=== PATIENT | male | born 1960 | race Caucasian/White ===

== ENCOUNTER 2018-01-08 09:55 | Emergency (ER) | payer BC, OTHER ==
[~2018-01-08] VITALS: Ht 177.8 cm; Wt 131.0 kg
[~2018-01-08 09:55] MED LIST: LEVO.025 PO; LISI-360 PO; LITH300 PO; QUET100 PO; lithium
[2018-01-08 09:59] VITALS: BP 195/100; PULSE 69; RESP 22; TEMP 98.1; O2SAT 98
[2018-01-08] MEDS ORDERED: LITH600C PO (10:07)
[2018-01-08] MEDS ORDERED: blood pressure P-ARTICULR (10:07)
[2018-01-08] MEDS ORDERED: QUET1TAB8 PO (10:07)
[2018-01-08] MEDS ORDERED: ARIP2 PO (10:07)
--- NOTE | 2018-01-08 10:30 | PD ---
HPI Chief Complaint: Depression Time Seen by Provider: 10:01 Travel History International Travel<30 days: No Contact w/Intl Traveler<30days: No Traveled to known affect area: No History of Present Illness HPI Is a 57-year-old man who presents to the emergency department referred by his primary physician for psychiatric evaluation for insomnia and not sleeping. States she has had some increasing depression and has not been able to sleep for the past 4 days or so. He has had similar problems in the past. He has a history of bipolar depression by his chart. He is on Klonopin Seroquel Abilify regularly. He was followed by Dr. Urbina with psychiatry, is now seen primarily at [facility]. States he last saw him a month or so ago. He endorses some increasing depression but denies any suicidality or homicidality. No recent illness or injury. No other complaints. He sees Dr. Cadet, his primary physician, referred him to the emergency department. History Past Medical History Medical History: Denies Significant Hx Influenza Vaccination: No Social History Alcohol Use: No Tobacco Use: No Allergies-Medications (Allergen,Severity, Reaction): Coded Allergies: No Known Allergies (Unverified Adverse Reaction, Unknown, 01/08/18) Reported Meds & Prescriptions Reported Meds & Active Scripts Active Reported Abilify (Aripiprazole) 2 Mg Tab Unknown Dose PO DAILY [place] Carbonate 600 Mg Cap 600 Mg PO TID Quetiapine (Quetiapine Fumarate) 100 Mg Tab 100 Mg PO HS [blood pressure] Unknown Dose P-ARTICULR DAILY Review of Systems Except as stated in HPI: all other systems reviewed are Neg Physical Exam Narrative GENERAL: Well-appearing 57-year-old man, very flat affect, little bit bizarre but pleasant. SKIN: Focused skin assessment warm/dry. HEAD: Atraumatic. Normocephalic. EYES: Pupils equal and round. No scleral icterus. No injection or drainage. ENT: No nasal bleeding or discharge. Mucous membranes pink and moist. NECK: Trachea midline. No JVD. CARDIOVASCULAR: Regular rate and rhythm. No murmur appreciated. RESPIRATORY: No accessory muscle use. Clear to auscultation. Breath sounds equal bilaterally. GASTROINTESTINAL: Abdomen soft, non-tender, nondistended. Hepatic and splenic margins not palpable. MUSCULOSKELETAL: No obvious deformities. No clubbing. No cyanosis. No edema. NEUROLOGICAL: Awake and alert. No obvious cranial nerve deficits. Motor grossly within normal limits. Normal speech. PSYCHIATRIC: Flat affect, poor eye contact, a little bit of a bizarre demeanor. Does not appear to be responding to internal stimuli. A little bit slow in most of his mannerisms. Denies SI or HI. Data Data Last Documented VS Vital Signs Date Time Temp Pulse Resp B/P (MAP) Pulse Ox O2 Delivery O2 Flow Rate FiO2 01/08/18 09:59 98.1 69 22 195/100 (131) 98 Orders Orders Complete Blood Count With Diff (01/08/18 10:19) Comprehensive Metabolic Panel (01/08/18 10:19) Thyroid Stimulating Hormone (01/08/18 10:19) Psych Screen (01/08/18 10:19) Drug Screen, Random Urine (01/08/18 10:19) Labs Laboratory Tests Test 01/08/18 10:25 White Blood Count 9.4 TH/MM3 Red Blood Count 4.96 MIL/MM3 Hemoglobin 15.3 GM/DL Hematocrit 44.3 % Mean Corpuscular Volume 89.3 FL Mean Corpuscular Hemoglobin 30.8 PG Mean Corpuscular Hemoglobin Concent 34.5 % Red Cell Distribution Width 14.1 % Platelet Count 407 TH/MM3 Mean Platelet Volume 7.8 FL Neutrophils (%) (Auto) 70.1 % Lymphocytes (%) (Auto) 17.6 % Monocytes (%) (Auto) 8.8 % Eosinophils (%) (Auto) 2.2 % Basophils (%) (Auto) 1.3 % Neutrophils # (Auto) 6.6 TH/MM3 Lymphocytes # (Auto) 1.7 TH/MM3 Monocytes # (Auto) 0.8 TH/MM3 Eosinophils # (Auto) 0.2 TH/MM3 Basophils # (Auto) 0.1 TH/MM3 CBC Comment DIFF FINAL Differential Comment Blood Urea Nitrogen 6 MG/DL Creatinine 1.11 MG/DL Random Glucose 127 MG/DL Total Protein 7.7 GM/DL Albumin 4.4 GM/DL Calcium Level 9.2 MG/DL Alkaline Phosphatase 61 U/L Aspartate Amino Transf (AST/SGOT) 22 U/L Alanine Aminotransferase (ALT/SGPT) 36 U/L Total Bilirubin 0.6 MG/DL Sodium Level 136 MEQ/L Potassium Level 3.9 MEQ/L Chloride Level 104 MEQ/L Carbon Dioxide Level 21.6 MEQ/L Anion Gap 10 MEQ/L Estimat Glomerular Filtration Rate 68 ML/MIN Thyroid Stimulating Hormone 3rd Gen 1.780 uIU/ML [facility] Medical Decision Making Medical Screen Exam Complete: Yes Emergency Medical Condition: Yes Interpretation(s) Labs: CBC is unremarkable. CMP is unremarkable. TSH normal. Differential Diagnosis Bipolar depression, insomnia, adverse medication effect, other Narrative Course Medical decision making 57-year-old man with increasing depression symptoms with insomnia. Very blunted restricted affect, denies SI or HI. Will plan psych screen, reassess. Diagnosis Primary Impression: Bipolar disorder Timo Nguyễn MD Jan 08, 2018 10:30
[2018-01-08 10:35] LABS: AUTOMATED NEUTROPHIL # 6.6 TH/MM3 (1.8-7.7); BASOPHIL # 0.1 TH/MM3 (0-0.2); BASOPHIL % 1.3 % (0.0-2.0); EOSINOPHIL # 0.2 TH/MM3 (0-0.4); EOSINOPHIL % 2.2 % (0.0-4.0); HEMATOCRIT 44.3 % (39.0-51.0); HEMOGLOBIN 15.3 GM/DL (13.0-17.0); LYMPH % 17.6 % (9.0-44.0); LYMPHOCYTE # 1.7 TH/MM3 (1.0-4.8); MEAN CELL VOLUME 89.3 FL (80.0-100.0); MEAN CORPUSCULAR HEMOGLOBIN 30.8 PG (27.0-34.0); MEAN CORPUSCULAR HGB CONC 34.5 % (32.0-36.0); MEAN PLATELET VOLUME 7.8 FL (7.0-11.0); MONO % 8.8 % (0.0-8.0); MONOCYTE # 0.8 TH/MM3 (0-0.9); NEUT % 70.1 % (16.0-70.0); PLATELET COUNT 407 TH/MM3 (150-450); RED BLOOD COUNT 4.96 MIL/MM3 (4.50-5.90); RED CELL DISTRIBUTION WIDTH 14.1 % (11.6-17.2); WHITE BLOOD COUNT 9.4 TH/MM3 (4.0-11.0)
[2018-01-08 10:55] LABS: ALBUMIN 4.4 GM/DL (3.4-5.0); ALT (GPT) 36 U/L (12-78); AST (GOT) 22 U/L (15-37); BICARBONATE 21.6 MEQ/L (21.0-32.0); BLOOD UREA NITROGEN 6 MG/DL (7-18); CALCIUM 9.2 MG/DL (8.5-10.1); CHLORIDE 104 MEQ/L (98-107); CREATININE 1.11 MG/DL (0.60-1.30); GLOMERULAR FILTRATION RATE 68 ML/MIN (>89); GLUCOSE,RANDOM 127 MG/DL (74-106); SODIUM (NA) 136 MEQ/L (136-145)
[2018-01-08 11:05] LABS: ALKALINE PHOSPHATASE 61 U/L (45-117); TOTAL BILIRUBIN ADULT 0.6 MG/DL (0.2-1.0); TOTAL PROTEIN 7.7 GM/DL (6.4-8.2)
== END 2018-01-08 13:36 | disposition home or self-care (01) ==
LOC: NEPD 09:55 → NEPJ 13:36
DX: F31.9 Bipolar disorder, unspecified (principal); G47.00 Insomnia, unspecified
CPT/HCPCS: 80053; 84443; 85025; 99283

== ENCOUNTER 2018-01-09 16:17 | Inpatient (IN) | payer SELFPAY ==
[~2018-01-09] VITALS: Ht 177.8 cm; Wt 114.0 kg
[~2018-01-09 16:17] MED LIST changes: +ARIP2 PO; -LEVO.025 PO; -LISI-360 PO; -LITH300 PO; +LITH600C PO; -QUET100 PO; +QUET1TAB8 PO; +blood pressure P-ARTICULR; -lithium
[2018-01-09 16:46] VITALS: BP 176/110; PULSE 97; RESP 18; TEMP 98.8; O2SAT 97
[2018-01-09] MEDS ORDERED: cloNIDine HCL 0.1 MG TAB PO ONE (17:00)
--- NOTE | 2018-01-09 17:03 | PD ---
HPI Chief Complaint: Psychiatric Symptoms Time Seen by Provider: 16:46 Travel History International Travel<30 days: No Contact w/Intl Traveler<30days: No Traveled to known affect area: No History of Present Illness HPI 57-year-old male that presents to the ED for evaluation of Charlie act. Patient was Guerra acted by police after apparently he told police that he was going to take his medications and overdose. He has a history of depression and insomnia. Patient was actually here yesterday for similar. Patient was released yesterday. Per patient his symptoms continue. He does take medications for his depression but he states that he does not take it because it causes some side effects. She follows with [facility]. The note from previous provider yesterday. He denies any other medical issues. He states that he has some difficulty ambulating which is chronic for him. He also has a history of hypertension has not taken his blood pressure medications today. Denies any chest pain or shortness of breath. No urinary bowel movement issues. No other medical issues at this time. Symptoms have not improved which is per prompted him calling the police to seek help. PFSH Past Medical History Autoimmune Disease: No Bipolar Disorder: Yes Anxiety: Yes Depression: Yes Diminished Hearing: No Endocrine: No Genitourinary: No Hypertension: Yes Immune Disorder: No Psychiatric: Yes Reproductive: No Respiratory: No Thyroid Disease: Yes Past Surgical History Tonsillectomy: Yes Social History Alcohol Use: No Tobacco Use: No Substance Use: No Allergies-Medications (Allergen,Severity, Reaction): Coded Allergies: No Known Allergies (Unverified Adverse Reaction, Unknown, 01/09/18) Reported Meds & Prescriptions Reported Meds & Active Scripts Active Reported Abilify (Aripiprazole) 2 Mg Tab Unknown Dose PO DAILY [place] Carbonate 600 Mg Cap 600 Mg PO TID Quetiapine (Quetiapine Fumarate) 100 Mg Tab 100 Mg PO HS [blood pressure] Unknown Dose P-ARTICULR DAILY Review of Systems Except as stated in HPI: all other systems reviewed are Neg Physical Exam Narrative GENERAL: SKIN: Warm and dry. HEAD: Atraumatic. Normocephalic. EYES: Pupils equal and round. No scleral icterus. No injection or drainage. ENT: No nasal bleeding or discharge. Mucous membranes pink and moist. Tongue is midline. No uvula deviation. NECK: Trachea midline. No JVD. CARDIOVASCULAR: Regular rate and rhythm. No murmurs, S3, S4. RESPIRATORY: No accessory muscle use. Clear to auscultation. Breath sounds equal bilaterally. GASTROINTESTINAL: Abdomen soft, non-tender, nondistended. Hepatic and splenic margins not palpable. MUSCULOSKELETAL: Extremities without clubbing, cyanosis, or edema. No obvious deformities. Full range of motion of the upper and lower extremities bilaterally. 2+ pulses bilaterally. NEUROLOGICAL: Awake and alert. No obvious cranial nerve deficits. Motor grossly within normal limits. Five out of 5 muscle strength in the arms and legs. Normal speech. PSYCHIATRIC: Appropriate mood and affect; insight and judgment normal. Data Data Last Documented VS Vital Signs Date Time Temp Pulse Resp B/P (MAP) Pulse Ox O2 Delivery O2 Flow Rate FiO2 01/09/18 16:46 98.8 97 18 176/110 (132) 97 Orders Orders Complete Blood Count With Diff (01/09/18 16:46) Comprehensive Metabolic Panel (01/09/18 16:46) Thyroid Stimulating Hormone (01/09/18 16:46) Psych Screen (01/09/18 16:46) Drug Screen, Random Urine (01/09/18 16:46) Alcohol (Ethanol) (01/09/18 16:46) Salicylates (Aspirin) (01/09/18 16:46) Tylenol (Acetaminophen) (01/09/18 16:46) Clonidine (Catapres) (01/09/18 17:00) Labs Laboratory Tests Test 01/09/18 16:35 White Blood Count 11.3 TH/MM3 Red Blood Count 5.29 MIL/MM3 Hemoglobin 16.1 GM/DL Hematocrit 47.9 % Mean Corpuscular Volume 90.6 FL Mean Corpuscular Hemoglobin 30.5 PG Mean Corpuscular Hemoglobin Concent 33.7 % Red Cell Distribution Width 14.5 % Platelet Count 438 TH/MM3 Mean Platelet Volume 8.5 FL Neutrophils (%) (Auto) 69.7 % Lymphocytes (%) (Auto) 17.1 % Monocytes (%) (Auto) 10.0 % Eosinophils (%) (Auto) 1.9 % Basophils (%) (Auto) 1.3 % Neutrophils # (Auto) 7.9 TH/MM3 Lymphocytes # (Auto) 1.9 TH/MM3 Monocytes # (Auto) 1.1 TH/MM3 Eosinophils # (Auto) 0.2 TH/MM3 Basophils # (Auto) 0.1 TH/MM3 CBC Comment DIFF FINAL Differential Comment Blood Urea Nitrogen 6 MG/DL Creatinine 1.24 MG/DL Random Glucose 118 MG/DL Albumin 4.8 GM/DL Calcium Level 9.3 MG/DL Aspartate Amino Transf (AST/SGOT) 23 U/L Alanine Aminotransferase (ALT/SGPT) 42 U/L Sodium Level 133 MEQ/L Potassium Level 3.6 MEQ/L Chloride Level 102 MEQ/L Carbon Dioxide Level 18.3 MEQ/L Anion Gap 13 MEQ/L Estimat Glomerular Filtration Rate 60 ML/MIN Salicylates Level 3.3 MG/DL Ethyl Alcohol Level LESS THAN 3 MG/DL MDM Medical Decision Making Medical Screen Exam Complete: Yes Emergency Medical Condition: Yes Medical Record Reviewed: Yes Differential Diagnosis Depression versus suicidal ideation versus anxiety versus adjustment disorder versus mood disorder versus bipolar disorder versus schizophrenia versus paranoid disorder versus psychosis versus substance abuse versus alcohol abuse versus alcohol induced psychosis versus homicidality addition versus cutting versus personality disorder Narrative Course 57-year-old male that presents to the ED for evaluation of psychiatric illness. Patient was properly examined and was found to have signs and symptoms consistent with appears to be psychiatric. No significant medical distress. Labs were drawn. Patient was medically clear. Okay to be seen by psych. patient given dose of clonidine for his BP. Mental health screening was discussed with the patient. Diagnosis Primary Impression: Bipolar disorder, most recent episode manic Sam Nina Jan 09, 2018 17:03
[2018-01-09 17:17] LABS: AUTOMATED NEUTROPHIL # 7.9 TH/MM3 (1.8-7.7); BASOPHIL # 0.1 TH/MM3 (0-0.2); BASOPHIL % 1.3 % (0.0-2.0); EOSINOPHIL # 0.2 TH/MM3 (0-0.4); EOSINOPHIL % 1.9 % (0.0-4.0); HEMATOCRIT 47.9 % (39.0-51.0); HEMOGLOBIN 16.1 GM/DL (13.0-17.0); LYMPH % 17.1 % (9.0-44.0); LYMPHOCYTE # 1.9 TH/MM3 (1.0-4.8); MEAN CELL VOLUME 90.6 FL (80.0-100.0); MEAN CORPUSCULAR HEMOGLOBIN 30.5 PG (27.0-34.0); MEAN CORPUSCULAR HGB CONC 33.7 % (32.0-36.0); MEAN PLATELET VOLUME 8.5 FL (7.0-11.0); MONOCYTE # 1.1 TH/MM3 (0-0.9); NEUT % 69.7 % (16.0-70.0); PLATELET COUNT 438 TH/MM3 (150-450); RED BLOOD COUNT 5.29 MIL/MM3 (4.50-5.90); RED CELL DISTRIBUTION WIDTH 14.5 % (11.6-17.2); WHITE BLOOD COUNT 11.3 TH/MM3 (4.0-11.0)
[2018-01-09 17:32] LABS: ALBUMIN 4.8 GM/DL (3.4-5.0); ALT (GPT) 42 U/L (12-78); AST (GOT) 23 U/L (15-37); BICARBONATE 18.3 MEQ/L (21.0-32.0); BLOOD UREA NITROGEN 6 MG/DL (7-18); CALCIUM 9.3 MG/DL (8.5-10.1); CHLORIDE 102 MEQ/L (98-107); CREATININE 1.24 MG/DL (0.60-1.30); GLOMERULAR FILTRATION RATE 60 ML/MIN (>89); GLUCOSE,RANDOM 118 MG/DL (74-106); SODIUM (NA) 133 MEQ/L (136-145)
[2018-01-09 17:42] LABS: ALKALINE PHOSPHATASE 68 U/L (45-117); TOTAL BILIRUBIN ADULT 0.7 MG/DL (0.2-1.0); TOTAL PROTEIN 8.5 GM/DL (6.4-8.2)
[2018-01-09 17:59] LABS: ACETAMINOPHEN LESS THAN 2.0 MCG/ML (10.0-30.0)
[2018-01-09 18:47] VITALS: BP 161/91; PULSE 68; RESP 18; TEMP 97.5; O2SAT 98
[2018-01-09 20:17] VITALS: BP 166/81; PULSE 77; RESP 18; TEMP 99.1; O2SAT 97
[2018-01-09 21:55] VITALS: BP 170/77; PULSE 65; RESP 18; TEMP 98.5; O2SAT 96
[2018-01-10 02:30] VITALS: BP 195/95; PULSE 64; RESP 18; TEMP 98.6; O2SAT 98
[2018-01-10] MEDS ORDERED: cloNIDine HCL 0.1 MG TAB PO ONE (02:45)
[2018-01-10 04:26] VITALS: BP 136/69; PULSE 55; RESP 18; TEMP 98.6; O2SAT 94
[2018-01-10 06:23] VITALS: BP 164/78; PULSE 55; RESP 18; TEMP 98.3; O2SAT 96
[2018-01-10 13:00] VITALS: BP 175/113; PULSE 73; RESP 18; TEMP 98.1
[2018-01-10] MEDS ORDERED: NICOTINE 21 MG/24 HR PATCH T-DERMAL SCH (14:00)
[2018-01-10] MEDS ORDERED: ACETAMINOPHEN 325 MG TAB PO PRN (14:00)
[2018-01-10] MEDS ORDERED: MAGNESIUM HYDROXIDE SUSP 30 ML CUP PO PRN (14:00)
[2018-01-10] MEDS ORDERED: LORazepam 1 MG TAB PO PRN (14:00)
[2018-01-10] MEDS ORDERED: ALUMINUM/MAGNESIUM/SIMETH 30 ML CUP PO PRN (14:00)
[2018-01-10] MEDS ORDERED: LORazepam 0.5 MG TAB PO PRN (14:00)
[2018-01-10] MEDS ORDERED: LORazepam 2 MG/ML VIAL IM PRN ×2 (14:00)
--- NOTE | 2018-01-10 14:16 | HHI.HP ---
Provisional Diagnosis Admission Date Mcintire I. Bipolar disorder type I, most current episode manic Mcintire II. Deferred Mcintire III. Hypertension Certification of Person's Competence To Provide Express and Informed Consent I have personally examined Joe Serna , a person being served at [facility] on, Jan 10, 2018 14:02. Express and informed consent means consent voluntarily given in writing, by a competent person, after sufficient explanation and disclosure of the subject matter involved to enable the person to make a knowing and willful decision without any element of force, fraud, deceit, duress, or other form of constraint or coercion. This person is 18 years of age or older, is not now known to be incompetent to consent to treatment with a guardian advocate, and does not have a health care surrogate or proxy currently making medical treatment decisions. I have found this person to be one of the following: [] Competent to provide express and informed consent, as defined above, for voluntary admission to this facility and is competent to provide express and informed consent for treatment. He/she has the consistent capacity to make well reasoned, willful, and knowing decisions concerning his or her medical or mental health treatment. The person fully and consistently understands the purpose of the admission for examination/placement and is fully capable of personally exercising all rights [place] Incompetent to provide express and informed consent to voluntary admission, and this is incompetent to provide express and informed consent to treatment. The person must be transferred to involuntary status and a petition for a guardian advocate filed with the Circuit Court. [x] Refusing to provide express and informed consent to voluntary admission but is competent to provide express and informed consent for treatment. The person must be discharged or transferred to involuntary status. Form shall be completed within 24 hours of a person's arrival at the receiving facility and filed in the clinical record of each person: 1. Admitted on a voluntary basis 2. Permitted to provide express and informed consent to his/her own treatment 3. Allowed to transfer from involuntary to voluntary status 4. Prior to permitting a person to consent to his or her own treatment after having been previously found incompetent to consent to treatment. History of Present Illness Capacity: Has Capacity HPI The patient is a 57-year-old man, domiciled in [facility], single, father of 3 kids, unemployed, with psychiatric history of bipolar disorder, 2 previous psychiatric hospitalizations, the last hospitalization was in 2016 here at [facility] under the care of Dr. Denton, documentation was reviewed , established outpatient care in [facility], he is on lithium 600 mg twice daily, Abilify 2 mg, Seroquel 100 mg at bedtime, nickel history hypertension, who presents to the ED for evaluation of Guerra act. Patient was Guerra acted by police after apparently he told police that he was going to take his medications and overdose. He has a history of depression and insomnia. Patient was actually here yesterday for similar, he was discharged. Per patient his symptoms continue. Documentation was reviewed. Case discussed with ER staff. On my psychiatric evaluation I find a patient that is internally preoccupied, he states that he has not slept 1 single minutes last night, he has not been sleeping lately. Patient reports that he has been feeling "wear, because I am not taking my medications". The patient has moments of complete disorganization and tangentiality, he is redirectable.. He is guarded, oddly related. He says that yesterday he was feeling like overdosing with all his medications. The patient is fully oriented 3, no attention deficit, no fluctuation of consciousness. He does not have a prominent pressure speech, but at times he does become tangential and disorganized, with rapid speech. He denies the use of drugs of and alcohol. Review of Systems Constitutional: DENIES: Diaphoretic episodes, Fatigue, Fever, Weight gain, Weight loss, Chills, Dizziness, Change in appetite, Night Sweats Endocrine: DENIES: Heat/cold intolerance, Polydipsia, Polyuria, Polyphagia Eyes: DENIES: Blurred vision, Diplopia, Eye inflammation, Eye pain, Vision loss , Photosensitivity, Double Vision Ears, nose, mouth, throat: DENIES: Tinnitus, Hearing loss, Vertigo, Nasal discharge, Oral lesions, Throat pain, Hoarseness, Ear Pain, Running Nose, Epistaxis, Sinus Pain, Toothache, Odynophagia Respiratory: DENIES: Apneas, Cough, Snoring, Wheezing, Hemoptysis, Sputum production, Shortness of breath Cardiovascular: DENIES: Chest pain, Palpitations, Syncope, Dyspnea on Exertion , PND, Lower Extremity Edema, Orthopnea, Claudication Gastrointestinal: DENIES: Abdominal pain, Black stools, Bloody stools, Constipation, Diarrhea, Nausea, Vomiting, Difficulty Swallowing, Anorexia Genitourinary: DENIES: Sexual dysfunction, Urinary frequency, Urinary incontinence, Urgency, Hematuria, Dysuria, Nocturia, Penile Discharge, Testicular Pain, Testicular Swelling Musculoskeletal: DENIES: Joint pain, Muscle aches, Stiffness, Joint Swelling, Back pain, Neck pain Hematologic/lymphatic: DENIES: Bruising, Lymphadenopathy Immunologic/allergic: DENIES: Eczema, Urticaria Neurologic: DENIES: Abnormal gait, Headache, Localized weakness, Paresthesias, Seizures, Speech Problems, Tremor, Poor Balance Psychiatric: COMPLAINS OF: Mood changes, Delusions Substance Abuse History Drugs/Alcohol past 12 months He denies the use of alcohol and illegal drug Past Family Social History Coded Allergies: No Known Allergies (Unverified Adverse Reaction, Unknown, 01/09/18) Reported Medications Aripiprazole (Abilify) 2 Mg Tab, PO DAILY, #30 TAB 0 Refills 01/08/18 [place] Carbonate ([place] Carbonate) 600 Mg Cap, 600 MG PO TID, CAP 0 Refills 01/08/18 Quetiapine (Quetiapine) 100 Mg Tab, 100 MG PO HS, #30 TAB 0 Refills 01/08/18 [blood pressure] No Conflict Check, P-ARTICULR DAILY 01/08/18 Current Medications Medications (Trade) Dose Ordered Sig/Ty Route Start Time Stop Time Status Last Admin ([place] Carbonate) 600 mg TID PO 01/10/18 18:00 UNV (SEROquel) 100 mg HS PO 01/10/18 21:00 UNV (Ativan) 1 mg Q6H PRN PO 01/10/18 14:00 UNV (Ativan Inj) 1 mg Q6H PRN IM 01/10/18 14:00 UNV (Ativan) 0.5 mg Q12H PRN PO 01/10/18 14:00 UNV (Ativan Inj) 0.5 mg Q12H PRN IM 01/10/18 14:00 UNV (Tylenol) 650 mg Q4H PRN PO 01/10/18 14:00 UNV (Milk Of Magnesia Liq) 30 ml DAILY PRN PO 01/10/18 14:00 UNV (Mag-Al Plus Susp Liq) 30 ml Q6H PRN PO 01/10/18 14:00 UNV (Habitrol 21 Mg Patch.24 Hr) 1 patch DAILY T-DERMAL 01/10/18 14:00 UNV Family Psych History No family psychiatric history Social History Patient was born and raised in [facility], he lives in [facility], single, father of 3 kids, unemployed, highest level of the patient is some college Patient's Strengths (min. 2) Outpatient psychiatric care in [facility] Physical Exam No tremors, no EPS, no restlessness, no psychomotor agitation or retardation. Vital Signs Vital Signs Date Time Temp Pulse Resp B/P (MAP) Pulse Ox O2 Delivery O2 Flow Rate FiO2 01/10/18 06:23 98.3 55 18 164/78 (106) 96 Room Air Lab Results Test 01/09/18 16:35 01/09/18 19:22 01/10/18 02:35 White Blood Count 11.3 TH/MM3 Red Blood Count 5.29 MIL/MM3 Hemoglobin 16.1 GM/DL Hematocrit 47.9 % Mean Corpuscular Volume 90.6 FL Mean Corpuscular Hemoglobin 30.5 PG Mean Corpuscular Hemoglobin Concent 33.7 % Red Cell Distribution Width 14.5 % Platelet Count 438 TH/MM3 Mean Platelet Volume 8.5 FL Neutrophils (%) (Auto) 69.7 % Lymphocytes (%) (Auto) 17.1 % Monocytes (%) (Auto) 10.0 % Eosinophils (%) (Auto) 1.9 % Basophils (%) (Auto) 1.3 % Neutrophils # (Auto) 7.9 TH/MM3 Lymphocytes # (Auto) 1.9 TH/MM3 Monocytes # (Auto) 1.1 TH/MM3 Eosinophils # (Auto) 0.2 TH/MM3 Basophils # (Auto) 0.1 TH/MM3 CBC Comment DIFF FINAL Differential Comment Blood Urea Nitrogen 6 MG/DL Creatinine 1.24 MG/DL Random Glucose 118 MG/DL Total Protein 8.5 GM/DL Albumin 4.8 GM/DL Calcium Level 9.3 MG/DL Alkaline Phosphatase 68 U/L Aspartate Amino Transf (AST/SGOT) 23 U/L Alanine Aminotransferase (ALT/SGPT) 42 U/L Total Bilirubin 0.7 MG/DL Sodium Level 133 MEQ/L Potassium Level 3.6 MEQ/L Chloride Level 102 MEQ/L Carbon Dioxide Level 18.3 MEQ/L Anion Gap 13 MEQ/L Estimat Glomerular Filtration Rate 60 ML/MIN Thyroid Stimulating Hormone 3rd Gen 2.440 uIU/ML Salicylates Level 3.3 MG/DL Acetaminophen Level LESS THAN 2.0 MCG/ML Ethyl Alcohol Level LESS THAN 3 MG/DL Urine Opiates Screen NEG Urine Barbiturates Screen NEG Urine Amphetamines Screen NEG Urine Benzodiazepines Screen NEG Urine Cocaine Screen NEG Urine Cannabinoids Screen NEG [place] Level 0.3 MEQ/L Mental Status Examination Appearance: Appropriate Consciousness: Alert Orientation: x4 Motor Activity: Normal gait Speech: Rapid Language: Adequate Fund of Knowledge: Adequate Attention and Concentration: Adequate Memory: Unremarkable Mood: Appropriate Affect: Appropriate Thought Process & Associations: Disorganized Thought Content: Racing thoughts Hallucination Type: None Delusion Type: Paranoid Suicidal Ideation: Yes Suicidal Plan: No Suicidal Intention: No Homicidal Ideation: No Homicidal Plan: No Homicidal Intention: No Insight: Poor Judgment: Poor Assessment & Plan Problem List: (1) Bipolar disorder, most recent episode manic ICD Codes: F31.10 - Bipolar disorder, current episode manic without psychotic features, unspecified Status: Acute Assessment & Plan: On psychiatric evaluation today the patient exhibits symptoms of hanane and also suicidal ideation with a plan of overdosing. The patient reports that he has not been sleeping for the last 3 days, at the same time he has rapidly and disorganized speech, tangential thinking, bizarre behavior. There is a patient with bipolar disorder, 2 prepsychotic hospitalizations, he reports partial compliance of medications. His lithium level was 0.3. He needs psychiatric admission for stabilization and safety. I will restart lithium 600 mg twice daily, Seroquel 100 mg at bedtime. Transferred to 2600 unit will consult psychiatry for second opinion. Assessment & Plan Estimated LOS: Moris Graves MD Jan 10, 2018 14:16
[2018-01-10] MEDS: LITHIUM CARBONATE 300 MG CAP PO SCH (18:12)
[2018-01-10] MEDS ORDERED: QUEtiapine FUMARATE 100 MG TAB PO SCH (21:00)
[2018-01-11 06:05] VITALS: BP 180/92; PULSE 72; RESP 16; TEMP 98.2; O2SAT 95
[2018-01-11 07:25] VITALS: BP 172/110; PULSE 82
[2018-01-11] MEDS ORDERED: cloNIDine HCL 0.1 MG TAB PO ONE (08:00)
[2018-01-11] MEDS: LITHIUM CARBONATE 300 MG CAP PO SCH ×3 (08:12→17:57)
[2018-01-11 09:36] VITALS: BP 135/93; PULSE 86
[2018-01-11 11:18] LABS: BICARBONATE 22.8 MEQ/L (21.0-32.0); BLOOD UREA NITROGEN 10 MG/DL (7-18); CALCIUM 9.8 MG/DL (8.5-10.1); CHLORIDE 104 MEQ/L (98-107); GLOMERULAR FILTRATION RATE 62 ML/MIN (>89); GLUCOSE,RANDOM 94 MG/DL (74-106); SODIUM (NA) 136 MEQ/L (136-145)
[2018-01-11 11:20] LABS: CHOLESTEROL 137 MG/DL (120-200); CHOLESTEROL/ HDL RATIO 2.12 RATIO; HDL CHOLESTEROL 64.4 MG/DL (40.0-60.0); LDL CHOLESTEROL 55 MG/DL (0-99); TRIGLYCERIDES 89 MG/DL (42-150)
[2018-01-11] MEDS ORDERED: cloNIDine HCL 0.1 MG TAB PO PRN (12:00)
--- NOTE | 2018-01-11 13:32 | PD.CONS ---
[facility] Service [facility] Requested By Reason for Consult BP management Primary Care Physician No Primary Care Physician Diagnoses: History of Present Illness 57-year-old male with PMH of HTN, bipolar disorder, and alcohol abuse who presents to the ER 01/09 after being Guerra acted by PD after making statements of wanting to kill himself by taking medications. [facility] has been consulted to assist with management of patients HTN. Nurse reports that patient received clonidine with some improvement on BP. Nurse has also notice patient to be anxious and internally preoccupied. Patient is seen and examined in his room resting in bed in no acute distress. He repots that he was on clonidine for his BP which his psychiatrist prescribed. He also reports that he was seen at [place] about 6 months ago for problems with his liver. He denies any know history of hepatitis and tells me that in the end nothing was found. He does report to being a heavy alcohol drinker, is unable to tell me specifics but reports a bottle. He states that his las alcohol drink was about one month ago. He denies any fevers, chills, N/V/D, headache, SOB, cough, chest pain, abdominal pain, or constipation. He reports that at home he was getting worried because he was noticing that he was talking to himself in second person. He voices no other acute concerns at this time. Review of Systems Except as stated in HPI: all other systems reviewed are Neg Past Family Social History Allergies: Coded Allergies: No Known Allergies (Unverified Adverse Reaction, Unknown, 01/09/18) Past Medical History Hypertension Bipolar disorder Anxiety Depression Past Surgical History Tonsillectomy Reported Medications Reported Meds & Active Scripts Active Reported Abilify (Aripiprazole) 2 Mg Tab Unknown Dose PO DAILY [place] Carbonate 600 Mg Cap 600 Mg PO TID Quetiapine (Quetiapine Fumarate) 100 Mg Tab 100 Mg PO HS [blood pressure] Unknown Dose P-ARTICULR DAILY Active Ordered Medications Current Medications Medications (Trade) Dose Ordered Sig/Ty Route Start Time Stop Time Status Last Admin ([place] Carbonate) 600 mg TID PO 01/10/18 18:00 01/11/18 08:12 (SEROquel) 100 mg HS PO 01/10/18 21:00 01/10/18 20:55 (Ativan) 1 mg Q6H PRN PO 01/10/18 14:00 01/11/18 07:28 (Ativan Inj) 1 mg Q6H PRN IM 01/10/18 14:00 (Tylenol) 650 mg Q4H PRN PO 01/10/18 14:00 (Milk Of Magnesia Liq) 30 ml DAILY PRN PO 01/10/18 14:00 (Mag-Al Plus Susp Liq) 30 ml Q6H PRN PO 01/10/18 14:00 (Norvasc) 5 mg DAILY PO 01/12/18 09:00 (Catapres) 0.1 mg Q6H PRN PO 01/11/18 12:00 (Corticaine 0.5% Cream) 1 applic Q12HR TOPICAL 01/11/18 21:00 (Romazicon Inj) 0.2 mg Q1M PRN IV PUSH 01/11/18 14:30 (Ativan) 1 mg Q4H PRN PO 01/11/18 14:30 (Ativan Inj) 1 mg Q4H PRN IV PUSH 01/11/18 14:30 (Ativan) 2 mg Q2H PRN PO 01/11/18 14:30 (Ativan Inj) 2 mg Q2H PRN IV PUSH 01/11/18 14:30 (Ativan Inj) 2 mg Q1H PRN IV PUSH 01/11/18 14:30 (Ativan Inj) 2 mg Q15M PRN IV PUSH 01/11/18 14:30 Family History Denies any past family history Social History Tobacco: Denies Alcohol: Reports he was a heavy drinker before, states last alcohol drink was one month ago. Illicit drug use: denies Physical Exam Vital Signs Vital Signs Date Time Temp Pulse Resp B/P (MAP) Pulse Ox O2 Delivery O2 Flow Rate FiO2 01/11/18 09:36 86 135/93 (107) 01/11/18 07:25 82 172/110 (130) 01/11/18 06:05 98.2 72 16 180/92 (121) 95 01/10/18 14:59 Physical Exam GENERAL: This is a well-nourished, well-developed patient, in no apparent distress. SKIN: No rashes or lesions. Cool and dry. Frontal erythema noted with skin flaking. HEAD: Atraumatic. Normocephalic. EYES: Pupils equal round and reactive. Extraocular motions intact. No scleral icterus. No injection or drainage. ENT: Nose without bleeding, purulent drainage. Throat without erythema. Uvula midline. Airway patent. NECK: Trachea midline. No JVD. Supple. CARDIOVASCULAR: Regular rate and rhythm without murmurs, gallops, or rubs. RESPIRATORY: Clear to auscultation. Breath sounds equal bilaterally. No wheezes , rales, or rhonchi. GASTROINTESTINAL: Abdomen soft, non-tender, nondistended. No palpable masses. No guarding. + bowel sounds in all quadrants. MUSCULOSKELETAL: Extremities without clubbing, cyanosis, or edema. No joint tenderness, effusion, or edema noted. No calf tenderness. NEUROLOGICAL: Awake and alert oriented x3. Cranial nerves II through XII intact. Motor and sensory grossly within normal limits. Five out of 5 muscle strength in all muscle groups. Normal speech. Mild fine hand tremors noted. Laboratory Laboratory Tests Test 01/11/18 10:12 Blood Urea Nitrogen 10 Creatinine 1.20 Random Glucose 94 Calcium Level 9.8 Sodium Level 136 Potassium Level 4.0 Chloride Level 104 Carbon Dioxide Level 22.8 Anion Gap 9 Estimat Glomerular Filtration Rate 62 Triglycerides Level 89 Cholesterol Level 137 LDL Cholesterol 55 HDL Cholesterol 64.4 Cholesterol/HDL Ratio 2.12 Result Diagram: 01/09/18 1635 01/11/18 1012 Assessment and Plan Assessment and Plan 57-year-old male with PMH of HTN, bipolar disorder, and alcohol abuse who presents to the ER 01/09 after being Guerra acted by PD after making statements of wanting to kill himself by taking medications. [facility] has been consulted to assist with management of patients HTN. Bipolar depression - Management per psych. on [place] Carbonate, Seroquel and PRN Ativan for anxiety - CBC with very mildly elevated WBC possibly stress related, BMP stable, TSH WNL Hypertension, chronic 176/110 on admission - Continue PRN clonidine -Start Amlodipine 5mg daily - Continue monitoring BP and adjusting medications as needed Hx ETOH abuse - Mild hand tremors noted, ? anxiety vs EtOH withdraw. Reports his last drink was one month ago - Seizure precautions, CIWA, thiamine, MVT, & folic acid Face erythema - topical hydrocortisone DVT prophylaxis-ambulation Thank you for this consultation, will continue to follow along. Discussed Condition With Patient and nurse. Murray Chapman Jan 11, 2018 13:32
[2018-01-11] MEDS ORDERED: FLUMAZENIL 0.5 MG/5 ML VIAL IV PUSH PRN (14:30)
[2018-01-11] MEDS ORDERED: LORazepam 2 MG TAB PO PRN (14:30)
[2018-01-11] MEDS ORDERED: LORazepam 2 MG/ML VIAL IV PUSH PRN ×4 (14:30)
--- NOTE | 2018-01-11 15:06 | HHI.PYPN ---
Subjective Remarks Patient initially seen by Dr. Syed's H&P reviewed and agreed with. I have reviewed the initial psychiatric template orders and finish them. Dr. Syed is done first opinion petition supporting Guerra act I agree. Patient meets criteria for involuntary psychiatric hospitalization of the Guerra act thus I will cosign second opinion petition supporting Guerra act patient seen and jarrett with nurse Ana, chart reviewed, patient complaint medications. Patient acknowledges continuing auditory hallucinations was somewhat intrusive manner was marked thought blocking noted. He also complains of minimal sleep over the past "16" days. He acknowledges being bipolar and noncompliant medications. Though he denies suicidality. [place] level drawn yesterday morning came back at 0.3 600 mg 3 times daily but only 3 doses have been given. We will recheck lithium blood level on 621. Will increase at bedtime Seroquel 200 mg. We will add Seroquel 50 mg at 9 AM and 4 PM Review of Systems Except as stated in HPI: all other systems reviewed are Neg Mental Status Examination Appearance: Appropriate Consciousness: Alert Orientation: x4 Motor Activity: Normal gait Speech: Rapid Language: Adequate Fund of Knowledge: Adequate Attention and Concentration: Adequate Memory: Unremarkable Mood: Appropriate Affect: Appropriate Thought Process & Associations: Disorganized Thought Content: Racing thoughts Hallucination Type: None Delusion Type: Paranoid Suicidal Ideation: Yes Suicidal Plan: No Suicidal Intention: No Homicidal Ideation: No Homicidal Plan: No Homicidal Intention: No Insight: Poor Judgment: Poor Results Labs Test 01/11/18 10:12 Blood Urea Nitrogen 10 MG/DL Creatinine 1.20 MG/DL Random Glucose 94 MG/DL Calcium Level 9.8 MG/DL Sodium Level 136 MEQ/L Potassium Level 4.0 MEQ/L Chloride Level 104 MEQ/L Carbon Dioxide Level 22.8 MEQ/L Anion Gap 9 MEQ/L Estimat Glomerular Filtration Rate 62 ML/MIN Triglycerides Level 89 MG/DL Cholesterol Level 137 MG/DL LDL Cholesterol 55 MG/DL HDL Cholesterol 64.4 MG/DL Cholesterol/HDL Ratio 2.12 RATIO Vitals/IOs Vital Signs Date Time Temp Pulse Resp B/P (MAP) Pulse Ox O2 Delivery O2 Flow Rate FiO2 01/11/18 09:36 86 135/93 (107) 01/11/18 06:05 98.2 16 95 01/10/18 06:23 Room Air Assessment & Plan Problem List: (1) Bipolar disorder, most recent episode manic ICD Codes: F31.10 - Bipolar disorder, current episode manic without psychotic features, unspecified Status: Acute Assessment & Plan Estimated LOS: days patient continues psychotic with racing thoughts and marked auditory hallucinations please see medication adjustment above Justification for Cont. Inpt. At this point patient would decompensate a place to the lower level of care Discharge Planning Probable return to his own apartment Kiko Ley MD Jan 11, 2018 15:06
[2018-01-11 16:22] LABS: HEMOGLOBIN A1C 4.9 % (4.3-6.0)
[2018-01-11] MEDS: QUEtiapine FUMARATE 25 MG TAB PO SCH (16:54)
[2018-01-11 18:25] VITALS: BP 145/89; PULSE 74; RESP 18; TEMP 98.3; O2SAT 97
[2018-01-11] MEDS: HYDROCORTISONE 0.5% CREAM 30 GM TOPICAL SCH (20:42)
[2018-01-11] MEDS ORDERED: QUEtiapine FUMARATE 100 MG TAB PO SCH (21:00)
[2018-01-12 05:55] VITALS: BP 176/105; PULSE 66; RESP 18; TEMP 98; O2SAT 97
[2018-01-12 08:21] VITALS: BP 154/94; PULSE 76
[2018-01-12] MEDS: MULTIVITAMINS/MINERALS THERAPEUTIC TAB PO SCH (08:51)
[2018-01-12] MEDS: LITHIUM CARBONATE 300 MG CAP PO SCH ×3 (08:51→17:13)
[2018-01-12] MEDS: FOLIC ACID 1 MG TAB PO SCH (08:51)
[2018-01-12] MEDS: THIAMINE HCL 100 MG TAB PO SCH (08:51)
[2018-01-12] MEDS: QUEtiapine FUMARATE 25 MG TAB PO SCH ×2 (08:51→17:13)
[2018-01-12] MEDS: LORazepam 1 MG TAB PO PRN ×2 (08:51→14:48)
[2018-01-12] MEDS: HYDROCORTISONE 0.5% CREAM 30 GM TOPICAL SCH ×2 (08:55→20:27)
[2018-01-12] MEDS ORDERED: amLODIPine BESYLATE 5 MG TAB PO SCH (09:00)
[2018-01-12 14:45] VITALS: BP 143/90; PULSE 68; RESP 16; TEMP 98.5; O2SAT 97
--- NOTE | 2018-01-12 15:32 | HHI.PYPN ---
Subjective Remarks Patient seen in his room with nurse Ana, chart reviewed, patient compliant medications. Patient complained of continued insomnia is a slept much in 12 days. Patient is a heavyset man with a fairly large abdomen I question if there may be some sleep apnea involved with this man. He does acknowledge that he snores. He denies ever having any type of the sleep study. For now though will increase his H his Seroquel to 400 mg since this will help with sleep encourage him to a sleep with the head of his bed elevated more than it is now Review of Systems Except as stated in HPI: all other systems reviewed are Neg Mental Status Examination Appearance: Appropriate Consciousness: Alert Orientation: x4 Motor Activity: Normal gait Speech: Rapid Language: Adequate Fund of Knowledge: Adequate Attention and Concentration: Adequate Memory: Unremarkable Mood: Appropriate Affect: Appropriate Thought Process & Associations: Disorganized Thought Content: Racing thoughts Hallucination Type: None Delusion Type: Paranoid Suicidal Ideation: Yes Suicidal Plan: No Suicidal Intention: No Homicidal Ideation: No Homicidal Plan: No Homicidal Intention: No Insight: Poor Judgment: Poor Results Vitals/IOs Vital Signs Date Time Temp Pulse Resp B/P (MAP) Pulse Ox O2 Delivery O2 Flow Rate FiO2 01/12/18 14:45 98.5 68 16 143/90 (107) 97 01/10/18 06:23 Room Air Intake and Output 01/12/18 01/12/18 01/13/18 08:00 16:00 00:00 Intake Total 120 ml Balance 120 ml Assessment & Plan Problem List: (1) Bipolar disorder, most recent episode manic ICD Codes: F31.10 - Bipolar disorder, current episode manic without psychotic features, unspecified Status: Acute Assessment & Plan Estimated LOS: days patient continues to complain of insomnia will adjust medications as mentioned above. There also may be a component of sleep apnea involved with his insomnia Justification for Cont. Inpt. This time patient would decompensate a place to a lower level of care Discharge Planning Return home Kiko Ley MD Jan 12, 2018 15:32
[2018-01-12 18:24] VITALS: BP 142/88; PULSE 77; RESP 17; TEMP 97.3; O2SAT 96
[2018-01-12] MEDS: QUEtiapine FUMARATE 200 MG TAB PO SCH (20:26)
[2018-01-13 05:51] VITALS: BP 155/91; PULSE 68; RESP 18; TEMP 98; O2SAT 94
[2018-01-13] MEDS: THIAMINE HCL 100 MG TAB PO SCH (08:17)
[2018-01-13] MEDS: HYDROCORTISONE 0.5% CREAM 30 GM TOPICAL SCH ×2 (08:18→21:00)
[2018-01-13] MEDS: LITHIUM CARBONATE 300 MG CAP PO SCH ×3 (08:18→17:41)
[2018-01-13] MEDS: MULTIVITAMINS/MINERALS THERAPEUTIC TAB PO SCH (08:18)
[2018-01-13] MEDS: QUEtiapine FUMARATE 25 MG TAB PO SCH ×2 (08:18→15:30)
[2018-01-13] MEDS: FOLIC ACID 1 MG TAB PO SCH (08:18)
--- NOTE | 2018-01-13 12:44 | HHI.PYPN ---
Subjective Remarks Patient seen in his room with floor staff, chart reviewed, patient compliant medication. Patient discussed with nurse. Patient laying in his bed with his head elevated somewhat. He states he slept well last night he thought was interrupted once or twice he did return to sleep without difficulty. He denies voices or visions denies suicidality. Patient scheduled for [place] [address] tomorrow at this time I feel patient does have capacity I will lift Guerar act allow him to sign voluntary Review of Systems Except as stated in HPI: all other systems reviewed are Neg Mental Status Examination Appearance: Appropriate Consciousness: Alert Orientation: x4 Motor Activity: Normal gait Speech: Rapid Language: Adequate Fund of Knowledge: Adequate Attention and Concentration: Adequate Memory: Unremarkable Mood: Appropriate Affect: Appropriate Thought Process & Associations: Disorganized Thought Content: Racing thoughts Hallucination Type: None Delusion Type: Paranoid Suicidal Ideation: Yes Suicidal Plan: No Suicidal Intention: No Homicidal Ideation: No Homicidal Plan: No Homicidal Intention: No Insight: Poor Judgment: Poor Results Vitals/IOs Vital Signs Date Time Temp Pulse Resp B/P (MAP) Pulse Ox O2 Delivery O2 Flow Rate FiO2 01/13/18 05:51 98.0 68 18 155/91 (112) 94 01/10/18 06:23 Room Air Assessment & Plan Problem List: (1) Bipolar disorder, most recent episode manic ICD Codes: F31.10 - Bipolar disorder, current episode manic without psychotic features, unspecified Status: Acute Assessment & Plan Estimated LOS: days patient, more appropriate says he slept well last night. He is compliant medications. At this time will lift Guerra act allow patient to sign voluntary Justification for Cont. Inpt. At this time patient would decompensate a place to the lower level of care Discharge Planning To be determined Kiko Ley MD Jan 13, 2018 12:44
--- NOTE | 2018-01-13 15:10 | HHI.PR ---
Subjective Remarks Follow-up visit for hypertension. Nursing staff reports no acute concerns today , patient reports sensation as if he is "walking on hard rocks". Patient is seen and examined in his room, ambulating in the jarrett without assistive devices. He denies any fevers, chills, nausea, vomiting, diarrhea, headaches, dizziness, lightheadedness, shortness of breath or chest pain. He reports scrubbing his forehead to remove dry skin. He denies any itching, or irritation. He denies any leg swelling or ankle swelling. Objective Vitals Vital Signs Date Time Temp Pulse Resp B/P (MAP) Pulse Ox O2 Delivery O2 Flow Rate FiO2 01/13/18 05:51 98.0 68 18 155/91 (112) 94 01/12/18 18:24 97.3 77 17 142/88 (106) 96 I/O 01/12/18 01/12/18 01/12/18 01/13/18 01/13/18 01/13/18 07:00 15:00 23:00 07:00 15:00 23:00 Intake Total 120 ml 360 ml Balance 120 ml 360 ml Intake Oral 120 ml 360 ml Result Diagram: 01/09/18 1635 01/11/18 1012 Objective Remarks GENERAL: This is a well-nourished, well-developed patient, in no apparent distress. SKIN: Cool and dry. Frontal erythema noted with skin flaking, unchanged. HEAD: Atraumatic. Normocephalic. EYES: Pupils equal round. No scleral icterus. No injection or drainage. ENT: Nose without bleeding, purulent drainage. Throat without erythema. Uvula midline. Airway patent. NECK: Trachea midline. No JVD. Supple. CARDIOVASCULAR: Regular rate and rhythm without murmurs, gallops, or rubs. RESPIRATORY: Clear to auscultation. Breath sounds equal bilaterally. No wheezes , rales, or rhonchi. GASTROINTESTINAL: Abdomen soft, non-tender, nondistended. + bowel sounds in all quadrants. MUSCULOSKELETAL: Extremities without clubbing, cyanosis, or edema. No joint tenderness, effusion, or edema noted. No calf tenderness. NEUROLOGICAL: Awake and alert oriented x3. Cranial nerves grossly intact. Motor and sensory grossly within normal limits. Five out of 5 muscle strength in all muscle groups. Normal speech. A/P Assessment and Plan 57-year-old male with PMH of HTN, bipolar disorder, and alcohol abuse who presents to the ER 01/09 after being Guerra acted by PD after making statements of wanting to kill himself by taking medications. [facility] has been consulted to assist with management of patients HTN. Bipolar depression - Management per psych. on [place] Carbonate, Seroquel and PRN Ativan for anxiety - CBC with very mildly elevated WBC possibly stress related, BMP stable, TSH WNL -Reports sensation of "walking on rocks", could possibly be related to addition of Seroquel Hypertension, chronic 176/110 on admission - Continue PRN clonidine -Start Amlodipine 5mg daily, BP continues to be mildly elevated, amlodipine increased to 10 mg daily - Continue monitoring BP and adjusting medications as needed Hx ETOH abuse - Mild hand tremors appear resolved, ? anxiety related - Seizure precautions, CIWA, thiamine, MVT, & folic acid Face erythema -Continue topical hydrocortisone DVT prophylaxis-ambulation Discussed with patient and nurse. Murray Chapman Jan 13, 2018 15:10
[2018-01-13 15:31] VITALS: BP 164/93; PULSE 78; RESP 18; TEMP 98; O2SAT 96
[2018-01-13] MEDS: QUEtiapine FUMARATE 200 MG TAB PO SCH (21:07)
[2018-01-14 05:55] VITALS: BP 124/55; PULSE 70; RESP 16; TEMP 97.6; O2SAT 94
[2018-01-14] MEDS: FOLIC ACID 1 MG TAB PO SCH (09:00)
[2018-01-14] MEDS: LITHIUM CARBONATE 300 MG CAP PO SCH ×3 (09:00→17:27)
[2018-01-14] MEDS: THIAMINE HCL 100 MG TAB PO SCH (09:00)
[2018-01-14] MEDS: QUEtiapine FUMARATE 25 MG TAB PO SCH ×2 (09:00→15:46)
[2018-01-14] MEDS: MULTIVITAMINS/MINERALS THERAPEUTIC TAB PO SCH (09:00)
[2018-01-14] MEDS: HYDROCORTISONE 0.5% CREAM 30 GM TOPICAL SCH ×2 (09:01→21:08)
--- NOTE | 2018-01-14 15:09 | HHI.PR ---
Subjective Remarks Follow-up visit hypertension. Patient seen and examined today. Reports he is doing okay. States that he is bored. He has nothing to do all day. Denies pain and discomfort. Denies SOB/ dyspnea. Denies chest pain, palpitations, headaches, dizziness. Denies fevers, chills, n/v/d. Denies dysuria. Objective Vitals Vital Signs Date Time Temp Pulse Resp B/P (MAP) Pulse Ox O2 Delivery O2 Flow Rate FiO2 01/14/18 05:55 97.6 70 16 124/55 (78) 94 01/13/18 15:31 98.0 78 18 164/93 (116) 96 Result Diagram: 01/11/18 1012 Objective Remarks GENERAL: This is a well-nourished, well-developed patient, in no apparent distress. SKIN: Warm and dry. Facial erythema, peeling off appears to be eczematous HEENT: Normocephalic. Pupils equal round and reactive. Nose without bleeding. Airway patent. NECK: Trachea midline. No JVD. Supple. CARDIOVASCULAR: Regular rate and rhythm without murmurs, gallops, or rubs. RESPIRATORY: Clear to auscultation. Breath sounds equal bilaterally. No wheezes , rales, or rhonchi. GASTROINTESTINAL: Abdomen soft, non-tender, protuberant. Bowel Sounds normoactive x4. MUSCULOSKELETAL: Extremities without clubbing, cyanosis, or edema. NEUROLOGICAL: Awake and alert. Oriented to time, place, person. No focal neuro deficit. Moves all extremities. Normal speech. A/P Assessment and Plan 57-year-old male with PMH of HTN, bipolar disorder, and alcohol abuse who presents to the ER 01/09 after being Guerra acted by PD after making statements of wanting to kill himself by taking medications. [facility] has been consulted to assist with management of patients HTN. Bipolar depression - Management per psych. on [place] Carbonate, Seroquel and PRN Ativan for anxiety - CBC with very mildly elevated WBC possibly stress related, BMP stable, TSH WNL -Reports sensation of "walking on rocks", could possibly be related to addition of Seroquel Hypertension, chronic 176/110 on admission -Continue PRN clonidine -Amlodipine 10 mg daily -BP improved Hx ETOH abuse - Mild hand tremors appear resolved, anxiety related - Seizure precautions, CIWA, thiamine, MV, & folic acid Face erythema, eczema? -Continue topical hydrocortisone DVT prophylaxis-ambulation Stable from Hospitalist standpoint. We will sign off. Reconsult as needed. Leo Mesa Jan 14, 2018 15:09
--- NOTE | 2018-01-14 16:20 | HHI.PYPN ---
Subjective Remarks Patient seen in his room with nurse Thompson, chart reviewed, patient compliant medication. Patient continues to isolate spending much time in bed. However patient is alert oriented calm cooperative with me that he is sleeping well now he denies any voices or visions. He does have a trailer to go home to. This time I feel is reached maximum benefit of this hospitalization though he feels he could use some more days to get a little better. However we will anticipate discharge tomorrow with follow-up through [facility] Review of Systems Except as stated in HPI: all other systems reviewed are Neg Mental Status Examination Appearance: Appropriate Consciousness: Alert Orientation: x4 Motor Activity: Normal gait Speech: Rapid Language: Adequate Fund of Knowledge: Adequate Attention and Concentration: Adequate Memory: Unremarkable Mood: Appropriate Affect: Appropriate Thought Process & Associations: Disorganized Thought Content: Racing thoughts Hallucination Type: None Delusion Type: Paranoid Suicidal Ideation: Yes Suicidal Plan: No Suicidal Intention: No Homicidal Ideation: No Homicidal Plan: No Homicidal Intention: No Insight: Poor Judgment: Poor Results Labs Test 01/14/18 06:44 [place] Level 1.3 MEQ/L Vitals/IOs Vital Signs Date Time Temp Pulse Resp B/P (MAP) Pulse Ox O2 Delivery O2 Flow Rate FiO2 01/14/18 05:55 97.6 70 16 124/55 (78 94 Assessment & Plan Problem List: (1) Bipolar disorder, most recent episode manic ICD Codes: F31.10 - Bipolar disorder, current episode manic without psychotic features, unspecified Status: Acute Assessment & Plan Estimated LOS: days patient continues to improve though the patient is some manipulation on his part to extend his stay. We will consider discharge tomorrow we will discontinue the ciwa protocol at this time Justification for Cont. Inpt. At this time patient would decompensate if not placed in an appropriate level of care Discharge Planning To be determined Kiko Ley MD Jan 14, 2018 16:19
[2018-01-14] MEDS: QUEtiapine FUMARATE 200 MG TAB PO SCH (21:08)
[2018-01-15 06:08] VITALS: BP 156/80; PULSE 66; RESP 16; TEMP 98.5; O2SAT 92
[2018-01-15] MEDS: THIAMINE HCL 100 MG TAB PO SCH (08:34)
[2018-01-15] MEDS: MULTIVITAMINS/MINERALS THERAPEUTIC TAB PO SCH (08:35)
[2018-01-15] MEDS: FOLIC ACID 1 MG TAB PO SCH (08:35)
[2018-01-15] MEDS: LITHIUM CARBONATE 300 MG CAP PO SCH ×2 (08:35→12:34)
[2018-01-15] MEDS: HYDROCORTISONE 0.5% CREAM 30 GM TOPICAL SCH (09:00)
[2018-01-15] MEDS: QUEtiapine FUMARATE 25 MG TAB PO SCH (09:00)
--- NOTE | 2018-01-15 14:03 | HHI.DS ---
Psychiatry Discharge Summary Inpatient Psychiatric care?: Yes Advance Directive: No Reason Not Provided: Does not have one Mental Health AdvanceDirective: No Health Care Proxy: No Admission Admission Date Jan 10, 2018 at 14:00 Admission Diagnosis: (1) Bipolar disorder, most recent episode manic ICD Code: F31.10 - Bipolar disorder, current episode manic without psychotic features, unspecified Brief History The patient is a 57-year-old man, domiciled in [facility], single, father of 3 kids, unemployed, with psychiatric history of bipolar disorder, 2 previous psychiatric hospitalizations, the last hospitalization was in 2015 here at [facility] under the care of Dr. Denton, documentation was reviewed , established outpatient care in [facility], he is on lithium 600 mg twice daily, Abilify 2 mg, Seroquel 100 mg at bedtime, nickel history hypertension, who presents to the ED for evaluation of Guerra act. Patient was Guerra acted by police after apparently he told police that he was going to take his medications and overdose. He has a history of depression and insomnia. Patient was actually here yesterday for similar, he was discharged. Per patient his symptoms continue. Documentation was reviewed. Case discussed with ER staff. On my psychiatric evaluation I find a patient that is internally preoccupied, he states that he has not slept 1 single minutes last night, he has not been sleeping lately. Patient reports that he has been feeling "wear, because I am not taking my medications". The patient has moments of complete disorganization and tangentiality, he is redirectable.. He is guarded, oddly related. He says that yesterday he was feeling like overdosing with all his medications. The patient is fully oriented 3, no attention deficit, no fluctuation of consciousness. He does not have a prominent pressure speech, but at times he does become tangential and disorganized, with rapid speech. He denies the use of drugs of and alcohol. Tobacco Use In Past 30 Days: No Tobacco Past 30 Days Alcohol Use: Never Hospital Course Patient's hospital course was uneventful, patient had very little participation of the milieu. He came out to eat with his toileting then went back to bed. His somatic complaints about sleep issues did resolve with the medication adjustments with him sleeping in his bed elevated. He denies suicidality homicidality voice or visions. I feel there has been some manipulation of this hospitalization. Soon in attempt to extend his stay somewhat. However I feel at this time patient reached his maximum benefit of this hospitalization will be discharged today with Rx 1 [facility] Results Blood Pressure 156 / 80 Vital Signs Date Time Temp Pulse Resp B/P (MAP) Pulse Ox O2 Delivery O2 Flow Rate FiO2 01/15/18 06:08 98.5 66 16 156/80 (105) 92 Laboratory Tests Test 01/14/18 06:44 Laboratory Results Test 01/11/18 10:12 01/14/18 06:44 Cholesterol Level 137 MG/DL (120-200) HDL Cholesterol 64.4 MG/DL (40.0-60.0) Hemoglobin A1c 4.9 % (4.3-6.0) LDL Cholesterol 55 MG/DL (0-99) Triglycerides Level 89 MG/DL (42-150) [place] Level 1.3 MEQ/L (0.5-1.5) Summary of Procedures None done Pending results at discharge: No Medications # of Antipsychotic meds at D/C: 1 Approp Antipsych med options 1 - Minimum of three failed multiple trials of monotherapy. 2 - Documented plan to taper to monotherapy due to previous use of multiple meds OR cross-taper in progress at D/C. 3 - Documentation of augmentation of Clozapine. 4 - Justification other than those listed in allowable values 1-3, document here : Discharge Discharge Date: Jan 15, 2018 Discharge Diagnosis: (1) Bipolar disorder, most recent episode manic Diagnosis: Principal ICD Code: F31.10 - Bipolar disorder, current episode manic without psychotic features, unspecified Status: Acute Pt Condition on Discharge: Stable Discharge Disposition: Discharge Home Discharge Instructions Diet Instructions: As Tolerated, No Restrictions Activities you can perform: Regular-No Restrictions Scheduled Appointment: Bryan [facility] Act Discharge Time > 30 minutes Mental Status Examination Appearance: Appropriate Consciousness: Alert Orientation: x4 Motor Activity: Normal gait Speech: Rapid Language: Adequate Fund of Knowledge: Adequate Attention and Concentration: Adequate Memory: Unremarkable Mood: Appropriate Affect: Appropriate Thought Process & Associations: Disorganized Thought Content: Racing thoughts Hallucination Type: None Delusion Type: Paranoid Suicidal Ideation: Yes Suicidal Plan: No Suicidal Intention: No Homicidal Ideation: No Homicidal Plan: No Homicidal Intention: No Insight: Poor Judgment: Poor Discharge/Advance Care Plan Health Problems: (1) Bipolar disorder, most recent episode manic Goals to promote your health * To prevent worsening of your condition and complications * To maintain your health at the optimal level Directions to meet your goals Take your medications as prescribed Follow your dietary instruction Follow activity as directed Keep your appointments as scheduled Take your immunizations and boosters as scheduled If your symptoms worsen call your PCP, if no PCP go to Urgent Care Center or Emergency Room For 16/02 questions related to your inpatient stay or results of tests pending at discharge, please contact Dr. Kiko Ley at Smoking is Dangerous to Your Health. Avoid second hand smoking Kiko Ley MD Jan 15, 2018 14:03
[2018-01-15] MEDS ORDERED: SERO25TA PO (14:07)
[2018-01-15] MEDS ORDERED: SERO400T PO (14:07)
[2018-01-15] MEDS ORDERED: LITH600C PO (14:07)
[2018-01-15] MEDS ORDERED: THIA100 PO (14:07)
== END 2018-01-15 16:35 | disposition home or self-care (01) | DRG 885 ==
LOC: NEPJ 16:17 → NEDA 01-10 14:00 → H260 01-10 15:05
PROVIDERS: ADMIT Psychiatry & Neurology Psychiatry; ATTEND Psychiatry & Neurology Psychiatry
DX: F31.10 Bipolar disorder, current episode manic without psychotic features, unspecified (principal); I10 Essential (primary) hypertension; F41.9 Anxiety disorder, unspecified; G47.00 Insomnia, unspecified
CPT/HCPCS: 80048; 80053; 80061; 80178; 80307; 83036; 84443; 85025

== ENCOUNTER 2018-02-13 12:50 | Inpatient (IN) ==
[2018-02-13] MEDS ORDERED: Sod Chloride 0.9% Inj 1,000 ML IV.SIG ONE ×2 (13:28→19:24)
--- NOTE | 2018-02-13 13:40 | ED ---
HPI General Chief complaint: Psychiatric Symptoms Stated complaint: Psych/POPD Time Seen by Provider: 02/14/18 10:40 Source: patient Mode of arrival: ambulatory Limitations: no limitations History of Present Illness HPI narrative: 57-year-old male with a history of bipolar disorder and hypertension presents emergency department as a Guerra act by [place] [employer]. According to the Guerra act, patient has been refusing his medications and has not been eating or drinking for the last month in an attempt to harm himself. Patient says that he was taking his medication which include lithium and Seroquel up until a month ago. Says that he does not know why he stopped taking his medication but believes that his bipolar disorder has worsened. He says that he has been afraid to leave his house and therefore has not been able to get any food outside his home. He says that he is also been unable to pay his rent because of this fear of stepping outside of his home. At this time, patient does not believe he wants to hurt himself and does not want to hurt anybody else. He denies illicit drug use. Denies alcohol use. Denies tobacco use. Denies fever, chills, chest pain, shortness of breath, abdominal pain, leg pain. He says he lives at home alone. He does have family in the area and says he is family has visited him previously. Related Data Home Medications Medication Instructions Recorded Confirmed Seroquel 100 BID 02/14/18 clonidine HCl QAM 02/14/18 lithium citrate 200 TID 02/14/18 Allergies Allergy/AdvReac Type Severity Reaction Status Date / Time No Known Allergies AdvReac Unknown Uncoded 01/09/18 16:45 Pediatric Review of Systems All systems: reviewed and negative except as stated PMF Medical History Medical History Bipolar disorder (Acute) Hypertension (Acute) Surgical History Surgical History Hx of tonsillectomy (Acute) Social History Social History Substance History: No History of Abuse Second Hand Smoke Exposure: No Smoking Status: Never smoker Tobacco Type: Cigarettes How Often Do You Have a Drink Containing Alcohol: Never Recent Travel in [facility] within the Last 8 Weeks: No Recent Out of Country Travel within the Last 8 Weeks: No Immunization History Tetanus Immunization: >5 Years Hx Influenza Vaccine This Season: No Pediatric Exam GENERAL: WD, WN in NAD SKIN: Focused skin assessment warm/dry. areas of scaling on face with underlying erythema, c/w seborrheic dermatitis HEAD: Atraumatic. Normocephalic. EYES: Pupils equal and round. No scleral icterus. No injection or drainage. EOMI ENT: No nasal bleeding or discharge. Mucous membranes pink and moist. NECK: Trachea midline. No JVD. CARDIOVASCULAR: Regular rate and rhythm. No murmur appreciated. RESPIRATORY: No accessory muscle use. Clear to auscultation. Breath sounds equal bilaterally. GASTROINTESTINAL: Abdomen soft, non-tender, nondistended. Hepatic and splenic margins not palpable. MUSCULOSKELETAL: No obvious deformities. No clubbing. No cyanosis. No edema. NEUROLOGICAL: Awake and alert. No obvious cranial nerve deficits. Motor grossly within normal limits. Normal speech. PSYCHIATRIC: somewhat depressed, concerned mood and affect; insight and judgment normal. Course Initial Documented Vital Signs Temperature 98.3 F 02/13/18 13:19 Pulse Rate 93 H 02/13/18 13:19 Respiratory Rate 18 02/13/18 13:19 Blood Pressure 130/96 H 02/13/18 13:19 Pulse Oximetry 96 02/13/18 13:19 Last Documented Vital Signs Temperature 98.5 F 02/13/18 13:29 Pulse Rate 93 H 02/13/18 13:29 Respiratory Rate 18 02/13/18 13:29 Blood Pressure 130/96 H 02/13/18 13:29 Pulse Oximetry 96 02/13/18 13:29 Medical Decision Making MDM Narrative Medical decision making narrative: 57y male presents emergency department evaluation as a Guerra act. He currently denies any suicidal homicidal ideations. Labs ordered and appear to be stable. Emma level is low, consistent with patient's history of not taking this medication. Physical exam findings demonstrate dry mucous membranes. 1 L normal saline administered. Vital signs are stable. Patient is medically cleared to see psych. Differential Diagnosis Differential Diagnosis: Bipolar disorder, delirium, intoxication, adjustment disorder Lab Data Result diagrams: 02/13/18 13:30 02/15/18 07:30 Discharge Plan Discharge Disposition Patient Disposition: 30 Still Patient Discharge Condition Condition: Stable Discharge Details Diagnosis: Acute anxiety Physicians Team ED Provider: Lis Mejia ED Midlevel Provider: Analy Ibarra Primary Care Provider: UNKNOWN, Attending Provider: Will Holbrook Other Providers: Utilizer, High Service Status ED Status: Left Department Discharge Information Discharge Date/Time: 02/14/18 13:03
[2018-02-13 14:25] LABS: Baso % (Auto) 0.6 % (0.0-2.0); Eos # (Auto) 0.1 th/mm3 (0.0-0.4); Eos % (Auto) 1.5 % (0.0-4.0); Hematocrit 50.4 % (39.0-51.0); Hemoglobin 17.4 gm/dL (13.0-17.0); Lymph # (Auto) 1.2 th/mm3 (1.0-4.8); Lymph % (Auto) 20.4 % (9.0-44.0); Mean Corpuscular HGB Conc 34.5 % (32.0-36.0); Mean Corpuscular Hemoglobin 29.4 pg (27.0-34.0); Mean Corpuscular Volume 85.3 fL (80.0-100.0); Mean Platelet Volume 9.4 fL (7.0-11.0); Mono # (Auto) 0.7 th/mm3 (0.0-0.9); Mono % (Auto) 11.4 % (0.0-8.0); Neut % (Auto) 66.1 % (16.0-70.0); Platelet Count 330 th/mm3 (150-450); Red Blood Count 5.91 mil/mm3 (4.50-5.90); Red Cell Distribution Width 14.5 % (11.6-17.2); White Blood Count 6.1 th/mm3 (4.0-11.0)
[2018-02-13 14:56] LABS: Alanine Aminotransferase 50 U/L (12-78); Albumin 3.9 g/dL (3.4-5.0); Anion Gap 11 meq/L (5-15); Aspartate Aminotransferase 24 U/L (15-37); Blood Urea Nitrogen 5 mg/dL (7-18); Calcium 9.6 mg/dL (8.5-10.1); Carbon Dioxide 23.1 meq/L (21.0-32.0); Chloride 103 meq/L (98-107); Glomerular Filtration Rate 61 mL/min (>89); Glucose,Random 146 mg/dL (74-106); Potassium 3.5 meq/L (3.5-5.1); Sodium 137 meq/L (136-145)
[2018-02-13 15:06] LABS: Alkaline Phosphatase 79 U/L (45-117); Total Protein 7.2 g/dL (6.4-8.2)
[2018-02-13 23:30] LABS: Amphetamine Screen,Urine Neg (Neg); Barbiturate Screen,Urine Neg (Neg); Bilirubin,Urine Negative (Negative); Cannabinoid Screen,Urine Neg (Neg); Clarity,Urine Clear (Clear); Cocaine Screen,Urine Neg (Neg); Color,Urine Yellow (Yellw/Straw); Glucose,Urine (UA) 50 mg/dL (Negative); Leukocyte Esterase,Urine Negative (Negative); Mucus,Urine Few /lpf (Occasional); Nitrite,Urine Negative (Negative); Specific Gravity,Urine 1.006 (1.002-1.035); Urobilinogen,Urine 4 or Greater mg/dL (Less than 2)
[2018-02-13 23:40] LABS: Opiate Screen,Urine Neg (Neg)
--- NOTE | 2018-02-14 10:58 | ED ---
HPI - Psych - General Source: patient Mode of arrival: ambulatory Limitations: no limitations - History of Present Illness MD complaint: other (Passive suicidal ideation. Not eaten or had water in 14 days.) Onset (ago): day(s) Duration: constant History of same: No Relieving factors: none Exacerbating factors: other (Medication noncompliance) Context: not taking psychiatric medications Associated psychiatric symptoms: depression Associated symptoms: denies other symptoms Treatments prior to arrival: none If self harm: other - General Chief Complaint: Psychiatric Symptoms Stated Complaint: Psych/POPD Time Seen by Provider: 02/14/18 10:40 - History of Present Illness HPI Narrative: History of Present Illness HPI narrative: 57-year-old, , male, lives by himself, unemployed with a history of bipolar disorder, most recent psychiatric hospitalization in December 2017 here at [facility] presents emergency department as a Guerra act by [place] [employer]. According to the Guerra act, patient has been refusing his medications and has not been eating or drinking for the last month in an attempt to harm himself. He also reports that he has been afraid to leave his house and therefore has not been able to get any food outside his home, has not been sleeping, has not been showering or taking care of himself. He says that he is also been unable to pay his rent because of this fear of stepping outside of his home. Describes his mood as depressed. Denies any hallucinatory process. He denies illicit drug use. Denies alcohol use. EMR reviewed. Labs reviewed. [place] level 0.1 indicating noncompliance of medication. Patient is seen in Main ED. He is dressed in hospital gown. Unshaven, disheveled appearance. Blunted affect. Appears withdrawn. Mood described as depressed. Patient states he does not know why he stopped taking his medication after his discharge from the hospital and why he stopped eating or drinking. He tells me that he did not drink water for 14 days which may not be accurate considering his laboratory findings. He denies any hallucinatory process. Patient contracts for safety here while in the hospital. (Michelle Robledo) - Related Data Home Medications Medication Instructions Recorded Confirmed Unable to Obtain Home Meds 02/13/18 02/13/18 Allergies Allergy/AdvReac Type Severity Reaction Status Date / Time No Known Allergies AdvReac Unknown Uncoded 01/09/18 16:45 PMFSH - History History Provided By: Patient, Law Enforcement - Medical History Medical History: Medical History (Last Updated 02/13/18 @ 13:26 by Shivani Garces) Bipolar disorder Hypertension - Surgical History Surgical History: Surgical History (Last Updated 02/13/18 @ 13:29 by Shivani Garces) Hx of tonsillectomy - Tobacco History Second Hand Smoke Exposure: No Tobacco Use In Past 30 Days: No Smoking Status: Former smoker Tobacco Type: Cigarettes - Alcohol History How Often Do You Have a Drink Containing Alcohol: Never - Substance Use History Substance History: No History of Abuse - Travel History Recent Travel in the [place] Within the Last 8 Weeks: No Recent Travel Out of the Country Within the Last 8 Weeks: No - Immunization History Tetanus Immunization: >5 Years Hx Influenza Vaccine This Season: No Psychiatric History - Psychiatric History Psychiatric Treatment History: History of Psychiatric Treatment (3 previous psychiatric admissions. Last admission in December 2017.), History of Community Mental Health Treatment (Has outpatient care at [facility]) History of Inpatient Treatment: Yes Firearms in Home: No Physical Exam - General Limitations: no limitations Mental Status Examination Appearance: Disheveled Consciousness: Alert Orientation: x4 Motor Activity: Normal gait Speech: Unremarkable Language: Adequate Fund of Knowledge: Adequate Attention and Concentration: Adequate Memory: Unremarkable Mood: Sad, Other (Hopeless, depressed) Affect: Blunt Thought Process & Associations: Intact, Logical Thought Content: Appropriate Hallucination Type: None Delusion Type: None Suicidal Ideation: Yes Suicidal Plan: Yes (Starve himself) Suicidal Intention: No Homicidal Ideation: No Homicidal Plan: No Homicidal Intention: No Insight: Poor Judgment: Impulsive Initial Documented Vital Signs Temperature 98.3 F 02/13/18 13:19 Pulse Rate 93 H 02/13/18 13:19 Respiratory Rate 18 02/13/18 13:19 Blood Pressure 130/96 H 02/13/18 13:19 Pulse Oximetry 96 02/13/18 13:19 Last Documented Vital Signs Temperature 98.5 F 02/13/18 13:29 Pulse Rate 67 02/14/18 05:56 Respiratory Rate 16 02/14/18 05:56 Blood Pressure 139/90 02/14/18 05:56 Pulse Oximetry 97 02/14/18 05:56 MDM - Psych - Diagnosis (1) Bipolar disorder Status: Acute - Lab Data Result diagrams: 02/13/18 13:30 02/13/18 13:30 - MDM Narrative Medical decision making narrative: HPI narrative: 57-year-old, , male, lives by himself, unemployed with a history of bipolar disorder, most recent psychiatric hospitalization in December 2017 here at [facility], presents emergency department as a Guerra act by [place] [employer]. According to the Guerra act, the patient has not been eating or drinking for the last month in an attempt to harm himself, has stopped taking his medication, has been afraid to leave his house and unable to get any food outside his home, has not been sleeping, not showering or taking care of his self, unable to pay his rent because of his fears stepping outside of his home. At this time the patient meets criteria for inpatient psychiatric hospitalization for safety, stabilization, and medication. (Michelle Robledo) - Lab Data Lab Results 02/13/18 02/13/18 02/13/18 Range/Units 13:30 13:30 13:30 WBC 6.1 (4.0-11.0) th/mm3 RBC 5.91 H (4.50-5.90) mil/mm3 Hgb 17.4 H (13.0-17.0) gm/dL Hct 50.4 (39.0-51.0) % MCV 85.3 (80.0-100.0) fL MCH 29.4 (27.0-34.0) pg MCHC 34.5 (32.0-36.0) % RDW 14.5 (11.6-17.2) % Plt Count 330 (150-450) th/mm3 MPV 9.4 (7.0-11.0) fL Neut % (Auto) 66.1 (16.0-70.0) % Lymph % (Auto) 20.4 (9.0-44.0) % Bowman % (Auto) 11.4 H (0.0-8.0) % Eos % (Auto) 1.5 (0.0-4.0) % Baso % (Auto) 0.6 (0.0-2.0) % Neut # (Auto) 4.0 (1.8-7.7) th/mm3 Lymph # (Auto) 1.2 (1.0-4.8) th/mm3 Bowman # (Auto) 0.7 (0.0-0.9) th/mm3 Eos # (Auto) 0.1 (0.0-0.4) th/mm3 Baso # (Auto) 0.0 (0.0-0.2) th/mm3 WBC Differential . Differential Comment Auto diff final Sodium 137 (136-145) meq/L Potassium 3.5 (3.5-5.1) meq/L Chloride 103 (98-107) meq/L Carbon Dioxide 23.1 (21.0-32.0) meq/L Anion Gap 11 (5-15) meq/L BUN 5 L (7-18) mg/dL Creatinine 1.22 (0.60-1.30) mg/dL Estimated GFR 61 L (>89) mL/min Random Glucose 146 H (74-106) mg/dL Calcium 9.6 (8.5-10.1) mg/dL Total Bilirubin 0.7 (0.2-1.0) mg/dL AST 24 (15-37) U/L ALT 50 (12-78) U/L Alkaline Phosphatase 79 (45-117) U/L Total Protein 7.2 (6.4-8.2) g/dL Albumin 3.9 (3.4-5.0) g/dL TSH 2.640 (0.358-3.740) uIU/mL Urine Color (Yellw/Straw) Urine Clarity (Clear) Urine pH (5.0-8.5) Ur Specific [place] (1.002-1.035) Urine Protein (Neg-Trace) mg/dL Urine Glucose (UA) (Negative) mg/dL Urine Ketones (Negative) mg/dL Urine Occult Blood (Negative) Urine Nitrate (Negative) Urine Bilirubin (Negative) Urine Urobilinogen (Less than 2) mg/dL Ur Leukocyte Esterase (Negative) Urine RBC (0-3) /hpf Urine WBC (0-5) /hpf Urine Mucus (Occasional) /lpf Micro UA Comment Urine Culture Comments Urine Opiates Screen (Neg) Ur Barbiturates Screen (Neg) Ur Amphetamines Screen (Neg) U Benzodiazepines Scrn (Neg) [place] Less than 0.1 L (0.5-1.5) meq/L Urine Cocaine Screen (Neg) U Cannabinoids Screen (Neg) Serum Alcohol Less than 3 (0-5) mg/dL 02/13/18 02/13/18 Range/Units 22:52 22:52 WBC (4.0-11.0) th/mm3 RBC (4.50-5.90) mil/mm3 Hgb (13.0-17.0) gm/dL Hct (39.0-51.0) % MCV (80.0-100.0) fL MCH (27.0-34.0) pg MCHC (32.0-36.0) % RDW (11.6-17.2) % Plt Count (150-450) th/mm3 MPV (7.0-11.0) fL Neut % (Auto) (16.0-70.0) % Lymph % (Auto) (9.0-44.0) % Bowman % (Auto) (0.0-8.0) % Eos % (Auto) (0.0-4.0) % Baso % (Auto) (0.0-2.0) % Neut # (Auto) (1.8-7.7) th/mm3 Lymph # (Auto) (1.0-4.8) th/mm3 Bowman # (Auto) (0.0-0.9) th/mm3 Eos # (Auto) (0.0-0.4) th/mm3 Baso # (Auto) (0.0-0.2) th/mm3 WBC Differential Differential Comment Sodium (136-145) meq/L Potassium (3.5-5.1) meq/L Chloride (98-107) meq/L Carbon Dioxide (21.0-32.0) meq/L Anion Gap (5-15) meq/L BUN (7-18) mg/dL Creatinine (0.60-1.30) mg/dL Estimated GFR (>89) mL/min Random Glucose (74-106) mg/dL Calcium (8.5-10.1) mg/dL Total Bilirubin (0.2-1.0) mg/dL AST (15-37) U/L ALT (12-78) U/L Alkaline Phosphatase (45-117) U/L Total Protein (6.4-8.2) g/dL Albumin (3.4-5.0) g/dL TSH (0.358-3.740) uIU/mL Urine Color Yellow (Yellw/Straw) Urine Clarity Clear (Clear) Urine pH 6.0 (5.0-8.5) Ur Specific [place] 1.006 (1.002-1.035) Urine Protein Negative (Neg-Trace) mg/dL Urine Glucose (UA) 50 (Negative) mg/dL Urine Ketones Trace (Negative) mg/dL Urine Occult Blood Negative (Negative) Urine Nitrate Negative (Negative) Urine Bilirubin Negative (Negative) Urine Urobilinogen 4 or greater (Less than 2) mg/dL Ur Leukocyte Esterase Negative (Negative) Urine RBC Less than 1 (0-3) /hpf Urine WBC 5 (0-5) /hpf Urine Mucus Few H (Occasional) /lpf Micro UA Comment Culture not ind Urine Culture Comments Culture not ind Urine Opiates Screen Neg (Neg) Ur Barbiturates Screen Neg (Neg) Ur Amphetamines Screen Neg (Neg) U Benzodiazepines Scrn Neg (Neg) [place] (0.5-1.5) meq/L Urine Cocaine Screen Neg (Neg) U Cannabinoids Screen Neg (Neg) Serum Alcohol (0-5) mg/dL
[2018-02-14] MEDS ORDERED: Aluminum/Magnesium/Simethacone Susp 30 ML UDC PO PRN (11:23)
[2018-02-14] MEDS ORDERED: traZODone 50 MG Tablet PO PRN (11:23)
[2018-02-14] MEDS ORDERED: Bisacodyl 10 MG Supp RECTAL PRN (11:23)
[2018-02-15] MEDS: Senna/Docusate Sodium 8.6/50 MG Tablet PO SCH ×2 (00:26→14:34)
[2018-02-15 08:41] LABS: Anion Gap 7 meq/L (5-15); Blood Urea Nitrogen 5 mg/dL (7-18); Calcium 9.6 mg/dL (8.5-10.1); Carbon Dioxide 27.4 meq/L (21.0-32.0); Chloride 107 meq/L (98-107); Cholesterol 112 mg/dL (120-200); Glomerular Filtration Rate Greater Than 89 mL/min (>89); Glucose,Random 92 mg/dL (74-106); Potassium 3.5 meq/L (3.5-5.1); Sodium 141 meq/L (136-145); Triglycerides 78 mg/dL (42-150)
[2018-02-15 08:44] LABS: Chol/HDL Ratio 2.13 Ratio; HDL Cholesterol 52.4 mg/dL (40.0-60.0); LDL Cholesterol,Calculated 44 mg/dL (0-99)
--- NOTE | 2018-02-15 13:15 | P.HPPSY ---
Provisional Diagnosis Admission Date: February 14, 2018 11:22 [place] I.: 1. Bipolar disorder, presently depressed, moderate Rule out factitious disorder Rule out malingering Rule out personality disorder [place] II.: Deferred Competence Certification of Person's Competence To Provide Express and Informed Consent I have personally examined Joe Serna, a person being served at [facility] on, February 15, 2018 1314. Express and informed consent means consent voluntarily given in writing, by a competent person, after sufficient explanation and disclosure of the subject matter involved to enable the person to make a knowing and willful decision without any element of force, fraud, deceit, duress, or other form of constraint or coercion. This person is 18 years of age or older, is not now known to be incompetent to consent to treatment with a guardian advocate, and does not have a health care surrogate or proxy currently making medical treatment decisions. I have found this person to be one of the following: [X] Competent to provide express and informed consent, as defined above, for voluntary admission to this facility and is competent to provide express and informed consent for treatment. He/she has the consistent capacity to make well reasoned, willful, and knowing decisions concerning his or her medical or mental health treatment. The person fully and consistently understands the purpose of the admission for examination/placement and is fully capable of personally exercising all rights assured under [place] [] Incompetent to provide express and informed consent to voluntary admission, and this is incompetent to provide express and informed consent to treatment. The person must be transferred to involuntary status and a petition for a guardian advocate filed with the Circuit Court. [] Refusing to provide express and informed consent to voluntary admission but is competent to provide express and informed consent for treatment. The person must be discharged or transferred to involuntary status. Form shall be completed within 24 hours of a person's arrival at the receiving facility and filed in the clinical record of each person: 1. Admitted on a voluntary basis 2. Permitted to provide express and informed consent to his/her own treatment 3. Allowed to transfer from involuntary to voluntary status 4. Prior to permitting a person to consent to his or her own treatment after having been previously found incompetent to consent to treatment. History of Present Illness Capacity: Has capacity Chief Complaint: Depression History of Present Illness: Mr. Serna is a 57-year-old male with a reported history of bipolar disorder who presented to the ED under a Guerra Act by NGUYEN alleging self-care deficit. Patient was evaluated by the psychiatric nurse practitioner in the ED who admitted the patient to the inpatient psychiatric unit. Reviewing the electronic medical record, I note that the patient was hospitalized in December under the care of Dr. Ley. In Dr. Ley's discharge summary I note that he wrote the following: "I feel there has been some manipulation of this hospitalization. Soon in attempt to extend his stay somewhat. However I feel at this time patient reached his maximum benefit of this hospitalization will be discharged today with Rx 1 month to follow-up [facility] act" Patient seen and examined with nurse. Chart reviewed. Case discussed with nursing staff. On my examination today, patient tells me that he was "upset that they kicked me out" of the hospital during his last psychiatric admission. In a fit of pique he stopped taking his psychotropic medications, even though he agrees that they were helping him. He has therefore been off of psychotropics for about a month. Mood is depressed. He complains of low energy. He reports that he was experiencing SI at home "I wanted to in that trailer," but he denies any suicidal or homicidal ideation at this time. He reports hearing voices screaming and hearing car doors opening and closing, but I can elicit no other hallucinatory material. No command auditory hallucinations to hurt self/others. No delusional material. Sleep is reportedly poor. Remainder of the psychiatric ROS is negative. No acute physical complaints. Past psychiatric history: Patient reports a history of bipolar disorder diagnosed 8 years ago. He gets outpatient psychiatric care at [facility] but says that he neglected to follow up after leaving the hospital last time. Most recent psychiatric admission was here at [place]. He denies any history of suicide attempts. Family history: The patient reports that his daughter has bipolar disorder and has attempted suicide twice. No other family psychiatric history reported. Chemical dependency history: The patient reports a history of alcohol abuse. He denies any substance use presently. Social history: The patient is from [place]. He lived in [place] for 20 years. He lives alone. He is . He has a daughter and 2 sons. He has a bachelor's degree. 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 He denies any history. Denies any legal history. Denies any access to guns or firearms. He is a Gnosticist. He denies any history of abuse or mistreatment. - Inpatient Certification I certify that the inpatient services were ordered in accordance with Medicare regulations governing the order. This includes certification that hospital inpatient services are reasonable and necessary and in the case of services not specified as inpatient-only under 42 CFR 419.22(n), that they are appropriately provided as inpatient services in accordance to with the 2-midnight benchmark under 43 CFR 412.3(e) I certify that inpatient psychiatric hospital services are medically necessary. Evaluation and treatment and/or diagnostic testing are expected to improve the patient's condition. The patient needs on a daily basis, active treatment furnished directly by or requiring the supervision of inpatient psychiatric facility personnel. Estimated Total Length of Stay (Days): 7 (5-7) Plans for Post Hospital Care: Home Review of Systems All other systems reviewed negative except as stated in HPI [facility] - History History Provided By: Patient - Medical History Medical History: Medical History (Last Updated 02/13/18 @ 13:26 by Shivani Garces) Bipolar disorder Hypertension - Surgical History Surgical History: Surgical History (Last Updated 02/13/18 @ 13:29 by Shivani Garces) Hx of tonsillectomy - Tobacco History Second Hand Smoke Exposure: No Tobacco Use In Past 30 Days: No Smoking Status: Never smoker Tobacco Type: Cigarettes - Alcohol History How Often Do You Have a Drink Containing Alcohol: Never - Substance Use History Substance History: No History of Abuse - Travel History Recent Travel in the [place] Within the Last 8 Weeks: No Recent Travel Out of the Country Within the Last 8 Weeks: No - Immunization History Tetanus Immunization: >5 Years Hx Influenza Vaccine This Season: No Quality Measures - Patient Strengths Patient's strengths (minimum of 2): In a monitored setting. Verbally fluent. Medications and Allergies Active Medications: Active Medications Al Hydrox/Mg Hydrox/Simethicone (Mag-Al Plus Susp Liq) 30 ml PO Q6H PRN PRN Reason: DYSPEPSIA Al Hydroxide/Mg Hydroxide (Milk Of Magnesia Liq) 30 ml PO Q12H PRN PRN Reason: Mild Constipation Bisacodyl (Dulcolax Supp) 10 mg RECTAL DAILY PRN PRN Reason: SEVERE CONSITIPATION Clonidine HCl (Catapres) 0.1 mg PO Q8HR PRN PRN Reason: SBP>180 or DBP>100 Last Admin: 02/15/18 05:00 Dose: 0.1 mg Lactulose (Lactulose Liq) 30 ml PO DAILY PRN PRN Reason: SEVERE CONSITIPATION Senna/Docusate Sodium (Joanne-Colace) 1 tab PO BID ALEJA Last Admin: 02/15/18 00:26 Dose: Not Given Sennosides (Senokot) 17.2 mg PO Q12H PRN PRN Reason: Moderate Constipation Trazodone HCl (Desyrel) 50 mg PO HS PRN PRN Reason: INSOMNIA Allergies Allergy/AdvReac Type Severity Reaction Status Date / Time No Known Allergies AdvReac Unknown Uncoded 01/09/18 16:45 Home Medications Medication Instructions Recorded Confirmed Type Seroquel 100 BID 02/14/18 History clonidine HCl QAM 02/14/18 History lithium citrate 200 TID 02/14/18 History Results - Labs CBC & Chem 7: 02/13/18 13:30 02/15/18 07:30 Labs: Laboratory Results - last 24 hr 02/15/18 07:30 Sodium 141 Potassium 3.5 Chloride 107 Carbon Dioxide 27.4 Anion Gap 7 BUN 5 L Creatinine 0.87 Estimated GFR Greater than 89 Random Glucose 92 Calcium 9.6 Triglycerides 78 Cholesterol 112 L LDL Cholesterol, Calc 44 HDL Cholesterol 52.4 Cholesterol/HDL Ratio 2.13 Labs reviewed. TSH within normal limits. Renal function normal. Exam Vital signs: Vital Signs 02/14/18 18:28 02/15/18 05:58 02/15/18 08:22 Temperature 98.7 F 98.1 F Pulse Rate 80 60 56 L Respiratory Rate 16 18 Blood Pressure 112/84 183/106 H 141/93 H Pulse Oximetry 96 98 Intake & Output 02/14/18 02/15/18 02/15/18 18:59 06:59 18:59 Weight 103.7 kg Other: Weight On Admission 103.7 kg Narrative: Physical examination completed by ED provider. On my examination today, the patient appears to be in no acute physical distress. No motor abnormalities noted. Labs and vital signs reviewed: Mental Status Examination Appearance: Disheveled Consciousness: Alert Orientation: x4 Motor Activity: Other (No motor abnormalities noted) Speech: Unremarkable Language: Adequate Fund of Knowledge: Adequate Attention and Concentration: Adequate Memory: Unremarkable Mood: Other (Dysphoric) Affect: Other (Restricted) Thought Process & Associations: Intact, Logical, Goal directed, Linear Thought Content: Appropriate Hallucination Type: Auditory (As noted above. No CAH.) Delusion Type: None Suicidal Ideation: No Suicidal Plan: No Suicidal Intention: No Homicidal Ideation: No Homicidal Plan: No Homicidal Intention: No Insight: Fair Judgment: Impulsive Assessment and Plan - Assessment (1) Bipolar disorder Code(s): F31.9 - Bipolar disorder, unspecified Status: Acute - Plan Plan: 57-year-old male with psychiatric history as detailed above who presents under a Guerra act. On my examination today, the patient reports low mood in the setting of a history of bipolar disorder. The patient reports that he has been nonadherent with his psychotropic medications and has not followed up with outpatient psychiatric provider. Differential diagnosis is as above. Extensive discussion with patient regarding psychopharmacologic options, and we also discussed ECT for management of bipolar depression. Patient wishes to resume previous psychotropic regimen, and this is what we will do. I will plan to admit the patient to the inpatient psychiatric unit for safety, observation and stabilization. Admit inpatient. Voluntary status. Patient was previously taking lithium 600mg TID and Seroquel 50/50/400mg. In light of medication non-adherence and out of concern for side effects from resuming full dose all at once, I will halve doses of these medications with plans to titrate back to previous doses later in the week. Plan for lithium level after appropriate interval. Check EKG for QTc. Atarax as needed for anxiety. Benadryl as needed for sleep. Resume amlodipine. R/B/A for medications discussed with patient. OT consult. Dietitian to see pt to monitor PO intake. Vitals every shift. Counselor to see. Disposition planning. Estimated length of stay: 5-7 days. Justification for Continued Inpatient Stay: as above Discharge Planning: Pending stabilization Request Healthcare Surrogate/Guardian Advocate?: No (1) Bipolar disorder Qualifiers: Active/Remission status: currently active Current bipolar episode type: depressed Current episode severity: moderate Qualified Code(s): F31.32 - Bipolar disorder, current episode depressed, moderate
[2018-02-15 16:31] LABS: Hemoglobin A1c 5.3 % (4.3-6.0)
[2018-02-15] MEDS: QUEtiapine 25 MG Tablet PO SCH (16:41)
[2018-02-15] MEDS: amLODIPine 5 MG Tablet PO SCH (16:42)
[2018-02-16] MEDS: amLODIPine 5 MG Tablet PO SCH (09:20)
[2018-02-16] MEDS: QUEtiapine 25 MG Tablet PO SCH ×2 (09:20→14:38)
--- NOTE | 2018-02-16 10:55 | ECG ---
Date Performed: 02/15/2018 Time Performed: 18:15:05 PTAGE: 57 years EKG: Sinus rhythm NORMAL ECG PREVIOUS TRACING : 01/06/2016 15.52 DOCTOR: Timo Gallardo Interpretating Date/Time 02/16/2018 10:52:47
--- NOTE | 2018-02-16 13:00 | P.PNPSY ---
Subjective Chief Complaint: Depression Remarks: Patient seen and examined. Chart reviewed. Patient ate 100% of lunch today. Case discussed with nursing staff. No behavioral issues noted overnight. Case discussed in treatment team. Counselor notes that the patient has been evicted from his trailer, and secondary gain for skilled nursing is strongly suspected. On my examination today, the patient tells me that he is "totally depressed, down in the dumps. I think I am going to ." He denies any active SI or HI however. Complains of poor sleep. Denies AVH. Denies side effects from medications. No physical complaints. Vital Signs Temp Pulse Resp BP Pulse Ox 02/16/18 05:48 97.9 F 72 17 144/90 H 97 02/15/18 18:16 98.4 F 66 18 149/68 H 97 Laboratory Results - last 24 hr 02/15/18 07:30 Hemoglobin A1c 5.3 Labs reviewed. No new labs. EKG normal sinus rhythm with QTC of 397 ms. Review of Systems All other systems reviewed negative except as stated in HPI Mental Status Examination Appearance: Disheveled Consciousness: Alert Orientation: x4 Motor Activity: Other (No abnormal motor movements noted) Speech: Unremarkable Language: Adequate Fund of Knowledge: Adequate Attention and Concentration: Adequate Memory: Unremarkable Mood: Other (Remains dysphoric) Affect: Other (Restricted) Thought Process & Associations: Intact, Logical, Goal directed, Linear Thought Content: Appropriate Hallucination Type: None Delusion Type: None Suicidal Ideation: No Suicidal Plan: No Suicidal Intention: No Homicidal Ideation: No Homicidal Plan: No Homicidal Intention: No Insight: Fair Judgment: Impulsive Assessment and Plan - Assessment (1) Bipolar disorder Code(s): F31.9 - Bipolar disorder, unspecified Status: Acute - Plan Plan: Titrate Seroquel to previous dosing for mood stabilization and sleep. Continue lithium as ordered. Continue to monitor on the inpatient unit. Continue other medications and care as ordered. Justification for Continued Inpatient Stay: Medication changes. Monitoring for impairment in safety. Discharge Planning: Possibly to sober living. Case discussed with counselor. Request Healthcare Surrogate/Guardian Advocate?: No (1) Bipolar disorder Qualifiers: Active/Remission status: currently active Current bipolar episode type: depressed Current episode severity: moderate Qualified Code(s): F31.32 - Bipolar disorder, current episode depressed, moderate
--- NOTE | 2018-02-16 18:33 | P.DIET ---
Nutritional Evaluation Type of nutrition evaluation: initial Nutrition consult regarding: Diet Evaluation Nutrition screening: [facility] Screening comments: 02/15/18 [facility] Poor PO Intake Subjective Barriers to Nutrition: Refuses to eat at times Subjective Comments: Pt visited after dinner melissa, "I ate today". Pt provided a few food preferences during this visit. Encouraged pt to make menu selections daily. Pt declines an oral nutritional supplement. Objective - Diagnosis Bipolar - Objective [place] body weight: 78.2 kg % IBW: 133 Body Weight Used for Calculations: IBW Energy Needs - Lower Range (kCal/kg): 25 Energy Needs - Upper Range (kCal/kg): 30 Lower Limit kCal/kg (kCals): 1,955 Upper Limit kCal/kg (kCals): 2,346 Lower Limit Protein Factor (Grams per Kg): 1.1 Upper Limit Protein Factor (Grams per Kg): 1.4 Lower Protein Needs (Protein): 86 Upper Protein Needs (Protein): 110 Fluid Factor (ml/kg): 30 Estimated Fluid Needs (ml): 2,346 Dietitian Reviewed in Medical Record: Current diet, Curent medications, Intake & Output, Labs, Medical history Diet Order: Regular Objective Comments: PMH Includes: Bipolar, HTN A1C 5.3 Assessment Assessment: Pt is at nutritional risk r/t poor po intake 50% or less for meals, except for lunch today w/100% po. [place] pt's food preferences to assist w/increased po intake. Encouraged pt to make his own menu selections daily. Pt is cleared for write-ins on his menus-options provided. Pt declines an oral nutritional supplement at this time. Labs reviewed. Dietitian will follow. Recommendations: 1. [place] pt's food preferences to assist w/increased po intake 2. Encouraged pt to make his own menu selections daily 3. Pt is cleared to have write-ins on his menus 4. Pt declines an oral nutritional supplement at this time 5. Dietitian will follow Dietitian to Monitor: Lab values, Intake & Output, Weight change, PO Intake
--- NOTE | 2018-02-17 09:21 | P.PNPSY ---
Subjective Remarks: Patient seen and examined. Chart reviewed. Case discussed with nursing staff. On my examination today, the patient presents as fretful and dysphoric. He complains of ongoing poor sleep, and we discussed titrating nighttime dose of Seroquel to manage this issue. He is charted as having slept 7 hours. Appetite is improved, and the patient ate between 25 and 100% of meals yesterday. He complains of poor concentration. Denies AVH. Denies SI or HI. Denies side effects from medications. No acute physical complaints. Vital Signs Temp Pulse Resp BP Pulse Ox 02/17/18 06:06 98.3 F 75 18 140/70 96 02/16/18 18:15 97.2 F L 82 18 126/74 98 Intake and Output 02/16/18 02/17/18 02/17/18 22:59 06:59 14:59 Intake Total 360 / 360 Balance 360 / 360 Intake: Oral 360 / 360 Labs reviewed. No new labs. Review of Systems All other systems reviewed negative except as stated in HPI Mental Status Examination Appearance: Disheveled Consciousness: Alert Orientation: x4 Motor Activity: Other (No motor abnormalities noted) Speech: Unremarkable Language: Adequate Fund of Knowledge: Adequate Attention and Concentration: Adequate Memory: Unremarkable Mood: Anxious, Other (Dysphoric) Affect: Anxious, Other (Restricted) Thought Process & Associations: Intact, Logical, Goal directed, Linear Thought Content: Appropriate Hallucination Type: None Delusion Type: None Suicidal Ideation: No Suicidal Plan: No Suicidal Intention: No Homicidal Ideation: No Homicidal Plan: No Homicidal Intention: No Insight: Fair Judgment: Impulsive Assessment and Plan - Assessment (1) Bipolar disorder Code(s): F31.9 - Bipolar disorder, unspecified Status: Acute - Plan Plan: Titrate nighttime dose of Seroquel to 500 mg for mood stabilization and sleep. Continue other psychotropics as ordered. Plan to check a lithium level Thursday morning. Dietitian input noted and appreciated. Continue to monitor on the inpatient unit. Continue other medications and care as ordered. Justification for Continued Inpatient Stay: Medication changes. High risk for decompensation in less restrictive environment. Discharge Planning: Pending psychiatric stabilization Request Healthcare Surrogate/Guardian Advocate?: No (1) Bipolar disorder Qualifiers: Active/Remission status: currently active Current bipolar episode type: depressed Current episode severity: moderate Qualified Code(s): F31.32 - Bipolar disorder, current episode depressed, moderate
[2018-02-17] MEDS: amLODIPine 5 MG Tablet PO SCH (09:46)
[2018-02-17] MEDS: QUEtiapine 25 MG Tablet PO SCH ×2 (09:47→15:43)
[2018-02-18] MEDS: QUEtiapine 25 MG Tablet PO SCH ×2 (08:53→15:18)
[2018-02-18] MEDS: amLODIPine 5 MG Tablet PO SCH (08:55)
--- NOTE | 2018-02-18 11:32 | P.PNPSY ---
Subjective Chief Complaint: Depression Remarks: Patient seen and examined with counselor. Chart reviewed. Case discussed with staff. On my examination today, patient's affect seems brighter. He seems less distressed. No SI or HI voiced. He describes some hypnagogic tactile hallucinations, for example feeling like he had a pitcher of milk in his hand. No AVH. When I ask him what he thought brought on these AVH, he tells me that he was worried that he was going to be "put out on the streets." There is a distinctly manipulative quality to patient's presentation today. When asked if he has called any of the resources provided by the counselor for possible housing, he says that he only called one place because he heard it was "the best." I have encouraged him to explore all available options. Patient does not seem to be making much of an effort to help himself. No medication side effects. No physical complaints. Vital Signs Temp Pulse Resp BP Pulse Ox 02/18/18 05:30 97.9 F 94 H 19 154/77 H 98 02/17/18 18:00 97.5 F L 84 18 144/86 H 95 Intake and Output 02/17/18 02/18/18 02/18/18 22:59 06:59 14:59 Intake Total 240 / 240 600 / 600 Balance 240 / 240 600 / 600 Intake: Oral 240 / 240 600 / 600 Labs reviewed. No new labs. Review of Systems All other systems reviewed negative except as stated in HPI Mental Status Examination Appearance: Appropriate (Fair) Consciousness: Alert Orientation: Person, Place (At least) Motor Activity: Other (No abnormal motor movements noted) Speech: Unremarkable Language: Adequate Fund of Knowledge: Adequate Attention and Concentration: Adequate Memory: Unremarkable Mood: Anxious Affect: Appropriate (Brighter, more full and reactive) Thought Process & Associations: Intact, Logical, Goal directed, Linear Thought Content: Appropriate Hallucination Type: Other (None presently but see above) Delusion Type: None Suicidal Ideation: No Suicidal Plan: No Suicidal Intention: No Homicidal Ideation: No Homicidal Plan: No Homicidal Intention: No Insight: Adequate Judgment: Adequate Assessment and Plan - Assessment (1) Bipolar disorder Code(s): F31.9 - Bipolar disorder, unspecified Status: Acute - Plan Plan: Continue current psychotropics as ordered. Check a lithium level in the morning. I believe we are approaching maximal benefit from this hospital stay. Continue to monitor on the inpatient unit. Continue other medications and care as ordered. Justification for Continued Inpatient Stay: Discharge planning Discharge Planning: Anticipate discharge tomorrow Request Healthcare Surrogate/Guardian Advocate?: No (1) Bipolar disorder Qualifiers: Active/Remission status: currently active Current bipolar episode type: depressed Current episode severity: moderate Qualified Code(s): F31.32 - Bipolar disorder, current episode depressed, moderate
[2018-02-19 06:08] VITALS: BP 158/92; PULSE 78; RESP 16; TEMP 97.7; O2SAT 96
[2018-02-19] MEDS: amLODIPine 5 MG Tablet PO SCH (10:28)
[2018-02-19] MEDS: QUEtiapine 25 MG Tablet PO SCH ×2 (10:28→15:40)
--- NOTE | 2018-02-19 12:53 | P.DSPSY ---
Psychiatry Discharge Summary Inpatient Psychiatric care?: Yes Advance Directives: No Mental Health Advance Directive: No Health Care Proxy: No - Admission Admission Date: February 14, 2018 11:22 - Admission Diagnosis (1) Bipolar disorder Code(s): F31.9 - Bipolar disorder, unspecified Brief History: Mr. Serna is a 57-year-old male with a reported history of bipolar disorder who presented to the ED under a Guerra Act by NGUYEN alleging self-care deficit. Patient was evaluated by the psychiatric nurse practitioner in the ED who admitted the patient to the inpatient psychiatric unit. Reviewing the electronic medical record, I note that the patient was hospitalized in December under the care of Dr. Ley. In Dr. Ley's discharge summary I note that he wrote the following: "I feel there has been some manipulation of this hospitalization. Soon in attempt to extend his stay somewhat. However I feel at this time patient reached his maximum benefit of this hospitalization will be discharged today with Rx 1 month to follow-up [facility]" Patient seen and examined with nurse. Chart reviewed. Case discussed with nursing staff. On my examination today, patient tells me that he was "upset that they kicked me out" of the hospital during his last psychiatric admission. In a fit of pique he stopped taking his psychotropic medications, even though he agrees that they were helping him. He has therefore been off of psychotropics for about a month. Mood is depressed. He complains of low energy. He reports that he was experiencing SI at home "I wanted to in that trailer," but he denies any suicidal or homicidal ideation at this time. He reports hearing voices screaming and hearing car doors opening and closing, but I can elicit no other hallucinatory material. No command auditory hallucinations to hurt self/others. No delusional material. Sleep is reportedly poor. Remainder of the psychiatric ROS is negative. No acute physical complaints. Past psychiatric history: Patient reports a history of bipolar disorder diagnosed 8 years ago. He gets outpatient psychiatric care at [facility] but says that he neglected to follow up after leaving the hospital last time. Most recent psychiatric admission was here at [facility]. He denies any history of suicide attempts. Family history: The patient reports that his daughter has bipolar disorder and has attempted suicide twice. No other family psychiatric history reported. Chemical dependency history: The patient reports a history of alcohol abuse. He denies any substance use presently. Social history: The patient is from [place]. He lived in [place] for 20 years. He lives alone. He is . He has a daughter and 2 sons. He has a bachelor's degree. He previously ran a bar. He denies any history. Denies any legal history. Denies any access to guns or firearms. He is a [employer]. He denies any history of abuse or mistreatment. Tobacco Use In Past 30 Days: No How Often Do You Have a Drink Containing Alcohol: Never Hospital Course: Patient was admitted to a locked, inpatient psychiatric unit. Appropriate precautions were in place throughout patient's hospital stay. Patient was seen and examined on the unit by psychiatry and also visited by counselor. Psychotropic medications were adjusted. Patient tolerated medications well without side effects. Patient had improvement in presenting psychiatric symptomatology, although he did at times over-report psychiatric symptoms, and this is perceived to represent an effort to extend his inpatient stay. There was no evidence of any suicidality or homicidality on the unit. There was no evidence of significant self-care deficit, and in particular the patient has been eating well in the several days prior to discharge. Counselor has provided patient with resources for possible housing after discharge, but the patient has made no more than a token effort to obtain jail. On the day of discharge: Patient seen and examined. Chart reviewed. Case discussed with nursing staff. No behavioral issues noted overnight. Case discussed in treatment team. It is the unanimous opinion of the treatment team that the patient is malingering at this point for jail. On my examination today, patient denies any suicidal or homicidal ideation, intent or plan. He does contract for safety and indeed says he plans on going immediately back to the ED since he has nowhere to go. He still has not made any effort to call any of the numbers for jail. I can elicit no severe depressive or hypomanic/manic symptoms. He does not report any AVH presently but again complains of some hypnagogic hallucinations overnight as he did yesterday. We discuss adjusting his Seroquel dosing to try manage this issue, although I do have suspicion that the patient is reporting these symptoms in an attempt to extend his stay. No command auditory hallucinations to hurt self/others. No delusional material. No medication side effects. [place] level 0.7. No physical complaints. Suicide and violence risk assessment on day of discharge both suggest lower imminent risk from mental illness, and the patient's level of function is adequate for outpatient care. Patient has maximized benefit from this inpatient psychiatric hospital stay and will be discharged today with psychiatric follow-up as arranged by counselor. Patient is also to follow up with primary care. I have counseled the patient to return to the psychiatric emergency room for any concerning symptoms as part of a general safety plan. A component of malingering for jail is suspected in the present case. Efforts have been made to assist the patient with placement outside of the hospital setting, but the patient has not made a meaningful effort to obtain placement and seems to be delaying in an effort to extend his inpatient psychiatric hospital stay. Patient tells me that he will go directly to the ED on discharge from the inpatient unit today as he has nowhere to stay. I suspect that the patient will continue to malinger psychiatric symptoms for jail. He may even make some sort of gesture to facilitate admission to the inpatient psychiatric unit. It would be counter-therapeutic to the patient's overall case to give in to these manipulations. - Discharge Discharge Date: 02/19/18 - Discharge Diagnosis (1) Bipolar disorder in remission Diagnosis: Principal Code(s): F31.70 - Bipolar disorder, currently in remission, most recent episode unspecified Status: Acute (2) Malingering Diagnosis: Secondary Code(s): Z76.5 - Malingerer [conscious simulation] Status: Suspected Discharge Disposition: Self - Discharge Instructions Discharge Diet: Regular Diet Activities You Can Perform: Weight Bearing As Tolerat - Discharge Time > 30 minutes Mental Status Examination Appearance: Appropriate Consciousness: Alert Orientation: x4 Motor Activity: Normal gait, Other (No motor abnormalities noted) Speech: Unremarkable Language: Adequate Fund of Knowledge: Adequate Attention and Concentration: Adequate Memory: Unremarkable Mood: Appropriate Affect: Appropriate Thought Process & Associations: Intact, Logical, Goal directed, Linear Thought Content: Appropriate Hallucination Type: None (None presently but see above) Delusion Type: None Suicidal Ideation: No Suicidal Plan: No Suicidal Intention: No Homicidal Ideation: No Homicidal Plan: No Homicidal Intention: No Insight: Adequate Judgment: Adequate Discharge/Advance Care Plan - Results Vital Signs: Last Vital Signs Temp 97.7 F 02/19/18 06:05 Pulse 78 02/19/18 06:05 Resp 16 02/19/18 06:05 BP 158/92 H 02/19/18 06:05 Pulse Ox 96 02/19/18 06:05 Lab Results: Abnormal Lab Results 02/19/18 07:52 [place] 0.7 Laboratory Results Hemoglobin A1c 5.3 % (4.3-6.0) 02/15/18 07:30 Triglycerides 78 mg/dL (42-150) 02/15/18 07:30 Cholesterol 112 mg/dL (120-200) L 02/15/18 07:30 LDL Cholesterol, Calc 44 mg/dL (0-99) 02/15/18 07:30 HDL Cholesterol 52.4 mg/dL (40.0-60.0) 02/15/18 07:30 TSH 2.640 uIU/mL (0.358-3.740) 02/13/18 13:30 Urine Culture Comments Culture not ind 02/13/18 22:52 [place] 0.7 meq/L (0.5-1.5) 02/19/18 07:52 Summary of Procedures: None done Pending Results: None - Medications Number of antipsychotic medications at discharge: 1 - Discharge Care Plan Goals to Promote Your Health: * To prevent worsening of your condition and complications * To maintain your health at the optimal level Directions to Meet Your Goals: Take your medications as prescribed Follow your dietary instruction Follow activity as directed Keep your appointments as scheduled Take your immunizations and boosters as scheduled If your symptoms worsen call your PCP, if no PCP go to Urgent Care Center or Emergency Room For 16/02 questions related to your inpatient stay or results of tests pending at discharge, please contact Dr. Will Holbrook MD at Smoking is Dangerous to Your Health. Avoid second hand smoking (1) Bipolar disorder Qualifiers: Active/Remission status: currently active Current bipolar episode type: depressed Current episode severity: moderate Qualified Code(s): F31.32 - Bipolar disorder, current episode depressed, moderate
== END 2018-02-19 17:05 | disposition home or self-care (01) ==
LOC: NEPC 12:50 → NEDA 02-14 11:22 → H260 02-14 12:12
PROVIDERS: ADMIT Psychiatry & Neurology Psychiatry; ATTEND Psychiatry & Neurology Psychiatry

== ENCOUNTER 2018-03-08 15:00 | Inpatient (IN) ==
[2018-03-08] MEDS ORDERED: Aspirin 325 MG Tablet PO ONE (15:24)
[2018-03-08] MEDS ORDERED: Sod Chloride 0.9% Inj 1,000 ML IV.SIG ONE (15:24)
--- NOTE | 2018-03-08 15:39 | ED ---
HPI General Chief complaint: Medical Clearance Stated complaint: Poss Sepsis Time Seen by Provider: 03/08/18 15:06 History of Present Illness HPI narrative: Patient presents to the emergency department complaining of dehydration and confusion. He reports fever at 101.1, dehydration, chills, but denies nausea vomiting, lower extremity edema, recent travel, diarrhea, cough, abdominal pain. Patient had shortness of breath yesterday which he says is resolved. He is also reporting decreased p.o. intake. Also reports left-sided chest pain that began 1 hour ago, intermittent, nonradiating, worse when he takes a deep breath, resolved when he "calms down." He reports noncompliance with his psych meds for months. Related Data Home Medications Medication Instructions Recorded Confirmed Seroquel 100 mg PO BID 02/14/18 03/06/18 clonidine HCl 0.1 mg PO QAM 02/14/18 03/06/18 lithium citrate 200 mg PO TID 02/14/18 03/06/18 amlodipine [Norvasc] 5 mg PO DAILY 03/06/18 03/06/18 Previous Rx's Medication Instructions Recorded lithium carbonate 300 mg PO DAILY@09,15,21 7 Days 02/19/18 tab quetiapine 100 mg PO BID@09,15 7 Days tab 02/19/18 quetiapine 400 mg PO HS 7 Days #14 tab 02/19/18 Allergies Allergy/AdvReac Type Severity Reaction Status Date / Time No Known Allergies AdvReac Unknown Abdominal Uncoded 03/06/18 10:49 Pain Review of Systems ROS: all other systems reviewed are negative [facility] Medical History Medical History Depression (Acute) Liver cirrhosis (Acute) Bipolar disorder (Acute) Hypertension (Acute) Surgical History Surgical History Hx of tonsillectomy (Acute) Family History Family History Father Dementia Mother Multiple sclerosis Social History Social History Substance History: Active Abuse (Quit 2008) Second Hand Smoke Exposure: No Smoking Status: Never smoker Tobacco Type: Cigarettes How Often Do You Have a Drink Containing Alcohol: Never Recent Travel in [facility] within the Last 8 Weeks: No Recent Out of Country Travel within the Last 8 Weeks: No Immunization History Tetanus Immunization: >5 Years Hx Influenza Vaccine This Season: No Exam Const General: no acute distress Orientation: oriented to person, oriented to place and oriented to time HENMT Head: normal to inspection Eyes EOM: EOM intact bilaterally Neck Neck: supple Resp Auscultation: clear to auscultation bilaterally Cardio Rate: tachycardic Heart Sounds: S1 normal and S2 normal GI Inspection: normal to inspection Palpation: soft and tender Auscultation: normal bowel sounds Skin Rashes: rashes noted (chest 2/2 scratching per patient ) Neuro General: alert, awake and oriented x3 Speech: speech normal Motor: no movement abnormalities noted Extrem General: full ROM Psych Appearance: disheveled Speech and Movement: speech clear Course Initial Documented Vital Signs Temperature 99.3 F 03/08/18 15:21 Pulse Rate 110 H 03/08/18 15:21 Respiratory Rate 22 03/08/18 15:21 Blood Pressure 136/90 03/08/18 15:21 Pulse Oximetry 93 L 03/08/18 15:21 Last Documented Vital Signs Temperature 99.3 F 03/08/18 15:21 Pulse Rate 81 03/08/18 17:56 Respiratory Rate 16 03/08/18 17:56 Blood Pressure 138/77 03/08/18 17:56 Pulse Oximetry 93 L 03/08/18 15:21 Critical Care Time Critical Care Time: Yes Total Critical Care Time: 30 Attestation: Aggregate critical care time was 35 minutes. Time to perform other separately billable procedures was not included in the critical care time. My time did not include minutes spent treating any other patients simultaneously or on activities that did not directly contribute to the patient's treatment. The services I provided to this patient were to treat and/or prevent clinically significant deterioration that could result in: , cardiac arrest, increased morbidity, worsening infection. I provided critical care services requiring my management, as noted below: Chart data review, documentation time, medication orders and management, vital sign assessments/reviewing monitor data, ordering and reviewing lab tests, ordering and interpreting/reviewing x-rays and diagnostic studies, care of the patient and discussion of the patient with the admitting physicians. Medical Decision Making MDM Narrative Medical decision making narrative: Patient presents to the emergency department reporting fever and acute onset of left-sided chest pain. Patient placed on laboratory monitor, continuous pulse ox, not BX is obtained. X-ray, EKG, head CT, and labs ordered. Patient given 325 mg p.o. aspirin and will need IV normal saline ordered. Head CT: CONCLUSION:1. Small retention cysts in the right maxillary antra.2. Otherwise negative. Labs: Leukocytosis, elevated lactic acid, PT, PTT, anion gap, calcium, Creatinine, CK, MB, CXR: FINDINGS: Lungs are under aerated with minimal bibasilar parenchymal changes evident. There is no pneumothorax, pleural effusion or congestive failure. The portion of the bony skeleton visualized is unremarkable. CONCLUSION : Under aerated otherwise negative. Lab Data Result diagrams: 03/08/18 15:45 03/08/18 15:45 Lab Results 03/08/18 03/08/18 03/08/18 Range/Units 15:45 15:45 15:45 WBC 12.6 H (4.0-11.0) th/mm3 RBC 5.16 (4.50-5.90) mil/mm3 Hgb 15.5 (13.0-17.0) gm/dL Hct 43.6 (39.0-51.0) % MCV 84.4 (80.0-100.0) fL MCH 30.0 (27.0-34.0) pg MCHC 35.5 (32.0-36.0) % RDW 14.9 (11.6-17.2) % Plt Count 362 (150-450) th/mm3 MPV 8.7 (7.0-11.0) fL Neut % (Auto) 81.2 H (16.0-70.0) % Lymph % (Auto) 7.2 L (9.0-44.0) % [place] % (Auto) 11.2 H (0.0-8.0) % Eos % (Auto) 0.1 (0.0-4.0) % Baso % (Auto) 0.3 (0.0-2.0) % Neut # (Auto) 10.2 H (1.8-7.7) th/mm3 Lymph # (Auto) 0.9 L (1.0-4.8) th/mm3 [place] # (Auto) 1.4 H (0.0-0.9) th/mm3 Eos # (Auto) 0.0 (0.0-0.4) th/mm3 Baso # (Auto) 0.0 (0.0-0.2) th/mm3 WBC Differential . Differential Comment Auto diff final PT 18.2 H (9.8-11.6) sec INR 1.8 Ratio APTT 33.6 H (24.3-30.1) sec D-Dimer Quant (PE/DVT) 0.45 (0.00-0.50) mg/L FEU Sodium 141 (136-145) meq/L Potassium 3.5 (3.5-5.1) meq/L Chloride 107 (98-107) meq/L Carbon Dioxide 16.1 L (21.0-32.0) meq/L Anion Gap 18 H (5-15) meq/L BUN 18 (7-18) mg/dL Creatinine 1.73 H (0.60-1.30) mg/dL Estimated GFR 41 L (>89) mL/min Random Glucose 137 H (74-106) mg/dL Lactic Acid (0.4-2.0) mmol/L Calcium 10.5 H (8.5-10.1) mg/dL Total Bilirubin 0.9 (0.2-1.0) mg/dL AST 22 (15-37) U/L ALT 31 (12-78) U/L Alkaline Phosphatase 86 (45-117) U/L Total Creatine Kinase 572 H (39-308) U/L CK-MB (CK-2) 9.5 H (0.5-3.6) ng/mL CK-MB (CK-2) % 1.7 (0.0-4.0) % Troponin I 0.02 (0.02-0.05) ng/mL Total Protein 7.6 (6.4-8.2) g/dL Albumin 4.3 (3.4-5.0) g/dL Urine Color (Yellw/Straw) Urine Clarity (Clear) Urine pH (5.0-8.5) Ur Specific [place] (1.002-1.035) Urine Protein (Neg-Trace) mg/dL Urine Glucose (UA) (Negative) mg/dL Urine Ketones (Negative) mg/dL Urine Occult Blood (Negative) Urine Nitrate (Negative) Urine Bilirubin (Negative) Urine Urobilinogen (Less than 2) mg/dL Ur Leukocyte Esterase (Negative) Urine RBC (0-3) /hpf Urine WBC (0-5) /hpf Urine Mucus (Occasional) /lpf Micro UA Comment Urine Culture Comments [place] (0.5-1.5) meq/L 03/08/18 03/08/18 03/08/18 Range/Units 15:45 15:45 18:15 WBC (4.0-11.0) th/mm3 RBC (4.50-5.90) mil/mm3 Hgb (13.0-17.0) gm/dL Hct (39.0-51.0) % MCV (80.0-100.0) fL MCH (27.0-34.0) pg MCHC (32.0-36.0) % RDW (11.6-17.2) % Plt Count (150-450) th/mm3 MPV (7.0-11.0) fL Neut % (Auto) (16.0-70.0) % Lymph % (Auto) (9.0-44.0) % [place] % (Auto) (0.0-8.0) % Eos % (Auto) (0.0-4.0) % Baso % (Auto) (0.0-2.0) % Neut # (Auto) (1.8-7.7) th/mm3 Lymph # (Auto) (1.0-4.8) th/mm3 [place] # (Auto) (0.0-0.9) th/mm3 Eos # (Auto) (0.0-0.4) th/mm3 Baso # (Auto) (0.0-0.2) th/mm3 WBC Differential Differential Comment PT (9.8-11.6) sec INR Ratio APTT (24.3-30.1) sec D-Dimer Quant (PE/DVT) (0.00-0.50) mg/L FEU Sodium (136-145) meq/L Potassium (3.5-5.1) meq/L Chloride (98-107) meq/L Carbon Dioxide (21.0-32.0) meq/L Anion Gap (5-15) meq/L BUN (7-18) mg/dL Creatinine (0.60-1.30) mg/dL Estimated GFR (>89) mL/min Random Glucose (74-106) mg/dL Lactic Acid 2.7 H (0.4-2.0) mmol/L Calcium (8.5-10.1) mg/dL Total Bilirubin (0.2-1.0) mg/dL AST (15-37) U/L ALT (12-78) U/L Alkaline Phosphatase (45-117) U/L Total Creatine Kinase (39-308) U/L CK-MB (CK-2) (0.5-3.6) ng/mL CK-MB (CK-2) % (0.0-4.0) % Troponin I (0.02-0.05) ng/mL Total Protein (6.4-8.2) g/dL Albumin (3.4-5.0) g/dL Urine Color [place] (Yellw/Straw) Urine Clarity Hazy H (Clear) Urine pH 5.0 (5.0-8.5) Ur Specific [place] 1.027 (1.002-1.035) Urine Protein 100 H (Neg-Trace) mg/dL Urine Glucose (UA) 50 (Negative) mg/dL Urine Ketones 20 (Negative) mg/dL Urine Occult Blood Small H (Negative) Urine Nitrate Negative (Negative) Urine Bilirubin Negative (Negative) Urine Urobilinogen 4 or greater (Less than 2) mg/dL Ur Leukocyte Esterase Negative (Negative) Urine RBC 2 (0-3) /hpf Urine WBC 3 (0-5) /hpf Urine Mucus Few H (Occasional) /lpf Micro UA Comment Cath-culture not ind Urine Culture Comments Cath-cult not ind [place] Less than 0.1 L (0.5-1.5) meq/L Imaging Data Radiologist's impression: Chest X-Ray 03/08/18 15:22 CONCLUSION: Under aerated otherwise negative Head CT 03/08/18 15:39 CONCLUSION: 1. Small retention cysts in the right maxillary antra. 2. Otherwise negative. . ECG Data Attestation: I personally reviewed and interpreted this ECG as follows: (SR, rate 85, L axis deviation,normal intervals, QTc 394, no DEE) Discharge Plan Discharge Disposition Patient Disposition: 30 Still Patient Discharge Condition Condition: Stable Discharge Details Diagnosis: Sepsis, Chest pain Physicians Team ED Provider: Lis Mejia Primary Care Provider: Yvon Garcia Attending Provider: Gena Carbone Status ED Status: Admitted Patient
--- NOTE | 2018-03-08 15:48 | XR ---
EXAM DATE: 03/08/2018 3:45 PM EDT AGE/SEX: 57 years / Male INDICATIONS: Chest pain and shortness of breath. Patient states he's dehydrated. CLINICAL DATA: This is the patient's initial encounter. Patient reports that signs and symptoms have been present for 1 day and indicates a pain score of 3/10. MEDICAL/SURGICAL HISTORY: Hypertension. None. COMPARISON: No prior exams available for comparison. FINDINGS: Lungs are under aerated with minimal bibasilar parenchymal changes evident. There is no pneumothorax, pleural effusion or congestive failure. The portion of the bony skeleton visualized is unremarkable. CONCLUSION: Under aerated otherwise negative Electronically signed by: Sean Dubon MD 03/08/2018 3:47 PM EDT
[2018-03-08 16:26] LABS: Baso % (Auto) 0.3 % (0.0-2.0); Eos % (Auto) 0.1 % (0.0-4.0); Hematocrit 43.6 % (39.0-51.0); Hemoglobin 15.5 gm/dL (13.0-17.0); Lymph # (Auto) 0.9 th/mm3 (1.0-4.8); Lymph % (Auto) 7.2 % (9.0-44.0); Mean Corpuscular HGB Conc 35.5 % (32.0-36.0); Mean Corpuscular Volume 84.4 fL (80.0-100.0); Mean Platelet Volume 8.7 fL (7.0-11.0); Mono # (Auto) 1.4 th/mm3 (0.0-0.9); Mono % (Auto) 11.2 % (0.0-8.0); Neut # (Auto) 10.2 th/mm3 (1.8-7.7); Neut % (Auto) 81.2 % (16.0-70.0); Platelet Count 362 th/mm3 (150-450); Red Blood Count 5.16 mil/mm3 (4.50-5.90); Red Cell Distribution Width 14.9 % (11.6-17.2); White Blood Count 12.6 th/mm3 (4.0-11.0)
[2018-03-08 16:33] LABS: Activated Partial Thrombo Time 33.6 sec (24.3-30.1); INR 1.8 Ratio; Prothrombin Time 18.2 sec (9.8-11.6)
--- NOTE | 2018-03-08 16:33 | CT ---
EXAM DATE: 03/08/2018 4:21 PM EDT AGE/SEX: 57 years / Male INDICATIONS: Altered mental status, confusion. CLINICAL DATA: This is the patient's initial encounter. Patient reports that signs and symptoms have been present for 1 day and indicates a pain score of 0/10. MEDICAL/SURGICAL HISTORY: Hypertension. Tonsillectomy. RADIATION DOSE: 38.00 CTDI (mGy) COMPARISON: No prior exams available for comparison. TECHNIQUE: CT of the head without contrast. Using automated exposure control and adjustment of the mA and/or kV according to patient size, radiation dose was kept as low as reasonably achievable to ob tain optimal diagnostic quality images. DICOM format image data is available electronically for revi ew and comparison. FINDINGS: Cerebrum: The ventricles are normal for age. No evidence of midline shift, mass lesion, hemorrhage or acute infarction. No extraaxial fluid collections are seen. Posterior Fossa: The cerebellum and brainstem are intact. The 4th ventricle is midline. The cerebe llopontine angle is unremarkable. Extracranial: The visualized portion of the orbits is intact. Small retention cyst in the right maxi llary antra. Skull: The calvaria is intact. No evidence of skull fracture. CONCLUSION: 1. Small retention cysts in the right maxillary antra. 2. Otherwise negative. . Electronically signed by: Mandeep Castillo MD 03/08/2018 4:32 PM EDT
[2018-03-08 16:35] LABS: D-Dimer 0.45 mg/L FEU (0.00-0.50)
[2018-03-08] MEDS ORDERED: Piperacil/Tazo 3.375 GM Premix 50 ML IV.SIG ONE (16:37)
[2018-03-08] MEDS ORDERED: Vancomycin Inj 1,000 MG in Sodium Chlor 0.9% Inj 250 ML IV.SIG ONE (16:37)
[2018-03-08 16:48] LABS: Alanine Aminotransferase 31 U/L (12-78); Albumin 4.3 g/dL (3.4-5.0); Alkaline Phosphatase 86 U/L (45-117); Anion Gap 18 meq/L (5-15); Aspartate Aminotransferase 22 U/L (15-37); Blood Urea Nitrogen 18 mg/dL (7-18); Calcium 10.5 mg/dL (8.5-10.1); Carbon Dioxide 16.1 meq/L (21.0-32.0); Chloride 107 meq/L (98-107); Creatine Kinase 572 U/L (39-308); Glomerular Filtration Rate 41 mL/min (>89); Glucose,Random 137 mg/dL (74-106); Potassium 3.5 meq/L (3.5-5.1); Sodium 141 meq/L (136-145); Total Protein 7.6 g/dL (6.4-8.2); Troponin I 0.02 ng/mL (0.02-0.05)
[2018-03-08 17:02] LABS: CKMB Percent 1.7 % (0.0-4.0); Creatine Kinase MB 9.5 ng/mL (0.5-3.6)
--- NOTE | 2018-03-08 17:56 | P.HP ---
History of Present Illness Service: [facility] Primary Care Physician: Yvon Garcia Chief Complaint: "Pressure in my chest" History of Present Illness: 57-year-old male with a past medical history significant for hypertension, bipolar disorder, depression, and liver cirrhosis who presents to the emergency department with complaints of chest pressure and left arm numbness as well as fever and dehydration. Patient reports that he was seen and evaluated in the emergency department several days ago and was supposed to be provided with a taxicab back to his hotel however never made it there. He reports that he was walking aimlessly in front of the hospital and was caught in the rain yesterday. He reports that earlier today it was very hot and he felt as if he was dehydrated. He reports that he had left-sided chest pain which he describes as "stabbing and heavy" he also reports left hand numbness along with dizziness during this episode. He reports that episode resolved on its own after several seconds states that it was "like a burst". He states that by the time [facility] arrived his chest pain and left arm numbness had resolved. He endorses fevers earlier today, no chills, dizziness and lightheadedness along with chest pain and left arm numbness. He denies any cough, shortness of breath, nausea, vomiting, diarrhea, constipation, abdominal pain or discomfort. Patient does endorse dysuria, denies hematuria. - Diagnosis (1) CAP (community acquired pneumonia) (2) Sepsis due to pneumonia (3) HTN (hypertension) (4) Bipolar disorder PMFSH - History History Provided By: Patient, Construction Engineering Manager / EMT - Medical History Medical History: Medical History (Last Updated 03/08/18 @ 17:54 by Murray Chapman) Depression Liver cirrhosis Bipolar disorder Hypertension - Surgical History Surgical History: Surgical History (Last Reviewed 03/08/18 @ 15:23 by Ketty Tinsley RN) Hx of tonsillectomy - Family History Family History: Family History (Last Updated 03/08/18 @ 17:55 by Murray Chapman) Father Dementia Mother Multiple sclerosis - Tobacco History Second Hand Smoke Exposure: No Smoking Status: Never smoker Tobacco Type: Cigarettes - Alcohol History How Often Do You Have a Drink Containing Alcohol: Never - Substance Use History Substance History: Active Abuse (Quit 2008) - Travel History Recent Travel in the [facility] Within the Last 8 Weeks: No Recent Travel Out of the Country Within the Last 8 Weeks: No - Immunization History Tetanus Immunization: >5 Years Hx Influenza Vaccine This Season: No Medications and Allergies Allergies Allergy/AdvReac Type Severity Reaction Status Date / Time No Known Allergies AdvReac Unknown Abdominal Uncoded 03/06/18 10:49 Pain Home Medications Medication Instructions Recorded Confirmed Type Seroquel 100 mg PO BID 02/14/18 03/06/18 History clonidine HCl 0.1 mg PO QAM 02/14/18 03/06/18 History lithium citrate 200 mg PO TID 02/14/18 03/06/18 History amlodipine [Norvasc] 5 mg PO DAILY 03/06/18 03/06/18 History Exam Vital signs: Vital Signs 03/08/18 15:21 03/08/18 15:24 Temperature 99.3 F Pulse Rate 110 H Respiratory Rate 22 22 Blood Pressure 136/90 Pulse Oximetry 93 L Intake & Output 03/07/18 03/08/18 03/08/18 18:59 06:59 18:59 Weight 275 kg Narrative: GENERAL: Well-developed, disheveled, obese male resting in stretcher, appears to be in no acute distress. SKIN: Warm and dry. HEAD: Atraumatic. Normocephalic. EYES: Pupils equal and round. No scleral icterus drainage. ENT: No nasal bleeding or discharge. Mucous membranes pink and moist. NECK: Trachea midline. No JVD. CARDIOVASCULAR: Regular rate and rhythm. RESPIRATORY: No accessory muscle use. Clear to auscultation. Breath sounds equal bilaterally. GASTROINTESTINAL: Abdomen soft, non-tender, nondistended. + Bowel sounds. MUSCULOSKELETAL: Extremities without clubbing, cyanosis, or edema. No obvious deformities. NEUROLOGICAL: Awake and alert, oriented x3. No obvious cranial nerve deficits. Motor grossly within normal limits. Five out of 5 muscle strength in the arms and legs. Normal speech. PSYCHIATRIC: Appropriate mood and affect; insight and judgment normal. Results - Labs CBC & Chem 7: 03/08/18 15:45 03/08/18 15:45 Labs: Laboratory Results - last 24 hr 03/08/18 03/08/18 03/08/18 15:45 15:45 15:45 WBC 12.6 H RBC 5.16 Hgb 15.5 Hct 43.6 MCV 84.4 MCH 30.0 MCHC 35.5 RDW 14.9 Plt Count 362 MPV 8.7 Neut % (Auto) 81.2 H Lymph % (Auto) 7.2 L [place] % (Auto) 11.2 H Eos % (Auto) 0.1 Baso % (Auto) 0.3 Neut # (Auto) 10.2 H Lymph # (Auto) 0.9 L [place] # (Auto) 1.4 H Eos # (Auto) 0.0 Baso # (Auto) 0.0 WBC Differential . Differential Comment Auto diff final PT 18.2 H INR 1.8 APTT 33.6 H D-Dimer Quant (PE/DVT) 0.45 Sodium 141 Potassium 3.5 Chloride 107 Carbon Dioxide 16.1 L Anion Gap 18 H BUN 18 Creatinine 1.73 H Estimated GFR 41 L Random Glucose 137 H Lactic Acid Calcium 10.5 H Total Bilirubin 0.9 AST 22 ALT 31 Alkaline Phosphatase 86 Total Creatine Kinase 572 H CK-MB (CK-2) 9.5 H CK-MB (CK-2) % 1.7 Troponin I 0.02 Total Protein 7.6 Albumin 4.3 [place] 03/08/18 03/08/18 15:45 15:45 WBC RBC Hgb Hct MCV MCH MCHC RDW Plt Count MPV Neut % (Auto) Lymph % (Auto) [place] % (Auto) Eos % (Auto) Baso % (Auto) Neut # (Auto) Lymph # (Auto) [place] # (Auto) Eos # (Auto) Baso # (Auto) WBC Differential Differential Comment PT INR APTT D-Dimer Quant (PE/DVT) Sodium Potassium Chloride Carbon Dioxide Anion Gap BUN Creatinine Estimated GFR Random Glucose Lactic Acid 2.7 H Calcium Total Bilirubin AST ALT Alkaline Phosphatase Total Creatine Kinase CK-MB (CK-2) CK-MB (CK-2) % Troponin I Total Protein Albumin [place] Less than 0.1 L - Imaging Impressions Chest X-Ray 03/08/18 15:22 CONCLUSION: Under aerated otherwise negative Head CT 03/08/18 15:39 CONCLUSION: 1. Small retention cysts in the right maxillary antra. 2. Otherwise negative. . Caprini VTE Risk Assessment Caprini VTE Risk Assessment: No/Low Risk (score <= 1) Caprini Risk Assessment Model: Point Value = 1 Point Value = 2 Point Value = 3 Point Value = 5 Age 41-60 Minor surgery BMI > 25 kg/m2 Swollen legs Varicose veins or History of unexplained or recurrent spontaneous Oral contraceptives or hormone replacement Sepsis (< 1 month) Serious lung disease, including pneumonia (< 1 month) Abnormal pulmonary function Acute myocardial infarction Congestive heart failure (< 1 month) History of inflammatory bowel disease Medical patient at bed rest Age 61-74 Arthroscopic surgery Major open surgery (> 45 min) Laparoscopic surgery (> 45 min) Malignancy Confined to bed (> 72 hours) Immobilizing plaster cast Central venous access Age >= 75 History of VTE Family history of VTE Factor V Leiden Prothrombin [id number] Lupus anticoagulant Anticardiolipin antibodies Elevated serum homocysteine Heparin-induced thrombocytopenia Other congenital or acquired thrombophilia Stroke (< 1 month) Elective arthroplasty Hip, pelvis, or leg fracture Acute spinal cord injury (< 1 month) Prophylaxis Regimen: Total Risk Factor Score Risk Level Prophylaxis Regimen 0-1 Low Early ambulation 2 Moderate Order ONE of the following: *Sequential Compression Device (SCD) *Heparin 5000 units SQ BID 3-4 Higher Order ONE of the following medications: *Heparin 5000 units SQ TID *Enoxaparin/Lovenox 40 mg SQ daily (WT < 150 kg, CrCl > 30 mL/min) *Enoxaparin/Lovenox 30 mg SQ daily (WT < 150 kg, CrCl > 10-29 mL/min) *Enoxaparin/Lovenox 30 mg SQ BID (WT < 150 kg, CrCl > 30 mL/min) AND/OR *Sequential Compression Device (SCD) 5 or more Highest Order ONE of the following medications: *Heparin 5000 units SQ TID (Preferred with Epidurals) *Enoxaparin/Lovenox 40 mg SQ daily (WT < 150 kg, CrCl > 30 mL/min) *Enoxaparin/Lovenox 30 mg SQ daily (WT < 150 kg, CrCl > 10-29 mL/min) *Enoxaparin/Lovenox 30 mg SQ BID (WT < 150 kg, CrCl > 30 mL/min) AND *Sequential Compression Device (SCD) Assessment and Plan - Assessment (1) CAP (community acquired pneumonia) Code(s): J18.9 - Pneumonia, unspecified organism Status: Acute (2) Sepsis due to pneumonia Code(s): J18.9 - Pneumonia, unspecified organism; A41.9 - Sepsis, unspecified organism Status: Acute (3) HTN (hypertension) Code(s): I10 - Essential (primary) hypertension Status: Acute (4) Bipolar disorder Code(s): F31.9 - Bipolar disorder, unspecified Status: Acute - Plan 57-year-old male with a past medical history significant for hypertension, bipolar disorder, depression, and liver cirrhosis who presents to the emergency department with complaints of chest pressure and left arm numbness as well as fever and dehydration. Sepsis Suspected community-acquired pneumonia (HR 110, T-mas 99.3, lactic acid 2.7) -Chest x-ray reviewed, under aerated lungs otherwise negative -Head CT with small retention cyst in the right maxillary antra, otherwise negative -CBC with mild leukocytosis, elevated neutrophil count -Patient provided with fluids in the ER, continue NS at 100 and hour -Patient received IV Zosyn and vancomycin, continue for the moment -Blood cultures x2 obtained in ER, follow final results, check calcitonin level -Obtain UA secondary to dysuria -Supplemental oxygen, incentive spirometer, scheduled duo nebs while awake and as needed Chest pain Left arm numbness -Suspect secondary to above -Initial troponin negative, EKG sinus rhythm with nonspecific T wave abnormality , no visible ST elevation -Received 325 of aspirin in ER, continue to trend troponin/CK levels and EKGs Acute kidney injury Rhabdomyolysis, mild Hypercalcemia -Total CK 572, continue IV hydration -Avoid nephrotoxins, continue following renal function Bipolar disorder -Patient to complete medication reconciliation to restart medications -[place] level less than 0.1 Hypertension, chronic, stable -Blood pressure stable for the moment, as needed clonidine if needed. Low vitamin D - lab work completed on 03/06 with vitamin D level of 11.0 -Replace with 1000IU daily DVT prophylaxis-subcu heparin Discussed Condition With: Discussed with patient and Dr. Carbone (4) Bipolar disorder Qualifiers: Active/Remission status: currently active Current bipolar episode type: depressed Current episode severity: moderate Qualified Code(s): F31.32 - Bipolar disorder, current episode depressed, moderate
[2018-03-08] MEDS ORDERED: Bisacodyl 10 MG Supp RECTAL PRN (18:06)
[2018-03-08] MEDS ORDERED: Acetaminophen 325 MG Tablet PO PRN (18:06)
[2018-03-08 18:30] LABS: Clarity,Urine Hazy (Clear); Color,Urine Amber (Yellw/Straw); Glucose,Urine (UA) 50 mg/dL (Negative); Leukocyte Esterase,Urine Negative (Negative); Mucus,Urine Few /lpf (Occasional); Nitrite,Urine Negative (Negative); Specific Gravity,Urine 1.027 (1.002-1.035); Urobilinogen,Urine 4 or Greater mg/dL (Less than 2)
[2018-03-08] MEDS: Sod Chloride 0.9% Inj 1,000 ML IV.CONT SCH (18:30)
[2018-03-08 18:37] LABS: Bilirubin,Urine Negative (Negative)
--- NOTE | 2018-03-08 18:49 | ECG ---
Date Performed: 03/08/2018 Time Performed: 16:50:12 PTAGE: 57 years EKG: Sinus rhythm MARKED LEFT AXIS DEVIATION PATTERN CONSISTENT WITH PULMONARY DISEASE NONSPECIFIC ST & T-WAVE ABNORMA LITY ABNORMAL ECG Compared to prior electrocardiogram, Nonspecific T-wave changes are slightly less p rominent. PREVIOUS TRACING : 02/15/2018 18.15 DOCTOR: Benjy Maravilla Interpretating Date/Time 03/08/2018 18:48:03
[2018-03-08] MEDS ORDERED: Vancomycin Consult Pharmacy 1 EACH OTHER SCH (19:00)
[2018-03-08] MEDS: Heparin - SQ 10,000 UNITS/ML Vial SQ SCH (19:30)
[2018-03-08] MEDS: Senna/Docusate Sodium 8.6/50 MG Tablet PO SCH (20:38)
[2018-03-08 22:40] LABS: Troponin I 0.04 ng/mL (0.02-0.05)
[2018-03-08 22:55] LABS: CKMB Percent 2.4 % (0.0-4.0); Creatine Kinase MB 24.3 ng/mL (0.5-3.6)
[2018-03-09 05:08] LABS: Baso # (Auto) 0.1 th/mm3 (0.0-0.2); Baso % (Auto) 0.8 % (0.0-2.0); Eos # (Auto) 0.2 th/mm3 (0.0-0.4); Eos % (Auto) 1.9 % (0.0-4.0); Hematocrit 38.3 % (39.0-51.0); Hemoglobin 13.9 gm/dL (13.0-17.0); Lymph # (Auto) 1.9 th/mm3 (1.0-4.8); Lymph % (Auto) 20.2 % (9.0-44.0); Mean Corpuscular Hemoglobin 31.2 pg (27.0-34.0); Mean Corpuscular Volume 85.8 fL (80.0-100.0); Mean Platelet Volume 8.7 fL (7.0-11.0); Mono # (Auto) 1.1 th/mm3 (0.0-0.9); Mono % (Auto) 11.2 % (0.0-8.0); Neut # (Auto) 6.3 th/mm3 (1.8-7.7); Neut % (Auto) 65.9 % (16.0-70.0); Platelet Count 267 th/mm3 (150-450); Red Blood Count 4.47 mil/mm3 (4.50-5.90); Red Cell Distribution Width 15.3 % (11.6-17.2); White Blood Count 9.5 th/mm3 (4.0-11.0)
[2018-03-09 05:15] LABS: Mean Corpuscular HGB Conc 36.4 % (32.0-36.0)
[2018-03-09 05:42] LABS: Anion Gap 9 meq/L (5-15); Blood Urea Nitrogen 13 mg/dL (7-18); Carbon Dioxide 22.7 meq/L (21.0-32.0); Chloride 109 meq/L (98-107); Creatine Kinase 1060 U/L (39-308); Glomerular Filtration Rate Greater Than 89 mL/min (>89); Glucose,Random 108 mg/dL (74-106); Potassium 3.6 meq/L (3.5-5.1); Sodium 141 meq/L (136-145); Troponin I 0.03 ng/mL (0.02-0.05)
[2018-03-09] MEDS: Piperacil/Tazo 3.375 GM Premix 50 ML IV.SIG SCH ×3 (05:43→16:39)
[2018-03-09] MEDS: Sod Chloride 0.9% Inj 1,000 ML IV.CONT SCH ×2 (05:48→18:55)
[2018-03-09 05:58] LABS: CKMB Percent 1.6 % (0.0-4.0); Creatine Kinase MB 16.9 ng/mL (0.5-3.6)
[2018-03-09] MEDS ORDERED: Vancomycin Inj 1,400 MG in Sodium Chlor 0.9% Inj 500 ML IV.SIG SCH (06:00)
[2018-03-09] MEDS: Senna/Docusate Sodium 8.6/50 MG Tablet PO SCH ×2 (09:26→21:56)
[2018-03-09] MEDS: Heparin - SQ 10,000 UNITS/ML Vial SQ SCH ×2 (09:26→21:57)
--- NOTE | 2018-03-09 16:53 | P.PN ---
Subjective Interval history: Patient is seen lying comfortably in bed. He is very anxious about where he will go after his hospital stay. Denies any chest pain or shortness of breath. Reports continued weakness and says he could only "shuffle around" with PT. denies any nausea vomiting or diarrhea. No fevers and chills. Physical Exam Vital signs: Vital Signs 03/08/18 17:56 03/08/18 19:20 03/08/18 19:28 Temperature 98.2 F Pulse Rate 81 72 71 Respiratory Rate 16 18 20 Blood Pressure 138/77 141/83 H Pulse Oximetry 94 L 96 03/08/18 20:00 03/08/18 22:37 03/09/18 04:00 Temperature 98.6 F 97.9 F Pulse Rate 55 L 64 62 Respiratory Rate 18 18 Blood Pressure 123/84 138/80 Pulse Oximetry 96 98 03/09/18 07:12 03/09/18 08:00 03/09/18 10:00 Temperature 98.0 F Pulse Rate 84 59 L 55 L Respiratory Rate 17 16 Blood Pressure 137/93 H Pulse Oximetry 97 95 97 03/09/18 12:00 03/09/18 12:53 03/09/18 16:00 Temperature 98.1 F 98.0 F Pulse Rate 56 L 54 L 61 Respiratory Rate 18 14 16 Blood Pressure 144/87 H 149/72 H Pulse Oximetry 97 97 Intake & Output 03/08/18 03/09/18 03/09/18 18:59 06:59 18:59 Intake Total 1000 / 1000 1300 / 1300 Balance 1000 / 1000 1300 / 1300 Weight 106.594 kg Intake: IV 1000 / 1000 1300 / 1300 NS Inj 1,000 ML @ 100 mls/hr IV 1000 / 1000 750 / 750 .CONT .Q10H ALEJA Rx#:[id number] Zosyn 3.375 GM Premix 50 ML @ 50 / 50 100 mls/hr IV.SIG Q8H ALEJA Rx#: [id number] Vancomycin Inj 1,400 MG In NS 500 / 500 Inj 500 ML @ 250 mls/hr IV.SIG Q18H ALEJA Rx#:[id number] Other: # Voids 1 Narrative: GENERAL: Well-developed, disheveled, obese male in no acute distress. SKIN: Warm and dry. HEAD: Atraumatic. Normocephalic. EYES: Pupils equal and round. No scleral icterus drainage. CARDIOVASCULAR: Regular rate and rhythm. RESPIRATORY: No accessory muscle use. Clear to auscultation. Breath sounds equal bilaterally. GASTROINTESTINAL: Abdomen soft, non-tender, nondistended. + Bowel sounds. MUSCULOSKELETAL: Extremities without clubbing, cyanosis, or edema. No obvious deformities. NEUROLOGICAL: Awake and alert, oriented x3. No obvious cranial nerve deficits. Motor grossly within normal limits. Five out of 5 muscle strength in the arms and legs. Normal speech. PSYCHIATRIC: Anxious - Urinary Catheter Management Straight Cath placed during this visit: yes Reason for continuing: Not indwelling catheter Insertion date: 03/08/18 Insertion time: 18:19 Results - Labs CBC & Chem 7: 03/09/18 04:45 03/09/18 04:45 Laboratory Results - last 24 hr 03/08/18 03/08/18 03/08/18 15:45 18:15 21:30 WBC RBC Hgb Hct MCV MCH MCHC RDW Plt Count MPV Prelim Diff (Auto) Neut % (Auto) Lymph % (Auto) [place] % (Auto) Eos % (Auto) Baso % (Auto) Neut # (Auto) Lymph # (Auto) [place] # (Auto) Eos # (Auto) Baso # (Auto) WBC Differential Diff Scan Differential Comment Sodium 141 Potassium 3.5 Chloride 107 Carbon Dioxide 16.1 L Anion Gap 18 H BUN 18 Creatinine 1.73 H Estimated GFR 41 L Random Glucose 137 H Lactic Acid 1.4 Calcium 10.5 H Total Bilirubin 0.9 AST 22 ALT 31 Alkaline Phosphatase 86 Total Creatine Kinase 572 H CK-MB (CK-2) 9.5 H CK-MB (CK-2) % 1.7 Troponin I 0.02 Total Protein 7.6 Albumin 4.3 Procalcitonin Urine Color [place] Urine Clarity Hazy H Urine pH 5.0 Ur Specific [place] 1.027 Urine Protein 100 H Urine Glucose (UA) 50 Urine Ketones 20 Urine Occult Blood Small H Urine Nitrate Negative Urine Bilirubin Negative Urine Urobilinogen 4 or greater Ur Leukocyte Esterase Negative Urine RBC 2 Urine WBC 3 Urine Mucus Few H Micro UA Comment Cath-culture not ind Urine Culture Comments Cath-cult not ind 03/08/18 03/08/18 03/09/18 21:38 21:38 04:45 WBC 9.5 RBC 4.47 L Hgb 13.9 Hct 38.3 L MCV 85.8 MCH 31.2 MCHC 36.4 H RDW 15.3 Plt Count 267 MPV 8.7 Prelim Diff (Auto) Slide review pending Neut % (Auto) 65.9 Lymph % (Auto) 20.2 [place] % (Auto) 11.2 H Eos % (Auto) 1.9 Baso % (Auto) 0.8 Neut # (Auto) 6.3 Lymph # (Auto) 1.9 [place] # (Auto) 1.1 H Eos # (Auto) 0.2 Baso # (Auto) 0.1 WBC Differential . Diff Scan Auto diff confirmed Differential Comment . Sodium Potassium Chloride Carbon Dioxide Anion Gap BUN Creatinine Estimated GFR Random Glucose Lactic Acid Calcium Total Bilirubin AST ALT Alkaline Phosphatase Total Creatine Kinase 1018 H CK-MB (CK-2) 24.3 H CK-MB (CK-2) % 2.4 Troponin I 0.04 Total Protein Albumin Procalcitonin 0.04 Urine Color Urine Clarity Urine pH Ur Specific [place] Urine Protein Urine Glucose (UA) Urine Ketones Urine Occult Blood Urine Nitrate Urine Bilirubin Urine Urobilinogen Ur Leukocyte Esterase Urine RBC Urine WBC Urine Mucus Micro UA Comment Urine Culture Comments 03/09/18 04:45 WBC RBC Hgb Hct MCV MCH MCHC RDW Plt Count MPV Prelim Diff (Auto) Neut % (Auto) Lymph % (Auto) [place] % (Auto) Eos % (Auto) Baso % (Auto) Neut # (Auto) Lymph # (Auto) [place] # (Auto) Eos # (Auto) Baso # (Auto) WBC Differential Diff Scan Differential Comment Sodium 141 Potassium 3.6 Chloride 109 H Carbon Dioxide 22.7 Anion Gap 9 BUN 13 Creatinine 0.85 Estimated GFR Greater than 89 Random Glucose 108 H Lactic Acid Calcium 9.0 D Total Bilirubin AST ALT Alkaline Phosphatase Total Creatine Kinase 1060 H CK-MB (CK-2) 16.9 H CK-MB (CK-2) % 1.6 Troponin I 0.03 Total Protein Albumin Procalcitonin Urine Color Urine Clarity Urine pH Ur Specific [place] Urine Protein Urine Glucose (UA) Urine Ketones Urine Occult Blood Urine Nitrate Urine Bilirubin Urine Urobilinogen Ur Leukocyte Esterase Urine RBC Urine WBC Urine Mucus Micro UA Comment Urine Culture Comments Microbiology 03/08/18 15:45 Blood - Peripheral Aerobic Blood Culture - Preliminary No growth in 1 day 03/08/18 15:45 Blood - Peripheral Anaerobic Blood Culture - Preliminary No growth in 1 day 03/08/18 15:35 Blood - Peripheral Aerobic Blood Culture - Preliminary No growth in 1 day 03/08/18 15:35 Blood - Peripheral Anaerobic Blood Culture - Preliminary No growth in 1 day Assessment and Plan - Assessment (1) CAP (community acquired pneumonia) Code(s): J18.9 - Pneumonia, unspecified organism Status: Acute (2) Sepsis due to pneumonia Code(s): J18.9 - Pneumonia, unspecified organism; A41.9 - Sepsis, unspecified organism Status: Acute (3) HTN (hypertension) Code(s): I10 - Essential (primary) hypertension Status: Acute (4) Bipolar disorder Code(s): F31.9 - Bipolar disorder, unspecified Status: Acute - Plan 57-year-old male with a past medical history significant for hypertension, bipolar disorder, depression, and liver cirrhosis who presents to the emergency department with complaints of chest pressure and left arm numbness as well as fever and dehydration. Sepsis Suspected community-acquired pneumonia (HR 110, T-mas 99.3, lactic acid 2.7) -Chest x-ray reviewed, under aerated lungs otherwise negative -Head CT with small retention cyst in the right maxillary antra, otherwise negative -CBC with mild leukocytosis, elevated neutrophil count -Patient provided with fluids in the ER, continue NS at 100 and hour -Patient received IV Zosyn and vancomycin, continue for the moment -Blood cultures x2 obtained in ER, follow final results, check calcitonin level -Obtain UA secondary to dysuria -Supplemental oxygen, incentive spirometer, scheduled duo nebs while awake and as needed Chest pain Left arm numbness -Suspect secondary to above -Initial troponin negative, EKG sinus rhythm with nonspecific T wave abnormality , no visible ST elevation -Received 325 of aspirin in ER, continue to trend troponin/CK levels and EKGs Acute kidney injury Rhabdomyolysis, mild Hypercalcemia -CK elevated, continue IV hydration -Avoid nephrotoxins, continue following renal function Bipolar disorder -Patient to complete medication reconciliation to restart medications -[place] level less than 0.1 Hypertension, chronic, stable -Blood pressure stable for the moment, as needed clonidine if needed. Low vitamin D - lab work completed on 03/06 with vitamin D level of 11.0 -Replace with 1000IU daily DVT prophylaxis-subcu heparin (4) Bipolar disorder Qualifiers: Active/Remission status: currently active Current bipolar episode type: depressed Current episode severity: moderate Qualified Code(s): F31.32 - Bipolar disorder, current episode depressed, moderate
[2018-03-09] MEDS: Vancomycin Inj 1,500 MG in Sodium Chlor 0.9% Inj 500 ML IV.SIG SCH (18:59)
[2018-03-10] MEDS: Piperacil/Tazo 3.375 GM Premix 50 ML IV.SIG SCH ×3 (00:36→16:38)
[2018-03-10] MEDS: Sod Chloride 0.9% Inj 1,000 ML IV.CONT SCH ×3 (06:20→20:24)
[2018-03-10 07:36] LABS: Baso # (Auto) 0.1 th/mm3 (0.0-0.2); Baso % (Auto) 0.9 % (0.0-2.0); Eos # (Auto) 0.1 th/mm3 (0.0-0.4); Eos % (Auto) 1.7 % (0.0-4.0); Hematocrit 39.4 % (39.0-51.0); Hemoglobin 13.5 gm/dL (13.0-17.0); Lymph # (Auto) 0.8 th/mm3 (1.0-4.8); Mean Corpuscular HGB Conc 34.4 % (32.0-36.0); Mean Corpuscular Hemoglobin 29.5 pg (27.0-34.0); Mean Corpuscular Volume 85.7 fL (80.0-100.0); Mean Platelet Volume 8.8 fL (7.0-11.0); Mono # (Auto) 0.8 th/mm3 (0.0-0.9); Mono % (Auto) 11.3 % (0.0-8.0); Neut # (Auto) 5.4 th/mm3 (1.8-7.7); Neut % (Auto) 75.1 % (16.0-70.0); Platelet Count 241 th/mm3 (150-450); Red Blood Count 4.59 mil/mm3 (4.50-5.90); Red Cell Distribution Width 15.2 % (11.6-17.2); White Blood Count 7.2 th/mm3 (4.0-11.0)
[2018-03-10] MEDS: Vancomycin Inj 1,500 MG in Sodium Chlor 0.9% Inj 500 ML IV.SIG SCH ×2 (08:51→19:01)
[2018-03-10] MEDS: Heparin - SQ 10,000 UNITS/ML Vial SQ SCH ×2 (11:07→22:00)
[2018-03-10] MEDS: Senna/Docusate Sodium 8.6/50 MG Tablet PO SCH ×2 (11:08→22:00)
--- NOTE | 2018-03-10 14:56 | P.PN ---
Subjective Interval history: Patient is seen lying in bed. He tells me that he did sleep well last night. No chest pain or shortness of breath. No nausea vomiting or diarrhea. He is tolerating his meals well. Good urine production. He continues to be very anxious about where he will go once he is discharged. He is complaining of paralysis in his left foot however he is able to move it. Physical Exam Vital signs: Vital Signs 03/09/18 16:00 03/09/18 19:15 03/09/18 20:00 Temperature 98.0 F 98 F Pulse Rate 61 55 L 55 L Respiratory Rate 16 18 18 Blood Pressure 149/72 H 155/83 H Pulse Oximetry 97 98 96 03/10/18 00:22 03/10/18 03:54 03/10/18 07:36 Temperature 98.4 F 98.7 F Pulse Rate 59 L 61 58 L Respiratory Rate 18 16 Blood Pressure 151/94 H 168/90 H Pulse Oximetry 98 96 03/10/18 08:00 03/10/18 11:09 03/10/18 12:00 Temperature 98.1 F 97.8 F Pulse Rate 62 62 57 L Respiratory Rate 16 16 Blood Pressure 165/96 H 210/102 H Pulse Oximetry 95 96 03/10/18 12:42 Temperature Pulse Rate Respiratory Rate Blood Pressure 172/112 H Pulse Oximetry Intake & Output 03/09/18 03/10/18 03/10/18 18:59 06:59 18:59 Intake Total 1790 / 1790 1565 / 1565 1500 / 1500 Output Total 300 / 300 Balance 1790 / 1790 1265 / 1265 1500 / 1500 Intake: IV 1550 / 1550 1565 / 1565 1500 / 1500 NS Inj 1,000 ML @ 100 mls/hr IV 1000 / 1000 1000 / 1000 900 / 900 .CONT .Q10H [facility] Rx#:[id number] Zosyn 3.375 GM Premix 50 ML @ 50 / 50 50 / 50 100 / 100 100 mls/hr IV.SIG Q8H [facility] Rx#: [id number] Vancomycin Inj 1,500 MG In NS 500 / 500 515 / 515 500 / 500 Inj 500 ML @ 250 mls/hr IV.SIG Q12H A[facility] Rx#:[id number] Oral 240 / 240 Output: Urine 300 / 300 Narrative: GENERAL: Well-developed, obese male in no acute distress. SKIN: Warm and dry. HEAD: Atraumatic. Normocephalic. EYES: Pupils equal and round. No scleral icterus drainage. CARDIOVASCULAR: Regular rate and rhythm. RESPIRATORY: No accessory muscle use. Clear to auscultation. Breath sounds equal bilaterally. GASTROINTESTINAL: Abdomen soft, non-tender, nondistended. + Bowel sounds. MUSCULOSKELETAL: Extremities without clubbing, cyanosis, or edema. No obvious deformities. NEUROLOGICAL: Awake and alert, oriented x3. No obvious cranial nerve deficits. Motor grossly within normal limits. Five out of 5 muscle strength in the arms and legs. No obvious abnormality of left foot. PSYCHIATRIC: Anxious - Urinary Catheter Management Straight Cath placed during this visit: yes Reason for continuing: Not indwelling catheter Insertion date: 03/08/18 Insertion time: 18:19 Results - Labs CBC & Chem 7: 03/10/18 06:39 03/09/18 04:45 Laboratory Results - last 24 hr 03/10/18 06:39 WBC 7.2 RBC 4.59 Hgb 13.5 Hct 39.4 MCV 85.7 MCH 29.5 MCHC 34.4 RDW 15.2 Plt Count 241 MPV 8.8 Neut % (Auto) 75.1 H Lymph % (Auto) 11.0 [place] % (Auto) 11.3 H Eos % (Auto) 1.7 Baso % (Auto) 0.9 Neut # (Auto) 5.4 Lymph # (Auto) 0.8 L [place] # (Auto) 0.8 Eos # (Auto) 0.1 Baso # (Auto) 0.1 WBC Differential . Differential Comment Auto diff final Microbiology 03/08/18 15:35 Blood - Peripheral Aerobic Blood Culture - Preliminary No growth in 2 days 03/08/18 15:35 Blood - Peripheral Anaerobic Blood Culture - Preliminary gram negative rods 03/08/18 15:45 Blood - Peripheral Aerobic Blood Culture - Preliminary Staphylococcus coag negative 03/08/18 15:45 Blood - Peripheral Anaerobic Blood Culture - Preliminary No growth in 2 days Assessment and Plan - Assessment (1) CAP (community acquired pneumonia) Code(s): J18.9 - Pneumonia, unspecified organism Status: Acute (2) Sepsis due to pneumonia Code(s): J18.9 - Pneumonia, unspecified organism; A41.9 - Sepsis, unspecified organism Status: Acute (3) HTN (hypertension) Code(s): I10 - Essential (primary) hypertension Status: Acute (4) Bipolar disorder Code(s): F31.9 - Bipolar disorder, unspecified Status: Acute - Plan 57-year-old male with a past medical history significant for hypertension, bipolar disorder, depression, and liver cirrhosis who presents to the emergency department with complaints of chest pressure and left arm numbness as well as fever and dehydration. Sepsis Suspected community-acquired pneumonia (HR 110, T-mas 99.3, lactic acid 2.7) -Chest x-ray reviewed, under aerated lungs otherwise negative -Head CT with small retention cyst in the right maxillary antra, otherwise negative -CBC with mild leukocytosis, elevated neutrophil count -Patient received IV Zosyn and vancomycin, continue for the moment -Blood cultures x2 obtained in ER, follow final results - suspect possible skin contaminant; staph coag negative -Obtain UA secondary to dysuria; negative -Supplemental oxygen, incentive spirometer, scheduled duo nebs while awake and as needed Chest pain; resolved Left arm numbness -Suspect secondary to above -Initial troponin negative, EKG sinus rhythm with nonspecific T wave abnormality , no visible ST elevation -Received 325 of aspirin in ER, continue to trend troponin/CK levels and EKGs Acute kidney injury Rhabdomyolysis, mild Hypercalcemia -CK elevated, continue IV hydration -Avoid nephrotoxins, continue following renal function Bipolar disorder -restart home medications -[place] level less than 0.1; monitor Hypertension, chronic, stable -Blood pressure stable for the moment, as needed clonidine if needed. -Restart home Norvasc Low vitamin D - lab work completed on 03/06 with vitamin D level of 11.0 -Replace with 1000IU daily DVT prophylaxis-subcu heparin (4) Bipolar disorder Qualifiers: Active/Remission status: currently active Current bipolar episode type: depressed Current episode severity: moderate Qualified Code(s): F31.32 - Bipolar disorder, current episode depressed, moderate
[2018-03-10] MEDS: QUEtiapine 25 MG Tablet PO SCH (16:38)
[2018-03-10] MEDS: amLODIPine 5 MG Tablet PO SCH (16:38)
[2018-03-10] MEDS ORDERED: Pharmacy Ordered Lab Info OTHER ONE (17:45)
[2018-03-10 20:01] LABS: Alanine Aminotransferase 26 U/L (12-78); Albumin 3.1 g/dL (3.4-5.0); Alkaline Phosphatase 69 U/L (45-117); Anion Gap 9 meq/L (5-15); Aspartate Aminotransferase 33 U/L (15-37); Blood Urea Nitrogen 7 mg/dL (7-18); Calcium 8.6 mg/dL (8.5-10.1); Chloride 114 meq/L (98-107); Creatine Kinase 401 U/L (39-308); Glomerular Filtration Rate 64 mL/min (>89); Glucose,Random 86 mg/dL (74-106); Potassium 3.4 meq/L (3.5-5.1); Sodium 144 meq/L (136-145); Total Protein 6.1 g/dL (6.4-8.2); Vancomycin,Trough 24.2 mcg/mL (5.0-10.0)
[2018-03-10 20:21] LABS: CKMB Percent 0.9 % (0.0-4.0); Creatine Kinase MB 3.8 ng/mL (0.5-3.6)
[2018-03-11] MEDS: Piperacil/Tazo 3.375 GM Premix 50 ML IV.SIG SCH ×3 (01:18→18:31)
[2018-03-11] MEDS: Sod Chloride 0.9% Inj 1,000 ML IV.CONT SCH ×2 (04:38→13:45)
[2018-03-11] MEDS ORDERED: Pharmacy Ordered Lab Info OTHER ONE (05:45)
[2018-03-11] MEDS: Heparin - SQ 10,000 UNITS/ML Vial SQ SCH ×2 (08:39→20:36)
[2018-03-11] MEDS: amLODIPine 5 MG Tablet PO SCH (08:40)
[2018-03-11] MEDS: QUEtiapine 25 MG Tablet PO SCH ×2 (08:40→14:38)
[2018-03-11] MEDS: Senna/Docusate Sodium 8.6/50 MG Tablet PO SCH ×2 (08:40→20:36)
[2018-03-11 08:42] LABS: Vancomycin,Trough 30.3 mcg/mL (5.0-10.0)
--- NOTE | 2018-03-11 14:46 | P.PN ---
Subjective Interval history: Patient is seen sitting up in bed eating breakfast. He continues to complain about weakness. He is also expressing that he has been suffering from worsening depression and that he has been struggling with medication adherence. Denies suicidal ideation or having a suicide but he does say that he feels like "it just is not worth it anymore". Continues to endorse weakness/ paralysis in his left leg however he is also noted to move this leg. Denies chest pain or shortness of breath. Denies nausea vomiting or diarrhea. Has had normal urination. Is somewhat constipated; has been refusing stool softener. Physical Exam Vital signs: Vital Signs 03/10/18 16:00 03/10/18 18:28 03/10/18 21:07 Temperature 98.1 F 98.1 F Pulse Rate 54 L 62 62 Respiratory Rate 16 16 16 Blood Pressure 190/105 H 166/93 H Pulse Oximetry 96 95 03/11/18 00:14 03/11/18 04:08 03/11/18 08:00 Temperature 97.9 F 98.4 F 98.3 F Pulse Rate 68 70 64 Respiratory Rate 18 20 16 Blood Pressure 145/99 H 170/104 H 160/103 H Pulse Oximetry 96 96 97 03/11/18 12:00 Temperature 98.1 F Pulse Rate 63 Respiratory Rate 12 Blood Pressure 153/114 H Pulse Oximetry 97 Intake & Output 03/10/18 03/11/18 03/11/18 18:59 06:59 18:59 Intake Total 1550 / 1550 1240 / 1240 50 / 50 Output Total 750 / 750 750 / 750 Balance 800 / 800 490 / 490 50 / 50 Intake: IV 1550 / 1550 1000 / 1000 50 / 50 NS Inj 1,000 ML @ 100 mls/hr IV 900 / 900 1000 / 1000 .CONT .Q10H [facility] Rx#:[id number] Zosyn 3.375 GM Premix 50 ML @ 150 / 150 50 / 50 100 mls/hr IV.SIG Q8H [facility] Rx#: [id number] Vancomycin Inj 1,500 MG In NS 500 / 500 Inj 500 ML @ 250 mls/hr IV.SIG Q12H [facility] Rx#:[id number] Oral 240 / 240 Output: Urine 750 / 750 750 / 750 Other: # Voids 3 Narrative: GENERAL: Well-developed, obese male in no acute distress. SKIN: Warm and dry. HEAD: Atraumatic. Normocephalic. EYES: Pupils equal and round. No scleral icterus drainage. CARDIOVASCULAR: Regular rate and rhythm. RESPIRATORY: No accessory muscle use. Clear to auscultation. Breath sounds equal bilaterally. GASTROINTESTINAL: Abdomen soft, non-tender, nondistended. + Bowel sounds. MUSCULOSKELETAL: Extremities without clubbing, cyanosis, or edema. No obvious deformities. NEUROLOGICAL: Awake and alert, oriented x3. No obvious cranial nerve deficits. Motor grossly within normal limits. Five out of 5 muscle strength in the arms and legs. No obvious abnormality of left foot. PSYCHIATRIC: Anxious - Urinary Catheter Management Straight Cath placed during this visit: yes Reason for continuing: Not indwelling catheter Insertion date: 03/08/18 Insertion time: 18:19 Results - Labs CBC & Chem 7: 03/10/18 06:39 03/11/18 07:58 Laboratory Results - last 24 hr 03/10/18 03/11/18 18:51 07:58 Sodium 144 Potassium 3.4 L Chloride 114 H Carbon Dioxide 21.0 Anion Gap 9 BUN 7 Creatinine 1.18 1.39 H Estimated GFR 64 L 53 L Random Glucose 86 Calcium 8.6 Total Bilirubin 1.1 H AST 33 ALT 26 Alkaline Phosphatase 69 Total Creatine Kinase 401 H CK-MB (CK-2) 3.8 H CK-MB (CK-2) % 0.9 Total Protein 6.1 L D Albumin 3.1 L Vancomycin Trough 24.2 H 30.3 H Microbiology 03/08/18 15:45 Blood - Peripheral Aerobic Blood Culture - Preliminary Staphylococcus coag negative 03/08/18 15:45 Blood - Peripheral Anaerobic Blood Culture - Preliminary No growth in 3 days 03/08/18 15:35 Blood - Peripheral Aerobic Blood Culture - Preliminary No growth in 3 days 03/08/18 15:35 Blood - Peripheral Anaerobic Blood Culture - Preliminary [place] [employer] Assessment and Plan - Assessment (1) CAP (community acquired pneumonia) Code(s): J18.9 - Pneumonia, unspecified organism Status: Acute (2) Sepsis due to pneumonia Code(s): J18.9 - Pneumonia, unspecified organism; A41.9 - Sepsis, unspecified organism Status: Acute (3) HTN (hypertension) Code(s): I10 - Essential (primary) hypertension Status: Acute (4) Bipolar disorder Code(s): F31.9 - Bipolar disorder, unspecified Status: Acute - Plan 57-year-old male with a past medical history significant for hypertension, bipolar disorder, depression, and liver cirrhosis who presents to the emergency department with complaints of chest pressure and left arm numbness as well as fever and dehydration. Sepsis Suspected community-acquired pneumonia (HR 110, T-mas 99.3, lactic acid 2.7) -Chest x-ray reviewed, under aerated lungs otherwise negative -Head CT with small retention cyst in the right maxillary antra, otherwise negative -CBC with mild leukocytosis, elevated neutrophil count; resolved -Patient received IV Zosyn and vancomycin, continue -Blood cultures x2 obtained in ER, follow final results - suspect possible skin contaminant; staph coag negative -Obtain UA secondary to dysuria; negative -Supplemental oxygen, incentive spirometer, scheduled duo nebs while awake and as needed Chest pain; resolved Left arm numbness; resolved -Suspect secondary to above -Initial troponin negative, EKG sinus rhythm with nonspecific T wave abnormality , no visible ST elevation -Received 325 of aspirin in ER, continue to trend troponin/CK levels and EKGs Acute kidney injury Rhabdomyolysis, mild Hypercalcemia -CK elevated, continue IV hydration -Avoid nephrotoxins, continue following renal function Bipolar disorder//depression -Psychiatry consult placed; appreciate assistance -[place] level less than 0.1; monitor if restarted Hypertension, chronic, stable -Blood pressure stable for the moment, as needed clonidine if needed. -Restart home Norvasc Low vitamin D - lab work completed on 03/06 with vitamin D level of 11.0 -Replace with 1000IU daily DVT prophylaxis-subcu heparin Discussed with: Patient and nurse (4) Bipolar disorder Qualifiers: Active/Remission status: currently active Current bipolar episode type: depressed Current episode severity: moderate Qualified Code(s): F31.32 - Bipolar disorder, current episode depressed, moderate
[2018-03-11] MEDS: Vancomycin Inj 1,500 MG in Sodium Chlor 0.9% Inj 500 ML IV.SIG SCH (20:35)
[2018-03-12] MEDS: Piperacil/Tazo 3.375 GM Premix 50 ML IV.SIG SCH ×3 (00:24→17:37)
[2018-03-12] MEDS: Heparin - SQ 10,000 UNITS/ML Vial SQ SCH ×2 (08:37→20:50)
[2018-03-12] MEDS: amLODIPine 5 MG Tablet PO SCH (08:37)
[2018-03-12] MEDS: Senna/Docusate Sodium 8.6/50 MG Tablet PO SCH ×2 (08:38→20:50)
--- NOTE | 2018-03-12 10:01 | P.PNIM ---
Subjective Interval history: in no acute distress. denies pain. but has mild sob. no fever. Physical Exam Vital signs: Vital Signs 03/11/18 12:00 03/11/18 14:47 03/11/18 16:01 Temperature 98.1 F 98.0 F Pulse Rate 63 52 L 56 L Respiratory Rate 12 20 Blood Pressure 153/114 H 158/98 H Pulse Oximetry 97 94 L 03/11/18 20:00 03/12/18 00:00 03/12/18 04:00 Temperature 97.9 F 98 F Pulse Rate 50 L 54 L 54 L Respiratory Rate 18 18 Blood Pressure 164/100 H 179/105 H Pulse Oximetry 96 97 Intake & Output 03/11/18 03/12/18 03/12/18 18:59 06:59 18:59 Intake Total 150 / 150 565 / 565 Balance 150 / 150 565 / 565 Weight 100.6 kg 101 kg Intake: IV 150 / 150 565 / 565 Zosyn 3.375 GM Premix 50 ML @ 150 / 150 50 / 50 100 mls/hr IV.SIG Q8H [facility] Rx#: [id number] Vancomycin Inj 1,500 MG In NS 515 / 515 Inj 500 ML @ 250 mls/hr IV.SIG Q18H [facility] Rx#:[id number] Other: Date of Last Bowel Movement 03/11/18 Weight On Admission 100.6 kg - Constitutional no acute distress - Routine Respiratory Exam Present: CTA bilaterally - Routine Cardiovascular Exam Present: RRR - Routine Abdominal Exam Present: soft - Routine Extremities Exam Comments: no pedal edema. - Routine Neurological Exam Present: alert, oriented X3 - Urinary Catheter Management Straight Cath placed during this visit: yes Reason for continuing: Not indwelling catheter Insertion date: 03/08/18 Insertion time: 18:19 Results - Labs CBC & Chem 7: 03/10/18 06:39 03/12/18 07:54 Laboratory Results - last 24 hr 03/12/18 03/12/18 07:54 07:54 Creatinine 1.55 H Estimated GFR 46 L [place] 0.2 L Microbiology 03/08/18 15:45 Blood - Peripheral Aerobic Blood Culture - Final Staph. capitis-ureolyticus 03/08/18 15:45 Blood - Peripheral Anaerobic Blood Culture - Preliminary No growth in 3 days 03/08/18 15:35 Blood - Peripheral Aerobic Blood Culture - Preliminary No growth in 3 days 03/08/18 15:35 Blood - Peripheral Anaerobic Blood Culture - Preliminary [place] [employer] Assessment and Plan - Assessment (1) CAP (community acquired pneumonia) Code(s): J18.9 - Pneumonia, unspecified organism Status: Acute (2) Sepsis due to pneumonia Code(s): J18.9 - Pneumonia, unspecified organism; A41.9 - Sepsis, unspecified organism Status: Acute (3) HTN (hypertension) Code(s): I10 - Essential (primary) hypertension Status: Acute (4) Bipolar disorder Code(s): F31.9 - Bipolar disorder, unspecified Status: Acute - Plan Sepsis Suspected community-acquired pneumonia (HR 110, T-mas 99.3, lactic acid 2.7) -Chest x-ray reviewed, under aerated lungs otherwise negative -Head CT with small retention cyst in the right maxillary antra, otherwise negative -Patient received IV Zosyn and vancomycin, continue ; will deescalate the antibiotic regimen within the next 24 hrs. -Blood cultures suspect possible skin contaminant. -Obtain UA secondary to dysuria; negative -Supplemental oxygen, incentive spirometer, scheduled duo nebs while awake and as needed Chest pain; resolved Left arm numbness; resolved -Suspect secondary to above -serial troponin negative. Acute kidney injury Rhabdomyolysis, mild Hypercalcemia -CK elevated, continue IV hydration -Avoid nephrotoxins, continue following renal function Bipolar disorder//depression -Psychiatry consult placed; appreciate assistance -[place] level less than 0.1; monitor if restarted Hypertension, chronic, stable -Blood pressure stable for the moment, as needed clonidine if needed. -Restarted home Norvasc Low vitamin D - lab work completed on 03/06 with vitamin D level of 11.0 -Replace with 1000IU daily DVT prophylaxis-subcu heparin Discharge Planning: home within the next 24-48 hrs if clinically stable. (4) Bipolar disorder Qualifiers: Active/Remission status: currently active Current bipolar episode type: depressed Current episode severity: moderate Qualified Code(s): F31.32 - Bipolar disorder, current episode depressed, moderate
[2018-03-12] MEDS: Sod Chloride 0.9% Inj 1,000 ML IV.SIG SCH (11:50)
--- NOTE | 2018-03-12 14:26 | P.CONPSY ---
Provisional Diagnosis Admission Date: March 08, 2018 17:48 [place] I.: Bipolar disorder, R/O malingering History of Present Illness Service: [facility] Primary Care Provider: Yvon Garcia Family Provider: Ignacio Delgado MD Chief Complaint: "Pressure in my chest" History of Present Illness: The patient 57-year-old man, homeless, single, unemployed, with psychiatric history of bipolar disorder, multiple psychiatric hospitalizations, he was recently discharged about 2 weeks ago for psychiatry, he was under the care of Dr. Holbrook, documentation was reviewed, he was discharged in Seroquel 100 mg twice daily, lithium 200 mg twice daily, with suspected malingering with secondary gain of use in the hospital as a skilled nursing, he reports no compliant with medications since he left the hospital, with a past medical history significant for hypertension, liver cirrhosis who presents to the emergency department with complaints of chest pressure and left arm numbness as well as fever and dehydration. Patient reports that he was seen and evaluated in the emergency department several days ago and was supposed to be provided with a taxicab back to his hotel however never made it there. He reports that he was walking aimlessly in front of the hospital and was caught in the rain yesterday. He reports that earlier today it was very hot and he felt as if he was dehydrated. He reports that he had left-sided chest pain which he describes as "stabbing and heavy" he also reports left hand numbness along with dizziness during this episode. He reports that episode resolved on its own after several seconds states that it was "like a burst". He states that by the time [facility] arrived his chest pain and left arm numbness had resolved. He endorses fevers earlier today, no chills, dizziness and lightheadedness along with chest pain and left arm numbness. admitted with Sepsis, Suspected community-acquired pneumonia. Chest x-ray reviewed, under aerated lungs otherwise negative. Head CT with small retention cyst in the right maxillary antra, otherwise negative. Consulted to psychiatry to address depression. Chart reviewed. Psychiatric evaluation the patient is calm, cooperative, he reports depression, hopelessness, helplessness, he says that he feels overwhelmed given his multiple medical problems and the fact that he is homeless. He says that he was recently evicted from his trailer. He reports that since he was discharged from psychiatry he was unable to fill his prescription due to lack of resources, so days later after discharge he was back in depression. The patient denies suicidal and homicidal ideation, he denies visual and auditory hallucinations. He is goal oriented, future oriented , oriented 3. Review of Systems Constitutional: Denies anorexia, Denies body ache(s), Denies chills, Denies daytime sleepiness, Denies excessive sweating, Denies fatigue, Denies fever(s), Denies headache(s), Denies increased appetite, Denies lack of energy, Denies malaise, Denies night sweats, Denies weakness, Denies weight gain, Denies weight loss, Denies other Eyes: Denies blind spots, Denies blurry vision, Denies bulging eyes, Denies change in vision, Denies double vision, Denies discharge, Denies dry eyes, Denies floaters, Denies irritation, Denies itchy eyes, Denies loss of vision, Denies pain, Denies requires corrective lenses, Denies sensitivity to light, Denies other Ears, Nose, Mouth, and Throat: Denies abnormal hearing, Denies bleeding gums, Denies bad breath, Denies change in voice, Denies dental pain, Denies difficulty swallowing, Denies dizziness, Denies dry mouth, Denies ear discharge , Denies ear pain, Denies facial pain, Denies headache(s), Denies hearing loss, Denies hoarseness, Denies lip swelling, Denies nosebleed, Denies mouth lesions, Denies mouth pain, Denies nasal congestion, Denies nasal discharge, Denies nasal obstruction, Denies nasal trauma, Denies neck lump, Denies neck pain, Denies nose pain, Denies pain with swallowing, Denies poor balance, Denies post nasal drip, Denies ringing in the ears, Denies sinus pain, Denies sinus pressure , Denies sore throat, Denies throat swelling, Denies tongue swelling, Denies other Cardiovascular: Denies chest pain, Denies chest pain at rest, Denies chest pain with activity, Denies excessive sweating, Denies fainting, Denies fast heart rate, Denies foot swelling, Denies generalized swelling, Denies irregular heart rhythm, Denies leg pain with activity, Denies leg sores, Denies leg swelling, Denies lightheadedness, Denies radiating jaw, neck or arm pain, Denies rapid, pounding, or irregular heartbeat, Denies shortness of breath, Denies shortness of breath with activity, Denies shortness of breath when lying down, Denies shortness of breath causing sudden awakening, Denies slow heart rate, Denies other Respiratory: Denies change in phlegm color, Denies chest congestion, Denies cough, Denies coughing up blood, Denies excessive phlegm production, Denies pain on inspiration, Denies pain with cough, Denies shortness of breath, Denies shortness of breath with activity, Denies snoring, Denies stridor, Denies wheezing, Denies other Gastrointestinal: Denies abdominal pain, Denies belching, Denies black, tarry stools, Denies bloating, Denies bright, red blood in stools, Denies change in bowel habits, Denies constant urge to pass stool, Denies change in stools, Denies coffee ground vomit, Denies constipation, Denies cramping, Denies difficulty swallowing, Denies excessive passing of gas, Denies feeling full early, Denies heartburn, Denies incontinent of stools, Denies loose stools, Denies nausea, Denies pain with swallowing, Denies vomiting, Denies vomiting blood, Denies other Genitourinary: Denies blood in semen, Denies blood in urine, Denies decreased urination, Denies difficulty urinating, Denies difficulty with ejaculations, Denies erectile dysfunction, Denies genital lesions, Denies genital pain, Denies painful urination, Denies side pain, Denies frequent nighttime urination , Denies painful ejaculations, Denies penile discharge, Denies scrotal swelling , Denies testicle lump, Denies testicle pain, Denies urinary frequency, Denies urinary hesitancy, Denies urinary incontinence, Denies urinary urgency, Denies other Skin/Breast: Denies acne, Denies bleeding lesions, Denies boil, Denies breast swelling, Denies breast skin changes, Denies breast pain, Denies breast lump, Denies change in breast shape, Denies change in hair, Denies change in skin color, Denies changing lesions, Denies dry skin, Denies excessive hair growth, Denies hair loss, Denies itching, Denies lesions, Denies nail changes, Denies new lesions, Denies nipple discharge, Denies non-healing lesions, Denies redness , Denies sensitivity to light, Denies rash, Denies skin pain, Denies skin ulcer , Denies sores, Denies stretch harris, Denies unusual bruising, Denies wounds, Denies yellowing of the skin, Denies other Neurologic: Reports localized weakness, Reports sensory deficit, Reports tingling, Reports unsteadiness Psychiatric: Reports depression, Denies abnormal sleep pattern, Denies anxiety, Denies behavioral changes, Denies change in appetite, Denies change in sex drive , Denies confusion, Denies difficulty concentrating, Denies hearing things others do not hear, Denies hopelessness, Denies irritability, Denies lack of enjoyment, Denies memory loss, Denies mood swings, Denies panic attacks, Denies paranoia, Denies seeing things others do not see, Denies sensing things others do not sense, Denies tactile hallucinations, Denies thoughts of hurting/killing others, Denies thoughts of hurting/killing yourself, Denies other PMFSH - History History Provided By: Patient - Medical History Medical History: Medical History (Last Reviewed 03/11/18 @ 09:07 by Chago Poon) Depression Liver cirrhosis Bipolar disorder Hypertension - Surgical History Surgical History: Surgical History (Last Reviewed 03/11/18 @ 09:07 by Chago Poon) Hx of tonsillectomy - Family History Family History: Family History (Last Updated 03/08/18 @ 17:55 by Murray Chapman) Father Dementia Mother Multiple sclerosis - Tobacco History Second Hand Smoke Exposure: No Smoking Status: Never smoker Tobacco Type: Cigarettes - Alcohol History How Often Do You Have a Drink Containing Alcohol: Never - Substance Use History Substance History: No History of Abuse - Travel History Recent Travel in the [place] Within the Last 8 Weeks: No Recent Travel Out of the Country Within the Last 8 Weeks: No - Immunization History Tetanus Immunization: >5 Years Hx Influenza Vaccine This Season: No Medications and Allergies Active Medications: Active Medications Acetaminophen (Tylenol) 650 mg PO Q4H PRN PRN Reason: Temp > 100.4 Al Hydroxide/Mg Hydroxide (Milk Of Magnesia Liq) 30 ml PO Q12H PRN PRN Reason: Mild Constipation Albuterol (Duoneb Neb (Prn)) 1 ampul NEB Q2HR NEB PRN PRN Reason: SHORTNESS OF BREATH/WHEEZING Albuterol (Duoneb Neb ([facility])) 1 ampul NEB Q6HR WHILE AWAKE NEB [facility] Last Admin: 03/12/18 14:00 Dose: Not Given Amlodipine Besylate (Norvasc) 5 mg PO DAILY [facility] Last Admin: 03/12/18 08:37 Dose: 5 mg Bisacodyl (Dulcolax Supp) 10 mg RECTAL DAILY PRN PRN Reason: SEVERE CONSITIPATION Clonidine HCl (Catapres) 0.1 mg PO Q6H PRN PRN Reason: SBP>160, DBP>90 Last Admin: 03/11/18 20:44 Dose: 0.1 mg Heparin Sodium (Porcine) (Heparin Inj) 5,000 units SQ Q12H [facility] Last Admin: 03/12/18 08:37 Dose: 5,000 units Piperacillin/Tazobactam/Dextrose (Zosyn 3.375 Gm Premix) 50 mls @ 100 mls/hr IV.SIG Q8H [facility] Last Admin: 03/12/18 08:38 Dose: 100 mls/hr Pharmacy Profile Note (Vancomycin Consult Pharmacy) 0 mls @ 0 mls/hr OTHER UNSCH [facility] Vancomycin HCl 1,500 mg/ (Sodium Chloride) 515 mls @ 250 mls/hr IV.SIG Q18H [facility] Last Infusion: 03/12/18 01:39 Dose: Infused Sodium Chloride (Ns Inj) 1,000 mls @ 75 mls/hr IV.SIG .[id number] [facility] Last Admin: 03/12/18 11:50 Dose: 75 mls/hr Lactulose (Lactulose Liq) 30 ml PO DAILY PRN PRN Reason: SEVERE CONSITIPATION [place] Carbonate ([place] Carbonate) 300 mg PO DAILY@,, [facility] Last Admin: 03/11/18 14:37 Dose: Not Given Miscellaneous Information ([facility] Ordered Lab Info) 0 each OTHER ONCE ONE Stop: 03/14/18 01:46 Quetiapine Fumarate (Seroquel) 100 mg PO BID@,15 [facility] Last Admin: 03/11/18 14:38 Dose: Not Given Senna/Docusate Sodium (Joanne-Colace) 1 tab PO BID [facility] Last Admin: 03/12/18 08:38 Dose: Not Given Sennosides (Senokot) 17.2 mg PO Q12H PRN PRN Reason: Moderate Constipation Allergies Allergy/AdvReac Type Severity Reaction Status Date / Time No Known Allergies AdvReac Unknown Abdominal Uncoded 03/06/18 10:49 Pain Home Medications Medication Instructions Recorded Confirmed Type clonidine HCl 0.1 mg PO QAM 02/14/18 03/08/18 History amlodipine [Norvasc] 5 mg PO DAILY 03/06/18 03/08/18 History Exam Vital signs: Vital Signs 03/11/18 14:47 03/11/18 16:01 03/11/18 20:00 Temperature 98.0 F 97.9 F Pulse Rate 52 L 56 L 50 L Respiratory Rate 20 18 Blood Pressure 158/98 H 164/100 H Pulse Oximetry 94 L 96 03/12/18 00:00 03/12/18 04:00 03/12/18 08:00 Temperature 98 F 97.8 F Pulse Rate 54 L 54 L 64 Respiratory Rate 18 20 Blood Pressure 179/105 H 179/123 H Pulse Oximetry 97 94 L Intake & Output 03/11/18 03/12/18 03/12/18 18:59 06:59 18:59 Intake Total 150 / 150 565 / 565 Balance 150 / 150 565 / 565 Weight 100.6 kg 101 kg Intake: IV 150 / 150 565 / 565 Zosyn 3.375 GM Premix 50 ML @ 150 / 150 50 / 50 100 mls/hr IV.SIG Q8H [facility] Rx#: [id number] Vancomycin Inj 1,500 MG In NS 515 / 515 Inj 500 ML @ 250 mls/hr IV.SIG Q18H [facility] Rx#:[id number] Other: Date of Last Bowel Movement 03/11/18 Weight On Admission 100.6 kg - Constitutional no acute distress - Routine HEENT Exam Head: Present: normocephalic ENT: Present: mucous membranes moist - Routine Skin Exam Present: intact - Routine Neurological Exam Present: alert, oriented X3, CN II-XII intact, sensory deficit Mental Status Examination Appearance: Appropriate Consciousness: Alert Orientation: x4 Motor Activity: Normal gait Speech: Unremarkable Language: Adequate Fund of Knowledge: Adequate Attention and Concentration: Adequate Memory: Unremarkable Mood: Sad Affect: Sad Thought Process & Associations: Intact Thought Content: Appropriate Hallucination Type: None Delusion Type: None Suicidal Ideation: No Suicidal Plan: No Suicidal Intention: No Homicidal Ideation: No Homicidal Plan: No Homicidal Intention: No Insight: Fair Judgment: Impulsive Assessment and Plan - Assessment (1) Bipolar disorder in remission Code(s): F31.70 - Bipolar disorder, currently in remission, most recent episode unspecified Status: Acute - Plan Plan: Estimated LOS: [] days On psychiatric evaluation today the patient reports depression in the context of acute medical problems and homelessness. The patient was recently discharged from psychiatry about 2 weeks ago on medication that he has not taken. He was discharged from psychiatry in lithium 200 mg twice daily, Seroquel 100 mg twice daily that I will restart at this moment. On his discharge summary it was high suspicion of malingering with secondary gain of use in the hospital as a skilled nursing. At this moment he denies suicidal and homicidal ideation, he denies visual and auditory hallucinations. He does not meet criteria for involuntary psychiatric admission at this moment. I will restart above-mentioned medications. I will follow-up. Justification for Continued Inpatient Stay: no admission
[2018-03-12] MEDS: Vancomycin Inj 1,500 MG in Sodium Chlor 0.9% Inj 500 ML IV.SIG SCH (14:48)
[2018-03-13] MEDS: Sod Chloride 0.9% Inj 1,000 ML IV.SIG SCH ×2 (00:26→12:50)
[2018-03-13] MEDS: Piperacil/Tazo 3.375 GM Premix 50 ML IV.SIG SCH ×2 (00:26→08:25)
[2018-03-13] MEDS: amLODIPine 5 MG Tablet PO SCH (08:24)
[2018-03-13] MEDS: Senna/Docusate Sodium 8.6/50 MG Tablet PO SCH ×2 (08:24→20:36)
[2018-03-13] MEDS: Heparin - SQ 10,000 UNITS/ML Vial SQ SCH ×2 (08:24→20:37)
[2018-03-13 09:51] LABS: Calcium 8.5 mg/dL (8.5-10.1); Carbon Dioxide 24.6 meq/L (21.0-32.0)
[2018-03-13 09:53] LABS: Vancomycin,Random 17.1 Comment
--- NOTE | 2018-03-13 09:54 | P.PNIM ---
Subjective Interval history: f/u; pneumonia/hypertension in no acute distress. looks comfortable. denies pain or sob. no fever. BP trend noted. Physical Exam Vital signs: Vital Signs 03/12/18 12:00 03/12/18 14:36 03/12/18 16:00 Temperature 98.5 F 97.8 F Pulse Rate 69 68 65 Respiratory Rate 20 20 Blood Pressure 154/105 H 179/110 H Pulse Oximetry 94 L 94 L 03/12/18 20:00 03/13/18 00:00 03/13/18 04:00 Temperature 97.9 F 97.9 F 98 F Pulse Rate 73 41 L 53 L Respiratory Rate 18 18 18 Blood Pressure 187/108 H 156/92 H 182/102 H Pulse Oximetry 94 L 96 95 03/13/18 05:59 03/13/18 08:00 Temperature 97.8 F Pulse Rate 43 L Respiratory Rate 18 Blood Pressure 162/81 H 196/100 H Pulse Oximetry 96 Intake & Output 03/12/18 03/13/18 03/13/18 18:59 06:59 18:59 Intake Total 650 / 650 1460 / 1460 50 / 50 Output Total 550 / 550 Balance 650 / 650 910 / 910 50 / 50 Weight 102.4 kg Intake: IV 50 / 50 1100 / 1100 50 / 50 Zosyn 3.375 GM Premix 50 ML @ 50 / 50 100 / 100 50 / 50 100 mls/hr IV.SIG Q8H [facility] Rx#: [id number] NS Inj 1,000 ML @ 75 mls/hr IV. 1000 / 1000 SIG .[id number] [facility] Rx#:[id number] Oral 600 / 600 360 / 360 Output: Urine 550 / 550 Other: # Voids 0 3 Date of Last Bowel Movement 03/11/18 # Bowel Movements 0 0 - Constitutional no acute distress - Routine Respiratory Exam Present: CTA bilaterally - Routine Cardiovascular Exam Present: RRR - Routine Abdominal Exam Present: soft - Routine Extremities Exam Comments: no pedal edema. - Routine Neurological Exam Present: alert, oriented X3 - Urinary Catheter Management Straight Cath placed during this visit: yes Reason for continuing: Not indwelling catheter Insertion date: 03/08/18 Insertion time: 18:19 Results - Labs CBC & Chem 7: 03/10/18 06:39 03/12/18 07:54 Microbiology 03/08/18 15:45 Blood - Peripheral Aerobic Blood Culture - Final Staph. capitis-ureolyticus 03/08/18 15:45 Blood - Peripheral Anaerobic Blood Culture - Preliminary No growth in 4 days 03/08/18 15:35 Blood - Peripheral Aerobic Blood Culture - Preliminary No growth in 4 days 03/08/18 15:35 Blood - Peripheral Anaerobic Blood Culture - Preliminary Pantoea agglomerans group Assessment and Plan - Assessment (1) CAP (community acquired pneumonia) Code(s): J18.9 - Pneumonia, unspecified organism Status: Acute (2) Sepsis due to pneumonia Code(s): J18.9 - Pneumonia, unspecified organism; A41.9 - Sepsis, unspecified organism Status: Acute (3) HTN (hypertension) Code(s): I10 - Essential (primary) hypertension Status: Acute (4) Bipolar disorder Code(s): F31.9 - Bipolar disorder, unspecified Status: Acute - Plan Sepsis Suspected community-acquired pneumonia (HR 110, T-mas 99.3, lactic acid 2.7) -Chest x-ray reviewed, under aerated lungs otherwise negative -Head CT with small retention cyst in the right maxillary antra, otherwise negative -Patient received IV Zosyn and vancomycin, continue ; will stop the IV antibiotics and start on oral abx. -Blood cultures suspect possible skin contaminant. -Obtain UA secondary to dysuria; negative -Supplemental oxygen, incentive spirometer, scheduled duo nebs while awake and as needed Chest pain; resolved Left arm numbness; resolved -Suspect secondary to above -serial troponin negative. Acute kidney injury Rhabdomyolysis, mild Hypercalcemia -CK elevated, continue IV hydration -Avoid nephrotoxins, continue following renal function Bipolar disorder//depression -Psychiatry consult placed; appreciate assistance. -Gananda level less than 0.1- started back on Gananda and Seroquel. Hypertension, chronic but not well controlled. -stop Norvasc and start on Procardia -continue to monitor and adjust the regimen as needed. Low vitamin D - lab work completed on 03/06 with vitamin D level of 11.0 -Replace with 1000IU daily DVT prophylaxis-subcu heparin Discharge Planning: home tomorrow if BP is better. (4) Bipolar disorder Qualifiers: Active/Remission status: currently active Current bipolar episode type: depressed Current episode severity: moderate Qualified Code(s): F31.32 - Bipolar disorder, current episode depressed, moderate
[2018-03-13] MEDS: Azithromycin 250 MG Tablet PO SCH (10:27)
--- NOTE | 2018-03-13 11:46 | P.DS ---
Date of admission: 03/08/18 17:48 Primary care physician: Yovn Garcia Brief History from admission: 57-year-old male with a past medical history significant for hypertension, bipolar disorder, depression, and liver cirrhosis who presents to the emergency department with complaints of chest pressure and left arm numbness as well as fever and dehydration. Patient reports that he was seen and evaluated in the emergency department several days ago and was supposed to be provided with a taxicab back to his hotel however never made it there. He reports that he was walking aimlessly in front of the hospital and was caught in the rain yesterday. He reports that earlier today it was very hot and he felt as if he was dehydrated. He reports that he had left-sided chest pain which he describes as "stabbing and heavy" he also reports left hand numbness along with dizziness during this episode. He reports that episode resolved on its own after several seconds states that it was "like a burst". He states that by the time [facility] arrived his chest pain and left arm numbness had resolved. He endorses fevers earlier today, no chills, dizziness and lightheadedness along with chest pain and left arm numbness. He denies any cough, shortness of breath, nausea, vomiting, diarrhea, constipation, abdominal pain or discomfort. Patient does endorse dysuria, denies hematuria. DS: Diagnosis - Discharge Diagnosis (1) CAP (community acquired pneumonia) Status: Acute (2) Sepsis due to pneumonia Status: Acute (3) HTN (hypertension) Status: Acute (4) Bipolar disorder Status: Acute DS: Summary Hospital Course: patient was admitted with suspected pneumonia. he was initially started on IV antibiotics which were later switched to po antibiotics. his blood pressure was not optimally controlled.his clonidine and amlodipine were switched to procardia. he was seen by psychiatrist during this hospitalization.he will be discharged home with f/u by his pcp and psychiatrist. - Time Spent with Patient Total time spent providing and/or coordinating discharge services: Less than 30 minutes - Quality: VTE Deep Vein Thrombosis/Pulmonary Embolism Present on Admission: No Exam Vital signs: Vital Signs 03/12/18 12:00 03/12/18 14:36 03/12/18 16:00 Temperature 98.5 F 97.8 F Pulse Rate 69 68 65 Respiratory Rate 20 20 Blood Pressure 154/105 H 179/110 H Pulse Oximetry 94 L 94 L 03/12/18 20:00 03/13/18 00:00 03/13/18 04:00 Temperature 97.9 F 97.9 F 98 F Pulse Rate 73 41 L 53 L Respiratory Rate 18 18 18 Blood Pressure 187/108 H 156/92 H 182/102 H Pulse Oximetry 94 L 96 95 03/13/18 05:59 03/13/18 08:00 Temperature 97.8 F Pulse Rate 43 L Respiratory Rate 18 Blood Pressure 162/81 H 196/100 H Pulse Oximetry 96 Intake & Output 03/12/18 03/13/18 03/13/18 18:59 06:59 18:59 Intake Total 650 / 650 1460 / 1460 50 / 50 Output Total 550 / 550 Balance 650 / 650 910 / 910 50 / 50 Weight 102.4 kg Intake: IV 50 / 50 1100 / 1100 50 / 50 Zosyn 3.375 GM Premix 50 ML @ 50 / 50 100 / 100 50 / 50 100 mls/hr IV.SIG Q8H [facility] Rx#: [id number] NS Inj 1,000 ML @ 75 mls/hr IV. 1000 / 1000 SIG .[id number] [facility] Rx#:[id number] Oral 600 / 600 360 / 360 Output: Urine 550 / 550 Other: # Voids 0 3 Date of Last Bowel Movement 03/11/18 # Bowel Movements 0 0 - Constitutional no acute distress - Routine Neck Exam Present: supple - Routine Respiratory Exam Present: CTA bilaterally - Routine Cardiovascular Exam Present: RRR - Routine Abdominal Exam Present: soft - Routine Extremities Exam Comments: no pedal edema. - Routine Neurological Exam Present: alert, oriented X3 Results Procedures completed during hospitalization: none. Labs on day of discharge: Labs from last 24 hours 03/13/18 08:16 Sodium 144 Potassium 3.0 L Chloride 109 H Carbon Dioxide 24.6 Anion Gap 10 BUN 8 Creatinine 1.57 H Estimated GFR 46 L Random Glucose 95 Calcium 8.5 Random Vancomycin 17.1 - Impressions ITS Impressions Chest X-Ray 03/08/18 15:22 CONCLUSION: Under aerated otherwise negative Head CT 03/08/18 15:39 CONCLUSION: 1. Small retention cysts in the right maxillary antra. 2. Otherwise negative. . Discharge Plan - Discharge Disposition Patient Disposition: 01 Discharge Home - Discharge Condition Condition: Stable - Physicians Team Primary Care Provider: Yvon Garcia Attending Provider: Donna Baumann Other Providers: Moris Foreman MD
[2018-03-14] MEDS ORDERED: Pharmacy Ordered Lab Info OTHER ONE (01:45)
[2018-03-14] MEDS: Sod Chloride 0.9% Inj 1,000 ML IV.SIG SCH ×2 (06:14→17:46)
--- NOTE | 2018-03-14 09:18 | P.PNIM ---
Subjective Interval history: f/u; pneumonia/ hypertension in no acute distress. has occasional cough. no fever. BP trend noted. d/w the RN. Physical Exam Vital signs: Vital Signs 03/13/18 12:00 03/13/18 16:00 03/13/18 20:00 Temperature 98.2 F 97.9 F 97.7 F Pulse Rate 42 L 46 L 55 L Respiratory Rate 18 18 18 Blood Pressure 166/91 H 158/77 H 156/93 H Pulse Oximetry 96 94 L 94 L 03/14/18 00:00 03/14/18 04:00 Temperature 98.1 F 97.9 F Pulse Rate 61 62 Respiratory Rate 20 20 Blood Pressure 142/80 H 172/101 H Pulse Oximetry 94 L 93 L Intake & Output 03/13/18 03/14/18 03/14/18 18:59 06:59 18:59 Intake Total 2530 / 2530 840 / 840 Output Total 500 / 500 1000 / 1000 Balance 2029 -160 / -160 Intake: IV 2049 Zosyn 3.375 GM Premix 50 ML @ 50 / 50 100 mls/hr IV.SIG Q8H [facility] Rx#: [id number] NS Inj 1,000 ML @ 75 mls/hr IV. 1999 / 1999 SIG .[id number] ALEJA Rx#:[id number] Oral 480 / 480 840 / 840 Output: Urine 500 / 500 1000 / 1000 Other: # Voids 4 # Incontinent Voids 0 - Constitutional no acute distress - Routine Respiratory Exam Present: CTA bilaterally - Routine Cardiovascular Exam Present: RRR - Routine Abdominal Exam Present: soft - Routine Extremities Exam Comments: no pedal edema. - Routine Neurological Exam Present: alert, oriented X3 - Urinary Catheter Management Straight Cath placed during this visit: yes Reason for continuing: Not indwelling catheter Insertion date: 03/08/18 Insertion time: 18:19 Results - Labs CBC & Chem 7: 03/10/18 06:39 03/13/18 08:16 Laboratory Results - last 24 hr 03/13/18 08:16 Sodium 144 Potassium 3.0 L Chloride 109 H Carbon Dioxide 24.6 Anion Gap 10 BUN 8 Creatinine 1.57 H Estimated GFR 46 L Random Glucose 95 Calcium 8.5 Random Vancomycin 17.1 Microbiology 03/08/18 15:45 Blood - Peripheral Aerobic Blood Culture - Final Staph. capitis-ureolyticus 03/08/18 15:45 Blood - Peripheral Anaerobic Blood Culture - Final No growth in 5 days 03/08/18 15:35 Blood - Peripheral Aerobic Blood Culture - Final No growth in 5 days 03/08/18 15:35 Blood - Peripheral Anaerobic Blood Culture - Final [place] agglomerans group - Procedures none. Assessment and Plan - Assessment (1) CAP (community acquired pneumonia) Code(s): J18.9 - Pneumonia, unspecified organism Status: Acute (2) Sepsis due to pneumonia Code(s): J18.9 - Pneumonia, unspecified organism; A41.9 - Sepsis, unspecified organism Status: Acute (3) HTN (hypertension) Code(s): I10 - Essential (primary) hypertension Status: Acute (4) Bipolar disorder Code(s): F31.9 - Bipolar disorder, unspecified Status: Acute - Plan Sepsis Suspected community-acquired pneumonia -Chest x-ray reviewed, under aerated lungs otherwise negative -Head CT with small retention cyst in the right maxillary antra, otherwise negative -switched to oral antibiotics. -Blood cultures suspect possible skin contaminant. -UA ; negative Chest pain; resolved Left arm numbness; resolved -Suspect secondary to above -serial troponin negative. Acute kidney injury Rhabdomyolysis, mild Hypercalcemia -all improved. -Avoid nephrotoxins. Bipolar disorder//depression -Psychiatry consult placed; appreciate assistance. -[place] level less than 0.1- started back on [place] and Seroquel. Hypertension, chronic but not well controlled. -increase Procardia -continue to monitor and adjust the regimen as needed. Low vitamin D - lab work completed on 03/06 with vitamin D level of 11.0 -Replace with 1000IU daily DVT prophylaxis-subcu heparin Discharge Planning: discharge within the next 24 hrs when BP is better controlled with stable renal function/electrolytes. (4) Bipolar disorder Qualifiers: Active/Remission status: currently active Current bipolar episode type: depressed Current episode severity: moderate Qualified Code(s): F31.32 - Bipolar disorder, current episode depressed, moderate
[2018-03-14] MEDS: Senna/Docusate Sodium 8.6/50 MG Tablet PO SCH ×2 (10:10→21:35)
[2018-03-14] MEDS: Azithromycin 250 MG Tablet PO SCH (10:10)
[2018-03-14] MEDS: Heparin - SQ 10,000 UNITS/ML Vial SQ SCH ×2 (10:10→21:35)
[2018-03-14 11:03] LABS: Calcium 8.2 mg/dL (8.5-10.1); Carbon Dioxide 23.9 meq/L (21.0-32.0)
[2018-03-14] MEDS ORDERED: Potassium Chloride 20 MEQ Pwd Pkt PO ONE (16:11)
[2018-03-14] MEDS ORDERED: Potassium Chloride 25 MEQ Effervescent Tablet PO ONE (17:00)
[2018-03-14] MEDS ORDERED: Acetaminophen 325 MG Tablet PO PRN (17:29)
[2018-03-15] MEDS: Sod Chloride 0.9% Inj 1,000 ML IV.SIG SCH ×3 (06:21→19:28)
--- NOTE | 2018-03-15 08:32 | P.PNIM ---
Subjective Interval history: f/u; hypertension in no acute distress. BP trend noted. no fever. no new complaints. Physical Exam Vital signs: Vital Signs 03/14/18 12:25 03/14/18 12:35 03/14/18 12:41 Temperature Pulse Rate 57 L 59 L Respiratory Rate Blood Pressure 170/90 H 180/101 H Pulse Oximetry 03/14/18 12:52 03/14/18 15:30 03/14/18 16:00 Temperature 98.1 F Pulse Rate 66 Respiratory Rate 20 Blood Pressure 175/88 H 164/84 H 164/84 H Pulse Oximetry 94 L 03/14/18 16:10 03/14/18 18:00 03/14/18 20:00 Temperature 98 F Pulse Rate 68 71 Respiratory Rate 18 Blood Pressure 160/80 H 162/94 H Pulse Oximetry 94 L 03/14/18 20:20 03/15/18 00:00 03/15/18 04:00 Temperature 98.7 F 98 F Pulse Rate 71 61 Respiratory Rate 18 18 Blood Pressure 140/88 154/90 H 154/90 H Pulse Oximetry 94 L 94 L Intake & Output 03/14/18 03/15/18 03/15/18 18:59 06:59 18:59 Intake Total 1410 / 1410 1000 / 1000 Output Total 800 / 800 Balance 610 / 610 1000 / 1000 Intake: IV 850 / 850 1000 / 1000 NS Inj 1,000 ML @ 75 mls/hr IV. 850 / 850 1000 / 1000 SIG .[id number] ALEJA Rx#:[id number] Oral 560 / 560 Output: Urine 800 / 800 Other: Date of Last Bowel Movement 03/13/18 # Bowel Movements 1 - Constitutional no acute distress - Routine Respiratory Exam Present: CTA bilaterally - Routine Cardiovascular Exam Present: RRR - Routine Abdominal Exam Present: soft - Routine Extremities Exam Comments: no pedal edema. - Routine Neurological Exam Present: alert, oriented X3 - Urinary Catheter Management Straight Cath placed during this visit: yes Reason for continuing: Not indwelling catheter Insertion date: 03/08/18 Insertion time: 18:19 Results - Labs CBC & Chem 7: 03/10/18 06:39 03/14/18 09:49 Laboratory Results - last 24 hr 03/14/18 09:49 Sodium 144 Potassium 3.0 L Chloride 112 H Carbon Dioxide 23.9 Anion Gap 8 BUN 7 Creatinine 1.64 H Estimated GFR 44 L Random Glucose 122 H Calcium 8.2 L - Procedures none. Assessment and Plan - Assessment (1) CAP (community acquired pneumonia) Code(s): J18.9 - Pneumonia, unspecified organism Status: Acute (2) Sepsis due to pneumonia Code(s): J18.9 - Pneumonia, unspecified organism; A41.9 - Sepsis, unspecified organism Status: Acute (3) HTN (hypertension) Code(s): I10 - Essential (primary) hypertension Status: Acute (4) Bipolar disorder Code(s): F31.9 - Bipolar disorder, unspecified Status: Acute - Plan Sepsis Suspected community-acquired pneumonia -Chest x-ray reviewed, under aerated lungs otherwise negative -Head CT with small retention cyst in the right maxillary antra, otherwise negative -switched to oral antibiotics. -Blood cultures suspect possible skin contaminant. -UA ; negative Chest pain; resolved Left arm numbness; resolved -Suspect secondary to above -serial troponin negative. Acute kidney injury Rhabdomyolysis, mild Hypercalcemia -all improved. -Avoid nephrotoxins. Bipolar disorder//depression -Psychiatry consult placed; appreciate assistance. -[place] level less than 0.1- started back on [place] and Seroquel. Hypertension, chronic - and now is better controlled. -continue Procardia -continue to monitor and adjust the regimen as needed. Low vitamin D - lab work completed on 03/06 with vitamin D level of 11.0 -Replace with 1000IU daily upon discharge. DVT prophylaxis-subcu heparin Discharge Planning: discharge later today if renal function/ electrolytes stable. (4) Bipolar disorder Qualifiers: Active/Remission status: currently active Current bipolar episode type: depressed Current episode severity: moderate Qualified Code(s): F31.32 - Bipolar disorder, current episode depressed, moderate
[2018-03-15] MEDS: Senna/Docusate Sodium 8.6/50 MG Tablet PO SCH ×2 (09:26→21:22)
[2018-03-15] MEDS: Azithromycin 250 MG Tablet PO SCH (09:27)
[2018-03-15] MEDS: Heparin - SQ 10,000 UNITS/ML Vial SQ SCH ×2 (09:27→21:21)
[2018-03-15 10:07] LABS: Calcium 8.6 mg/dL (8.5-10.1); Carbon Dioxide 21.7 meq/L (21.0-32.0)
[2018-03-15 10:18] LABS: Potassium 2.8 meq/L (3.5-5.1)
[2018-03-15] MEDS: Potassium Chloride 25 MEQ Effervescent Tablet PO SCH ×4 (11:35→21:22)
[2018-03-15 15:24] LABS: Prothrombin Time 20.2 sec (9.8-11.6)
[2018-03-15 15:27] LABS: Calcium 8.5 mg/dL (8.5-10.1); Carbon Dioxide 23.4 meq/L (21.0-32.0); Potassium 3.1 meq/L (3.5-5.1)
[2018-03-16] MEDS: Sod Chloride 0.9% Inj 1,000 ML IV.SIG SCH ×3 (02:35→22:06)
[2018-03-16] MEDS: Heparin - SQ 10,000 UNITS/ML Vial SQ SCH ×2 (09:16→22:04)
[2018-03-16] MEDS: Azithromycin 250 MG Tablet PO SCH (09:16)
[2018-03-16] MEDS: Potassium Chloride 25 MEQ Effervescent Tablet PO SCH ×4 (09:16→22:06)
--- NOTE | 2018-03-16 09:28 | P.PNIM ---
Subjective Interval history: in no acute distress. resting comfortably with no new complaints. d/w the RN and no acute issues over night. Physical Exam Vital signs: Vital Signs 03/15/18 12:00 03/15/18 16:00 03/15/18 20:00 Temperature 98.9 F 98.0 F 98.2 F Pulse Rate 76 78 83 Respiratory Rate 20 20 18 Blood Pressure 179/110 H 176/119 H 150/90 H Pulse Oximetry 95 95 95 03/16/18 00:00 03/16/18 04:00 Temperature 97.8 F 98.0 F Pulse Rate 79 76 Respiratory Rate 18 18 Blood Pressure 156/82 H 160/86 H Pulse Oximetry 96 95 Intake & Output 03/15/18 03/16/18 03/16/18 18:59 06:59 18:59 Intake Total 2120 / 2120 980 / 980 Output Total 1025 / 1025 1400 / 1400 Balance 1095 / 1095 -420 / -420 Weight 102.4 kg Intake: IV 500 / 500 500 / 500 NS Inj 1,000 ML @ 75 mls/hr IV. 500 / 500 500 / 500 SIG .[id number] ALEJA Rx#:[id number] Oral 720 / 720 480 / 480 Other 900 / 900 Output: Urine 1025 / 1025 1400 / 1400 Other: Other Intake Source Saline Solution Date of Last Bowel Movement 03/13/18 03/13/18 # Bowel Movements 1 1 - Constitutional no acute distress - Routine Respiratory Exam Present: CTA bilaterally - Routine Cardiovascular Exam Present: RRR - Routine Abdominal Exam Present: soft - Routine Extremities Exam Comments: no pedal edema. - Routine Neurological Exam Present: alert, oriented X3 - Urinary Catheter Management Straight Cath placed during this visit: yes Reason for continuing: Not indwelling catheter Insertion date: 03/08/18 Insertion time: 18:19 Results - Labs CBC & Chem 7: 03/10/18 06:39 03/16/18 13:26 Laboratory Results - last 24 hr 03/15/18 03/15/18 03/15/18 08:22 14:08 14:08 PT 20.2 H INR 2.0 Sodium 144 144 Potassium 2.8 L* 3.1 L Chloride 111 H 113 H Carbon Dioxide 21.7 23.4 Anion Gap 11 8 BUN 7 6 L Creatinine 1.44 H 1.59 H Estimated GFR 51 L 45 L Random Glucose 88 115 H Calcium 8.6 8.5 03/16/18 05:31 PT INR Sodium Potassium Chloride Carbon Dioxide Anion Gap BUN Creatinine 1.43 H Estimated GFR 51 L Random Glucose Calcium - Procedures none. Assessment and Plan - Assessment (1) CAP (community acquired pneumonia) Code(s): J18.9 - Pneumonia, unspecified organism Status: Acute (2) Sepsis due to pneumonia Code(s): J18.9 - Pneumonia, unspecified organism; A41.9 - Sepsis, unspecified organism Status: Acute (3) HTN (hypertension) Code(s): I10 - Essential (primary) hypertension Status: Acute (4) Bipolar disorder Code(s): F31.9 - Bipolar disorder, unspecified Status: Acute - Plan Sepsis Suspected community-acquired pneumonia -Chest x-ray reviewed, under aerated lungs otherwise negative -Head CT with small retention cyst in the right maxillary antra, otherwise negative -switched to oral antibiotics. -Blood cultures suspect possible skin contaminant. -UA ; negative Chest pain; resolved Left arm numbness; resolved -Suspect secondary to above -serial troponin negative. Acute kidney injury Rhabdomyolysis, mild Hypercalcemia -all improved. -Avoid nephrotoxins. Bipolar disorder//depression -Psychiatry consult placed; appreciate assistance. -[place] level less than 0.1- started back on [place] and Seroquel. -the dose of lithium was increased to 600 mg bid- per my d/w . Hypertension, chronic - and now is better controlled. -continue Procardia -continue to monitor and adjust the regimen as needed. Low vitamin D - lab work completed on 03/06 with vitamin D level of 11.0 -Replace with 1000IU daily upon discharge. Coagulopathy- due to Cirrhosis-with no active bleeding. Hypokalemia; better- continue with replacement. DVT prophylaxis-subcu heparin Discharge Planning: discharge later today if renal function/ electrolytes stable. (4) Bipolar disorder Qualifiers: Active/Remission status: currently active Current bipolar episode type: depressed Current episode severity: moderate Qualified Code(s): F31.32 - Bipolar disorder, current episode depressed, moderate
[2018-03-16] MEDS ORDERED: Potassium Chloride 25 MEQ Effervescent Tablet PO ONE (10:00)
[2018-03-16] MEDS: Senna/Docusate Sodium 8.6/50 MG Tablet PO SCH ×2 (11:34→22:06)
[2018-03-17] MEDS: Senna/Docusate Sodium 8.6/50 MG Tablet PO SCH (10:28)
[2018-03-17] MEDS: Heparin - SQ 10,000 UNITS/ML Vial SQ SCH (10:28)
[2018-03-17] MEDS: Potassium Chloride 25 MEQ Effervescent Tablet PO SCH ×2 (10:28→14:58)
[2018-03-17] MEDS: Azithromycin 250 MG Tablet PO SCH (10:29)
[2018-03-17] MEDS: Sod Chloride 0.9% Inj 1,000 ML IV.SIG SCH (10:29)
--- NOTE | 2018-03-17 11:07 | P.PNIM ---
Subjective Interval history: dc planning was held yesterday since he was feeling weak. in no acute distress today. worked with PT earlier today. reportedly refused some of his meds today. d/w the RN and PT. Physical Exam Vital signs: Vital Signs 03/16/18 12:00 03/16/18 20:00 03/17/18 00:00 Temperature 98.0 F 98.4 F 98.3 F Pulse Rate 65 67 69 Respiratory Rate 20 18 18 Blood Pressure 170/116 H 170/98 H 160/86 H Pulse Oximetry 94 L 96 96 03/17/18 04:00 03/17/18 08:00 Temperature 98.2 F 97.9 F Pulse Rate 77 73 Respiratory Rate 18 18 Blood Pressure 150/90 H 177/105 H Pulse Oximetry 95 95 Intake & Output 03/16/18 03/17/18 03/17/18 18:59 06:59 18:59 Intake Total 3228 / 3228 240 / 240 Output Total 325 / 325 1400 / 1400 Balance 2903 / 2903 -1160 / -1160 Weight 101.2 kg Intake: IV 1000 / 1000 NS Inj 1,000 ML @ 75 mls/hr IV. 1000 / 1000 SIG .[id number] ALEJA Rx#:[id number] Oral 1560 / 1560 240 / 240 Other 668 / 668 Output: Urine 325 / 325 1400 / 1400 Other: Other Intake Source Saline Solution # Voids 1 Date of Last Bowel Movement 03/13/18 03/16/18 # Bowel Movements 1 0 - Constitutional no acute distress - Routine Respiratory Exam Present: CTA bilaterally - Routine Cardiovascular Exam Present: RRR - Routine Abdominal Exam Present: soft - Routine Extremities Exam Comments: no pedal edema. - Routine Neurological Exam Present: alert, oriented X3 - Urinary Catheter Management Straight Cath placed during this visit: yes Reason for continuing: Not indwelling catheter Insertion date: 03/08/18 Insertion time: 18:19 Results - Labs CBC & Chem 7: 03/10/18 06:39 03/16/18 13:26 Laboratory Results - last 24 hr 03/16/18 13:26 Potassium 3.2 L - Procedures none. Assessment and Plan - Assessment (1) CAP (community acquired pneumonia) Code(s): J18.9 - Pneumonia, unspecified organism Status: Acute (2) Sepsis due to pneumonia Code(s): J18.9 - Pneumonia, unspecified organism; A41.9 - Sepsis, unspecified organism Status: Acute (3) HTN (hypertension) Code(s): I10 - Essential (primary) hypertension Status: Acute (4) Bipolar disorder Code(s): F31.9 - Bipolar disorder, unspecified Status: Acute - Plan Sepsis Suspected community-acquired pneumonia -Chest x-ray reviewed, under aerated lungs otherwise negative -Head CT with small retention cyst in the right maxillary antra, otherwise negative -switched to oral antibiotics. -Blood cultures suspect possible skin contaminant. -UA ; negative Chest pain; resolved Left arm numbness; resolved -Suspect secondary to above -serial troponin negative. Acute kidney injury Rhabdomyolysis, mild Hypercalcemia -all improved. -Avoid nephrotoxins. Bipolar disorder//depression -Psychiatry consult placed; appreciate assistance. -[place] level less than 0.1- started back on [place] and Seroquel. -the dose of lithium was increased to 600 mg bid upon discharge- per my d/w . Hypertension, chronic - -continue Procardia -continue to monitor and adjust the regimen as needed. Low vitamin D - lab work completed on 03/06 with vitamin D level of 11.0 -Replace with 1000IU daily upon discharge. Coagulopathy- due to Cirrhosis-with no active bleeding. Hypokalemia; better- continue with replacement. DVT prophylaxis-subcu heparin Discharge Planning: d/w today who will see the patient later as follow-up. dc planning; later today after psych re-evaluation. d/w the patient, RN , PT and case management. (4) Bipolar disorder Qualifiers: Active/Remission status: currently active Current bipolar episode type: depressed Current episode severity: moderate Qualified Code(s): F31.32 - Bipolar disorder, current episode depressed, moderate
--- NOTE | 2018-03-17 15:19 | P.PNPSY ---
Subjective Remarks: The patient was seen today for psychiatric reevaluation. The case was widely discussed with primary medical team. Chart was reviewed. On psychiatric evaluation the patient is calm, cooperative, endorsed sadness in the context that he is going to be discharged today and he does have a place to go. Patient reports that he has been taking his medications, no significant side effects reported. He denies anhedonia, he denies hopelessness, he denies helplessness, he denies worthlessness, he denies suicidal and homicidal ideation at the moment. She is asking if there is a way that he can be helped with placement. He is oriented 3. Mental Status Examination Appearance: Appropriate Consciousness: Alert Orientation: x4 Motor Activity: Normal gait Speech: Unremarkable Language: Adequate Fund of Knowledge: Adequate Attention and Concentration: Adequate Memory: Unremarkable Mood: Sad Affect: Sad Thought Process & Associations: Intact Thought Content: Appropriate Hallucination Type: None Delusion Type: None Suicidal Ideation: No Suicidal Plan: No Suicidal Intention: No Homicidal Ideation: No Homicidal Plan: No Homicidal Intention: No Insight: Fair Judgment: Impulsive Assessment and Plan - Assessment (1) Bipolar disorder in remission Code(s): F31.70 - Bipolar disorder, currently in remission, most recent episode unspecified Status: Acute - Plan Plan: Patient does not meet criteria for involuntary psychiatric admission. He can continue his psychiatric care as an outpatient. Since lithium level is 0.2, I will increase lithium to 600 mg twice daily. Support, motivational psych education provided Justification for Continued Inpatient Stay: No admission is indicated at the moment.
== END 2018-03-17 15:39 | disposition home or self-care (01) ==
LOC: NEPE 15:00 → NEDA 17:48 → NEPGCP 20:46 → N04 03-11 15:13
PROVIDERS: ADMIT Internal Medicine; ATTEND Internal Medicine

== ENCOUNTER 2018-03-27 13:54 | Inpatient (IN) ==
--- NOTE | 2018-03-27 14:32 | XR ---
EXAM DATE: 03/27/2018 2:24 PM EDT AGE/SEX: 57 years / Male INDICATIONS: Shortness of breath. CLINICAL DATA: This is the patient's initial encounter. Patient reports that signs and symptoms have been present for 1 day and indicates a pain score of 0/10. MEDICAL/SURGICAL HISTORY: Hypertension. None. COMPARISON: [facility] – [place], CHEST 1V SINGLE AP, 03/08/2018. . FINDINGS: A single AP view of the chest demonstrates the lungs to be symmetrically aerated without evidence of mass, infiltrate or effusion. The cardiomediastinal contours are unremarkable. Osseous structures a re intact. CONCLUSION: Negative examination. Electronically signed by: Nain Gonzalez MD 03/27/2018 2:31 PM EDT
[2018-03-27 14:41] LABS: Baso # (Auto) 0.2 th/mm3 (0.0-0.2); Baso % (Auto) 1.4 % (0.0-2.0); Eos # (Auto) 0.3 th/mm3 (0.0-0.4); Hematocrit 53.9 % (39.0-51.0); Hemoglobin 17.8 gm/dL (13.0-17.0); Lymph # (Auto) 2.9 th/mm3 (1.0-4.8); Lymph % (Auto) 16.6 % (9.0-44.0); Mean Corpuscular Hemoglobin 29.3 pg (27.0-34.0); Mean Corpuscular Volume 88.7 fL (80.0-100.0); Mean Platelet Volume 8.5 fL (7.0-11.0); Mono # (Auto) 1.4 th/mm3 (0.0-0.9); Mono % (Auto) 8.2 % (0.0-8.0); Neut # (Auto) 12.5 th/mm3 (1.8-7.7); Neut % (Auto) 71.8 % (16.0-70.0); Platelet Count 491 th/mm3 (150-450); Red Blood Count 6.08 mil/mm3 (4.50-5.90); Red Cell Distribution Width 15.9 % (11.6-17.2); White Blood Count 17.4 th/mm3 (4.0-11.0)
[2018-03-27] MEDS ORDERED: Sod Chloride 0.9% Inj 1,000 ML IV.SIG SCH (15:00)
[2018-03-27 15:02] LABS: Troponin I 0.11 ng/mL (0.02-0.05)
[2018-03-27 16:19] LABS: Anion Gap 20 meq/L (5-15)
[2018-03-27 16:21] LABS: Alanine Aminotransferase 102 U/L (12-78); Albumin 3.4 g/dL (3.4-5.0); Alkaline Phosphatase 121 U/L (45-117); Aspartate Aminotransferase 45 U/L (15-37); Blood Urea Nitrogen 42 mg/dL (7-18); Calcium 9.6 mg/dL (8.5-10.1); Chloride 128 meq/L (98-107); Glomerular Filtration Rate 32 mL/min (>89); Glucose,Random 119 mg/dL (74-106); Potassium 3.4 meq/L (3.5-5.1); Total Protein 7.7 g/dL (6.4-8.2)
[2018-03-27 16:29] LABS: Sodium 169 meq/L (136-145)
--- NOTE | 2018-03-27 17:58 | ED ---
HPI General Chief complaint: Weakness Stated complaint: Medical Time Seen by Provider: 03/27/18 14:06 History of Present Illness HPI narrative: Patient is a 57-year-old male presents emergency department for evaluation of generalized weakness. Patient appears very dehydrated on arrival , recent admission for pneumonia. Chest x-ray was negative at that time, was discharged on antibiotics after a few days of IV antibiotics. Has a history of bipolar disorder. Medics reported the patient would like he had been on the floor for several days. On arrival the patient just states he feels very weak all over, denies any specific pain. Denies any abdominal pain chest pain headache or extremity pain. He states that he has had some mild nausea without vomiting. No diarrhea no constipation or blood in the stool. Related Data Home Medications Medication Instructions Recorded Confirmed quetiapine [Seroquel] 500 mg PO DAILY 03/27/18 03/27/18 Previous Rx's Medication Instructions Recorded cholecalciferol (vitamin D3) 1,000 unit PO DAILY 30 Days #30 cap 03/14/18 [Vitamin D3] nifedipine 60 mg PO DAILY 30 Days #60 tab 03/14/18 lithium carbonate 600 mg PO BID 30 Days #60 cap 03/16/18 Allergies Allergy/AdvReac Type Severity Reaction Status Date / Time No Known Allergies Allergy Unverified 03/27/18 14:30 Review of Systems ROS: all other systems reviewed are negative PMFSH Family History Family History Father Dementia Mother Multiple sclerosis Social History Social History Substance History: No History of Abuse and Active Abuse Second Hand Smoke Exposure: No Smoking Status: Former smoker Tobacco Type: Cigarettes How Often Do You Have a Drink Containing Alcohol: Never Recent Travel in [place] within the Last 8 Weeks: No Recent Out of Country Travel within the Last 8 Weeks: No Immunization History Tetanus Immunization: Unsure Hx Influenza Vaccine This Season: No Exam Narrative Exam Narrative: GENERAL: Well-developed well-nourished, unkempt, appears dehydrated. SKIN: Focused skin assessment warm/dry. Decreased skin tenting. HEAD: Atraumatic. Normocephalic. EYES: Pupils equal and round. No scleral icterus. No injection or drainage. ENT: No nasal bleeding or discharge. Mucous membranes pink and parched extremely dry and cracking. NECK: Trachea midline. No JVD. CARDIOVASCULAR: Tachycardic with regular rhythm. 2+ [place] pulses in all 4 extremities peer no murmur appreciated. RESPIRATORY: No accessory muscle use. Clear to auscultation. Breath sounds equal bilaterally. GASTROINTESTINAL: Abdomen soft, non-tender, nondistended. Hepatic and splenic margins not palpable. MUSCULOSKELETAL: No obvious deformities. No clubbing. No cyanosis. No edema. NEUROLOGICAL: Awake and alert. No obvious cranial nerve deficits. Motor grossly within normal limits. Normal speech. PSYCHIATRIC: Appropriate mood and affect; insight and judgment normal. Course Initial Documented Vital Signs Temperature 98.3 F 03/27/18 14:06 Pulse Rate 137 H 03/27/18 14:06 Respiratory Rate 24 03/27/18 14:06 Blood Pressure 176/105 H 03/27/18 14:06 Pulse Oximetry 97 03/27/18 14:06 Last Documented Vital Signs Temperature 98.0 F 03/31/18 20:00 Pulse Rate 108 H 03/31/18 20:00 Respiratory Rate 17 03/31/18 20:00 Blood Pressure 141/91 H 03/31/18 20:00 Pulse Oximetry 94 L 03/31/18 20:00 Medical Decision Making [facility] Narrative Medical decision making narrative: Patient room to the emergency department, appears extremely dehydrated, was given 2 L normal saline by bolus, heart rate is normalized, his skin color is returning to normal. Labs are significant for a sodium of 169, no seizure activities been seen in the emergency department. Unknown what medications he takes is slightly altered and unkempt. I have added a lithium level on. CXR negative here. Will defer antibiotics to inpatient doctors. Discussed the patient with Dr. Fisher for admission to Dr. Good in the critical care team peer Medical Screen Exam Complete: Yes Emergency Medical Condition: Yes Differential Diagnosis Differential Diagnosis: dehydration, electrolyte abnormality, acute kidney injury Lab Data Result diagrams: 03/31/18 03:50 03/31/18 03:50 Lab Results 03/27/18 03/27/18 03/27/18 Range/Units 14:10 14:10 14:10 WBC 17.4 H (4.0-11.0) th/mm3 RBC 6.08 H (4.50-5.90) mil/mm3 Hgb 17.8 H (13.0-17.0) gm/dL Hct 53.9 H (39.0-51.0) % MCV 88.7 (80.0-100.0) fL MCH 29.3 (27.0-34.0) pg MCHC 33.0 (32.0-36.0) % RDW 15.9 (11.6-17.2) % Plt Count 491 H D (150-450) th/mm3 MPV 8.5 (7.0-11.0) fL Neut % (Auto) 71.8 H (16.0-70.0) % Lymph % (Auto) 16.6 (9.0-44.0) % Harmon % (Auto) 8.2 H (0.0-8.0) % Eos % (Auto) 2.0 (0.0-4.0) % Baso % (Auto) 1.4 (0.0-2.0) % Neut # (Auto) 12.5 H (1.8-7.7) th/mm3 Lymph # (Auto) 2.9 (1.0-4.8) th/mm3 Harmon # (Auto) 1.4 H (0.0-0.9) th/mm3 Eos # (Auto) 0.3 (0.0-0.4) th/mm3 Baso # (Auto) 0.2 (0.0-0.2) th/mm3 WBC Differential . Differential Comment Auto diff final PT (9.8-11.6) sec INR Ratio APTT (24.3-30.1) sec Puncture Site Patient Temperature O2 Saturation (90-100) % ABG pH (7.380-7.420) ABG pCO2 (38-42) mmHg ABG pO2 (61-120) mmHg ABG HCO3 (22-26) mmol/L ABG O2 Content (12.0-20.0) Vol % ABG Base Excess (-2-2) mmol/L ABG Methemoglobin (0-2) % Jose J Test Hemoglobin (12.0-16.0) G/DL Carboxyhemoglobin (0-4) % Inspired O2 % Critical Value Sodium (136-145) meq/L Potassium (3.5-5.1) meq/L Chloride (98-107) meq/L Carbon Dioxide (21.0-32.0) meq/L Anion Gap (5-15) meq/L BUN (7-18) mg/dL Creatinine (0.60-1.30) mg/dL Estimated GFR (>89) mL/min Random Glucose (74-106) mg/dL Hemoglobin A1c (4.3-6.0) % Calcium (8.5-10.1) mg/dL Phosphorus (2.5-4.9) mg/dL Magnesium (1.5-2.5) mg/dL Total Bilirubin (0.2-1.0) mg/dL AST (15-37) U/L ALT (12-78) U/L Alkaline Phosphatase (45-117) U/L Ammonia (11-32) mcmol/L Total Creatine Kinase 54 55 (39-308) U/L Troponin I 0.11 H (0.02-0.05) ng/mL Total Protein (6.4-8.2) g/dL Albumin (3.4-5.0) g/dL Triglycerides (42-150) mg/dL Cholesterol (120-200) mg/dL LDL Cholesterol, Calc (0-99) mg/dL HDL Cholesterol (40.0-60.0) mg/dL Cholesterol/HDL Ratio Ratio TSH (0.358-3.740) uIU/mL Free T4 (0.76-1.46) ng/dL Nasal Screen MRSA (PCR) (Negative) [place] (0.5-1.5) meq/L Hepatitis A IgM Ab (Nonreactive) Hep Bs Antigen (Nonreactive) Hep B Core IgM Ab (Nonreactive) Hep C IgG Ab (Nonreactive) 03/27/18 03/27/18 03/27/18 Range/Units 14:10 17:58 22:24 WBC (4.0-11.0) th/mm3 RBC (4.50-5.90) mil/mm3 Hgb (13.0-17.0) gm/dL Hct (39.0-51.0) % MCV (80.0-100.0) fL MCH (27.0-34.0) pg MCHC (32.0-36.0) % RDW (11.6-17.2) % Plt Count (150-450) th/mm3 MPV (7.0-11.0) fL Neut % (Auto) (16.0-70.0) % Lymph % (Auto) (9.0-44.0) % Harmon % (Auto) (0.0-8.0) % Eos % (Auto) (0.0-4.0) % Baso % (Auto) (0.0-2.0) % Neut # (Auto) (1.8-7.7) th/mm3 Lymph # (Auto) (1.0-4.8) th/mm3 Harmon # (Auto) (0.0-0.9) th/mm3 Eos # (Auto) (0.0-0.4) th/mm3 Baso # (Auto) (0.0-0.2) th/mm3 WBC Differential Differential Comment PT (9.8-11.6) sec INR Ratio APTT (24.3-30.1) sec Puncture Site Patient Temperature O2 Saturation (90-100) % ABG pH (7.380-7.420) ABG pCO2 (38-42) mmHg ABG pO2 (61-120) mmHg ABG HCO3 (22-26) mmol/L ABG O2 Content (12.0-20.0) Vol % ABG Base Excess (-2-2) mmol/L ABG Methemoglobin (0-2) % Jose J Test Hemoglobin (12.0-16.0) G/DL Carboxyhemoglobin (0-4) % Inspired O2 % Critical Value Sodium 169 H* 165 H* (136-145) meq/L Potassium 3.4 L 3.3 L (3.5-5.1) meq/L Chloride 128 H 131 H (98-107) meq/L Carbon Dioxide 21.0 24.0 (21.0-32.0) meq/L Anion Gap 20 H 10 (5-15) meq/L BUN 42 H 41 H (7-18) mg/dL Creatinine 2.12 H 1.98 H (0.60-1.30) mg/dL Estimated GFR 32 L 35 L (>89) mL/min Random Glucose 119 H 155 H (74-106) mg/dL Hemoglobin A1c (4.3-6.0) % Calcium 9.6 9.0 (8.5-10.1) mg/dL Phosphorus (2.5-4.9) mg/dL Magnesium (1.5-2.5) mg/dL Total Bilirubin 1.5 H (0.2-1.0) mg/dL AST 45 H (15-37) U/L ALT 102 H (12-78) U/L Alkaline Phosphatase 121 H (45-117) U/L Ammonia (11-32) mcmol/L Total Creatine Kinase (39-308) U/L Troponin I (0.02-0.05) ng/mL Total Protein 7.7 (6.4-8.2) g/dL Albumin 3.4 (3.4-5.0) g/dL Triglycerides (42-150) mg/dL Cholesterol (120-200) mg/dL LDL Cholesterol, Calc (0-99) mg/dL HDL Cholesterol (40.0-60.0) mg/dL Cholesterol/HDL Ratio Ratio TSH (0.358-3.740) uIU/mL Free T4 (0.76-1.46) ng/dL Nasal Screen MRSA (PCR) (Negative) [place] Less than 0.1 L (0.5-1.5) meq/L Hepatitis A IgM Ab (Nonreactive) Hep Bs Antigen (Nonreactive) Hep B Core IgM Ab (Nonreactive) Hep C IgG Ab (Nonreactive) 03/27/18 03/28/18 03/28/18 Range/Units 22:49 01:30 03:17 WBC 13.2 H (4.0-11.0) th/mm3 RBC 5.23 (4.50-5.90) mil/mm3 Hgb 15.3 D (13.0-17.0) gm/dL Hct 46.4 (39.0-51.0) % MCV 88.8 (80.0-100.0) fL MCH 29.3 (27.0-34.0) pg MCHC 33.0 (32.0-36.0) % RDW 15.4 (11.6-17.2) % Plt Count 329 D (150-450) th/mm3 MPV 8.4 (7.0-11.0) fL Neut % (Auto) 74.5 H (16.0-70.0) % Lymph % (Auto) 13.1 (9.0-44.0) % Harmon % (Auto) 8.7 H (0.0-8.0) % Eos % (Auto) 2.4 (0.0-4.0) % Baso % (Auto) 1.3 (0.0-2.0) % Neut # (Auto) 9.8 H (1.8-7.7) th/mm3 Lymph # (Auto) 1.7 (1.0-4.8) th/mm3 [place] # (Auto) 1.2 H (0.0-0.9) th/mm3 Eos # (Auto) 0.3 (0.0-0.4) th/mm3 Baso # (Auto) 0.2 (0.0-0.2) th/mm3 WBC Differential . Differential Comment Auto diff final PT (9.8-11.6) sec INR Ratio APTT (24.3-30.1) sec Puncture Site Left radial Patient Temperature 98.6 O2 Saturation 94 (90-100) % ABG pH 7.45 H (7.380-7.420) ABG pCO2 31 L (38-42) mmHg ABG pO2 76 (61-120) mmHg ABG HCO3 21 L (22-26) mmol/L ABG O2 Content 20.9 H (12.0-20.0) Vol % ABG Base Excess -2.0 (-2-2) mmol/L ABG Methemoglobin 0.6 (0-2) % Jose J Test Present Hemoglobin 15.8 (12.0-16.0) G/DL Carboxyhemoglobin 0.9 (0-4) % Inspired O2 21 % Critical Value No Sodium (136-145) meq/L Potassium (3.5-5.1) meq/L Chloride (98-107) meq/L Carbon Dioxide (21.0-32.0) meq/L Anion Gap (5-15) meq/L BUN (7-18) mg/dL Creatinine (0.60-1.30) mg/dL Estimated GFR (>89) mL/min Random Glucose (74-106) mg/dL Hemoglobin A1c (4.3-6.0) % Calcium (8.5-10.1) mg/dL Phosphorus (2.5-4.9) mg/dL Magnesium (1.5-2.5) mg/dL Total Bilirubin (0.2-1.0) mg/dL AST (15-37) U/L ALT (12-78) U/L Alkaline Phosphatase (45-117) U/L Ammonia (11-32) mcmol/L Total Creatine Kinase (39-308) U/L Troponin I (0.02-0.05) ng/mL Total Protein (6.4-8.2) g/dL Albumin (3.4-5.0) g/dL Triglycerides (42-150) mg/dL Cholesterol (120-200) mg/dL LDL Cholesterol, Calc (0-99) mg/dL HDL Cholesterol (40.0-60.0) mg/dL Cholesterol/HDL Ratio Ratio TSH (0.358-3.740) uIU/mL Free T4 (0.76-1.46) ng/dL Nasal Screen MRSA (PCR) Not detected (Negative) [place] (0.5-1.5) meq/L Hepatitis A IgM Ab (Nonreactive) Hep Bs Antigen (Nonreactive) Hep B Core IgM Ab (Nonreactive) Hep C IgG Ab (Nonreactive) 03/28/18 03/28/18 03/28/18 Range/Units 03:17 03:17 10:00 WBC (4.0-11.0) th/mm3 RBC (4.50-5.90) mil/mm3 Hgb (13.0-17.0) gm/dL Hct (39.0-51.0) % MCV (80.0-100.0) fL MCH (27.0-34.0) pg MCHC (32.0-36.0) % RDW (11.6-17.2) % Plt Count (150-450) th/mm3 MPV (7.0-11.0) fL Neut % (Auto) (16.0-70.0) % Lymph % (Auto) (9.0-44.0) % Harmon % (Auto) (0.0-8.0) % Eos % (Auto) (0.0-4.0) % Baso % (Auto) (0.0-2.0) % Neut # (Auto) (1.8-7.7) th/mm3 Lymph # (Auto) (1.0-4.8) th/mm3 [place] # (Auto) (0.0-0.9) th/mm3 Eos # (Auto) (0.0-0.4) th/mm3 Baso # (Auto) (0.0-0.2) th/mm3 WBC Differential Differential Comment PT 59.6 H D 54.6 H (9.8-11.6) sec INR 6.0 H* 5.4 Ratio APTT 59.2 H (24.3-30.1) sec Puncture Site Patient Temperature O2 Saturation (90-100) % ABG pH (7.380-7.420) ABG pCO2 (38-42) mmHg ABG pO2 (61-120) mmHg ABG HCO3 (22-26) mmol/L ABG O2 Content (12.0-20.0) Vol % ABG Base Excess (-2-2) mmol/L ABG Methemoglobin (0-2) % Jose J Test Hemoglobin (12.0-16.0) G/DL Carboxyhemoglobin (0-4) % Inspired O2 % Critical Value Sodium 167 H* (136-145) meq/L Potassium 3.5 (3.5-5.1) meq/L Chloride 129 H (98-107) meq/L Carbon Dioxide 26.8 (21.0-32.0) meq/L Anion Gap 11 (5-15) meq/L BUN 39 H (7-18) mg/dL Creatinine 2.04 H (0.60-1.30) mg/dL Estimated GFR 34 L (>89) mL/min Random Glucose 112 H (74-106) mg/dL Hemoglobin A1c (4.3-6.0) % Calcium 9.0 (8.5-10.1) mg/dL Phosphorus 2.8 (2.5-4.9) mg/dL Magnesium 2.5 (1.5-2.5) mg/dL Total Bilirubin 1.3 H (0.2-1.0) mg/dL AST 38 H (15-37) U/L ALT 79 H (12-78) U/L Alkaline Phosphatase 108 (45-117) U/L Ammonia (11-32) mcmol/L Total Creatine Kinase (39-308) U/L Troponin I (0.02-0.05) ng/mL Total Protein 6.9 D (6.4-8.2) g/dL Albumin 3.1 L (3.4-5.0) g/dL Triglycerides (42-150) mg/dL Cholesterol (120-200) mg/dL LDL Cholesterol, Calc (0-99) mg/dL HDL Cholesterol (40.0-60.0) mg/dL Cholesterol/HDL Ratio Ratio TSH (0.358-3.740) uIU/mL Free T4 (0.76-1.46) ng/dL Nasal Screen MRSA (PCR) (Negative) [place] (0.5-1.5) meq/L Hepatitis A IgM Ab (Nonreactive) Hep Bs Antigen (Nonreactive) Hep B Core IgM Ab (Nonreactive) Hep C IgG Ab (Nonreactive) 03/28/18 03/28/18 03/28/18 Range/Units 10:00 10:48 10:48 WBC 11.3 H (4.0-11.0) th/mm3 RBC 4.69 (4.50-5.90) mil/mm3 Hgb 13.7 (13.0-17.0) gm/dL Hct 41.9 (39.0-51.0) % MCV 89.3 (80.0-100.0) fL MCH 29.1 (27.0-34.0) pg MCHC 32.7 (32.0-36.0) % RDW 15.7 (11.6-17.2) % Plt Count 258 (150-450) th/mm3 MPV 8.6 (7.0-11.0) fL Neut % (Auto) 75.4 H (16.0-70.0) % Lymph % (Auto) 13.6 (9.0-44.0) % [place]on % (Auto) 7.7 (0.0-8.0) % Eos % (Auto) 2.3 (0.0-4.0) % Baso % (Auto) 1.0 (0.0-2.0) % Neut # (Auto) 8.5 H (1.8-7.7) th/mm3 Lymph # (Auto) 1.5 (1.0-4.8) th/mm3 [place] # (Auto) 0.9 (0.0-0.9) th/mm3 Eos # (Auto) 0.3 (0.0-0.4) th/mm3 Baso # (Auto) 0.1 (0.0-0.2) th/mm3 WBC Differential . Differential Comment Auto diff final PT (9.8-11.6) sec INR Ratio APTT 61.3 H (24.3-30.1) sec Puncture Site Patient Temperature O2 Saturation (90-100) % ABG pH (7.380-7.420) ABG pCO2 (38-42) mmHg ABG pO2 (61-120) mmHg ABG HCO3 (22-26) mmol/L ABG O2 Content (12.0-20.0) Vol % ABG Base Excess (-2-2) mmol/L ABG Methemoglobin (0-2) % Jose J Test Hemoglobin (12.0-16.0) G/DL Carboxyhemoglobin (0-4) % Inspired O2 % Critical Value Sodium (136-145) meq/L Potassium (3.5-5.1) meq/L Chloride (98-107) meq/L Carbon Dioxide (21.0-32.0) meq/L Anion Gap (5-15) meq/L BUN (7-18) mg/dL Creatinine (0.60-1.30) mg/dL Estimated GFR (>89) mL/min Random Glucose (74-106) mg/dL Hemoglobin A1c (4.3-6.0) % Calcium (8.5-10.1) mg/dL Phosphorus (2.5-4.9) mg/dL Magnesium (1.5-2.5) mg/dL Total Bilirubin (0.2-1.0) mg/dL AST (15-37) U/L ALT (12-78) U/L Alkaline Phosphatase (45-117) U/L Ammonia (11-32) mcmol/L Total Creatine Kinase (39-308) U/L Troponin I (0.02-0.05) ng/mL Total Protein (6.4-8.2) g/dL Albumin (3.4-5.0) g/dL Triglycerides (42-150) mg/dL Cholesterol (120-200) mg/dL LDL Cholesterol, Calc (0-99) mg/dL HDL Cholesterol (40.0-60.0) mg/dL Cholesterol/HDL Ratio Ratio TSH (0.358-3.740) uIU/mL Free T4 (0.76-1.46) ng/dL Nasal Screen MRSA (PCR) (Negative) [place] (0.5-1.5) meq/L Hepatitis A IgM Ab Nonreactive (Nonreactive) Hep Bs Antigen Nonreactive (Nonreactive) Hep B Core IgM Ab Nonreactive (Nonreactive) Hep C IgG Ab Nonreactive (Nonreactive) 03/28/18 03/28/18 03/28/18 Range/Units 10:48 10:48 17:46 WBC (4.0-11.0) th/mm3 RBC (4.50-5.90) mil/mm3 Hgb (13.0-17.0) gm/dL Hct (39.0-51.0) % MCV (80.0-100.0) fL MCH (27.0-34.0) pg MCHC (32.0-36.0) % RDW (11.6-17.2) % Plt Count (150-450) th/mm3 MPV (7.0-11.0) fL Neut % (Auto) (16.0-70.0) % Lymph % (Auto) (9.0-44.0) % [place] % (Auto) (0.0-8.0) % Eos % (Auto) (0.0-4.0) % Baso % (Auto) (0.0-2.0) % Neut # (Auto) (1.8-7.7) th/mm3 Lymph # (Auto) (1.0-4.8) th/mm3 [place] # (Auto) (0.0-0.9) th/mm3 Eos # (Auto) (0.0-0.4) th/mm3 Baso # (Auto) (0.0-0.2) th/mm3 WBC Differential Differential Comment PT (9.8-11.6) sec INR Ratio APTT (24.3-30.1) sec Puncture Site Patient Temperature O2 Saturation (90-100) % ABG pH (7.380-7.420) ABG pCO2 (38-42) mmHg ABG pO2 (61-120) mmHg ABG HCO3 (22-26) mmol/L ABG O2 Content (12.0-20.0) Vol % ABG Base Excess (-2-2) mmol/L ABG Methemoglobin (0-2) % Jose J Test Hemoglobin (12.0-16.0) G/DL Carboxyhemoglobin (0-4) % Inspired O2 % Critical Value Sodium 161 H* 156 H* (136-145) meq/L Potassium 2.9 L* 3.6 (3.5-5.1) meq/L Chloride 124 H 122 H (98-107) meq/L Carbon Dioxide 24.5 24.7 (21.0-32.0) meq/L Anion Gap 13 9 (5-15) meq/L BUN 34 H 31 H (7-18) mg/dL Creatinine 1.98 H 1.68 H (0.60-1.30) mg/dL Estimated GFR 35 L 42 L (>89) mL/min Random Glucose 201 H 119 H (74-106) mg/dL Hemoglobin A1c (4.3-6.0) % Calcium 8.8 8.6 (8.5-10.1) mg/dL Phosphorus (2.5-4.9) mg/dL Magnesium (1.5-2.5) mg/dL Total Bilirubin 1.0 (0.2-1.0) mg/dL AST 43 H (15-37) U/L ALT 76 (12-78) U/L Alkaline Phosphatase 100 (45-117) U/L Ammonia (11-32) mcmol/L Total Creatine Kinase (39-308) U/L Troponin I 0.20 H (0.02-0.05) ng/mL Total Protein 6.1 L D (6.4-8.2) g/dL Albumin 2.8 L (3.4-5.0) g/dL Triglycerides (42-150) mg/dL Cholesterol (120-200) mg/dL LDL Cholesterol, Calc (0-99) mg/dL HDL Cholesterol (40.0-60.0) mg/dL Cholesterol/HDL Ratio Ratio TSH (0.358-3.740) uIU/mL Free T4 (0.76-1.46) ng/dL Nasal Screen MRSA (PCR) (Negative) [place] (0.5-1.5) meq/L Hepatitis A IgM Ab (Nonreactive) Hep Bs Antigen (Nonreactive) Hep B Core IgM Ab (Nonreactive) Hep C IgG Ab (Nonreactive) 03/29/18 03/29/18 03/29/18 Range/Units 03:47 03:47 03:47 WBC 11.9 H (4.0-11.0) th/mm3 RBC 4.61 (4.50-5.90) mil/mm3 Hgb 13.4 (13.0-17.0) gm/dL Hct 40.5 (39.0-51.0) % MCV 87.8 (80.0-100.0) fL MCH 29.2 (27.0-34.0) pg MCHC 33.2 (32.0-36.0) % RDW 15.2 (11.6-17.2) % Plt Count 245 (150-450) th/mm3 MPV 8.8 (7.0-11.0) fL Neut % (Auto) 78.2 H (16.0-70.0) % Lymph % (Auto) 11.4 (9.0-44.0) % [place] % (Auto) 6.4 (0.0-8.0) % Eos % (Auto) 3.0 (0.0-4.0) % Baso % (Auto) 1.0 (0.0-2.0) % Neut # (Auto) 9.3 H (1.8-7.7) th/mm3 Lymph # (Auto) 1.4 (1.0-4.8) th/mm3 [place] # (Auto) 0.8 (0.0-0.9) th/mm3 Eos # (Auto) 0.4 (0.0-0.4) th/mm3 Baso # (Auto) 0.1 (0.0-0.2) th/mm3 WBC Differential . Differential Comment Auto diff final PT 14.6 H D (9.8-11.6) sec INR 1.4 Ratio APTT 31.3 H D (24.3-30.1) sec Puncture Site Patient Temperature O2 Saturation (90-100) % ABG pH (7.380-7.420) ABG pCO2 (38-42) mmHg ABG pO2 (61-120) mmHg ABG HCO3 (22-26) mmol/L ABG O2 Content (12.0-20.0) Vol % ABG Base Excess (-2-2) mmol/L ABG Methemoglobin (0-2) % Jose J Test Hemoglobin (12.0-16.0) G/DL Carboxyhemoglobin (0-4) % Inspired O2 % Critical Value Sodium 155 H (136-145) meq/L Potassium 3.3 L (3.5-5.1) meq/L Chloride 120 H (98-107) meq/L Carbon Dioxide 24.0 (21.0-32.0) meq/L Anion Gap 11 (5-15) meq/L BUN 23 H (7-18) mg/dL Creatinine 1.58 H (0.60-1.30) mg/dL Estimated GFR 45 L (>89) mL/min Random Glucose 124 H (74-106) mg/dL Hemoglobin A1c (4.3-6.0) % Calcium 8.8 (8.5-10.1) mg/dL Phosphorus (2.5-4.9) mg/dL Magnesium (1.5-2.5) mg/dL Total Bilirubin 1.4 H (0.2-1.0) mg/dL AST 40 H (15-37) U/L ALT 71 (12-78) U/L Alkaline Phosphatase 96 (45-117) U/L Ammonia (11-32) mcmol/L Total Creatine Kinase (39-308) U/L Troponin I (0.02-0.05) ng/mL Total Protein 6.2 L (6.4-8.2) g/dL Albumin 2.9 L (3.4-5.0) g/dL Triglycerides (42-150) mg/dL Cholesterol (120-200) mg/dL LDL Cholesterol, Calc (0-99) mg/dL HDL Cholesterol (40.0-60.0) mg/dL Cholesterol/HDL Ratio Ratio TSH (0.358-3.740) uIU/mL Free T4 (0.76-1.46) ng/dL Nasal Screen MRSA (PCR) (Negative) [place] (0.5-1.5) meq/L Hepatitis A IgM Ab (Nonreactive) Hep Bs Antigen (Nonreactive) Hep B Core IgM Ab (Nonreactive) Hep C IgG Ab (Nonreactive) 03/29/18 03/30/18 03/30/18 Range/Units 13:25 03:31 03:31 WBC 11.8 H (4.0-11.0) th/mm3 RBC 4.81 (4.50-5.90) mil/mm3 Hgb 14.0 (13.0-17.0) gm/dL Hct 42.3 (39.0-51.0) % MCV 87.9 (80.0-100.0) fL MCH 29.0 (27.0-34.0) pg MCHC 33.0 (32.0-36.0) % RDW 15.0 (11.6-17.2) % Plt Count 210 (150-450) th/mm3 MPV 8.5 (7.0-11.0) fL Neut % (Auto) 80.3 H (16.0-70.0) % Lymph % (Auto) 10.3 (9.0-44.0) % Harmon % (Auto) 6.4 (0.0-8.0) % Eos % (Auto) 2.4 (0.0-4.0) % Baso % (Auto) 0.6 (0.0-2.0) % Neut # (Auto) 9.5 H (1.8-7.7) th/mm3 Lymph # (Auto) 1.2 (1.0-4.8) th/mm3 Harmon # (Auto) 0.8 (0.0-0.9) th/mm3 Eos # (Auto) 0.3 (0.0-0.4) th/mm3 Baso # (Auto) 0.1 (0.0-0.2) th/mm3 WBC Differential . Differential Comment Auto diff final PT (9.8-11.6) sec INR Ratio APTT (24.3-30.1) sec Puncture Site Patient Temperature O2 Saturation (90-100) % ABG pH (7.380-7.420) ABG pCO2 (38-42) mmHg ABG pO2 (61-120) mmHg ABG HCO3 (22-26) mmol/L ABG O2 Content (12.0-20.0) Vol % ABG Base Excess (-2-2) mmol/L ABG Methemoglobin (0-2) % Jose J Test Hemoglobin (12.0-16.0) G/DL Carboxyhemoglobin (0-4) % Inspired O2 % Critical Value Sodium 153 H 154 H (136-145) meq/L Potassium 3.7 3.9 (3.5-5.1) meq/L Chloride 121 H 121 H (98-107) meq/L Carbon Dioxide 24.1 28.1 (21.0-32.0) meq/L Anion Gap 8 5 (5-15) meq/L BUN 19 H 21 H (7-18) mg/dL Creatinine 1.53 H 1.68 H (0.60-1.30) mg/dL Estimated GFR 47 L 42 L (>89) mL/min Random Glucose 118 H 91 (74-106) mg/dL Hemoglobin A1c (4.3-6.0) % Calcium 9.0 9.6 (8.5-10.1) mg/dL Phosphorus (2.5-4.9) mg/dL Magnesium (1.5-2.5) mg/dL Total Bilirubin 1.0 (0.2-1.0) mg/dL AST 38 H (15-37) U/L ALT 68 (12-78) U/L Alkaline Phosphatase 108 (45-117) U/L Ammonia (11-32) mcmol/L Total Creatine Kinase (39-308) U/L Troponin I (0.02-0.05) ng/mL Total Protein 6.6 (6.4-8.2) g/dL Albumin 2.9 L (3.4-5.0) g/dL Triglycerides (42-150) mg/dL Cholesterol (120-200) mg/dL LDL Cholesterol, Calc (0-99) mg/dL HDL Cholesterol (40.0-60.0) mg/dL Cholesterol/HDL Ratio Ratio TSH (0.358-3.740) uIU/mL Free T4 (0.76-1.46) ng/dL Nasal Screen MRSA (PCR) (Negative) [place] (0.5-1.5) meq/L Hepatitis A IgM Ab (Nonreactive) Hep Bs Antigen (Nonreactive) Hep B Core IgM Ab (Nonreactive) Hep C IgG Ab (Nonreactive) 03/30/18 03/30/18 03/30/18 Range/Units 03:31 03:31 03:31 WBC (4.0-11.0) th/mm3 RBC (4.50-5.90) mil/mm3 Hgb (13.0-17.0) gm/dL Hct (39.0-51.0) % MCV (80.0-100.0) fL MCH (27.0-34.0) pg MCHC (32.0-36.0) % RDW (11.6-17.2) % Plt Count (150-450) th/mm3 MPV (7.0-11.0) fL Neut % (Auto) (16.0-70.0) % Lymph % (Auto) (9.0-44.0) % Harmon % (Auto) (0.0-8.0) % Eos % (Auto) (0.0-4.0) % Baso % (Auto) (0.0-2.0) % Neut # (Auto) (1.8-7.7) th/mm3 Lymph # (Auto) (1.0-4.8) th/mm3 Harmon # (Auto) (0.0-0.9) th/mm3 Eos # (Auto) (0.0-0.4) th/mm3 Baso # (Auto) (0.0-0.2) th/mm3 WBC Differential Differential Comment PT (9.8-11.6) sec INR Ratio APTT (24.3-30.1) sec Puncture Site Patient Temperature O2 Saturation (90-100) % ABG pH (7.380-7.420) ABG pCO2 (38-42) mmHg ABG pO2 (61-120) mmHg ABG HCO3 (22-26) mmol/L ABG O2 Content (12.0-20.0) Vol % ABG Base Excess (-2-2) mmol/L ABG Methemoglobin (0-2) % Jose J Test Hemoglobin (12.0-16.0) G/DL Carboxyhemoglobin (0-4) % Inspired O2 % Critical Value Sodium (136-145) meq/L Potassium (3.5-5.1) meq/L Chloride (98-107) meq/L Carbon Dioxide (21.0-32.0) meq/L Anion Gap (5-15) meq/L BUN (7-18) mg/dL Creatinine (0.60-1.30) mg/dL Estimated GFR (>89) mL/min Random Glucose (74-106) mg/dL Hemoglobin A1c 5.5 (4.3-6.0) % Calcium (8.5-10.1) mg/dL Phosphorus (2.5-4.9) mg/dL Magnesium (1.5-2.5) mg/dL Total Bilirubin (0.2-1.0) mg/dL AST (15-37) U/L ALT (12-78) U/L Alkaline Phosphatase (45-117) U/L Ammonia (11-32) mcmol/L Total Creatine Kinase (39-308) U/L Troponin I (0.02-0.05) ng/mL Total Protein (6.4-8.2) g/dL Albumin (3.4-5.0) g/dL Triglycerides (42-150) mg/dL Cholesterol (120-200) mg/dL LDL Cholesterol, Calc (0-99) mg/dL HDL Cholesterol (40.0-60.0) mg/dL Cholesterol/HDL Ratio Ratio TSH 2.940 (0.358-3.740) uIU/mL Free T4 1.25 (0.76-1.46) ng/dL Nasal Screen MRSA (PCR) (Negative) [place] (0.5-1.5) meq/L Hepatitis A IgM Ab (Nonreactive) Hep Bs Antigen (Nonreactive) Hep B Core IgM Ab (Nonreactive) Hep C IgG Ab (Nonreactive) 03/30/18 03/30/18 03/31/18 Range/Units 10:22 10:27 03:50 WBC 8.5 (4.0-11.0) th/mm3 RBC 4.73 (4.50-5.90) mil/mm3 Hgb 14.0 (13.0-17.0) gm/dL Hct 41.1 (39.0-51.0) % MCV 86.9 (80.0-100.0) fL MCH 29.5 (27.0-34.0) pg MCHC 33.9 (32.0-36.0) % RDW 14.7 (11.6-17.2) % Plt Count 180 (150-450) th/mm3 MPV 9.0 (7.0-11.0) fL Neut % (Auto) 65.9 (16.0-70.0) % Lymph % (Auto) 18.1 (9.0-44.0) % Harmon % (Auto) 10.9 H (0.0-8.0) % Eos % (Auto) 4.0 (0.0-4.0) % Baso % (Auto) 1.1 (0.0-2.0) % Neut # (Auto) 5.6 (1.8-7.7) th/mm3 Lymph # (Auto) 1.5 (1.0-4.8) th/mm3 [place]on # (Auto) 0.9 (0.0-0.9) th/mm3 Eos # (Auto) 0.3 (0.0-0.4) th/mm3 Baso # (Auto) 0.1 (0.0-0.2) th/mm3 WBC Differential . Differential Comment Auto diff final PT 10.9 (9.8-11.6) sec INR 1.1 Ratio APTT 27.7 (24.3-30.1) sec Puncture Site Patient Temperature O2 Saturation (90-100) % ABG pH (7.380-7.420) ABG pCO2 (38-42) mmHg ABG pO2 (61-120) mmHg ABG HCO3 (22-26) mmol/L ABG O2 Content (12.0-20.0) Vol % ABG Base Excess (-2-2) mmol/L ABG Methemoglobin (0-2) % Jose J Test Hemoglobin (12.0-16.0) G/DL Carboxyhemoglobin (0-4) % Inspired O2 % Critical Value Sodium (136-145) meq/L Potassium (3.5-5.1) meq/L Chloride (98-107) meq/L Carbon Dioxide (21.0-32.0) meq/L Anion Gap (5-15) meq/L BUN (7-18) mg/dL Creatinine (0.60-1.30) mg/dL Estimated GFR (>89) mL/min Random Glucose (74-106) mg/dL Hemoglobin A1c (4.3-6.0) % Calcium (8.5-10.1) mg/dL Phosphorus (2.5-4.9) mg/dL Magnesium (1.5-2.5) mg/dL Total Bilirubin (0.2-1.0) mg/dL AST (15-37) U/L ALT (12-78) U/L Alkaline Phosphatase (45-117) U/L Ammonia (11-32) mcmol/L Total Creatine Kinase (39-308) U/L Troponin I (0.02-0.05) ng/mL Total Protein (6.4-8.2) g/dL Albumin (3.4-5.0) g/dL Triglycerides (42-150) mg/dL Cholesterol (120-200) mg/dL LDL Cholesterol, Calc (0-99) mg/dL HDL Cholesterol (40.0-60.0) mg/dL Cholesterol/HDL Ratio Ratio TSH (0.358-3.740) uIU/mL Free T4 (0.76-1.46) ng/dL Nasal Screen MRSA (PCR) (Negative) [place] (0.5-1.5) meq/L Hepatitis A IgM Ab (Nonreactive) Hep Bs Antigen (Nonreactive) Hep B Core IgM Ab (Nonreactive) Hep C IgG Ab (Nonreactive) 03/31/18 03/31/18 03/31/18 Range/Units 03:50 03:50 03:50 WBC (4.0-11.0) th/mm3 RBC (4.50-5.90) mil/mm3 Hgb (13.0-17.0) gm/dL Hct (39.0-51.0) % MCV (80.0-100.0) fL MCH (27.0-34.0) pg MCHC (32.0-36.0) % RDW (11.6-17.2) % Plt Count (150-450) th/mm3 MPV (7.0-11.0) fL Neut % (Auto) (16.0-70.0) % Lymph % (Auto) (9.0-44.0) % [place] % (Auto) (0.0-8.0) % Eos % (Auto) (0.0-4.0) % Baso % (Auto) (0.0-2.0) % Neut # (Auto) (1.8-7.7) th/mm3 Lymph # (Auto) (1.0-4.8) th/mm3 [place] # (Auto) (0.0-0.9) th/mm3 Eos # (Auto) (0.0-0.4) th/mm3 Baso # (Auto) (0.0-0.2) th/mm3 WBC Differential Differential Comment PT 10.4 (9.8-11.6) sec INR 1.0 Ratio APTT (24.3-30.1) sec Puncture Site Patient Temperature O2 Saturation (90-100) % ABG pH (7.380-7.420) ABG pCO2 (38-42) mmHg ABG pO2 (61-120) mmHg ABG HCO3 (22-26) mmol/L ABG O2 Content (12.0-20.0) Vol % ABG Base Excess (-2-2) mmol/L ABG Methemoglobin (0-2) % Jose J Test Hemoglobin (12.0-16.0) G/DL Carboxyhemoglobin (0-4) % Inspired O2 % Critical Value Sodium 153 H (136-145) meq/L Potassium 3.8 (3.5-5.1) meq/L Chloride 117 H (98-107) meq/L Carbon Dioxide 28.6 (21.0-32.0) meq/L Anion Gap 7 (5-15) meq/L BUN 16 (7-18) mg/dL Creatinine 1.66 H (0.60-1.30) mg/dL Estimated GFR 43 L (>89) mL/min Random Glucose 85 (74-106) mg/dL Hemoglobin A1c (4.3-6.0) % Calcium 9.6 (8.5-10.1) mg/dL Phosphorus 0.9 L (2.5-4.9) mg/dL Magnesium 2.3 (1.5-2.5) mg/dL Total Bilirubin 0.8 (0.2-1.0) mg/dL AST 26 (15-37) U/L ALT 54 (12-78) U/L Alkaline Phosphatase 100 (45-117) U/L Ammonia Less than 10 L (11-32) mcmol/L Total Creatine Kinase (39-308) U/L Troponin I (0.02-0.05) ng/mL Total Protein 6.7 (6.4-8.2) g/dL Albumin 2.9 L (3.4-5.0) g/dL Triglycerides 229 H (42-150) mg/dL Cholesterol 163 (120-200) mg/dL LDL Cholesterol, Calc 79 (0-99) mg/dL HDL Cholesterol 38.7 L (40.0-60.0) mg/dL Cholesterol/HDL Ratio 4.21 Ratio TSH (0.358-3.740) uIU/mL Free T4 (0.76-1.46) ng/dL Nasal Screen MRSA (PCR) (Negative) [place] (0.5-1.5) meq/L Hepatitis A IgM Ab (Nonreactive) Hep Bs Antigen (Nonreactive) Hep B Core IgM Ab (Nonreactive) Hep C IgG Ab (Nonreactive) 03/31/18 Range/Units 19:24 WBC (4.0-11.0) th/mm3 RBC (4.50-5.90) mil/mm3 Hgb (13.0-17.0) gm/dL Hct (39.0-51.0) % MCV (80.0-100.0) fL MCH (27.0-34.0) pg MCHC (32.0-36.0) % RDW (11.6-17.2) % Plt Count (150-450) th/mm3 MPV (7.0-11.0) fL Neut % (Auto) (16.0-70.0) % Lymph % (Auto) (9.0-44.0) % [place] % (Auto) (0.0-8.0) % Eos % (Auto) (0.0-4.0) % Baso % (Auto) (0.0-2.0) % Neut # (Auto) (1.8-7.7) th/mm3 Lymph # (Auto) (1.0-4.8) th/mm3 [place] # (Auto) (0.0-0.9) th/mm3 Eos # (Auto) (0.0-0.4) th/mm3 Baso # (Auto) (0.0-0.2) th/mm3 WBC Differential Differential Comment PT (9.8-11.6) sec INR Ratio APTT (24.3-30.1) sec Puncture Site Patient Temperature O2 Saturation (90-100) % ABG pH (7.380-7.420) ABG pCO2 (38-42) mmHg ABG pO2 (61-120) mmHg ABG HCO3 (22-26) mmol/L ABG O2 Content (12.0-20.0) Vol % ABG Base Excess (-2-2) mmol/L ABG Methemoglobin (0-2) % Jose J Test Hemoglobin (12.0-16.0) G/DL Carboxyhemoglobin (0-4) % Inspired O2 % Critical Value Sodium (136-145) meq/L Potassium (3.5-5.1) meq/L Chloride (98-107) meq/L Carbon Dioxide (21.0-32.0) meq/L Anion Gap (5-15) meq/L BUN (7-18) mg/dL Creatinine (0.60-1.30) mg/dL Estimated GFR (>89) mL/min Random Glucose (74-106) mg/dL Hemoglobin A1c (4.3-6.0) % Calcium (8.5-10.1) mg/dL Phosphorus 2.2 L D (2.5-4.9) mg/dL Magnesium (1.5-2.5) mg/dL Total Bilirubin (0.2-1.0) mg/dL AST (15-37) U/L ALT (12-78) U/L Alkaline Phosphatase (45-117) U/L Ammonia (11-32) mcmol/L Total Creatine Kinase (39-308) U/L Troponin I (0.02-0.05) ng/mL Total Protein (6.4-8.2) g/dL Albumin (3.4-5.0) g/dL Triglycerides (42-150) mg/dL Cholesterol (120-200) mg/dL LDL Cholesterol, Calc (0-99) mg/dL HDL Cholesterol (40.0-60.0) mg/dL Cholesterol/HDL Ratio Ratio TSH (0.358-3.740) uIU/mL Free T4 (0.76-1.46) ng/dL Nasal Screen MRSA (PCR) (Negative) [place] (0.5-1.5) meq/L Hepatitis A IgM Ab (Nonreactive) Hep Bs Antigen (Nonreactive) Hep B Core IgM Ab (Nonreactive) Hep C IgG Ab (Nonreactive) Imaging Data Radiologist's impression: Chest X-Ray 03/27/18 14:07 CONCLUSION: Negative examination. Liver Ultrasound 03/28/18 00:00 CONCLUSION: 1. Hepatomegaly and mild increased echotexture of the liver parenchyma. 2. Sludge-filled gallbladder with borderline wall thickening. Discharge Plan Discharge Disposition Patient Disposition: 30 Still Patient Discharge Condition Condition: Serious Discharge Details Diagnosis: Acute hypernatremia, Acute dehydration Physicians Team ED Provider: Hernandez Natarajan Primary Care Provider: Primary Care Physici,No Attending Provider: Sean Dupont Other Providers: Rom Viramontes V ; Janice Alejandro ; Kiko Ley, Vincent G Discharge Interventions Interventions: ED Discharge Assessment Last Done: 03/28/18 01:10 Vital Signs Last Done: 03/27/18 18:00 Status ED Status: Left Department Discharge Information Discharge Date/Time: 03/28/18 01:15
[2018-03-27] MEDS ORDERED: Bisacodyl 10 MG Supp RECTAL PRN (19:05)
--- NOTE | 2018-03-27 19:11 | P.HPCC ---
History of Present Illness Primary Care Physician: No Primary Care Physician History of Present Illness: 57-year-old male presents for an evaluation of generalized weakness. Patient appears very dehydrated on arrival. He was recently admitted for treatment of pneumonia. Chest x-ray was negative at that time, and he was discharged on antibiotics after a few days of IV antibiotics. Has a history of bipolar disorder treated with lithium. Per chart report when EMS arrived the patient looked like he had been on the floor for several days. On arrival the patient just states he feels very weak all over, denies any specific pain. Denies any abdominal pain chest pain headache or extremity pain. He states that he has had some mild nausea without vomiting. No diarrhea no constipation or blood in the stool. Inpatient Certification: I certify that the inpatient services were ordered in accordance with Medicare regulations governing the order. This includes certification that hospital inpatient services are reasonable and necessary and in the case of services not specified as inpatient-only under 42 CFR 419.22(n), that they are appropriately provided as inpatient services in accordance to with the 2-midnight benchmark under 43 CFR 412.3(e) Estimated Total Length of Stay (Days): 5 Plans for Post Hospital Care: Not yet determined Review of Systems All other systems reviewed negative except as stated in HPI PMFSH - History History Provided By: Patient, Assembly Repairer / EMT - Medical History Medical History: Medical History (Last Updated 03/27/18 @ 14:24 by Estella Chaudhary) Pneumonia Bipolar disorder Depression Hypertension Liver cirrhosis - Surgical History Surgical History: Surgical History (Last Reviewed 03/27/18 @ 14:23 by Estella Chaudhary) Hx of tonsillectomy - Family History Family History: Family History (Last Updated 03/08/18 @ 17:55 by Murray Chapman) Father Dementia Mother Multiple sclerosis - Tobacco History Second Hand Smoke Exposure: No Tobacco Use In Past 30 Days: No Smoking Status: Former smoker Tobacco Type: Cigarettes - Alcohol History How Often Do You Have a Drink Containing Alcohol: Never - Substance Use History Substance History: No History of Abuse, Active Abuse - Travel History Recent Travel in the [place] Within the Last 8 Weeks: No Recent Travel Out of the Country Within the Last 8 Weeks: No - Immunization History Tetanus Immunization: Unsure Hx Influenza Vaccine This Season: No Medications and Allergies Active Medications: Active Medications Acetaminophen (Tylenol) 650 mg PO Q6H PRN PRN Reason: PAIN 1-10 AND/OR FEVER >101F Al Hydroxide/Mg Hydroxide (Milk Of Magnesia Liq) 30 ml PO Q12H PRN PRN Reason: Mild Constipation Albuterol (Duoneb Neb (Prn)) 1 ampul NEB Q2HR NEB PRN PRN Reason: WHEEZING Bisacodyl (Dulcolax Supp) 10 mg RECTAL DAILY PRN PRN Reason: SEVERE CONSITIPATION Chlorhexidine Gluconate (Chlorhexidine 2% Cloth) 3 pack TOPICAL DAILY@0400 ALEJA Stop: 04/02/18 03:59 Chlorhexidine Gluconate (Chlorhexidine 2% Cloth) 3 pack TOPICAL DAILY@0400 PRN PRN Reason: Extra cloth needed Stop: 04/02/18 03:59 Famotidine (Pepcid Pf Inj) 20 mg IV.PUSH Q12HR ALEJA Heparin Sodium (Porcine) (Heparin Inj) 5,000 units SQ Q8H ALEJA Sodium Chloride (Ns Inj) 1,000 mls @ 0 mls/hr IV.SIG BOLUS ALEJA Stop: 03/28/18 15:01 Last Infusion: 03/27/18 16:00 Dose: Infused Dextrose/Sodium Chloride (D5w/1/2 Ns Inj) 1,000 mls @ 100 mls/hr IV.CONT .Q10H ALEJA Lactulose (Lactulose Liq) 30 ml PO DAILY PRN PRN Reason: SEVERE CONSITIPATION [place] Carbonate ([place] Carbonate) 600 mg PO BID [facility] Metoclopramide HCl (Reglan Inj) 5 mg IV.PUSH Q6HR ALEJA; Protocol Nifedipine (Procardia Xl) 60 mg PO DAILY [facility] Ondansetron HCl (Zofran Inj) 4 mg IV.PUSH Q6H PRN PRN Reason: NAUSEA OR VOMITING Quetiapine Fumarate (Seroquel) 500 mg PO DAILY [facility] Senna/Docusate Sodium (Joanne-Colace) 1 tab PO BID [facility] Sennosides (Senokot) 17.2 mg PO Q12H PRN PRN Reason: Moderate Constipation Sodium Chloride (Ns Flush) 2 ml IV.FLUSH BID [facility] Sodium Chloride (Ns Flush) 2 ml IV.FLUSH PRN PRN PRN Reason: FLUSH AFTER USING IV ACCESS Temazepam (Restoril) 15 mg PO HS PRN PRN Reason: INSOMNIA Allergies Allergy/AdvReac Type Severity Reaction Status Date / Time No Known Allergies Allergy Unverified 03/27/18 14:30 Home Medications Medication Instructions Recorded Confirmed Type quetiapine [Seroquel] 500 mg PO DAILY 03/27/18 03/27/18 History Results - Labs CBC & Chem 7: 03/28/18 03:17 03/28/18 03:17 Labs: Short CBC 03/27/18 Range/Units 14:10 WBC 17.4 H (4.0-11.0) th/mm3 Hgb 17.8 H (13.0-17.0) gm/dL Hct 53.9 H (39.0-51.0) % Plt Count 491 H D (150-450) th/mm3 BMP 03/27/18 14:10 Sodium 169 H* Potassium 3.4 L Chloride 128 H Carbon Dioxide 21.0 BUN 42 H Creatinine 2.12 H Calcium 9.6 Cardiac Enzymes 03/27/18 03/27/18 Range/Units 14:10 14:10 Total Creatine Kinase 54 55 (39-308) U/L Troponin I 0.11 H (0.02-0.05) ng/mL Liver Function 03/27/18 Range/Units 14:10 Total Bilirubin 1.5 H (0.2-1.0) mg/dL AST 45 H (15-37) U/L ALT 102 H (12-78) U/L Alkaline Phosphatase 121 H (45-117) U/L Albumin 3.4 (3.4-5.0) g/dL - Imaging Impressions Chest X-Ray 03/27/18 14:07 CONCLUSION: Negative examination. Exam Vital signs: Vital Signs 03/27/18 14:06 03/27/18 14:07 03/27/18 15:45 Temperature 98.3 F Pulse Rate 137 H 94 H Respiratory Rate 24 18 Blood Pressure 176/105 H 161/100 H Pulse Oximetry 97 97 03/27/18 16:00 03/27/18 17:00 03/27/18 18:00 Temperature Pulse Rate 100 H 104 H 102 H Respiratory Rate 19 18 16 Blood Pressure 167/102 H 158/100 H 153/95 H Pulse Oximetry 96 Intake & Output 03/27/18 03/27/18 03/28/18 06:59 18:59 06:59 Intake Total 1000 / 1000 Balance 1000 / 1000 Weight 99.79 kg Intake: IV 1000 / 1000 NS Inj 1,000 ML @ Wide Open IV. 1000 / 1000 SIG BOLUS ALEJA Rx#:[id number] - Constitutional mild distress - Routine HEENT Exam Head: Present: normocephalic, atraumatic Eye: Present: PERRL, normal accommodation. Absent: conjunctival icterus ENT: Present: mucous membranes dry - Routine Neck Exam Present: supple, full ROM. Absent: JVD, carotid bruit - Routine Chest/Breast/Axilla Exam Chest wall: Absent: tenderness, mass, pacemaker - Routine Respiratory Exam Absent: accessory muscle use, rhonchi, stridor, wheezes - Routine Cardiovascular Exam Present: RRR, S1, S2 - Routine Abdominal Exam Present: soft, normoactive bowel sounds. Absent: tenderness, distended - Routine Extremities Exam Present: full ROM. Absent: cyanosis, clubbing, edema - Routine Skin Exam Present: intact. Absent: cyanosis, erythema - Routine Neurological Exam Present: alert, moving all extremities, normal speech. Absent: hemineglect Septic Shock Reassessment Septic shock perfusion: reassessment completed Caprini VTE Risk Assessment Caprini VTE Risk Assessment: Moderate/High Risk (score >= 2) Caprini Risk Assessment Model: Point Value = 1 Point Value = 2 Point Value = 3 Point Value = 5 Age 41-60 Minor surgery BMI > 25 kg/m2 Swollen legs Varicose veins or History of unexplained or recurrent spontaneous Oral contraceptives or hormone replacement Sepsis (< 1 month) Serious lung disease, including pneumonia (< 1 month) Abnormal pulmonary function Acute myocardial infarction Congestive heart failure (< 1 month) History of inflammatory bowel disease Medical patient at bed rest Age 61-74 Arthroscopic surgery Major open surgery (> 45 min) Laparoscopic surgery (> 45 min) Malignancy Confined to bed (> 72 hours) Immobilizing plaster cast Central venous access Age >= 75 History of VTE Family history of VTE Factor V Leiden Prothrombin [id number] Lupus anticoagulant Anticardiolipin antibodies Elevated serum homocysteine Heparin-induced thrombocytopenia Other congenital or acquired thrombophilia Stroke (< 1 month) Elective arthroplasty Hip, pelvis, or leg fracture Acute spinal cord injury (< 1 month) Prophylaxis Regimen: Total Risk Factor Score Risk Level Prophylaxis Regimen 0-1 Low Early ambulation 2 Moderate Order ONE of the following: *Sequential Compression Device (SCD) *Heparin 5000 units SQ BID 3-4 Higher Order ONE of the following medications: *Heparin 5000 units SQ TID *Enoxaparin/Lovenox 40 mg SQ daily (WT < 150 kg, CrCl > 30 mL/min) *Enoxaparin/Lovenox 30 mg SQ daily (WT < 150 kg, CrCl > 10-29 mL/min) *Enoxaparin/Lovenox 30 mg SQ BID (WT < 150 kg, CrCl > 30 mL/min) AND/OR *Sequential Compression Device (SCD) 5 or more Highest Order ONE of the following medications: *Heparin 5000 units SQ TID (Preferred with Epidurals) *Enoxaparin/Lovenox 40 mg SQ daily (WT < 150 kg, CrCl > 30 mL/min) *Enoxaparin/Lovenox 30 mg SQ daily (WT < 150 kg, CrCl > 10-29 mL/min) *Enoxaparin/Lovenox 30 mg SQ BID (WT < 150 kg, CrCl > 30 mL/min) AND *Sequential Compression Device (SCD) Assessment and Plan - Assessment and Plan Plan: Altered mental status -Hypernatremia -[place]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 -D5 half NS slowly correct sodium levels -Frequent labs -Hold lithium -Consider amiloride -Nephrology consultation Liver failure with coagulopathy -History of liver cirrhosis -Monitor for bleeding -Hematology consultation -Ultrasound of liver Bipolar disorder -Hold lithium until sodium level improves -Amiloride before restarting the lithium dose Acute renal failure -Dehydration -IV fluid resuscitation -Strict I's and O's -Monitor creatinine and folate levels DVT GI prophylaxis -Teds SCDs -No pharmacological DVT prophylaxis due to coagulopathy -Regular diet 35 minutes of critical care
[2018-03-27] MEDS: Dextrose 5%/NaCl 0.45% Inj 1,000 ML IV.CONT SCH (19:31)
[2018-03-27] MEDS: Senna/Docusate Sodium 8.6/50 MG Tablet PO SCH (20:47)
[2018-03-27] MEDS: Famotidine PF Inj 20 MG/2 ML Vial IV.PUSH SCH (21:26)
[2018-03-27] MEDS ORDERED: Heparin - SQ 10,000 UNITS/ML Vial SQ SCH (22:00)
[2018-03-27 23:00] LABS: Potassium 3.3 meq/L (3.5-5.1)
[2018-03-27 23:02] LABS: ABG PCO2 31 mmHg (38-42); ABG PO2 76 mmHg (61-120)
[2018-03-28] MEDS: Chlorhexidine Gluconate 2% 1 Pack (2 Cloths) TOPICAL SCH (03:37)
[2018-03-28 03:48] LABS: Baso # (Auto) 0.2 th/mm3 (0.0-0.2); Baso % (Auto) 1.3 % (0.0-2.0); Eos # (Auto) 0.3 th/mm3 (0.0-0.4); Eos % (Auto) 2.4 % (0.0-4.0); Hematocrit 46.4 % (39.0-51.0); Hemoglobin 15.3 gm/dL (13.0-17.0); Lymph # (Auto) 1.7 th/mm3 (1.0-4.8); Lymph % (Auto) 13.1 % (9.0-44.0); Mean Corpuscular Hemoglobin 29.3 pg (27.0-34.0); Mean Corpuscular Volume 88.8 fL (80.0-100.0); Mean Platelet Volume 8.4 fL (7.0-11.0); Mono # (Auto) 1.2 th/mm3 (0.0-0.9); Mono % (Auto) 8.7 % (0.0-8.0); Neut # (Auto) 9.8 th/mm3 (1.8-7.7); Neut % (Auto) 74.5 % (16.0-70.0); Platelet Count 329 th/mm3 (150-450); Red Blood Count 5.23 mil/mm3 (4.50-5.90); Red Cell Distribution Width 15.4 % (11.6-17.2); White Blood Count 13.2 th/mm3 (4.0-11.0)
[2018-03-28] MEDS ORDERED: Chlorhexidine Gluconate 2% 1 Pack (2 Cloths) TOPICAL PRN (04:00)
[2018-03-28 04:02] LABS: Activated Partial Thrombo Time 59.2 sec (24.3-30.1); Prothrombin Time 59.6 sec (9.8-11.6)
[2018-03-28 04:10] LABS: Alanine Aminotransferase 79 U/L (12-78); Albumin 3.1 g/dL (3.4-5.0); Alkaline Phosphatase 108 U/L (45-117); Anion Gap 11 meq/L (5-15); Aspartate Aminotransferase 38 U/L (15-37); Blood Urea Nitrogen 39 mg/dL (7-18); Carbon Dioxide 26.8 meq/L (21.0-32.0); Chloride 129 meq/L (98-107); Glomerular Filtration Rate 34 mL/min (>89); Glucose,Random 112 mg/dL (74-106); Magnesium 2.5 mg/dL (1.5-2.5); Phosphorus 2.8 mg/dL (2.5-4.9); Potassium 3.5 meq/L (3.5-5.1); Total Protein 6.9 g/dL (6.4-8.2)
[2018-03-28 04:28] LABS: Sodium 167 meq/L (136-145)
[2018-03-28] MEDS: Dextrose 5%/NaCl 0.45% Inj 1,000 ML IV.CONT SCH (05:42)
[2018-03-28] MEDS: Famotidine PF Inj 20 MG/2 ML Vial IV.PUSH SCH ×2 (08:44→21:00)
[2018-03-28] MEDS: QUEtiapine 100 MG Tablet PO SCH (08:44)
--- NOTE | 2018-03-28 08:58 | P.PNCC ---
Subjective Subjective Remarks/Hospital Course: 57-year-old male presents for an evaluation of generalized weakness. Patient appears very dehydrated on arrival. He was recently admitted for treatment of pneumonia. Chest x-ray was negative at that time, and he was discharged on antibiotics after a few days of IV antibiotics. Has a history of bipolar disorder treated with lithium. Per chart report when EMS arrived the patient looked like he had been on the floor for several days. On arrival the patient just states he feels very weak all over, denies any specific pain. Denies any abdominal pain chest pain headache or extremity pain. He states that he has had some mild nausea without vomiting. No diarrhea no constipation or blood in the stool. 03/28 Patient is awake and alert on room air oxygen, hypertensive. Afebrile. Objective Vital Signs / I&O: Vital Signs 03/27/18 14:06 03/27/18 14:07 03/27/18 15:45 Temperature 98.3 F Pulse Rate 137 H 94 H Respiratory Rate 24 18 Blood Pressure 176/105 H 161/100 H Pulse Oximetry 97 97 03/27/18 16:00 03/27/18 17:00 03/27/18 18:00 Temperature Pulse Rate 100 H 104 H 102 H Respiratory Rate 19 18 16 Blood Pressure 167/102 H 158/100 H 153/95 H Pulse Oximetry 96 03/27/18 19:10 03/27/18 19:12 03/27/18 22:40 Temperature Pulse Rate 101 H 103 H Respiratory Rate 20 20 Blood Pressure 159/98 H 153/95 H Pulse Oximetry 96 96 94 L 03/28/18 00:01 03/28/18 01:43 03/28/18 01:46 Temperature 98.3 F Pulse Rate 98 H 104 H 103 H Respiratory Rate 20 18 21 Blood Pressure 147/98 H 162/109 H Pulse Oximetry 96 95 94 L 03/28/18 01:52 03/28/18 02:00 03/28/18 03:00 Temperature Pulse Rate 100 H 97 H 94 H Respiratory Rate 20 20 19 Blood Pressure 142/101 H 156/105 H 162/109 H Pulse Oximetry 96 95 95 03/28/18 03:45 03/28/18 04:00 03/28/18 05:00 Temperature 97.1 F L 97.1 F L Pulse Rate 87 73 84 Respiratory Rate 21 15 17 Blood Pressure 173/98 H 138/99 H 147/94 H Pulse Oximetry 96 97 96 03/28/18 06:00 03/28/18 06:14 03/28/18 06:16 Temperature Pulse Rate 73 66 64 Respiratory Rate 18 16 11 L Blood Pressure 152/113 H 181/106 H 156/93 H Pulse Oximetry 97 98 97 Intake & Output 03/27/18 03/28/18 03/28/18 18:59 06:59 18:59 Intake Total 1000 / 1000 1050 / 1050 Output Total 550 / 550 Balance 1000 / 1000 500 / 500 Weight 99.79 kg 89.5 kg Intake: IV 1000 / 1000 1000 / 1000 D5W/1/2 NS Inj 1,000 ML @ 100 1000 / 1000 mls/hr IV.CONT .Q10H ALEJA Rx#: [id number] NS Inj 1,000 ML @ Wide Open IV. 1000 / 1000 SIG BOLUS ALEJA Rx#:[id number] Oral 50 / 50 Output: Urine 550 / 550 Other: Weight On Admission 89.5 kg Result Diagrams: 03/28/18 10:48 03/28/18 10:48 Other Results: Laboratory Results - last 12 hr 03/27/18 03/27/18 03/28/18 22:24 22:49 01:30 WBC RBC Hgb Hct MCV MCH MCHC RDW Plt Count MPV Neut % (Auto) Lymph % (Auto) [place] % (Auto) Eos % (Auto) Baso % (Auto) Neut # (Auto) Lymph # (Auto) [place] # (Auto) Eos # (Auto) Baso # (Auto) WBC Differential Differential Comment PT INR APTT Puncture Site Left radial Patient Temperature 98.6 O2 Saturation 94 ABG pH 7.45 H ABG pCO2 31 L ABG pO2 76 ABG HCO3 21 L ABG O2 Content 20.9 H ABG Base Excess -2.0 ABG Methemoglobin 0.6 Jose J Test Present Hemoglobin 15.8 Carboxyhemoglobin 0.9 Inspired O2 21 Critical Value No Sodium 165 H* Potassium 3.3 L Chloride 131 H Carbon Dioxide 24.0 Anion Gap 10 BUN 41 H Creatinine 1.98 H Estimated GFR 35 L Random Glucose 155 H Calcium 9.0 Phosphorus Magnesium Total Bilirubin AST ALT Alkaline Phosphatase Total Protein Albumin Nasal Screen MRSA (PCR) Not detected 03/28/18 03/28/18 03/28/18 03:17 03:17 03:17 WBC 13.2 H RBC 5.23 Hgb 15.3 D Hct 46.4 MCV 88.8 MCH 29.3 MCHC 33.0 RDW 15.4 Plt Count 329 D MPV 8.4 Neut % (Auto) 74.5 H Lymph % (Auto) 13.1 [place] % (Auto) 8.7 H Eos % (Auto) 2.4 Baso % (Auto) 1.3 Neut # (Auto) 9.8 H Lymph # (Auto) 1.7 [place] # (Auto) 1.2 H Eos # (Auto) 0.3 Baso # (Auto) 0.2 WBC Differential . Differential Comment Auto diff final PT 59.6 H D INR 6.0 H* APTT 59.2 H Puncture Site Patient Temperature O2 Saturation ABG pH ABG pCO2 ABG pO2 ABG HCO3 ABG O2 Content ABG Base Excess ABG Methemoglobin Jose J Test Hemoglobin Carboxyhemoglobin Inspired O2 Critical Value Sodium 167 H* Potassium 3.5 Chloride 129 H Carbon Dioxide 26.8 Anion Gap 11 BUN 39 H Creatinine 2.04 H Estimated GFR 34 L Random Glucose 112 H Calcium 9.0 Phosphorus 2.8 Magnesium 2.5 Total Bilirubin 1.3 H AST 38 H ALT 79 H Alkaline Phosphatase 108 Total Protein 6.9 D Albumin 3.1 L Nasal Screen MRSA (PCR) Imaging: Chest X-Ray 03/27/18 14:07 CONCLUSION: Negative examination. Objective Remarks: GENERAL: Patient is 57 yo lying in bed in NAD. SKIN: Warm and dry. HEAD: Normocephalic. EYES: No scleral icterus. No injection or drainage. NECK: Supple, trachea midline. No JVD or lymphadenopathy. CARDIOVASCULAR: Regular rate and rhythm without murmurs, gallops, or rubs. RESPIRATORY: Breath sounds equal bilaterally. No accessory muscle use. GASTROINTESTINAL: Abdomen soft, non-tender, nondistended. MUSCULOSKELETAL: No cyanosis, or edema. Neuro: Awake and alert Assessment and Plan - Assessment and Plan Plan: 1)Hypernatremia 2)AMS- improved 3)Coagulopathy 4)History of liver cirrhosis 5)Elevated LFT 6)GAL 7)Leukocytosis 8)Hx Bipolar disorder 9)Dehydration Plan Neuro: Awake and alert On Seroquel and [place], Li level <0.1 Pulm: Oxygen PRN keep sats >92% Bronchodilators CV: Monitor HR and BP keep MAP>65mmHg On Nifedipine 60mg daily : Monitor renal function, I/O's, avoid nephrotoxins Change IVF D5W@75ml/hr, renal eval. Check renal US GI: On PO diet, monitor LFT's, check US liver, Hepatitis profile Endo: Monitor for signs of infections ( Fever, WBC) Panculture if spikes a fever Heme: Monitor CBC, coags, Heme consulted Endo: SSI if needed for glycemic control DVT GI prophylaxis -Teds SCDs -No pharmacological DVT prophylaxis due to coagulopathy -Regular diet, On Pepcid Level 3
[2018-03-28] MEDS: Dextrose 5% in Water Inj 1,000 ML IV.CONT SCH ×2 (09:00→17:43)
--- NOTE | 2018-03-28 09:49 | US ---
EXAM DATE: 03/28/2018 9:36 AM EDT AGE/SEX: 57 years / Male INDICATIONS: Abdominal pain with elevated LFT's. CLINICAL DATA: This is the patient's initial encounter. Patient reports that signs and symptoms have been present for 2 days and indicates a pain score of 0/10. MEDICAL/SURGICAL HISTORY: Cirrhosis. Hypertension. Pneumonia. Tonsillectomy. COMPARISON: No prior exams available for comparison. MEASUREMENTS: Liver:__ 21.5 cm. Common Bile Duct:__ 3mm. Right Kidney:__ 10.5 x 4.9 x 4.5 cm. FINDINGS: Liver: Normal echotexture without focal lesion or ductal dilatation. Portal Vein: Hepatopedal flow seen in portal vein. Common Duct: No intraluminal mass or stone visualized. Gallbladder: The gallbladder contains large amount of sludge without pericholecystic fluid. Pancreas: Not well visualized. Right Kidney: Normal echotexture and cortical thickness. No mass or hydronephrosis. Other: None. CONCLUSION: 1. Hepatomegaly and mild increased echotexture of the liver parenchyma. 2. Sludge-filled gallbladder with borderline wall thickening. Electronically signed by: Nain Gonzalez MD 03/28/2018 9:47 AM EDT
[2018-03-28] MEDS: Senna/Docusate Sodium 8.6/50 MG Tablet PO SCH ×2 (10:16→20:59)
[2018-03-28] MEDS: hydrALAZINE 50 MG Tablet PO SCH ×2 (10:17→12:38)
[2018-03-28 10:34] LABS: INR 5.4 Ratio; Prothrombin Time 54.6 sec (9.8-11.6)
[2018-03-28] MEDS ORDERED: Phytonadione 5 MG/SWFI 5 ML Oral Syringe PO SCH (11:00)
[2018-03-28 11:29] LABS: Baso # (Auto) 0.1 th/mm3 (0.0-0.2); Eos # (Auto) 0.3 th/mm3 (0.0-0.4); Eos % (Auto) 2.3 % (0.0-4.0); Hematocrit 41.9 % (39.0-51.0); Hemoglobin 13.7 gm/dL (13.0-17.0); Lymph # (Auto) 1.5 th/mm3 (1.0-4.8); Lymph % (Auto) 13.6 % (9.0-44.0); Mean Corpuscular HGB Conc 32.7 % (32.0-36.0); Mean Corpuscular Hemoglobin 29.1 pg (27.0-34.0); Mean Corpuscular Volume 89.3 fL (80.0-100.0); Mean Platelet Volume 8.6 fL (7.0-11.0); Mono # (Auto) 0.9 th/mm3 (0.0-0.9); Mono % (Auto) 7.7 % (0.0-8.0); Neut # (Auto) 8.5 th/mm3 (1.8-7.7); Neut % (Auto) 75.4 % (16.0-70.0); Platelet Count 258 th/mm3 (150-450); Red Blood Count 4.69 mil/mm3 (4.50-5.90); Red Cell Distribution Width 15.7 % (11.6-17.2); White Blood Count 11.3 th/mm3 (4.0-11.0)
[2018-03-28 11:59] LABS: Alanine Aminotransferase 76 U/L (12-78); Albumin 2.8 g/dL (3.4-5.0); Alkaline Phosphatase 100 U/L (45-117); Anion Gap 13 meq/L (5-15); Aspartate Aminotransferase 43 U/L (15-37); Blood Urea Nitrogen 34 mg/dL (7-18); Calcium 8.8 mg/dL (8.5-10.1); Carbon Dioxide 24.5 meq/L (21.0-32.0); Chloride 124 meq/L (98-107); Glomerular Filtration Rate 35 mL/min (>89); Glucose,Random 201 mg/dL (74-106); Total Protein 6.1 g/dL (6.4-8.2)
[2018-03-28 12:04] LABS: Sodium 161 meq/L (136-145)
[2018-03-28 12:05] LABS: Potassium 2.9 meq/L (3.5-5.1)
[2018-03-28] MEDS ORDERED: Magnesium Oxide 400 MG Tablet PO PRN (12:25)
[2018-03-28] MEDS ORDERED: Potassium Phosphate Inj 30 MMOL in Sodium Chlor 0.9% Inj 250 ML IV.SIG PRN (12:25)
[2018-03-28] MEDS ORDERED: Potassium Chlor 40 mEq Premix 40 MEQ/100 ML PIGGYBACK IV.SIG PRN ×2 (12:25)
[2018-03-28] MEDS ORDERED: Potassium Phosphate 500 MG Soluble Tablet PO PRN (12:25)
[2018-03-28] MEDS ORDERED: Magnesium Sulfate Inj 4 GM in Sodium Chlor 0.9% Inj 92 ML IV.SIG PRN (12:25)
[2018-03-28] MEDS ORDERED: Potassium Chlor 20 mEq Premix 20 MEQ/100 ML PIGGYBACK IV.SIG PRN (12:25)
[2018-03-28] MEDS ORDERED: Magnesium Sulfate Inj 2 GM in Sodium Chlor 0.9% Inj 96 ML IV.SIG PRN (12:25)
[2018-03-28] MEDS ORDERED: Sodium Phosphate Inj 30 MMOL in Sodium Chlor 0.9% Inj 250 ML IV.SIG PRN (12:25)
[2018-03-28 12:35] LABS: Hepatitis A IgM Antibody Nonreactive (Nonreactive); Hepatitits B Surface Antigen Nonreactive (Nonreactive)
--- NOTE | 2018-03-28 12:36 | P.CONPSY ---
Provisional Diagnosis Admission Date: March 27, 2018 17:19 [place] I.: Bipolar disorder in partial remission History of Present Illness Service: Psychiatry Consult date: 03/28/18 Requesting Physician: Janice Alejandro Reason for Consult: Assessment Primary Care Provider: No Primary Care Physician History of Present Illness: 57-year-old white male known to us from prior contacts through [facility] the diagnosis of bipolar disorder also is followed through [facility] for outpatient services. It appears she was hospitalized here recently from pneumonia was discharged to his trailer. It appears she is unable to maintain himself at that location unable to get water or continue his medications. Became quite dehydrated and was rehospitalized here. On admission lithium level came back at less than 0.1. Patient seen today by me with floor staff patient is somewhat confused though overall oriented white male somewhat disheveled in appearance. He did recognize me from prior contact. He does know he is in [facility] [place] 2018 initially said February. He denies suicidality homicidality voice or visions. States she is attempted to be compliant with his medications considering his lack of support in the community. In any event at this time appears patient's bipolar disorder is stable. He is willing to continue his medications have reviewed the med record. He is ordered appropriate lithium and Seroquel. I would recommend continuation of those doses checking lithium blood level in about 3 days. Patient at this time is not a candidate for [facility] or for 4 E. I think case management should become involved look at possibly making referral for brief rehab stay or perhaps referring home health care help this gentleman in the community but is okay by psych for discharge when he is medically clear and stable to follow-up outpatient mental health services through [facility] Review of Systems Please see med treatment team PMFSH - History History Provided By: Patient - Medical History Medical History: Medical History (Last Updated 03/27/18 @ 14:24 by Estella Chaudhary) Pneumonia Bipolar disorder Depression Hypertension Liver cirrhosis - Surgical History Surgical History: Surgical History (Last Reviewed 03/27/18 @ 14:23 by Estella Chaudhary) Hx of tonsillectomy - Family History Family History: Family History (Last Updated 03/08/18 @ 17:55 by Murray Chapman) Father Dementia Mother Multiple sclerosis - Tobacco History Second Hand Smoke Exposure: No Tobacco Use In Past 30 Days: No Smoking Status: Former smoker Tobacco Type: Cigarettes - Alcohol History How Often Do You Have a Drink Containing Alcohol: Never - Substance Use History Substance History: No History of Abuse, Active Abuse - Travel History Recent Travel in the [place] Within the Last 8 Weeks: No Recent Travel Out of the Country Within the Last 8 Weeks: No - Immunization History Tetanus Immunization: Unsure Hx Influenza Vaccine This Season: No Medications and Allergies Active Medications: Active Medications Acetaminophen (Tylenol) 650 mg PO Q6H PRN PRN Reason: PAIN 1-10 AND/OR FEVER >101F Al Hydroxide/Mg Hydroxide (Milk Of Priyanka Lijulio) 30 ml PO Q12H PRN PRN Reason: Mild Constipation Albuterol (Duoneb Neb (Prn)) 1 ampul NEB Q2HR NEB PRN PRN Reason: WHEEZING Bisacodyl (Dulcolax Supp) 10 mg RECTAL DAILY PRN PRN Reason: SEVERE CONSITIPATION Chlorhexidine Gluconate (Chlorhexidine 2% Cloth) 3 pack TOPICAL DAILY@0400 [facility] Stop: 04/02/18 03:59 Last Admin: 03/28/18 03:37 Dose: 3 pack Chlorhexidine Gluconate (Chlorhexidine 2% Cloth) 3 pack TOPICAL DAILY@0400 PRN PRN Reason: Extra cloth needed Stop: 04/02/18 03:59 Clonidine HCl (Catapres) 0.1 mg PO Q6H PRN PRN Reason: SEE COMMENT Last Admin: 03/28/18 08:44 Dose: 0.1 mg Famotidine (Pepcid Pf Inj) 20 mg IV.PUSH Q12HR [facility] Last Admin: 03/28/18 08:44 Dose: 20 mg Hydralazine HCl (Apresoline) 50 mg PO TID [facility] Last Admin: 03/28/18 10:17 Dose: 50 mg Sodium Chloride (Ns Inj) 1,000 mls @ 0 mls/hr IV.SIG BOLUS [facility] Stop: 03/28/18 15:01 Last Infusion: 03/27/18 16:00 Dose: Infused Dextrose (D5w Inj) 1,000 mls @ 75 mls/hr IV.CONT .[id number] [facility] Last Admin: 03/28/18 09:00 Dose: 125 mls/hr Magnesium Sulfate Inj 4 gm/ (Sodium Chloride) 100 mls @ 50 mls/hr IV.SIG UNSCH PRN PRN Reason: For Magnesium 0.9 - 1.1 mg/dL Magnesium Sulfate Inj 2 gm/ (Sodium Chloride) 100 mls @ 50 mls/hr IV.SIG UNSCH PRN PRN Reason: For Magnesium 1.2 - 1.6 mg/dL Potassium Chloride (Kcl 40 Meq Premix Inj) 40 meq in 100 mls @ 25 mls/hr IV.SIG Q2H PRN PRN Reason: For Potassium 2.8 - 3.2 mEq/L Potassium Chloride (Kcl 20 Meq Premix Inj) 20 meq in 100 mls @ 50 mls/hr IV.SIG Q2H PRN PRN Reason: For Potassium 3.3 - 3.5 mEq/L Potassium Chloride (Kcl 40 Meq Premix Inj) 40 meq in 100 mls @ 25 mls/hr IV.SIG UNSCH PRN PRN Reason: For Potassium 3.3 - 3.5 mEq/L Potassium Phosphate 30 mmol/ (Sodium Chloride) 260 mls @ 42 mls/hr IV.SIG UNSCH PRN PRN Reason: SEE LABEL COMMENTS Sodium Phosphate 30 mmol/ (Sodium Chloride) 260 mls @ 42 mls/hr IV.SIG UNSCH PRN PRN Reason: For Phosphorus < 2.5 mg/dL Potassium Chloride (Kcl 20 Meq Premix Inj) 20 meq in 100 mls @ 50 mls/hr IV.SIG Q2H PRN PRN Reason: For Potassium 2.8 - 3.2 mEq/L Lactulose (Lactulose Liq) 30 ml PO DAILY PRN PRN Reason: SEVERE CONSITIPATION [place] Carbonate ([place] Carbonate) 600 mg PO BID [facility] Last Admin: 03/28/18 08:47 Dose: 600 mg Magnesium Oxide (Mag-Ox) 800 mg PO UNSCH PRN PRN Reason: For Magnesium 1.2 - 1.6 mg/dL Metoclopramide HCl (Reglan Inj) 5 mg IV.PUSH Q6HR [facility]; Protocol Last Admin: 03/28/18 05:37 Dose: 5 mg Nifedipine (Procardia Xl) 60 mg PO DAILY [facility] Last Admin: 03/28/18 08:44 Dose: 60 mg Ondansetron HCl (Zofran Inj) 4 mg IV.PUSH Q6H PRN PRN Reason: NAUSEA OR VOMITING Last Admin: 03/27/18 21:40 Dose: 4 mg Phytonadione (Mephyton Liq) 5 mg PO DAILY [facility] Stop: 03/30/18 09:01 Potassium Bicarb/Potassium Chloride (K-Lyte Cl Eff) 50 meq PO UNSCH PRN PRN Reason: For Potassium 3.3 - 3.5 mEq/L Potassium Phosphate (K-Phos Original) 2,000 mg PO Q4H PRN PRN Reason: Phosphorus Less Than 2.5 mg/dL Potassium Phosphate (K-Phos Original) 2,000 mg PO UNSCH PRN PRN Reason: SEE LABEL COMMENTS Quetiapine Fumarate (Seroquel) 500 mg PO DAILY [facility] Last Admin: 03/28/18 08:44 Dose: 500 mg Senna/Docusate Sodium (Joanne-Colace) 1 tab PO BID [facility] Last Admin: 03/28/18 10:16 Dose: Not Given Sennosides (Senokot) 17.2 mg PO Q12H PRN PRN Reason: Moderate Constipation Sodium Chloride (Ns Flush) 2 ml IV.FLUSH BID [facility] Last Admin: 03/28/18 08:45 Dose: Not Given Sodium Chloride (Ns Flush) 2 ml IV.FLUSH PRN PRN PRN Reason: FLUSH AFTER USING IV ACCESS Temazepam (Restoril) 15 mg PO HS PRN PRN Reason: INSOMNIA Allergies Allergy/AdvReac Type Severity Reaction Status Date / Time No Known Allergies Allergy Unverified 03/27/18 14:30 Home Medications Medication Instructions Recorded Confirmed Type quetiapine [Seroquel] 500 mg PO DAILY 03/27/18 03/27/18 History Exam Vital signs: Vital Signs 03/27/18 14:06 03/27/18 14:07 03/27/18 15:45 Temperature 98.3 F Pulse Rate 137 H 94 H Respiratory Rate 24 18 Blood Pressure 176/105 H 161/100 H Pulse Oximetry 97 97 03/27/18 16:00 03/27/18 17:00 03/27/18 18:00 Temperature Pulse Rate 100 H 104 H 102 H Respiratory Rate 19 18 16 Blood Pressure 167/102 H 158/100 H 153/95 H Pulse Oximetry 96 03/27/18 19:10 03/27/18 19:12 03/27/18 22:40 Temperature Pulse Rate 101 H 103 H Respiratory Rate 20 20 Blood Pressure 159/98 H 153/95 H Pulse Oximetry 96 96 94 L 03/28/18 00:01 03/28/18 01:43 03/28/18 01:46 Temperature 98.3 F Pulse Rate 98 H 104 H 103 H Respiratory Rate 20 18 21 Blood Pressure 147/98 H 162/109 H Pulse Oximetry 96 95 94 L 03/28/18 01:52 03/28/18 02:00 03/28/18 03:00 Temperature Pulse Rate 100 H 97 H 94 H Respiratory Rate 20 20 19 Blood Pressure 142/101 H 156/105 H 162/109 H Pulse Oximetry 96 95 95 03/28/18 03:45 03/28/18 04:00 03/28/18 05:00 Temperature 97.1 F L 97.1 F L Pulse Rate 87 73 84 Respiratory Rate 21 15 17 Blood Pressure 173/98 H 138/99 H 147/94 H Pulse Oximetry 96 97 96 03/28/18 06:00 03/28/18 06:14 03/28/18 06:16 Temperature Pulse Rate 73 66 64 Respiratory Rate 18 16 11 L Blood Pressure 152/113 H 181/106 H 156/93 H Pulse Oximetry 97 98 97 03/28/18 07:00 03/28/18 08:00 03/28/18 09:00 Temperature 97.3 F L Pulse Rate 78 79 68 Respiratory Rate 17 18 8 L Blood Pressure 157/94 H 185/119 H 157/94 H Pulse Oximetry 95 98 99 03/28/18 10:00 Temperature Pulse Rate 85 Respiratory Rate 21 Blood Pressure 131/77 Pulse Oximetry 95 Intake & Output 03/27/18 03/28/18 03/28/18 18:59 06:59 18:59 Intake Total 1000 / 1000 1050 / 1050 700 / 700 Output Total 550 / 550 350 / 350 Balance 1000 / 1000 500 / 500 350 / 350 Weight 99.79 kg 89.5 kg Intake: IV 1000 / 1000 1000 / 1000 700 / 700 D5W/1/2 NS Inj 1,000 ML @ 100 1000 / 1000 700 / 700 mls/hr IV.CONT .Q10H [facility] Rx#: [id number] NS Inj 1,000 ML @ Wide Open IV. 1000 / 1000 SIG BOLUS ALEJA Rx#:[id number] Oral 50 / 50 Output: Urine 550 / 550 350 / 350 Other: Weight On Admission 89.5 kg Narrative: Patient seen laying in bed in no acute distress speaking somewhat softly though calm cooperative with me Mental Status Examination Appearance: Appropriate Consciousness: Alert (To somewhat drowsy) Orientation: Person, Place, Date/Time, Situation Motor Activity: Other Speech: Unremarkable (Laying in bed unable to assess), Slow Language: Adequate Fund of Knowledge: Adequate Attention and Concentration: Adequate Memory: Unremarkable Mood: Other (Euthymic to somewhat restricted) Affect: Other Thought Process & Associations: Intact (Slight decreased range and intensity) Thought Content: Appropriate Hallucination Type: None Delusion Type: None Suicidal Ideation: No Suicidal Plan: No Suicidal Intention: No Homicidal Ideation: No Homicidal Plan: No Homicidal Intention: No Insight: Fair Judgment: Adequate (Fair) Assessment and Plan - Assessment (1) Bipolar disorder in partial remission Code(s): F31.70 - Bipolar disorder, currently in remission, most recent episode unspecified Status: Acute - Plan Plan: Estimated LOS: [] days At this time it appears patient's Po disorder is stable. I would recommend continuation of his existing lithium and Seroquel orders. Will the checking of the lithium blood level in a couple of days. Is okay by psych for discharge as recommended by his treatment team perhaps briefly in a rehab facility or if his back to his trailer with some type of home health care her community development manager or both thanks for consult will follow on a as needed basis Justification for Continued Inpatient Stay: Please see treatment team recommendations Discharge Planning: Per treatment team Request Healthcare Surrogate/Guardian Advocate?: No
[2018-03-28] MEDS: Potassium Chlor 20 mEq Premix 20 MEQ/100 ML PIGGYBACK IV.SIG PRN ×2 (13:48→15:55)
[2018-03-28] MEDS: Potassium Chloride 25 MEQ Effervescent Tablet PO PRN (13:48)
--- NOTE | 2018-03-28 14:18 | MB ---
cc: Rom Viramontes MD DATE: 03/28/2018 REASON FOR CONSULTATION: Acute kidney injury with hypernatremia. HISTORY OF PRESENT ILLNESS: This is a 57-year-old male with a history of bipolar disorder. He was recently admitted here several weeks ago with pneumonia, and he was treated with IV antibiotics. Apparently, the patient went home to his trailer, and apparently had a psychotic episode. He had ongoing confusion and apparently had not left his trailer for several days and reports he had not eaten or drank for several days. EMS was called, and apparently when they saw the patient, the reports states that he looked weak and looked like he had been on the floor for several days. The patient was admitted here and found to have severe dehydration. He had a serum sodium of 169 on presentation and a creatinine of 2.1. The patient was admitted to the ICU. He was initially started with IV fluids and half normal saline, which has been converted over to D5W at this point. He also had findings of coagulopathy with an INR of 6, and Hematology was consulted. At this point, the patient is resting in bed. He appears tired. However, he reports he is feeling better since his admission. He is unclear as far as the details of the events that led to his state. However, he feels that he is doing better at this point. Given the electrolyte abnormalities and acute renal failure, nephrology was consulted for further evaluation. His previous creatinine level was 1.4 on 03/16/2018. He presented with a creatinine 2.1 here. REVIEW OF SYSTEMS: The patient denies any fevers or chills at this point. He does have generalized weakness and malaise. No nausea, no vomiting, no diarrhea, no chest pains, no shortness of breath. Otherwise, review of systems negative. PAST MEDICAL HISTORY: Pneumonia, bipolar disorder, depression, hypertension, cirrhosis. PAST SURGICAL HISTORY: Tonsillectomy. FAMILY HISTORY: Dementia and multiple sclerosis. SOCIAL HISTORY: Former smoker. However, no current alcohol, tobacco, or drug use. MEDICATIONS AT HOME: Not taken by the patient for approximately 1 week while he was in this state. However, previous medications included Seroquel 500 mg daily, vitamin D3 at 1000 units daily, nifedipine 60 mg p.o. daily, and lithium carbonate 600 mg p.o. b.i.d. ALLERGIES: NO KNOWN DRUG ALLERGIES. PHYSICAL EXAMINATION: VITAL SIGNS: At time of evaluation, temperature 97.3, pulse 68, respiratory rate 18, blood pressure 131/77, pulse oximetry 95% on room air. GENERAL: Disheveled, dehydrated, dry skin. No apparent distress. NECK: Soft, supple. CARDIAC: Regular rate and rhythm. PULMONARY: Clear to auscultation. ABDOMEN: Soft, nontender, nondistended. EXTREMITIES: No edema. LABORATORY DATA: Sodium 167, potassium 3.5, chloride 129, bicarbonate 26.8, BUN 39, creatinine 2.04, glucose 112, calcium 9.0, phosphorus 2.8, AST 38, ALT 79, albumin 3.1. White count 13.2, hemoglobin 15.3, hematocrit 46.4, platelet count of 329. ASSESSMENT AND PLAN: 1. Hypernatremia. The patient presented with a serum sodium of 169. He was initially given half normal saline. Now that has been changed over to D5W at a rate of 125 mL per hour. His serum sodium has slightly improved to a level of 167. I agree with aggressive free water repletion. At this point, the patient has a 10 L water deficit. Agree with D5W at 125 mL. At this time, the patient is making some urine output. His hypernatremia is secondary to dehydration. 2. Acute kidney injury. The patient had a creatinine of 1.98 on presentation which increased slightly to a level of 2.0 today. He had a previous admission in February where his creatinine was somewhat variable. He had presented with a creatinine of 0.8 at that time, and the creatinine went as high as 1.6. Creatinine was 1.43 at time of discharge on 03/16/2018. At this point, he may have acute kidney injury secondary to some volume depletion. In the background, he has been taking chronic long-term lithium. However, with a creatinine of 0.8 only a month ago, I do not believe that there is any significant long-term lithium toxicity here. We will check a urinalysis and fractional excretion of sodium. Continue with fluid repletion. No signs of rhabdomyolysis with normal CK. 3. Hypertension. The patient has a history of hypertension and has been restarted on his hydralazine. Blood pressure is 131/77. At this point, continue to monitor. 4. Bipolar disorder. The patient may have had a possible psychotic break during this episode prior to admission. He has been started on the Seroquel and lithium which he had not been taking prior to admission today. Continue to monitor. It appears that his mood and affect have improved based on the review of the chart. Continue to follow with primary team. 5. Cirrhosis. The patient has a history of cirrhosis of the liver. Ultrasound reveals signs of hepatomegaly. Continue to monitor. 6. Coagulopathy. The patient presented with an INR of 6. This may be secondary to decreased nutritional intake as well as underlying cirrhosis. Continue followup with hematology. MD ANDREY Rodriges/leo , 10:52 AM , 11:03 AM MTDD
--- NOTE | 2018-03-28 14:33 | MB ---
cc: Janice Alejandro MD,Prasad BROWN DATE: 03/21/2018 REFERRING PHYSICIAN: Dr. Good. CHIEF COMPLAINT: Dr. Good requested a consultation for Mr. Serna regarding coagulopathy. HISTORY OF PRESENT ILLNESS: Mr. Serna is a 57-year-old man, well known patient to psychiatry. He was recently [facility] acted and admitted to psychiatry unit by Dr. Will Holbrook. He has a history of bipolar disorder and had depressed mood now. He had been Guerra acted for self-deficit. He was not taking his psychotropic medication. His mood was depressed. He wanted to in his trailer. He was admitted to inpatient psychiatry unit, ultimately discharged on 02/19/2018. He was seen back in the emergency room about 2 weeks later with depressed symptoms. He was in and out of the hospital. His last admission was on 03/08/2018. He was in the emergency room with complaints of chest pressure and left arm numbness. He was ultimately discharged home, cleared by psychiatry. He was last seen by Dr. Moris Foreman on 03/17/2018. He did not meet criteria for involuntary psychiatric admission. He was advised to continue psychiatric care as an outpatient. Mr. Serna describes that when he was brought to his home, he laid in bed, did not feel well, and just could not get to the water. He did not drink in the days that he was home. Eventually, he felt weaker and weaker. Ultimately, he got to his cell phone and then called. He wants to correct the report that he was on the floor for several days. He states he was not on the floor. He appears to have been in his bed, but he was not getting up voluntarily even to drink. On admission, he was found to have severe dehydration as he has had previous admissions. His white blood cell count was 17.4, hemoglobin 17.8, platelet count 491. He has a coagulopathy with a PTT of 59 seconds and aPTT of 59 seconds. His INR was 5.4. His chemistry shows a BUN of 42, creatinine 2.2. This has been his worst kidney function since the electronic medical records from December. His sodium is quite high at 169. His bilirubin is also elevated, so is his liver function. Hematology/Oncology is consulted for the coagulopathy. Review of the electronic medical record showed that his PT/INR have been around 2 range. His INR is 6 and on repeat was 5.4. On further questioning, Mr. Serna admits to the liver disease. He has been evaluated at [facility] at [place]. He is not currently in liver transplant. He does have severe liver disease. He has had liver biopsy at [place]. Those results are not available during a consultation. Liver ultrasound during the admission on 03/28/2018 shows hepatomegaly with increased echotexture. There is a sludge-filled gallbladder with borderline wall thickening. PAST MEDICAL HISTORY: Hypertension, bipolar disorder, depression, liver disease/questionable cirrhosis. PAST SURGICAL HISTORY: Tonsillectomy, liver biopsy. FAMILY HISTORY: Father had dementia. Mother had multiple sclerosis. SOCIAL HISTORY: He is a never smoker. He denies any current alcohol or illicit drug use. He used to drink quite a bit and quit in 2008. PHYSICAL EXAMINATION: VITAL SIGNS: Temperature 98.4, heart rate 88, respiratory rate 20, blood pressure 163/106, saturation 96%. GENERAL: Mr. Ervin is a well-developed, well-nourished man who looks clinically dry. He has dry skin. His tongue is dry, and he is quite thirsty. HEENT: His pupils are round, reactive to light and accommodation. Oropharynx is dry. NECK: Supple. LUNGS: Clear to auscultation. CARDIOVASCULAR: Normal rate and rhythm. GASTROINTESTINAL: Benign. No organomegaly appreciated. EXTREMITIES: No edema. NEUROLOGIC: Nonfocal. ALLERGIES: NO KNOWN DRUG ALLERGIES. CURRENT MEDICATIONS: 1. Acetaminophen. 2. Albuterol. 3. Dulcolax. 4. Chlorhexidine. 5. Clonidine. 6. Dextrose. 7. Famotidine. 8. Unfractionated heparin is on hold. 9. Hydralazine. 10. Lactulose p.r.n. 11. [place]. 12. Magnesium p.r.n. 13. Metoclopramide p.r.n. 14. Ondansetron p.r.n. 15. Seroquel. 16. Temazepam p.r.n. ASSESSMENT AND PLAN: Mr. Serna is a 57-year-old man with multiple medical problems including liver, depression, hypertension, questionable liver cirrhosis versus liver disease, and psychiatric illness. He has bipolar disorder. Recently, he has been evaluated by psychiatry. He has had depressed mood. He seems to have been admitted in the past for neglect. He mentions the same issue of having water but not being able to reach it. Consequent to his not drinking, he is severely dehydrated with hypernatremia. His baseline PT, PTT are prolonged. He has baseline coagulopathy from his underlying liver disease. It appears to have been worsened by his recent bout of dehydration. I suspect, however, that the coagulopathy in part is due to his dehydration. It is an artifact of not having enough plasma per tube of standard dose of citrate in the blue top tube where we do our PT, PTT. I recommend no specific therapy except for oral vitamin K. He is being treated with IV fluid hydration. He is drinking himself. He would need a consultation with psychiatry as this probably stems from the psychiatric illness. He is not bleeding currently from his coagulopathy. He denies abusing Coumadin or rat poison. He denies any bleeding at present. We will continue to monitor his PT and PTT. I anticipate that it will improve as his plasma volume returns back to normal. MD BRIAN Villavicencio/leo , 10:52 AM , 11:08 AM
--- NOTE | 2018-03-28 15:40 | ECG ---
Date Performed: 03/27/2018 Time Performed: 14:14:29 PTAGE: 57 years EKG: SINUS TACHYCARDIA PATTERN CONSISTENT WITH PULMONARY DISEASE LEFT ANTERIOR FASCICULAR BLOCK NONSPECIFIC ST & T-WAVE ABNORMALITY ABNORMAL ECG Compared to PREVIOUS TRACING , heart rate is faster and the ST depression is more prominent. PREVIOUS TRACIN03/08/2018 16.50 DOCTOR: Saul Ospina Interpretating Date/Time 03/28/2018 15:39:42
[2018-03-28 18:20] LABS: Calcium 8.6 mg/dL (8.5-10.1); Carbon Dioxide 24.7 meq/L (21.0-32.0); Potassium 3.6 meq/L (3.5-5.1)
--- NOTE | 2018-03-28 18:59 | MB ---
cc: Terrence Tripathi DO DATE: 03/28/2018 REASON FOR CONSULTATION: Elevated troponin. HISTORY OF PRESENT ILLNESS: Doug Serna is a 57-year-old male who presented due to confusion as well as weakness to [facility] Emergency Room. The patient is overall lethargic and difficult to answer questions and so, information is taken from the chart. Apparently, he was recently admitted several weeks ago with pneumonia and treated with IV antibiotics. He went home to his trailer and apparently had a psychotic episode. He had not left his trailer for several days and reports he had not eaten or drank for several days. EMS was called and when they arrived, the patient was lying on the floor in his own feces. On arrival, he was found to be extremely dehydrated with a sodium of 169 and a creatinine of 2.1. He also had other signs of end-organ damage, including an INR of 6. He states that he has had no chest pain, shortness of breath or palpitations. He was also found to have an elevated troponin of 0.2. PAST MEDICAL HISTORY: 1. Pneumonia. 2. Bipolar disorder. 3. Depression. 4. Hypertension. 5. Cirrhosis. PAST SURGICAL HISTORY: Tonsillectomy. ALLERGIES: NO KNOWN DRUG ALLERGIES. MEDICATIONS: 1. Nifedipine 60 mg daily. 2. [place] 600 mg b.i.d. 3. Seroquel 500 mg daily. FAMILY HISTORY: Denies premature coronary artery disease or sudden cardiac within the family. SOCIAL HISTORY: The patient is a former smoker, but currently denies alcohol, tobacco or drug abuse. REVIEW OF SYSTEMS: Fourteen systems were reviewed including osteopathic. Pertinent positives and negatives above, otherwise negative. PHYSICAL EXAMINATION: VITAL SIGNS: Temperature 98.2, heart rate 70, blood pressure 93/55, respirations 20, pulse oximetry 95% on room air. GENERAL: The patient appears disheveled and dehydrated. No acute distress. Somewhat lethargic, though. HEENT: Extraocular muscles intact. Mucous membranes appear dry. NECK: Supple. No JVD at 45 degrees. No carotid bruits heard bilaterally. Carotid upstroke is brisk in nature. HEART: Regular rate and rhythm. Positive first and second heart sounds with no noted murmurs, gallops or rubs. LUNGS: Clear to auscultation bilaterally. No wheezes, rales or rhonchi. ABDOMEN: Soft, nontender, nondistended. No organomegaly noted. EXTREMITIES: Show no clubbing, cyanosis or edema. Femoral and distal pulses intact bilaterally. NEUROLOGIC: Appears somewhat lethargic, but no focal deficits. SKIN: Warm, dry and intact. OSTEOPATHIC: No kyphoscoliosis, lordosis or paraspinal tender points. LABORATORY DATA: Hemoglobin 13.7, hematocrit 41.9, platelets 258. INR 5.4. Sodium 161, BUN 34, creatinine 1.98. Troponin 0.20. Electrocardiogram (03/27/2018 at 1414 hours), sinus tachycardia, left anterior fascicular block, nonspecific ST-T wave changes. IMPRESSION: 1. Severe dehydration. 2. Acute kidney injury. 3. Hypernatremia. 4. History of hypertension. 5. Bipolar disorder. 6. Cirrhosis. 7. Coagulopathy secondary to acute liver injury. 8. Elevated troponin, most likely type 2 in nature. RECOMMENDATIONS: 1. Mr. Serna presented after not eating or drinking for a number of days and being found on the ground in his trailer. 2. Overall, he has multiple areas of what appears to be end-organ damage, including elevated kidney function, elevated INR and elevated troponin. 3. Overall, I believe his troponin is type 2 in nature due to his overall illness. 4. We will plan on checking a 2-D echocardiogram for further evaluation, but overall, I would not plan for ischemic evaluation at this time due to his multiple issues. Troponin is most likely elevated due to his overall illness and he has had no chest pain to signify acute coronary syndrome. Thank you for allowing me to see Joe Serna. If there are any questions, please do not hesitate to call. DO Kwadwo Huitron , 03:34 PM , 03:44 PM
[2018-03-29 04:35] LABS: Baso # (Auto) 0.1 th/mm3 (0.0-0.2); Eos # (Auto) 0.4 th/mm3 (0.0-0.4); Hematocrit 40.5 % (39.0-51.0); Hemoglobin 13.4 gm/dL (13.0-17.0); Lymph # (Auto) 1.4 th/mm3 (1.0-4.8); Lymph % (Auto) 11.4 % (9.0-44.0); Mean Corpuscular HGB Conc 33.2 % (32.0-36.0); Mean Corpuscular Hemoglobin 29.2 pg (27.0-34.0); Mean Corpuscular Volume 87.8 fL (80.0-100.0); Mean Platelet Volume 8.8 fL (7.0-11.0); Mono # (Auto) 0.8 th/mm3 (0.0-0.9); Mono % (Auto) 6.4 % (0.0-8.0); Neut # (Auto) 9.3 th/mm3 (1.8-7.7); Neut % (Auto) 78.2 % (16.0-70.0); Platelet Count 245 th/mm3 (150-450); Red Blood Count 4.61 mil/mm3 (4.50-5.90); Red Cell Distribution Width 15.2 % (11.6-17.2); White Blood Count 11.9 th/mm3 (4.0-11.0)
[2018-03-29 04:52] LABS: Activated Partial Thrombo Time 31.3 sec (24.3-30.1); INR 1.4 Ratio; Prothrombin Time 14.6 sec (9.8-11.6)
[2018-03-29] MEDS: Chlorhexidine Gluconate 2% 1 Pack (2 Cloths) TOPICAL SCH (05:01)
[2018-03-29 05:02] LABS: Albumin 2.9 g/dL (3.4-5.0); Anion Gap 11 meq/L (5-15); Aspartate Aminotransferase 40 U/L (15-37); Blood Urea Nitrogen 23 mg/dL (7-18); Calcium 8.8 mg/dL (8.5-10.1); Chloride 120 meq/L (98-107); Glomerular Filtration Rate 45 mL/min (>89); Glucose,Random 124 mg/dL (74-106); Potassium 3.3 meq/L (3.5-5.1); Sodium 155 meq/L (136-145)
[2018-03-29] MEDS: Dextrose 5% in Water Inj 1,000 ML IV.CONT SCH ×2 (05:02→17:20)
[2018-03-29 05:07] LABS: Alanine Aminotransferase 71 U/L (12-78); Alkaline Phosphatase 96 U/L (45-117); Total Protein 6.2 g/dL (6.4-8.2)
[2018-03-29] MEDS: Potassium Chloride 25 MEQ Effervescent Tablet PO PRN (05:14)
--- NOTE | 2018-03-29 07:11 | P.PNCC ---
Subjective Subjective Remarks/Hospital Course: 57-year-old male presents for an evaluation of generalized weakness. Patient appears very dehydrated on arrival. He was recently admitted for treatment of pneumonia. Chest x-ray was negative at that time, and he was discharged on antibiotics after a few days of IV antibiotics. Has a history of bipolar disorder treated with lithium. Per chart report when EMS arrived the patient looked like he had been on the floor for several days. On arrival the patient just states he feels very weak all over, denies any specific pain. Denies any abdominal pain chest pain headache or extremity pain. He states that he has had some mild nausea without vomiting. No diarrhea no constipation or blood in the stool. 03/28 Patient is awake and alert on room air oxygen, hypertensive. Afebrile. 03/29 Patient is awake and alert. Renal function is improving with Cr: 1.58 from 2.0 yesterday. Afebrile. Objective Vital Signs / I&O: Vital Signs 03/28/18 08:00 03/28/18 09:00 03/28/18 10:00 Temperature 97.3 F L Pulse Rate 79 68 85 Respiratory Rate 18 8 L 21 Blood Pressure 185/119 H 157/94 H 131/77 Pulse Oximetry 98 99 95 03/28/18 11:00 03/28/18 12:00 03/28/18 13:00 Temperature 98.2 F Pulse Rate 95 H 91 H 74 Respiratory Rate 20 21 19 Blood Pressure 129/75 93/59 L 80/52 L Pulse Oximetry 97 96 96 03/28/18 13:07 03/28/18 13:15 03/28/18 13:30 Temperature Pulse Rate 73 72 70 Respiratory Rate 22 21 23 Blood Pressure 80/50 L 82/53 L 93/55 L Pulse Oximetry 95 95 95 03/28/18 13:45 03/28/18 14:00 03/28/18 14:15 Temperature Pulse Rate 73 77 77 Respiratory Rate 22 22 21 Blood Pressure 99/57 L 104/63 98/57 L Pulse Oximetry 94 L 96 95 03/28/18 14:30 03/28/18 14:45 03/28/18 15:00 Temperature Pulse Rate 79 79 86 Respiratory Rate 19 19 26 H Blood Pressure 98/60 L 97/57 L 117/76 Pulse Oximetry 95 96 95 03/28/18 15:57 03/28/18 16:00 09/02/18 16:15 Temperature Pulse Rate 88 83 83 Respiratory Rate 23 19 19 Blood Pressure 99/68 L 110/67 111/68 Pulse Oximetry 97 96 96 03/28/18 16:30 03/28/18 16:45 03/28/18 17:00 Temperature Pulse Rate 85 82 102 H Respiratory Rate 20 22 26 H Blood Pressure 104/64 106/69 Pulse Oximetry 96 94 L 95 03/28/18 17:01 03/28/18 17:31 03/28/18 17:46 Temperature Pulse Rate 90 88 91 H Respiratory Rate 20 17 19 Blood Pressure 110/78 128/68 98/65 L Pulse Oximetry 97 96 97 03/28/18 18:00 03/28/18 18:15 03/28/18 18:30 Temperature Pulse Rate 87 89 85 Respiratory Rate 18 18 19 Blood Pressure 98/63 L 103/65 95/64 L Pulse Oximetry 95 95 95 03/28/18 18:45 03/28/18 19:00 03/28/18 19:15 Temperature Pulse Rate 85 90 83 Respiratory Rate 18 18 17 Blood Pressure 94/65 L 93/66 L 97/68 L Pulse Oximetry 96 95 94 L 03/28/18 19:30 03/28/18 19:45 03/28/18 20:00 Temperature 97.0 F L Pulse Rate 77 80 82 Respiratory Rate 19 18 19 Blood Pressure 109/73 108/73 109/67 Pulse Oximetry 93 L 94 L 94 L 03/28/18 20:15 03/28/18 20:28 03/28/18 20:30 Temperature Pulse Rate 82 85 Respiratory Rate 19 26 H Blood Pressure 113/70 108/64 Pulse Oximetry 93 L 98 96 03/28/18 20:45 03/28/18 21:00 03/28/18 21:15 Temperature Pulse Rate 85 80 80 Respiratory Rate 23 15 19 Blood Pressure 104/65 107/69 111/71 Pulse Oximetry 96 96 95 03/28/18 21:30 03/28/18 21:45 03/28/18 22:00 Temperature Pulse Rate 86 84 87 Respiratory Rate 20 18 19 Blood Pressure 108/68 111/68 103/69 Pulse Oximetry 96 94 L 94 L 03/28/18 22:15 03/28/18 22:30 03/28/18 22:45 Temperature Pulse Rate 87 89 87 Respiratory Rate 19 15 13 Blood Pressure 103/69 86/67 L 97/73 L Pulse Oximetry 94 L 94 L 94 L 03/28/18 23:00 03/28/18 23:16 03/28/18 23:30 Temperature Pulse Rate 87 84 80 Respiratory Rate 22 20 21 Blood Pressure 107/70 104/82 110/79 Pulse Oximetry 94 L 92 L 95 03/28/18 23:45 03/29/18 00:00 03/29/18 00:16 Temperature 98.1 F Pulse Rate 81 80 110 H Respiratory Rate 20 23 23 Blood Pressure 107/73 101/68 121/78 Pulse Oximetry 96 94 L 95 03/29/18 00:30 03/29/18 00:45 03/29/18 00:59 Temperature Pulse Rate 82 83 87 Respiratory Rate 21 20 20 Blood Pressure 112/73 112/74 Pulse Oximetry 94 L 94 L 94 L 03/29/18 01:00 03/29/18 01:15 03/29/18 01:30 Temperature Pulse Rate 86 88 86 Respiratory Rate 21 21 23 Blood Pressure 109/70 104/66 106/68 Pulse Oximetry 94 L 94 L 95 03/29/18 01:45 03/29/18 02:00 03/29/18 02:15 Temperature Pulse Rate 84 87 85 Respiratory Rate 21 23 21 Blood Pressure 110/71 104/69 109/72 Pulse Oximetry 94 L 94 L 94 L 03/29/18 02:30 03/29/18 02:45 03/29/18 03:00 Temperature Pulse Rate 87 82 86 Respiratory Rate 20 22 20 Blood Pressure 107/73 112/74 113/78 Pulse Oximetry 95 94 L 94 L 03/29/18 03:15 03/29/18 03:30 03/29/18 03:45 Temperature Pulse Rate 90 86 81 Respiratory Rate 21 22 25 H Blood Pressure 114/77 112/79 111/77 Pulse Oximetry 95 94 L 95 03/29/18 04:00 03/29/18 04:15 03/29/18 04:30 Temperature Pulse Rate 79 80 77 Respiratory Rate 22 22 23 Blood Pressure 116/79 114/78 111/77 Pulse Oximetry 96 95 95 03/29/18 04:45 03/29/18 05:00 03/29/18 05:15 Temperature Pulse Rate 84 85 85 Respiratory Rate 24 21 21 Blood Pressure 104/66 106/70 117/74 Pulse Oximetry 94 L 95 97 03/29/18 05:30 03/29/18 05:45 03/29/18 06:00 Temperature Pulse Rate 83 79 83 Respiratory Rate 18 25 H 24 Blood Pressure 121/71 123/80 116/82 Pulse Oximetry 96 95 94 L Intake & Output 03/28/18 03/29/18 03/29/18 18:59 06:59 18:59 Intake Total 4560 / 4560 1960 / 1960 Output Total 850 / 850 700 / 700 Balance 3710 / 3710 1260 / 1260 Weight 89.5 kg Intake: IV 1800 / 1800 1000 / 1000 D5W Inj 1,000 ML @ 75 mls/hr IV 1000 / 1000 1000 / 1000 .CONT .[id number] [facility] Rx#:[id number] D5W/1/2 NS Inj 1,000 ML @ 100 700 / 700 mls/hr IV.CONT .Q10H [facility] Rx#: [id number] KCl 20 mEq Premix Inj 20 meq In 100 / 100 100 ml @ 50 mls/hr IV.SIG Q2H PRN Rx#:[id number] Oral 2760 / 2760 960 / 960 Output: Urine 850 / 850 700 / 700 Result Diagrams: 03/29/18 03:47 03/29/18 03:47 Other Results: Laboratory Results - last 12 hr 03/29/18 03/29/18 03/29/18 03:47 03:47 03:47 WBC 11.9 H RBC 4.61 Hgb 13.4 Hct 40.5 MCV 87.8 MCH 29.2 MCHC 33.2 RDW 15.2 Plt Count 245 MPV 8.8 Neut % (Auto) 78.2 H Lymph % (Auto) 11.4 [place] % (Auto) 6.4 Eos % (Auto) 3.0 Baso % (Auto) 1.0 Neut # (Auto) 9.3 H Lymph # (Auto) 1.4 [place] # (Auto) 0.8 Eos # (Auto) 0.4 Baso # (Auto) 0.1 WBC Differential . Differential Comment Auto diff final PT 14.6 H D INR 1.4 APTT 31.3 H D Sodium 155 H Potassium 3.3 L Chloride 120 H Carbon Dioxide 24.0 Anion Gap 11 BUN 23 H Creatinine 1.58 H Estimated GFR 45 L Random Glucose 124 H Calcium 8.8 Total Bilirubin 1.4 H AST 40 H ALT 71 Alkaline Phosphatase 96 Total Protein 6.2 L Albumin 2.9 L Imaging: Chest X-Ray 03/27/18 14:07 CONCLUSION: Negative examination. Liver Ultrasound 03/28/18 00:00 CONCLUSION: 1. Hepatomegaly and mild increased echotexture of the liver parenchyma. 2. Sludge-filled gallbladder with borderline wall thickening. Objective Remarks: GENERAL: Patient is 57 yo lying in bed in NAD. SKIN: Warm and dry. HEAD: Normocephalic. EYES: No scleral icterus. No injection or drainage. NECK: Supple, trachea midline. No JVD or lymphadenopathy. CARDIOVASCULAR: Regular rate and rhythm without murmurs, gallops, or rubs. RESPIRATORY: Breath sounds equal bilaterally. No accessory muscle use. GASTROINTESTINAL: Abdomen soft, non-tender, nondistended. MUSCULOSKELETAL: No cyanosis, or edema. Neuro: Awake and alert Assessment and Plan - Assessment and Plan Plan: 1)Hypernatremia 2)AMS- improved 3)Coagulopathy 4)History of liver cirrhosis 5)Elevated LFT 6)GAL 7)Leukocytosis 8)Hx Bipolar disorder 9)Dehydration 10)Elevated trop Plan Neuro: Awake and alert On Seroquel and [place], Li level <0.1 Pulm: Oxygen PRN keep sats >92% Bronchodilators CV: Monitor HR and BP keep MAP>65mmHg For 2D echo, cards is following- Dr. Tripathi. : Monitor renal function, I/O's, avoid nephrotoxins Renal function is improving with Cr: 1.58 from 1.98 yesterday IVF D5W@75ml/hr, monitor sodium level. GI: On PO diet, monitor LFT's, Hepatitis profile negative US liver: Hepatomegaly and mild increased echotexture of the liver parenchyma. Sludge-filled gallbladder with borderline wall thickening. Endo: Monitor for signs of infections ( Fever, WBC) Panculture if spikes a fever Heme: Monitor CBC, coags, INR 1.4 today from 5.6 On PO vitamin K , Heme is following. Endo: SSI if needed for glycemic control DVT GI prophylaxis -Teds SCDs -No pharmacological DVT prophylaxis due to coagulopathy -Regular diet, On Pepcid Will sign off and consult [facility] for medical management. Level 2
[2018-03-29] MEDS: Senna/Docusate Sodium 8.6/50 MG Tablet PO SCH ×2 (08:06→21:19)
[2018-03-29] MEDS: Famotidine PF Inj 20 MG/2 ML Vial IV.PUSH SCH ×2 (08:06→21:18)
[2018-03-29] MEDS: QUEtiapine 100 MG Tablet PO SCH (08:07)
[2018-03-29] MEDS: Phytonadione 2.5 MG/SWFI 2.5 ML Oral Syringe PO SCH (10:10)
--- NOTE | 2018-03-29 10:46 | P.PNONC ---
Subjective Interval history: Having breakfast this morning. He does not remember our conversation from yesterday. He is tolerating p.o. well. His mouth feels better. He still complains of achiness and that his legs are "paralyzed". He is able to move both legs well. Objective Vital Signs/Intake & Output: Vital Signs 03/28/18 11:00 03/28/18 12:00 03/28/18 13:00 Temperature 98.2 F Pulse Rate 95 H 91 H 74 Respiratory Rate 20 21 19 Blood Pressure 129/75 93/59 L 80/52 L Pulse Oximetry 97 96 96 03/28/18 13:07 03/28/18 13:15 03/28/18 13:30 Temperature Pulse Rate 73 72 70 Respiratory Rate 22 21 23 Blood Pressure 80/50 L 82/53 L 93/55 L Pulse Oximetry 95 95 95 03/28/18 13:45 03/28/18 14:00 03/28/18 14:15 Temperature Pulse Rate 73 77 77 Respiratory Rate 22 22 21 Blood Pressure 99/57 L 104/63 98/57 L Pulse Oximetry 94 L 96 95 03/28/18 14:30 03/28/18 14:45 03/28/18 15:00 Temperature Pulse Rate 79 79 86 Respiratory Rate 19 19 26 H Blood Pressure 98/60 L 97/57 L 117/76 Pulse Oximetry 95 96 95 03/28/18 15:57 03/28/18 16:00 03/28/18 16:15 Temperature Pulse Rate 88 83 83 Respiratory Rate 23 19 19 Blood Pressure 99/68 L 110/67 111/68 Pulse Oximetry 97 96 96 03/28/18 16:30 03/28/18 16:45 03/28/18 17:00 Temperature Pulse Rate 85 82 102 H Respiratory Rate 20 22 26 H Blood Pressure 104/64 106/69 Pulse Oximetry 96 94 L 95 03/28/18 17:01 03/28/18 17:31 03/28/18 17:46 Temperature Pulse Rate 90 88 91 H Respiratory Rate 20 17 19 Blood Pressure 110/78 128/68 98/65 L Pulse Oximetry 97 96 97 03/28/18 18:00 03/28/18 18:15 03/28/18 18:30 Temperature Pulse Rate 87 89 85 Respiratory Rate 18 18 19 Blood Pressure 98/63 L 103/65 95/64 L Pulse Oximetry 95 95 95 03/28/18 18:45 03/28/18 19:00 03/28/18 19:15 Temperature Pulse Rate 85 90 83 Respiratory Rate 18 18 17 Blood Pressure 94/65 L 93/66 L 97/68 L Pulse Oximetry 96 95 94 L 03/28/18 19:30 03/28/18 19:45 03/28/18 20:00 Temperature 97.0 F L Pulse Rate 77 80 82 Respiratory Rate 19 18 19 Blood Pressure 109/73 108/73 109/67 Pulse Oximetry 93 L 94 L 94 L 03/28/18 20:15 03/28/18 20:28 03/28/18 20:30 Temperature Pulse Rate 82 85 Respiratory Rate 19 26 H Blood Pressure 113/70 108/64 Pulse Oximetry 93 L 98 96 03/28/18 20:45 03/28/18 21:00 03/28/18 21:15 Temperature Pulse Rate 85 80 80 Respiratory Rate 23 15 19 Blood Pressure 104/65 107/69 111/71 Pulse Oximetry 96 96 95 03/28/18 21:30 03/28/18 21:45 03/28/18 22:00 Temperature Pulse Rate 86 84 87 Respiratory Rate 20 18 19 Blood Pressure 108/68 111/68 103/69 Pulse Oximetry 96 94 L 94 L 03/28/18 22:15 03/28/18 22:30 03/28/18 22:45 Temperature Pulse Rate 87 89 87 Respiratory Rate 19 15 13 Blood Pressure 103/69 86/67 L 97/73 L Pulse Oximetry 94 L 94 L 94 L 03/28/18 23:00 03/28/18 23:16 03/28/18 23:30 Temperature Pulse Rate 87 84 80 Respiratory Rate 22 20 21 Blood Pressure 107/70 104/82 110/79 Pulse Oximetry 94 L 92 L 95 03/28/18 23:45 03/29/18 00:00 03/29/18 00:16 Temperature 98.1 F Pulse Rate 81 80 110 H Respiratory Rate 20 23 23 Blood Pressure 107/73 101/68 121/78 Pulse Oximetry 96 94 L 95 03/29/18 00:30 03/29/18 00:45 03/29/18 00:59 Temperature Pulse Rate 82 83 87 Respiratory Rate 21 20 20 Blood Pressure 112/73 112/74 Pulse Oximetry 94 L 94 L 94 L 03/29/18 01:00 03/29/18 01:15 03/29/18 01:30 Temperature Pulse Rate 86 88 86 Respiratory Rate 21 21 23 Blood Pressure 109/70 104/66 106/68 Pulse Oximetry 94 L 94 L 95 03/29/18 01:45 03/29/18 02:00 03/29/18 02:15 Temperature Pulse Rate 84 87 85 Respiratory Rate 21 23 21 Blood Pressure 110/71 104/69 109/72 Pulse Oximetry 94 L 94 L 94 L 03/29/18 02:30 03/29/18 02:45 03/29/18 03:00 Temperature Pulse Rate 87 82 86 Respiratory Rate 20 22 20 Blood Pressure 107/73 112/74 113/78 Pulse Oximetry 95 94 L 94 L 03/29/18 03:15 03/29/18 03:30 03/29/18 03:45 Temperature Pulse Rate 90 86 81 Respiratory Rate 21 22 25 H Blood Pressure 114/77 112/79 111/77 Pulse Oximetry 95 94 L 95 03/29/18 04:00 03/29/18 04:15 03/29/18 04:30 Temperature Pulse Rate 79 80 77 Respiratory Rate 22 22 23 Blood Pressure 116/79 114/78 111/77 Pulse Oximetry 96 95 95 03/29/18 04:45 03/29/18 05:00 03/29/18 05:15 Temperature Pulse Rate 84 85 85 Respiratory Rate 24 21 21 Blood Pressure 104/66 106/70 117/74 Pulse Oximetry 94 L 95 97 03/29/18 05:30 03/29/18 05:45 03/29/18 06:00 Temperature Pulse Rate 83 79 83 Respiratory Rate 18 25 H 24 Blood Pressure 121/71 123/80 116/82 Pulse Oximetry 96 95 94 L 03/29/18 08:27 Temperature Pulse Rate Respiratory Rate Blood Pressure Pulse Oximetry 97 Intake & Output 03/28/18 03/29/18 03/29/18 18:59 06:59 18:59 Intake Total 4560 / 4560 1960 / 1960 Output Total 850 / 850 700 / 700 Balance 3710 / 3710 1260 / 1260 Weight 89.5 kg Intake: IV 1800 / 1800 1000 / 1000 D5W Inj 1,000 ML @ 75 mls/hr IV 1000 / 1000 1000 / 1000 .CONT .[id number] [facility] Rx#:[id number] D5W/1/2 NS Inj 1,000 ML @ 100 700 / 700 mls/hr IV.CONT .Q10H [facility] Rx#: [id number] KCl 20 mEq Premix Inj 20 meq In 100 / 100 100 ml @ 50 mls/hr IV.SIG Q2H PRN Rx#:[id number] Oral 2760 / 2760 960 / 960 Output: Urine 850 / 850 700 / 700 Result Diagrams: 03/29/18 03:47 03/29/18 03:47 Laboratory Results: Laboratory Results - last 24 hr 03/28/18 03/28/18 03/28/18 10:00 10:48 10:48 WBC 11.3 H RBC 4.69 Hgb 13.7 Hct 41.9 MCV 89.3 MCH 29.1 MCHC 32.7 RDW 15.7 Plt Count 258 MPV 8.6 Neut % (Auto) 75.4 H Lymph % (Auto) 13.6 [place] % (Auto) 7.7 Eos % (Auto) 2.3 Baso % (Auto) 1.0 Neut # (Auto) 8.5 H Lymph # (Auto) 1.5 [place] # (Auto) 0.9 Eos # (Auto) 0.3 Baso # (Auto) 0.1 WBC Differential . Differential Comment Auto diff final PT INR APTT 61.3 H Sodium Potassium Chloride Carbon Dioxide Anion Gap BUN Creatinine Estimated GFR Random Glucose Calcium Total Bilirubin AST ALT Alkaline Phosphatase Troponin I Total Protein Albumin Hepatitis A IgM Ab Nonreactive Hep Bs Antigen Nonreactive Hep B Core IgM Ab Nonreactive Hep C IgG Ab Nonreactive 03/28/18 03/28/18 03/28/18 10:48 10:48 17:46 WBC RBC Hgb Hct MCV MCH MCHC RDW Plt Count MPV Neut % (Auto) Lymph % (Auto) [place] % (Auto) Eos % (Auto) Baso % (Auto) Neut # (Auto) Lymph # (Auto) [place] # (Auto) Eos # (Auto) Baso # (Auto) WBC Differential Differential Comment PT INR APTT Sodium 161 H* 156 H* Potassium 2.9 L* 3.6 Chloride 124 H 122 H Carbon Dioxide 24.5 24.7 Anion Gap 13 9 BUN 34 H 31 H Creatinine 1.98 H 1.68 H Estimated GFR 35 L 42 L Random Glucose 201 H 119 H Calcium 8.8 8.6 Total Bilirubin 1.0 AST 43 H ALT 76 Alkaline Phosphatase 100 Troponin I 0.20 H Total Protein 6.1 L D Albumin 2.8 L Hepatitis A IgM Ab Hep Bs Antigen Hep B Core IgM Ab Hep C IgG Ab 03/29/18 03/29/18 03/29/18 03:47 03:47 03:47 WBC 11.9 H RBC 4.61 Hgb 13.4 Hct 40.5 MCV 87.8 MCH 29.2 MCHC 33.2 RDW 15.2 Plt Count 245 MPV 8.8 Neut % (Auto) 78.2 H Lymph % (Auto) 11.4 [place] % (Auto) 6.4 Eos % (Auto) 3.0 Baso % (Auto) 1.0 Neut # (Auto) 9.3 H Lymph # (Auto) 1.4 [place] # (Auto) 0.8 Eos # (Auto) 0.4 Baso # (Auto) 0.1 WBC Differential . Differential Comment Auto diff final PT 14.6 H D INR 1.4 APTT 31.3 H D Sodium 155 H Potassium 3.3 L Chloride 120 H Carbon Dioxide 24.0 Anion Gap 11 BUN 23 H Creatinine 1.58 H Estimated GFR 45 L Random Glucose 124 H Calcium 8.8 Total Bilirubin 1.4 H AST 40 H ALT 71 Alkaline Phosphatase 96 Troponin I Total Protein 6.2 L Albumin 2.9 L Hepatitis A IgM Ab Hep Bs Antigen Hep B Core IgM Ab Hep C IgG Ab Medications: Active Medications Generic Name Dose Route Start Last Admin Trade Name Freq PRN Reason Stop Dose Admin Chlorhexidine Gluconate 3 pack 03/28/18 04:00 03/29/18 05:01 Chlorhexidine 2% Cloth TOPICAL 04/02/18 03:59 3 pack DAILY@0400 [facility] Administration Clonidine HCl 0.1 mg 03/28/18 02:46 03/28/18 08:44 Catapres PO 0.1 mg Q6H PRN Administration SEE COMMENT Famotidine 10 mg 03/28/18 21:00 03/29/18 08:06 Pepcid Pf Inj IV.PUSH 10 mg Q12HR [facility] Administration Dextrose 1,000 mls @ 75 mls/hr 03/28/18 09:00 03/29/18 05:02 D5w Inj IV.CONT 75 mls/hr .[id number] [facility] Administration Potassium Chloride 20 meq in 100 mls @ 50 mls/hr 03/28/18 12:25 03/28/18 17: 55 Kcl 20 Meq Premix Inj IV.SIG Infused Q2H PRN Infusion For Potassium 3.3 - 3.5 mEq/L [place] Carbonate 600 mg 03/27/18 21:00 03/29/18 08:06 [place] Carbonate PO 600 mg BID [facility] Administration Metoclopramide HCl 5 mg 03/28/18 00:00 03/29/18 05:14 Reglan Inj IV.PUSH 5 mg Q6HR [facility] Administration Protocol Ondansetron HCl 4 mg 03/27/18 19:05 03/27/18 21:40 Zofran Inj IV.PUSH 4 mg Q6H PRN Administration NAUSEA OR VOMITING Phytonadione 5 mg 03/29/18 09:00 03/29/18 10:10 Mephyton Liq PO 03/30/18 09:01 5 mg DAILY [facility] Administration Potassium Bicarb/Potassium Chloride 50 meq 03/28/18 12:25 03/29/18 05:14 K-Lyte Cl Eff PO 50 meq UNSCH PRN Administration For Potassium 3.3 - 3.5 mEq/L Quetiapine Fumarate 500 mg 03/28/18 09:00 03/29/18 08:07 Seroquel PO 500 mg DAILY [facility] Administration Senna/Docusate Sodium 1 tab 03/27/18 21:00 03/29/18 08:06 Joanne-Colace PO 1 tab BID [facility] Administration Sodium Chloride 2 ml 03/27/18 21:00 03/29/18 08:06 Ns Flush IV.FLUSH 2 ml BID [facility] Administration Objective Remarks: GENERAL: Well-nourished, well-developed patient. SKIN: Warm and dry. Dry flakes HEAD: Normocephalic. EYES: No scleral icterus. No injection or drainage. NECK: Supple, trachea midline. No JVD or lymphadenopathy. LYMPHATIC: No adenopathy. CARDIOVASCULAR: Regular rate and rhythm without murmurs. RESPIRATORY: Breath sounds equal bilaterally. No accessory muscle use. GASTROINTESTINAL: Abdomen soft, non-tender, nondistended. EXTREMITIES: No cyanosis, or edema. MUSCULOSKELETAL: Adequate muscle tone. NEUROLOGICAL: No obvious focal deficit. Awake, alert, and oriented x3. PSYCHIATRIC: Looks anxious and depressed. Assessment/Plan (1) Coagulopathy Code(s): D68.9 - Coagulation defect, unspecified Status: Acute - Plan 57-year-old man with multiple medical problems and mental illness. He had several days of non-taking p.o. fluids and came in severely dehydrated with acute renal failure, hypernatremia and coagulopathy. He is recovering with supportive care. Hematology was consulted for the coagulopathy. He has no overt bleeding. Repeat PT PTT have improved. The coagulopathy is suspected to be due to severe dehydration and decreased plasma volume. He has underlying liver disease which can contribute to the coagulopathy. No specific therapy is required as he is recovering with the treatment for his dehydration. Vitamin K was offered orally. He should be able to replete his vitamin K with good p.o. intake from a variety of foods. 1. Continue to monitor PT PTT 2. Follow-up with outpatient psychiatry.
[2018-03-29] MEDS ORDERED: Benzocaine/Menthol 15 MG/3.6 MG SF Lozenge BUCCAL PRN (11:48)
--- NOTE | 2018-03-29 11:54 | P.PNNP ---
Subjective Interval history: Scratchy throat and sore mouth Physical Exam Vital signs: Vital Signs 03/28/18 12:00 03/28/18 13:00 03/28/18 13:07 Temperature 98.2 F Pulse Rate 91 H 74 73 Respiratory Rate 21 19 22 Blood Pressure 93/59 L 80/52 L 80/50 L Pulse Oximetry 96 96 95 03/28/18 13:15 03/28/18 13:30 03/28/18 13:45 Temperature Pulse Rate 72 70 73 Respiratory Rate 21 23 22 Blood Pressure 82/53 L 93/55 L 99/57 L Pulse Oximetry 95 95 94 L 03/28/18 14:00 03/28/18 14:15 03/28/18 14:30 Temperature Pulse Rate 77 77 79 Respiratory Rate 22 21 19 Blood Pressure 104/63 98/57 L 98/60 L Pulse Oximetry 96 95 95 03/28/18 14:45 03/28/18 15:00 03/28/18 15:57 Temperature Pulse Rate 79 86 88 Respiratory Rate 19 26 H 23 Blood Pressure 97/57 L 117/76 99/68 L Pulse Oximetry 96 95 97 03/28/18 16:00 03/28/18 16:15 03/28/18 16:30 Temperature Pulse Rate 83 83 85 Respiratory Rate 19 19 20 Blood Pressure 110/67 111/68 104/64 Pulse Oximetry 96 96 96 03/28/18 16:45 03/28/18 17:00 03/28/18 17:01 Temperature Pulse Rate 82 102 H 90 Respiratory Rate 22 26 H 20 Blood Pressure 106/69 110/78 Pulse Oximetry 94 L 95 97 03/28/18 17:31 03/28/18 17:46 03/28/18 18:00 Temperature Pulse Rate 88 91 H 87 Respiratory Rate 17 19 18 Blood Pressure 128/68 98/65 L 98/63 L Pulse Oximetry 96 97 95 03/28/18 18:15 03/28/18 18:30 03/28/18 18:45 Temperature Pulse Rate 89 85 85 Respiratory Rate 18 19 18 Blood Pressure 103/65 95/64 L 94/65 L Pulse Oximetry 95 95 96 03/28/18 19:00 03/28/18 19:15 03/28/18 19:30 Temperature Pulse Rate 90 83 77 Respiratory Rate 18 17 19 Blood Pressure 93/66 L 97/68 L 109/73 Pulse Oximetry 95 94 L 93 L 03/28/18 19:45 03/28/18 20:00 03/28/18 20:15 Temperature 97.0 F L Pulse Rate 80 82 82 Respiratory Rate 18 19 19 Blood Pressure 108/73 109/67 113/70 Pulse Oximetry 94 L 94 L 93 L 03/28/18 20:28 03/28/18 20:30 03/28/18 20:45 Temperature Pulse Rate 85 85 Respiratory Rate 26 H 23 Blood Pressure 108/64 104/65 Pulse Oximetry 98 96 96 03/28/18 21:00 03/28/18 21:15 03/28/18 21:30 Temperature Pulse Rate 80 80 86 Respiratory Rate 15 19 20 Blood Pressure 107/69 111/71 108/68 Pulse Oximetry 96 95 96 03/28/18 21:45 03/28/18 22:00 03/28/18 22:15 Temperature Pulse Rate 84 87 87 Respiratory Rate 18 19 19 Blood Pressure 111/68 103/69 103/69 Pulse Oximetry 94 L 94 L 94 L 03/28/18 22:30 03/28/18 22:45 03/28/18 23:00 Temperature Pulse Rate 89 87 87 Respiratory Rate 15 13 22 Blood Pressure 86/67 L 97/73 L 107/70 Pulse Oximetry 94 L 94 L 94 L 03/28/18 23:16 03/28/18 23:30 03/28/18 23:45 Temperature Pulse Rate 84 80 81 Respiratory Rate 20 21 20 Blood Pressure 104/82 110/79 107/73 Pulse Oximetry 92 L 95 96 03/29/18 00:00 03/29/18 00:16 03/29/18 00:30 Temperature 98.1 F Pulse Rate 80 110 H 82 Respiratory Rate 23 23 21 Blood Pressure 101/68 121/78 112/73 Pulse Oximetry 94 L 95 94 L 03/29/18 00:45 03/29/18 00:59 03/29/18 01:00 Temperature Pulse Rate 83 87 86 Respiratory Rate 20 20 21 Blood Pressure 112/74 109/70 Pulse Oximetry 94 L 94 L 94 L 03/29/18 01:15 03/29/18 01:30 03/29/18 01:45 Temperature Pulse Rate 88 86 84 Respiratory Rate 21 23 21 Blood Pressure 104/66 106/68 110/71 Pulse Oximetry 94 L 95 94 L 03/29/18 02:00 03/29/18 02:15 03/29/18 02:30 Temperature Pulse Rate 87 85 87 Respiratory Rate 23 21 20 Blood Pressure 104/69 109/72 107/73 Pulse Oximetry 94 L 94 L 95 03/29/18 02:45 03/29/18 03:00 03/29/18 03:15 Temperature Pulse Rate 82 86 90 Respiratory Rate 22 20 21 Blood Pressure 112/74 113/78 114/77 Pulse Oximetry 94 L 94 L 95 03/29/18 03:30 03/29/18 03:45 03/29/18 04:00 Temperature Pulse Rate 86 81 79 Respiratory Rate 22 25 H 22 Blood Pressure 112/79 111/77 116/79 Pulse Oximetry 94 L 95 96 03/29/18 04:15 03/29/18 04:30 03/29/18 04:45 Temperature Pulse Rate 80 77 84 Respiratory Rate 22 23 24 Blood Pressure 114/78 111/77 104/66 Pulse Oximetry 95 95 94 L 03/29/18 05:00 03/29/18 05:15 03/29/18 05:30 Temperature Pulse Rate 85 85 83 Respiratory Rate 21 21 18 Blood Pressure 106/70 117/74 121/71 Pulse Oximetry 95 97 96 03/29/18 05:45 03/29/18 06:00 03/29/18 06:15 Temperature Pulse Rate 79 83 81 Respiratory Rate 25 H 24 22 Blood Pressure 123/80 116/82 120/79 Pulse Oximetry 95 94 L 93 L 03/29/18 06:31 03/29/18 06:45 03/29/18 07:00 Temperature 98.5 F Pulse Rate 81 82 80 Respiratory Rate 27 H 16 24 Blood Pressure 122/80 121/76 131/87 Pulse Oximetry 94 L 96 95 03/29/18 07:16 03/29/18 07:30 03/29/18 07:45 Temperature Pulse Rate 85 80 82 Respiratory Rate 23 16 23 Blood Pressure 133/85 134/87 138/92 H Pulse Oximetry 95 96 97 03/29/18 08:00 03/29/18 08:15 03/29/18 08:27 Temperature 98.5 F Pulse Rate 81 95 H Respiratory Rate 13 26 H Blood Pressure 129/82 135/84 Pulse Oximetry 96 95 97 03/29/18 08:30 09/03/18 09:00 03/29/18 09:15 Temperature Pulse Rate 90 95 H 97 H Respiratory Rate 26 H 23 22 Blood Pressure 138/83 97/71 L 100/70 Pulse Oximetry 94 L 95 95 03/29/18 09:30 03/29/18 09:45 03/29/18 10:00 Temperature Pulse Rate 97 H 113 H 100 H Respiratory Rate 22 27 H 24 Blood Pressure 107/68 126/73 Pulse Oximetry 94 L 94 L 94 L 03/29/18 10:01 03/29/18 10:15 03/29/18 10:30 Temperature Pulse Rate 103 H 113 H 103 H Respiratory Rate 24 25 H 24 Blood Pressure 120/76 114/78 125/76 Pulse Oximetry 94 L 94 L 94 L 03/29/18 10:45 03/29/18 11:00 Temperature Pulse Rate 101 H 101 H Respiratory Rate 25 H 25 H Blood Pressure 107/74 111/69 Pulse Oximetry 95 95 Intake & Output 03/28/18 03/29/18 03/29/18 18:59 06:59 18:59 Intake Total 4560 / 4560 1960 / 1960 Output Total 850 / 850 700 / 700 Balance 3710 / 3710 1260 / 1260 Weight 89.5 kg Intake: IV 1800 / 1800 1000 / 1000 D5W Inj 1,000 ML @ 75 mls/hr IV 1000 / 1000 1000 / 1000 .CONT .[id number] ALEJA Rx#:[id number] D5W/1/2 NS Inj 1,000 ML @ 100 700 / 700 mls/hr IV.CONT .Q10H ALEJA Rx#: [id number] KCl 20 mEq Premix Inj 20 meq In 100 / 100 100 ml @ 50 mls/hr IV.SIG Q2H PRN Rx#:[id number] Oral 2760 / 2760 960 / 960 Output: Urine 850 / 850 700 / 700 - Constitutional no acute distress - Routine HEENT Exam Eye: Present: EOMI, PERRL - Routine Neck Exam Present: supple - Routine Respiratory Exam Present: CTA bilaterally - Routine Cardiovascular Exam Present: RRR - Routine Abdominal Exam Present: soft, normoactive bowel sounds - Routine Extremities Exam Present: pulses intact Assessment and Plan - Assessment (1) Acute renal failure Code(s): N17.9 - Acute kidney failure, unspecified Status: Acute - Plan Patient has improved with D5W sodium has declined to 155 and creatinine 1.5 Potassium was replaced Patient is complaining of sore throat/ mouth Lozenges ordered I will follow as needed
--- NOTE | 2018-03-29 12:21 | P.PNCA ---
Subjective Interval history: No events overnight Lab work heading towards normal Patient more awake today Physical Exam Vital signs: Vital Signs 03/28/18 13:00 03/28/18 13:07 03/28/18 13:15 Temperature Pulse Rate 74 73 72 Respiratory Rate 19 22 21 Blood Pressure 80/52 L 80/50 L 82/53 L Pulse Oximetry 96 95 95 03/28/18 13:30 03/28/18 13:45 03/28/18 14:00 Temperature Pulse Rate 70 73 77 Respiratory Rate 23 22 22 Blood Pressure 93/55 L 99/57 L 104/63 Pulse Oximetry 95 94 L 96 03/28/18 14:15 03/28/18 14:30 03/28/18 14:45 Temperature Pulse Rate 77 79 79 Respiratory Rate 21 19 19 Blood Pressure 98/57 L 98/60 L 97/57 L Pulse Oximetry 95 95 96 03/28/18 15:00 03/28/18 15:57 03/28/18 16:00 Temperature Pulse Rate 86 88 83 Respiratory Rate 26 H 23 19 Blood Pressure 117/76 99/68 L 110/67 Pulse Oximetry 95 97 96 03/28/18 16:15 03/28/18 16:30 03/28/18 16:45 Temperature Pulse Rate 83 85 82 Respiratory Rate 19 20 22 Blood Pressure 111/68 104/64 106/69 Pulse Oximetry 96 96 94 L 03/28/18 17:00 03/28/18 17:01 03/28/18 17:31 Temperature Pulse Rate 102 H 90 88 Respiratory Rate 26 H 20 17 Blood Pressure 110/78 128/68 Pulse Oximetry 95 97 96 03/28/18 17:46 03/28/18 18:00 03/28/18 18:15 Temperature Pulse Rate 91 H 87 89 Respiratory Rate 19 18 18 Blood Pressure 98/65 L 98/63 L 103/65 Pulse Oximetry 97 95 95 03/28/18 18:30 03/28/18 18:45 03/28/18 19:00 Temperature Pulse Rate 85 85 90 Respiratory Rate 19 18 18 Blood Pressure 95/64 L 94/65 L 93/66 L Pulse Oximetry 95 96 95 03/28/18 19:15 18 19:30 03/28/18 19:45 Temperature Pulse Rate 83 77 80 Respiratory Rate 17 19 18 Blood Pressure 97/68 L 109/73 108/73 Pulse Oximetry 94 L 93 L 94 L 03/28/18 20:00 03/28/18 20:15 03/28/18 20:28 Temperature 97.0 F L Pulse Rate 82 82 Respiratory Rate 19 19 Blood Pressure 109/67 113/70 Pulse Oximetry 94 L 93 L 98 03/28/18 20:30 03/28/18 20:45 03/28/18 21:00 Temperature Pulse Rate 85 85 80 Respiratory Rate 26 H 23 15 Blood Pressure 108/64 104/65 107/69 Pulse Oximetry 96 96 96 03/28/18 21:15 03/28/18 21:30 03/28/18 21:45 Temperature Pulse Rate 80 86 84 Respiratory Rate 19 20 18 Blood Pressure 111/71 108/68 111/68 Pulse Oximetry 95 96 94 L 03/28/18 22:00 03/28/18 22:15 03/28/18 22:30 Temperature Pulse Rate 87 87 89 Respiratory Rate 19 19 15 Blood Pressure 103/69 103/69 86/67 L Pulse Oximetry 94 L 94 L 94 L 03/28/18 22:45 03/28/18 23:00 03/28/18 23:16 Temperature Pulse Rate 87 87 84 Respiratory Rate 13 22 20 Blood Pressure 97/73 L 107/70 104/82 Pulse Oximetry 94 L 94 L 92 L 03/28/18 23:30 03/28/18 23:45 03/29/18 00:00 Temperature 98.1 F Pulse Rate 80 81 80 Respiratory Rate 21 20 23 Blood Pressure 110/79 107/73 101/68 Pulse Oximetry 95 96 94 L 03/29/18 00:16 03/29/18 00:30 03/29/18 00:45 Temperature Pulse Rate 110 H 82 83 Respiratory Rate 23 21 20 Blood Pressure 121/78 112/73 112/74 Pulse Oximetry 95 94 L 94 L 03/29/18 00:59 03/29/18 01:00 03/29/18 01:15 Temperature Pulse Rate 87 86 88 Respiratory Rate 20 21 21 Blood Pressure 109/70 104/66 Pulse Oximetry 94 L 94 L 94 L 03/29/18 01:30 03/29/18 01:45 03/29/18 02:00 Temperature Pulse Rate 86 84 87 Respiratory Rate 23 21 23 Blood Pressure 106/68 110/71 104/69 Pulse Oximetry 95 94 L 94 L 03/29/18 02:15 03/29/18 02:30 03/29/18 02:45 Temperature Pulse Rate 85 87 82 Respiratory Rate 21 20 22 Blood Pressure 109/72 107/73 112/74 Pulse Oximetry 94 L 95 94 L 03/29/18 03:00 03/29/18 03:15 03/29/18 03:30 Temperature Pulse Rate 86 90 86 Respiratory Rate 20 21 22 Blood Pressure 113/78 114/77 112/79 Pulse Oximetry 94 L 95 94 L 03/29/18 03:45 03/29/18 04:00 03/29/18 04:15 Temperature Pulse Rate 81 79 80 Respiratory Rate 25 H 22 22 Blood Pressure 111/77 116/79 114/78 Pulse Oximetry 95 96 95 03/29/18 04:30 03/29/18 04:45 03/29/18 05:00 Temperature Pulse Rate 77 84 85 Respiratory Rate 23 24 21 Blood Pressure 111/77 104/66 106/70 Pulse Oximetry 95 94 L 95 03/29/18 05:15 03/29/18 05:30 03/29/18 05:45 Temperature Pulse Rate 85 83 79 Respiratory Rate 21 18 25 H Blood Pressure 117/74 121/71 123/80 Pulse Oximetry 97 96 95 03/29/18 06:00 03/29/18 06:15 03/29/18 06:31 Temperature Pulse Rate 83 81 81 Respiratory Rate 24 22 27 H Blood Pressure 116/82 120/79 122/80 Pulse Oximetry 94 L 93 L 94 L 03/29/18 06:45 03/29/18 07:00 03/29/18 07:16 Temperature 98.5 F Pulse Rate 82 80 85 Respiratory Rate 16 24 23 Blood Pressure 121/76 131/87 133/85 Pulse Oximetry 96 95 95 03/29/18 07:30 03/29/18 07:45 03/29/18 08:00 Temperature 98.5 F Pulse Rate 80 82 81 Respiratory Rate 16 23 13 Blood Pressure 134/87 138/92 H 129/82 Pulse Oximetry 96 97 96 03/29/18 08:15 03/29/18 08:27 03/29/18 08:30 Temperature Pulse Rate 95 H 90 Respiratory Rate 26 H 26 H Blood Pressure 135/84 138/83 Pulse Oximetry 95 97 94 L 03/29/18 09:00 03/29/18 09:15 03/29/18 09:30 Temperature Pulse Rate 95 H 97 H 97 H Respiratory Rate 23 22 22 Blood Pressure 97/71 L 100/70 107/68 Pulse Oximetry 95 95 94 L 03/29/18 09:45 03/29/18 10:00 03/29/18 10:01 Temperature Pulse Rate 113 H 100 H 103 H Respiratory Rate 27 H 24 24 Blood Pressure 126/73 120/76 Pulse Oximetry 94 L 94 L 94 L 03/29/18 10:15 03/29/18 10:30 03/29/18 10:45 Temperature Pulse Rate 113 H 103 H 101 H Respiratory Rate 25 H 24 25 H Blood Pressure 114/78 125/76 107/74 Pulse Oximetry 94 L 94 L 95 03/29/18 11:00 Temperature Pulse Rate 101 H Respiratory Rate 25 H Blood Pressure 111/69 Pulse Oximetry 95 Intake & Output 03/28/18 03/29/18 03/29/18 18:59 06:59 18:59 Intake Total 4560 / 4560 1960 / 1960 Output Total 850 / 850 700 / 700 Balance 3710 / 3710 1260 / 1260 Weight 89.5 kg Intake: IV 1800 / 1800 1000 / 1000 D5W Inj 1,000 ML @ 75 mls/hr IV 1000 / 1000 1000 / 1000 .CONT .[id number] [facility] Rx#:[id number] D5W/1/2 NS Inj 1,000 ML @ 100 700 / 700 mls/hr IV.CONT .Q10H [facility] Rx#: [id number] KCl 20 mEq Premix Inj 20 meq In 100 / 100 100 ml @ 50 mls/hr IV.SIG Q2H PRN Rx#:[id number] Oral 2760 / 2760 960 / 960 Output: Urine 850 / 850 700 / 700 Narrative: GENERAL: NAD, disheveled SKIN: Warm and dry. HEAD: Atraumatic. Normocephalic. EYES: Pupils equal and round. No scleral icterus. No injection or drainage. ENT: No nasal bleeding or discharge. Mucous membranes pink and moist. NECK: Trachea midline. No JVD. CARDIOVASCULAR: Regular rate and rhythm. RESPIRATORY: No accessory muscle use. Clear to auscultation. Breath sounds equal bilaterally. GASTROINTESTINAL: Abdomen soft, non-tender, nondistended. Hepatic and splenic margins not palpable. MUSCULOSKELETAL: Extremities without clubbing, cyanosis, or edema. No obvious deformities. NEUROLOGICAL: Awake and alert. No obvious cranial nerve deficits. Motor grossly within normal limits. Five out of 5 muscle strength in the arms and legs. Normal speech. PSYCHIATRIC: Appropriate mood and affect; insight and judgment normal. Assessment and Plan - Assessment (1) Elevated troponin Code(s): R74.8 - Abnormal levels of other serum enzymes Status: Acute (2) Bipolar disorder Code(s): F31.9 - Bipolar disorder, unspecified Status: Acute (3) Coagulopathy Code(s): D68.9 - Coagulation defect, unspecified Status: Acute (4) Acute renal failure Code(s): N17.9 - Acute kidney failure, unspecified Status: Acute - Plan 1) Severe dehydration due to not eating/drinking for a number of days 2) GAL resolved 3) Hypernatremia, better 4) Elevated INR, better 5) Elevated trop Type 2 spill due to end organ damage from dehydration No ischemic work up planned 6) 2D echo pending (2) Bipolar disorder Qualifiers: Active/Remission status: currently active Current bipolar episode type: depressed Current episode severity: moderate Qualified Code(s): F31.32 - Bipolar disorder, current episode depressed, moderate
[2018-03-29 14:06] LABS: Carbon Dioxide 24.1 meq/L (21.0-32.0); Potassium 3.7 meq/L (3.5-5.1)
--- NOTE | 2018-03-29 17:30 | ECHRPT ---
Indication: Hypertensive heart disease CONCLUSIONS Normal left ventricular size. Mild concentric left ventricular hypertrophy. The left ventricular systolic function is normal with an estimated ejection fraction in the range of 60-65%. Mild pulmonary valve regurgitation. BP: / HR: Rhythm: MEASUREMENTS (Male / Female) Normal Values Technical Quality: 2D ECHO LV Diastolic Diameter PLAX 5.2 cm 4.2 - 5.9 / 3.9 - 5.3 cm LV Systolic Diameter PLAX 3.5 cm IVS Diastolic Thickness 1.2 cm 0.6 - 1.0 / 0.6 - 0.9 cm LVPW Diastolic Thickness 1.1 cm 0.6 - 1.0 / 0.6 - 0.9 cm LV Relative Wall Thickness 0.4 LVOT Diameter 2.0 cm LA Systolic Diameter LX 3.5 cm 3.0 - 4.0 / 2.7 - 3.8 cm M-MODE AV Cusp Separation MM 2.2 cm DOPPLER AV Peak Velocity 141.0 cm/s AV Peak Gradient 8.0 mmHg LVOT Peak Velocity 129.0 cm/s LVOT Peak Gradient 6.7 mmHg AV Area Cont Eq pk 2.9 cm Mitral E Point Velocity 72.1 cm/s Mitral A Point Velocity 92.3 cm/s Mitral E to A Ratio 0.8 LV E' Lateral Velocity 9.3 cm/s Mitral E to LV E' Lateral Ratio 7.8 LV E' Septal Velocity 6.9 cm/s Mitral E to LV E' Septal Ratio 10.4 TR Peak Velocity 254.0 cm/s TR Peak Gradient 25.8 mmHg Right Atrial Pressure 10.0 mmHg Pulmonary Artery Systolic Pressu 35.8 mmHg Right Ventricular Systolic Press 35.8 mmHg PV Peak Velocity 134.0 cm/s PV Peak Gradient 7.2 mmHg FINDINGS LEFT VENTRICLE Normal left ventricular size. Mild concentric left ventricular hypertrophy. The left ventricular systolic function is normal with an estimated ejection fraction in the range of 60-65%. RIGHT VENTRICLE Normal right ventricular size and systolic function. LEFT ATRIUM The left atrial size is normal. RIGHT ATRIUM The right atrial size is normal. ATRIAL SEPTUM Normal atrial septal thickness without atrial level shunting by limited color doppler interrogation. AORTA The aortic root and proximal ascending aorta are normal in size on limited imaging. MITRAL VALVE Structurally normal mitral valve. No mitral valve stenosis or regurgitation. AORTIC VALVE Trileaflet aortic valve. No aortic valve stenosis or regurgitation. TRICUSPID VALVE Structurally normal tricuspid valve. No tricuspid valve stenosis or regurgitation. PULMONARY VALVE Mild pulmonary valve regurgitation. VESSELS The inferior vena cava is normal in size. PERICARDIUM No pericardial effusion. Killian Moraes MD, FACC, [facility] [place] (Electronically Signed) Final Date:29 March 2018 17:28
[2018-03-30 03:48] LABS: Baso # (Auto) 0.1 th/mm3 (0.0-0.2); Baso % (Auto) 0.6 % (0.0-2.0); Eos # (Auto) 0.3 th/mm3 (0.0-0.4); Eos % (Auto) 2.4 % (0.0-4.0); Hematocrit 42.3 % (39.0-51.0); Lymph # (Auto) 1.2 th/mm3 (1.0-4.8); Lymph % (Auto) 10.3 % (9.0-44.0); Mean Corpuscular Volume 87.9 fL (80.0-100.0); Mean Platelet Volume 8.5 fL (7.0-11.0); Mono # (Auto) 0.8 th/mm3 (0.0-0.9); Mono % (Auto) 6.4 % (0.0-8.0); Neut # (Auto) 9.5 th/mm3 (1.8-7.7); Neut % (Auto) 80.3 % (16.0-70.0); Platelet Count 210 th/mm3 (150-450); Red Blood Count 4.81 mil/mm3 (4.50-5.90); White Blood Count 11.8 th/mm3 (4.0-11.0)
[2018-03-30 04:05] LABS: Alanine Aminotransferase 68 U/L (12-78); Albumin 2.9 g/dL (3.4-5.0); Anion Gap 5 meq/L (5-15); Aspartate Aminotransferase 38 U/L (15-37); Blood Urea Nitrogen 21 mg/dL (7-18); Calcium 9.6 mg/dL (8.5-10.1); Carbon Dioxide 28.1 meq/L (21.0-32.0); Chloride 121 meq/L (98-107); Glomerular Filtration Rate 42 mL/min (>89); Glucose,Random 91 mg/dL (74-106); Potassium 3.9 meq/L (3.5-5.1); Sodium 154 meq/L (136-145)
[2018-03-30 04:08] LABS: Alkaline Phosphatase 108 U/L (45-117); Total Protein 6.6 g/dL (6.4-8.2)
[2018-03-30] MEDS: Chlorhexidine Gluconate 2% 1 Pack (2 Cloths) TOPICAL SCH (06:15)
[2018-03-30] MEDS: Famotidine PF Inj 20 MG/2 ML Vial IV.PUSH SCH ×2 (08:13→20:11)
[2018-03-30] MEDS: QUEtiapine 100 MG Tablet PO SCH (08:13)
--- NOTE | 2018-03-30 09:42 | P.PNIM ---
Subjective Interval history: 57-year-old male presents for an evaluation of generalized weakness. Patient appears very dehydrated on arrival. He was recently admitted for treatment of pneumonia. Chest x-ray was negative at that time, and he was discharged on antibiotics after a few days of IV antibiotics. Has a history of bipolar disorder treated with lithium. Per chart report when EMS arrived the patient looked like he had been on the floor for several days. On arrival the patient just states he feels very weak all over, denies any specific pain. Denies any abdominal pain chest pain headache or extremity pain. He states that he has had some mild nausea without vomiting. No diarrhea no constipation or blood in the stool. 03/28 Patient is awake and alert on room air oxygen, hypertensive. Afebrile. 03/29 Patient is awake and alert. Renal function is improving with Cr: 1.58 from 2.0 yesterday. Afebrile. 03-30 patient was TRANSFERRED FROM [facility] TO [facility] RN AND PT AM LABS PT AND OT CM FOR PLACEMENT Physical Exam Vital signs: Vital Signs 03/29/18 09:45 03/29/18 10:00 03/29/18 10:01 Temperature Pulse Rate 113 H 100 H 103 H Respiratory Rate 27 H 24 24 Blood Pressure 126/73 120/76 Pulse Oximetry 94 L 94 L 94 L 03/29/18 10:15 03/29/18 10:30 03/29/18 10:45 Temperature Pulse Rate 113 H 103 H 101 H Respiratory Rate 25 H 24 25 H Blood Pressure 114/78 125/76 107/74 Pulse Oximetry 94 L 94 L 95 03/29/18 11:00 03/29/18 11:15 03/29/18 11:30 Temperature Pulse Rate 101 H 103 H 97 H Respiratory Rate 25 H 22 25 H Blood Pressure 111/69 108/67 119/73 Pulse Oximetry 95 94 L 95 03/29/18 11:45 03/29/18 12:00 03/29/18 12:15 Temperature 97.8 F Pulse Rate 106 H 102 H 97 H Respiratory Rate 25 H 24 25 H Blood Pressure 115/73 106/73 104/71 Pulse Oximetry 94 L 95 95 03/29/18 12:30 03/29/18 12:45 03/29/18 13:00 Temperature Pulse Rate 98 H 92 H 97 H Respiratory Rate 23 25 H 24 Blood Pressure 103/70 107/75 116/67 Pulse Oximetry 94 L 94 L 95 03/29/18 13:15 03/29/18 13:30 03/29/18 13:45 Temperature Pulse Rate 104 H 97 H 94 H Respiratory Rate 27 H 21 26 H Blood Pressure 108/71 112/72 113/71 Pulse Oximetry 95 95 94 L 03/29/18 14:00 03/29/18 14:15 03/29/18 14:30 Temperature Pulse Rate 111 H 113 H 103 H Respiratory Rate 25 H 24 24 Blood Pressure 123/80 122/80 116/68 Pulse Oximetry 94 L 93 L 94 L 03/29/18 14:45 03/29/18 15:00 03/29/18 15:15 Temperature Pulse Rate 106 H 101 H 100 H Respiratory Rate 24 29 H 27 H Blood Pressure 116/69 115/71 114/70 Pulse Oximetry 94 L 94 L 92 L 03/29/18 15:30 03/29/18 15:45 03/29/18 16:00 Temperature 98.7 F Pulse Rate 102 H 101 H 98 H Respiratory Rate 27 H 29 H 26 H Blood Pressure 118/73 119/74 139/89 Pulse Oximetry 94 L 95 95 03/29/18 16:15 03/29/18 16:31 03/29/18 16:45 Temperature Pulse Rate 97 H 93 H 94 H Respiratory Rate 28 H 28 H 29 H Blood Pressure 148/74 H 126/77 121/77 Pulse Oximetry 95 94 L 94 L 03/29/18 17:00 03/29/18 17:15 03/29/18 17:30 Temperature Pulse Rate 100 H 96 H 100 H Respiratory Rate 24 29 H 29 H Blood Pressure 125/79 122/79 125/80 Pulse Oximetry 94 L 93 L 94 L 03/29/18 17:45 03/29/18 18:00 03/29/18 18:15 Temperature 98.7 F Pulse Rate 99 H 105 H 109 H Respiratory Rate 29 H 26 H 25 H Blood Pressure 126/80 132/84 128/87 Pulse Oximetry 94 L 94 L 94 L 03/29/18 18:30 03/29/18 18:45 03/29/18 19:00 Temperature Pulse Rate 110 H 108 H 106 H Respiratory Rate 24 30 H 27 H Blood Pressure 144/94 H 131/76 125/79 Pulse Oximetry 94 L 93 L 94 L 09/03/18 19:15 03/29/18 19:57 03/29/18 20:00 Temperature 98.8 F Pulse Rate 104 H 106 H Respiratory Rate 29 H 28 H Blood Pressure 125/81 133/87 Pulse Oximetry 93 L 93 L 93 L 03/29/18 21:00 03/29/18 22:00 03/30/18 00:00 Temperature 99.1 F Pulse Rate 102 H 94 H 88 Respiratory Rate 30 H 28 H 28 H Blood Pressure 130/83 147/93 H 133/84 Pulse Oximetry 94 L 94 L 03/30/18 01:00 03/30/18 02:00 03/30/18 03:00 Temperature Pulse Rate 83 90 91 H Respiratory Rate 28 H 26 H 23 Blood Pressure 153/96 H 129/88 144/93 H Pulse Oximetry 96 94 L 03/30/18 04:00 03/30/18 05:00 03/30/18 06:00 Temperature 98.8 F Pulse Rate 90 87 87 Respiratory Rate 26 H 26 H 25 H Blood Pressure 146/93 H 142/90 H 131/95 H Pulse Oximetry 94 L 94 L 03/30/18 08:23 Temperature Pulse Rate Respiratory Rate Blood Pressure Pulse Oximetry 95 Intake & Output 03/29/18 03/30/18 03/30/18 18:59 06:59 18:59 Intake Total 2200 / 2200 720 / 720 Output Total 2600 / 2600 2600 / 2600 Balance -400 / -400 -1880 / -1880 Weight 93.5 kg Intake: IV 1000 / 1000 D5W Inj 1,000 ML @ 75 mls/hr IV 1000 / 1000 .CONT .[id number] [facility] Rx#:[id number] Oral 1200 / 1200 720 / 720 Output: Urine 2600 / 2600 2600 / 2600 Narrative: GENERAL: NAD, disheveled SKIN: Warm and dry. HEAD: Atraumatic. Normocephalic. EYES: Pupils equal and round. No scleral icterus. No injection or drainage. EOMI ENT: No nasal bleeding or discharge. Mucous membranes pink and moist.TONGUE IS MIDLINE NECK: Trachea midline. No JVD. CARDIOVASCULAR: Regular rate and rhythm. S1, S2 NO S3 OR S4 RESPIRATORY: No accessory muscle use. Clear to auscultation. Breath sounds equal bilaterally. GASTROINTESTINAL: Abdomen soft, non-tender, nondistended. Hepatic and splenic margins not palpable. MUSCULOSKELETAL: Extremities without clubbing, cyanosis, or edema. No obvious deformities. NEUROLOGICAL: Awake and alert. No obvious cranial nerve deficits. Motor grossly within normal limits. Five out of 5 muscle strength in the arms and legs. Normal speech. PSYCHIATRIC: INAppropriate mood and affect; insight and judgment ABnormal. Results - Labs CBC & Chem 7: 03/30/18 03:31 03/30/18 03:31 Laboratory Results - last 24 hr 03/29/18 03/30/18 03/30/18 13:25 03:31 03:31 WBC 11.8 H RBC 4.81 Hgb 14.0 Hct 42.3 MCV 87.9 MCH 29.0 MCHC 33.0 RDW 15.0 Plt Count 210 MPV 8.5 Neut % (Auto) 80.3 H Lymph % (Auto) 10.3 Loving % (Auto) 6.4 Eos % (Auto) 2.4 Baso % (Auto) 0.6 Neut # (Auto) 9.5 H Lymph # (Auto) 1.2 Loving # (Auto) 0.8 Eos # (Auto) 0.3 Baso # (Auto) 0.1 WBC Differential . Differential Comment Auto diff final Sodium 153 H 154 H Potassium 3.7 3.9 Chloride 121 H 121 H Carbon Dioxide 24.1 28.1 Anion Gap 8 5 BUN 19 H 21 H Creatinine 1.53 H 1.68 H Estimated GFR 47 L 42 L Random Glucose 118 H 91 Calcium 9.0 9.6 Total Bilirubin 1.0 AST 38 H ALT 68 Alkaline Phosphatase 108 Total Protein 6.6 Albumin 2.9 L - Imaging Chest X-Ray 03/27/18 14:07 CONCLUSION: Negative examination. Liver Ultrasound 03/28/18 00:00 CONCLUSION: 1. Hepatomegaly and mild increased echotexture of the liver parenchyma. 2. Sludge-filled gallbladder with borderline wall thickening. - Procedures NONE Assessment and Plan - Plan 1)Hypernatremia SLOW IMPROVEMENT 2)AMS- improved 3)Coagulopathy POSSIBLY DUE TO MALNUTRITION SINCE CORRECTED WELL WITH VITAMIN K 4)History of liver cirrhosis 5)Elevated LFT 6)GAL slow improvement 7)Leukocytosis 8)Hx Bipolar disorder 9)Dehydration 10)Elevated trop Plan Neuro: Awake and alert On Seroquel and [place], Li level <0.1 -Appears to be totally noncompliant with his medications Pulm: Oxygen PRN keep sats >92% Bronchodilators CV: Monitor HR and BP keep MAP>65mmHg For 2D echo, cards is following- Dr. Tripathi. : Monitor renal function, I/O's, avoid nephrotoxins Renal function is improving with Cr: 1.58 from 1.98 yesterday IVF D5W@75ml/hr, monitor sodium level. Slow improvement continue on fluids GI: On PO diet, monitor LFT's, Hepatitis profile negative US liver: Hepatomegaly and mild increased echotexture of the liver parenchyma. Sludge-filled gallbladder with borderline wall thickening. Endo: Monitor for signs of infections ( Fever, WBC) Panculture if spikes a fever Heme: Monitor CBC, coags, INR 1.4 today from 5.6 On PO vitamin K , Heme is following. Endo: SSI if needed for glycemic control DVT GI prophylaxis -Teds SCDs -No pharmacological DVT prophylaxis due to coagulopathy -Regular diet, On Pepcid PT and OT Consult case management Code Status: FULL CODE Discussed Condition With: RN AND PT Discharge Planning: CM FOR DC PLANNING
[2018-03-30] MEDS ORDERED: Phytonadione 5 MG/SWFI 5 ML Oral Syringe PO SCH (10:00)
--- NOTE | 2018-03-30 11:24 | P.PNONC ---
Subjective Interval history: Afebrile, tachycardic. Patient remains confused, mumbles words which are difficult to understand. Objective Vital Signs/Intake & Output: Vital Signs 03/29/18 11:30 03/29/18 11:45 03/29/18 12:00 Temperature 97.8 F Pulse Rate 97 H 106 H 102 H Respiratory Rate 25 H 25 H 24 Blood Pressure 119/73 115/73 106/73 Pulse Oximetry 95 94 L 95 03/29/18 12:15 03/29/18 12:30 03/29/18 12:45 Temperature Pulse Rate 97 H 98 H 92 H Respiratory Rate 25 H 23 25 H Blood Pressure 104/71 103/70 107/75 Pulse Oximetry 95 94 L 94 L 03/29/18 13:00 03/29/18 13:15 03/29/18 13:30 Temperature Pulse Rate 97 H 104 H 97 H Respiratory Rate 24 27 H 21 Blood Pressure 116/67 108/71 112/72 Pulse Oximetry 95 95 95 03/29/18 13:45 03/29/18 14:00 03/29/18 14:15 Temperature Pulse Rate 94 H 111 H 113 H Respiratory Rate 26 H 25 H 24 Blood Pressure 113/71 123/80 122/80 Pulse Oximetry 94 L 94 L 93 L 03/29/18 14:30 03/29/18 14:45 03/29/18 15:00 Temperature Pulse Rate 103 H 106 H 101 H Respiratory Rate 24 24 29 H Blood Pressure 116/68 116/69 115/71 Pulse Oximetry 94 L 94 L 94 L 03/29/18 15:15 03/29/18 15:30 03/29/18 15:45 Temperature Pulse Rate 100 H 102 H 101 H Respiratory Rate 27 H 27 H 29 H Blood Pressure 114/70 118/73 119/74 Pulse Oximetry 92 L 94 L 95 03/29/18 16:00 03/29/18 16:15 03/29/18 16:31 Temperature 98.7 F Pulse Rate 98 H 97 H 93 H Respiratory Rate 26 H 28 H 28 H Blood Pressure 139/89 148/74 H 126/77 Pulse Oximetry 95 95 94 L 03/29/18 16:45 03/29/18 17:00 03/29/18 17:15 Temperature Pulse Rate 94 H 100 H 96 H Respiratory Rate 29 H 24 29 H Blood Pressure 121/77 125/79 122/79 Pulse Oximetry 94 L 94 L 93 L 03/29/18 17:30 03/29/18 17:45 03/29/18 18:00 Temperature 98.7 F Pulse Rate 100 H 99 H 105 H Respiratory Rate 29 H 29 H 26 H Blood Pressure 125/80 126/80 132/84 Pulse Oximetry 94 L 94 L 94 L 03/29/18 18:15 03/29/18 18:30 03/29/18 18:45 Temperature Pulse Rate 109 H 110 H 108 H Respiratory Rate 25 H 24 30 H Blood Pressure 128/87 144/94 H 131/76 Pulse Oximetry 94 L 94 L 93 L 03/29/18 19:00 03/29/18 19:15 03/29/18 19:57 Temperature Pulse Rate 106 H 104 H Respiratory Rate 27 H 29 H Blood Pressure 125/79 125/81 Pulse Oximetry 94 L 93 L 93 L 03/29/18 20:00 03/29/18 21:00 03/29/18 22:00 Temperature 98.8 F Pulse Rate 106 H 102 H 94 H Respiratory Rate 28 H 30 H 28 H Blood Pressure 133/87 130/83 147/93 H Pulse Oximetry 93 L 94 L 03/30/18 00:00 03/30/18 01:00 03/30/18 02:00 Temperature 99.1 F Pulse Rate 88 83 90 Respiratory Rate 28 H 28 H 26 H Blood Pressure 133/84 153/96 H 129/88 Pulse Oximetry 94 L 96 03/30/18 03:00 03/30/18 04:00 03/30/18 05:00 Temperature 98.8 F Pulse Rate 91 H 90 87 Respiratory Rate 23 26 H 26 H Blood Pressure 144/93 H 146/93 H 142/90 H Pulse Oximetry 94 L 94 L 94 L 03/30/18 06:00 03/30/18 08:23 Temperature Pulse Rate 87 Respiratory Rate 25 H Blood Pressure 131/95 H Pulse Oximetry 95 Intake & Output 03/29/18 03/30/18 03/30/18 18:59 06:59 18:59 Intake Total 2200 / 2200 720 / 720 Output Total 2600 / 2600 2600 / 2600 Balance -400 / -400 -1880 / -1880 Weight 93.5 kg Intake: IV 1000 / 1000 D5W Inj 1,000 ML @ 75 mls/hr IV 1000 / 1000 .CONT .[id number] [facility] Rx#:[id number] Oral 1200 / 1200 720 / 720 Output: Urine 2600 / 2600 2600 / 2600 Result Diagrams: 03/30/18 03:31 03/30/18 03:31 Laboratory Results: Laboratory Results - last 24 hr 03/29/18 03/30/18 03/30/18 13:25 03:31 03:31 WBC 11.8 H RBC 4.81 Hgb 14.0 Hct 42.3 MCV 87.9 MCH 29.0 MCHC 33.0 RDW 15.0 Plt Count 210 MPV 8.5 Neut % (Auto) 80.3 H Lymph % (Auto) 10.3 Jenkins % (Auto) 6.4 Eos % (Auto) 2.4 Baso % (Auto) 0.6 Neut # (Auto) 9.5 H Lymph # (Auto) 1.2 Jenkins # (Auto) 0.8 Eos # (Auto) 0.3 Baso # (Auto) 0.1 WBC Differential . Differential Comment Auto diff final APTT Sodium 153 H 154 H Potassium 3.7 3.9 Chloride 121 H 121 H Carbon Dioxide 24.1 28.1 Anion Gap 8 5 BUN 19 H 21 H Creatinine 1.53 H 1.68 H Estimated GFR 47 L 42 L Random Glucose 118 H 91 Calcium 9.0 9.6 Total Bilirubin 1.0 AST 38 H ALT 68 Alkaline Phosphatase 108 Total Protein 6.6 Albumin 2.9 L TSH Free T4 03/30/18 03/30/18 03/30/18 03:31 03:31 10:22 WBC RBC Hgb Hct MCV MCH MCHC RDW Plt Count MPV Neut % (Auto) Lymph % (Auto) Jenkins % (Auto) Eos % (Auto) Baso % (Auto) Neut # (Auto) Lymph # (Auto) Jenkins # (Auto) Eos # (Auto) Baso # (Auto) WBC Differential Differential Comment APTT 27.7 Sodium Potassium Chloride Carbon Dioxide Anion Gap BUN Creatinine Estimated GFR Random Glucose Calcium Total Bilirubin AST ALT Alkaline Phosphatase Total Protein Albumin TSH 2.940 Free T4 1.25 Medications: Active Medications Generic Name Dose Route Start Last Admin Trade Name Freq PRN Reason Stop Dose Admin Chlorhexidine Gluconate 3 pack 03/28/18 04:00 03/30/18 06:15 Chlorhexidine 2% Cloth TOPICAL 04/02/18 03:59 3 pack DAILY@0400 ALEJA Administration Clonidine HCl 0.1 mg 03/28/18 02:46 03/30/18 08:15 Catapres PO 0.1 mg Q6H PRN Administration SEE COMMENT Famotidine 10 mg 03/28/18 21:00 03/30/18 08:13 Pepcid Pf Inj IV.PUSH 10 mg Q12HR ALEJA Administration Dextrose 1,000 mls @ 75 mls/hr 03/28/18 09:00 03/30/18 05:00 D5w Inj IV.CONT 75 mls/hr .[id number] ALEJA Infusion Potassium Chloride 20 meq in 100 mls @ 50 mls/hr 03/28/18 12:25 03/28/18 17: 55 Kcl 20 Meq Premix Inj IV.SIG Infused Q2H PRN Infusion For Potassium 3.3 - 3.5 mEq/L Spry Carbonate 600 mg 03/27/18 21:00 03/30/18 08:12 Spry Carbonate PO 600 mg BID ALEJA Administration Metoclopramide HCl 5 mg 03/28/18 00:00 03/30/18 06:14 Reglan Inj IV.PUSH 5 mg Q6HR ALEJA Administration Protocol Ondansetron HCl 4 mg 03/27/18 19:05 03/27/18 21:40 Zofran Inj IV.PUSH 4 mg Q6H PRN Administration NAUSEA OR VOMITING Potassium Bicarb/Potassium Chloride 50 meq 03/28/18 12:25 03/29/18 05:14 K-Lyte Cl Eff PO 50 meq UNSCH PRN Administration For Potassium 3.3 - 3.5 mEq/L Quetiapine Fumarate 500 mg 03/28/18 09:00 03/30/18 08:13 Seroquel PO 500 mg DAILY ALEJA Administration Senna/Docusate Sodium 1 tab 03/27/18 21:00 03/29/18 21:19 Joanne-Colace PO 1 tab BID ALEJA Administration Sodium Chloride 2 ml 03/27/18 21:00 03/30/18 08:13 Ns Flush IV.FLUSH 2 ml BID ALEJA Administration Objective Remarks: GENERAL: Disheveled middle-aged male patient, in no acute distress. SKIN: Warm and dry. HEAD: Normocephalic. EYES: No scleral icterus. No injection or drainage. NECK: Supple, trachea midline. CARDIOVASCULAR: Regular rhythm without murmurs. + Tachycardic. RESPIRATORY: Breath sounds equal bilaterally. No accessory muscle use. GASTROINTESTINAL: Abdomen soft, non-tender, nondistended. EXTREMITIES: No cyanosis, or edema. MUSCULOSKELETAL: Adequate muscle tone. NEUROLOGICAL: Awake, confused, mumbles words. Moving all extremities. Assessment/Plan (1) Coagulopathy Code(s): D68.9 - Coagulation defect, unspecified Status: Acute - Plan 57-year-old man with multiple medical problems and mental illness. He had several days of non-taking p.o. fluids and came in severely dehydrated with acute renal failure, hypernatremia and coagulopathy. He is recovering with supportive care. Hematology was consulted for the coagulopathy. He has no overt bleeding. Repeat PT PTT have improved. The coagulopathy is suspected to be due to severe dehydration and decreased plasma volume. He has underlying liver disease which can contribute to the coagulopathy. No specific therapy is required as he is recovering with the treatment for his dehydration. Vitamin K was offered orally. He should be able to replete his vitamin K with good p.o. intake from a variety of foods. 1. APTT continues to improve, PT/INR pending. 2. Patient received 2 doses of vitamin K. 3. Dehydration and continued confusion, management per primary care team. - Attending Statement Discussed above. Coagulopathy resolved Pt/PTT normalized with improvement in hydration. Hgb, Na and LFT now NL. Will follow peripherally.
[2018-03-30 11:30] LABS: INR 1.1 Ratio; Prothrombin Time 10.9 sec (9.8-11.6)
[2018-03-30] MEDS: Phytonadione 2.5 MG/SWFI 2.5 ML Oral Syringe PO SCH (13:55)
[2018-03-30 15:53] LABS: Hemoglobin A1c 5.5 % (4.3-6.0)
[2018-03-30] MEDS: Senna/Docusate Sodium 8.6/50 MG Tablet PO SCH ×2 (17:46→20:11)
--- NOTE | 2018-03-30 18:05 | P.PNCA ---
Subjective Interval history: Confused Sinus tachycardia Physical Exam Vital signs: Vital Signs 03/29/18 18:15 03/29/18 18:30 03/29/18 18:45 Temperature Pulse Rate 109 H 110 H 108 H Respiratory Rate 25 H 24 30 H Blood Pressure 128/87 144/94 H 131/76 Pulse Oximetry 94 L 94 L 93 L 03/29/18 19:00 03/29/18 19:15 03/29/18 19:57 Temperature Pulse Rate 106 H 104 H Respiratory Rate 27 H 29 H Blood Pressure 125/79 125/81 Pulse Oximetry 94 L 93 L 93 L 03/29/18 20:00 03/29/18 21:00 03/29/18 22:00 Temperature 98.8 F Pulse Rate 106 H 102 H 94 H Respiratory Rate 28 H 30 H 28 H Blood Pressure 133/87 130/83 147/93 H Pulse Oximetry 93 L 94 L 03/30/18 00:00 03/30/18 01:00 03/30/18 02:00 Temperature 99.1 F Pulse Rate 88 83 90 Respiratory Rate 28 H 28 H 26 H Blood Pressure 133/84 153/96 H 129/88 Pulse Oximetry 94 L 96 03/30/18 03:00 03/30/18 04:00 03/30/18 05:00 Temperature 98.8 F Pulse Rate 91 H 90 87 Respiratory Rate 23 26 H 26 H Blood Pressure 144/93 H 146/93 H 142/90 H Pulse Oximetry 94 L 94 L 94 L 03/30/18 06:00 03/30/18 08:00 03/30/18 08:23 Temperature 98.8 F Pulse Rate 87 93 H Respiratory Rate 25 H 19 Blood Pressure 131/95 H 179/115 H Pulse Oximetry 93 L 95 03/30/18 12:00 03/30/18 13:00 03/30/18 16:00 Temperature 98.9 F 98.9 F 98.3 F Pulse Rate 130 H 130 H 92 H Respiratory Rate 25 H 29 H 14 Blood Pressure 143/98 H 143/98 H 148/97 H Pulse Oximetry 95 95 97 Intake & Output 03/29/18 03/30/18 03/30/18 18:59 06:59 18:59 Intake Total 2200 / 2200 720 / 720 Output Total 2600 / 2600 2600 / 2600 Balance -400 / -400 -1880 / -1880 Weight 93.5 kg Intake: IV 1000 / 1000 D5W Inj 1,000 ML @ 75 mls/hr IV 1000 / 1000 .CONT .[id number] [facility] Rx#:[id number] Oral 1200 / 1200 720 / 720 Output: Urine 2600 / 2600 2600 / 2600 Narrative: GENERAL: NAD, disheveled ,confused SKIN: Warm and dry. HEAD: Atraumatic. Normocephalic. EYES: Pupils equal and round. No scleral icterus. No injection or drainage. EOMI ENT: No nasal bleeding or discharge. Mucous membranes pink and moist.TONGUE IS MIDLINE NECK: Trachea midline. No JVD. CARDIOVASCULAR: Tachy but regular RESPIRATORY: No accessory muscle use. Clear to auscultation. Breath sounds equal bilaterally. GASTROINTESTINAL: Abdomen soft, non-tender, nondistended. Hepatic and splenic margins not palpable. MUSCULOSKELETAL: Extremities without clubbing, cyanosis, or edema. No obvious deformities. NEUROLOGICAL: Awake and alert. No obvious cranial nerve deficits. Motor grossly within normal limits. Five out of 5 muscle strength in the arms and legs. Normal speech. PSYCHIATRIC: INAppropriate mood and affect; insight and judgment ABnormal. Assessment and Plan - Assessment (1) Elevated troponin Code(s): R74.8 - Abnormal levels of other serum enzymes Status: Acute (2) Bipolar disorder Code(s): F31.9 - Bipolar disorder, unspecified Status: Acute (3) Coagulopathy Code(s): D68.9 - Coagulation defect, unspecified Status: Acute (4) Acute renal failure Code(s): N17.9 - Acute kidney failure, unspecified Status: Acute - Plan 1) Severe dehydration due to not eating/drinking for a number of days 2) GAL resolved 3) Hypernatremia, better 4) Elevated INR, better 5) Elevated trop Type 2 spill due to end organ damage from dehydration No ischemic work up planned 6) 2D echo pending 7) Tachycardia most likely secondary to confusion Treat underlying cause (2) Bipolar disorder Qualifiers: Active/Remission status: currently active Current bipolar episode type: depressed Current episode severity: moderate Qualified Code(s): F31.32 - Bipolar disorder, current episode depressed, moderate
--- NOTE | 2018-03-30 20:14 | P.PNNP ---
Subjective Interval history: Patient remains confused Physical Exam Vital signs: Vital Signs 03/29/18 21:00 03/29/18 22:00 03/30/18 00:00 Temperature 99.1 F Pulse Rate 102 H 94 H 88 Respiratory Rate 30 H 28 H 28 H Blood Pressure 130/83 147/93 H 133/84 Pulse Oximetry 94 L 94 L 03/30/18 01:00 03/30/18 02:00 03/30/18 03:00 Temperature Pulse Rate 83 90 91 H Respiratory Rate 28 H 26 H 23 Blood Pressure 153/96 H 129/88 144/93 H Pulse Oximetry 96 94 L 03/30/18 04:00 03/30/18 05:00 03/30/18 06:00 Temperature 98.8 F Pulse Rate 90 87 87 Respiratory Rate 26 H 26 H 25 H Blood Pressure 146/93 H 142/90 H 131/95 H Pulse Oximetry 94 L 94 L 03/30/18 08:00 03/30/18 08:23 03/30/18 12:00 Temperature 98.8 F 98.9 F Pulse Rate 93 H 130 H Respiratory Rate 19 25 H Blood Pressure 179/115 H 143/98 H Pulse Oximetry 93 L 95 95 03/30/18 13:00 03/30/18 16:00 Temperature 98.9 F 98.3 F Pulse Rate 130 H 92 H Respiratory Rate 29 H 14 Blood Pressure 143/98 H 148/97 H Pulse Oximetry 95 97 Intake & Output 03/30/18 03/30/18 03/31/18 06:59 18:59 06:59 Intake Total 720 / 720 600 / 600 Output Total 2600 / 2600 1150 / 1150 Balance -1880 / -1880 -550 / -550 Weight 93.5 kg Intake: Oral 720 / 720 600 / 600 Output: Urine 2600 / 2600 1150 / 1150 - Constitutional agitated - Routine HEENT Exam Eye: Present: EOMI - Routine Respiratory Exam Present: CTA bilaterally - Routine Cardiovascular Exam Present: RRR - Routine Abdominal Exam Present: soft, normoactive bowel sounds - Routine Extremities Exam Present: full ROM Assessment and Plan - Assessment (1) Acute renal failure Code(s): N17.9 - Acute kidney failure, unspecified Status: Acute - Plan Patient sodium remains elevated he is confused Getting IV fluid D5W at 75 cc an hour Follow BMP
[2018-03-30] MEDS: Dextrose 5% in Water Inj 1,000 ML IV.CONT SCH (22:31)
[2018-03-30] MEDS: Temazepam 15 MG Capsule PO PRN (23:30)
[2018-03-31 04:21] LABS: Baso # (Auto) 0.1 th/mm3 (0.0-0.2); Baso % (Auto) 1.1 % (0.0-2.0); Eos # (Auto) 0.3 th/mm3 (0.0-0.4); Hematocrit 41.1 % (39.0-51.0); Lymph # (Auto) 1.5 th/mm3 (1.0-4.8); Lymph % (Auto) 18.1 % (9.0-44.0); Mean Corpuscular HGB Conc 33.9 % (32.0-36.0); Mean Corpuscular Hemoglobin 29.5 pg (27.0-34.0); Mean Corpuscular Volume 86.9 fL (80.0-100.0); Mono # (Auto) 0.9 th/mm3 (0.0-0.9); Mono % (Auto) 10.9 % (0.0-8.0); Neut # (Auto) 5.6 th/mm3 (1.8-7.7); Neut % (Auto) 65.9 % (16.0-70.0); Platelet Count 180 th/mm3 (150-450); Red Blood Count 4.73 mil/mm3 (4.50-5.90); Red Cell Distribution Width 14.7 % (11.6-17.2); White Blood Count 8.5 th/mm3 (4.0-11.0)
[2018-03-31 04:33] LABS: Prothrombin Time 10.4 sec (9.8-11.6)
[2018-03-31 04:50] LABS: Alanine Aminotransferase 54 U/L (12-78); Albumin 2.9 g/dL (3.4-5.0); Anion Gap 7 meq/L (5-15); Aspartate Aminotransferase 26 U/L (15-37); Blood Urea Nitrogen 16 mg/dL (7-18); Calcium 9.6 mg/dL (8.5-10.1); Carbon Dioxide 28.6 meq/L (21.0-32.0); Chloride 117 meq/L (98-107); Cholesterol 163 mg/dL (120-200); Glomerular Filtration Rate 43 mL/min (>89); Glucose,Random 85 mg/dL (74-106); Magnesium 2.3 mg/dL (1.5-2.5); Potassium 3.8 meq/L (3.5-5.1); Sodium 153 meq/L (136-145); Triglycerides 229 mg/dL (42-150)
[2018-03-31 04:54] LABS: Alkaline Phosphatase 100 U/L (45-117); Chol/HDL Ratio 4.21 Ratio; HDL Cholesterol 38.7 mg/dL (40.0-60.0); LDL Cholesterol,Calculated 79 mg/dL (0-99); Phosphorus 0.9 mg/dL (2.5-4.9); Total Protein 6.7 g/dL (6.4-8.2)
[2018-03-31] MEDS: Chlorhexidine Gluconate 2% 1 Pack (2 Cloths) TOPICAL SCH (05:53)
[2018-03-31] MEDS: Famotidine PF Inj 20 MG/2 ML Vial IV.PUSH SCH ×2 (08:49→20:38)
[2018-03-31] MEDS: Senna/Docusate Sodium 8.6/50 MG Tablet PO SCH ×2 (08:52→20:38)
[2018-03-31] MEDS: Potassium Phosphate 500 MG Soluble Tablet PO PRN ×3 (08:53→21:48)
--- NOTE | 2018-03-31 10:40 | P.PNIM ---
Subjective Interval history: 57-year-old male presents for an evaluation of generalized weakness. Patient appears very dehydrated on arrival. He was recently admitted for treatment of pneumonia. Chest x-ray was negative at that time, and he was discharged on antibiotics after a few days of IV antibiotics. Has a history of bipolar disorder treated with lithium. Per chart report when EMS arrived the patient looked like he had been on the floor for several days. On arrival the patient just states he feels very weak all over, denies any specific pain. Denies any abdominal pain chest pain headache or extremity pain. He states that he has had some mild nausea without vomiting. No diarrhea no constipation or blood in the stool. 03/28 Patient is awake and alert on room air oxygen, hypertensive. Afebrile. 03/29 Patient is awake and alert. Renal function is improving with Cr: 1.58 from 2.0 yesterday. Afebrile. 03-30 patient was TRANSFERRED FROM [facility] TO [facility] REMAINS CONFUSED MUMDENNIS MELÉNDEZ RN AND PT AM LABS PT AND OT CM FOR PLACEMENT 03-31 LITTLE LESS CONFUSED TODAY KNew that the president was Rj Simmons. He knew that it was 2017 and he knew he was in [facility] in [facility]. Little confused from taking a sleeping pill last night Taking his medication Was in 2-point restraints yesterday A.m. labs Increase activity Physical Exam Vital signs: Vital Signs 03/30/18 12:00 03/30/18 13:00 03/30/18 16:00 Temperature 98.9 F 98.9 F 98.3 F Pulse Rate 130 H 130 H 92 H Respiratory Rate 25 H 29 H 14 Blood Pressure 143/98 H 143/98 H 148/97 H Pulse Oximetry 95 95 97 03/30/18 20:00 03/30/18 23:37 03/31/18 00:00 Temperature 98.4 F 98.2 F Pulse Rate 111 H 94 H Respiratory Rate 34 H 27 H Blood Pressure 146/109 H 147/90 H Pulse Oximetry 97 95 94 L 03/31/18 03:35 03/31/18 04:00 03/31/18 08:00 Temperature 99.0 F 97.1 F L Pulse Rate 80 82 Respiratory Rate 23 16 Blood Pressure 145/99 H 161/96 H Pulse Oximetry 97 95 95 Intake & Output 03/30/18 03/31/18 03/31/18 18:59 06:59 18:59 Intake Total 1600 / 1600 480 / 480 Output Total 1150 / 1150 1999 Balance 450 / 450 -1520 / -1520 Weight 92 kg Intake: IV 1000 / 1000 D5W Inj 1,000 ML @ 75 mls/hr IV 1000 / 1000 .CONT .[id number] [facility] Rx#:[id number] Oral 600 / 600 480 / 480 Output: Urine 1150 / 1150 1999 Narrative: GENERAL: NAD, disheveled ,confused SKIN: Warm and dry. HEAD: Atraumatic. Normocephalic. EYES: Pupils equal and round. No scleral icterus. No injection or drainage. EOMI ENT: No nasal bleeding or discharge. Mucous membranes pink and moist.TONGUE IS MIDLINE NECK: Trachea midline. No JVD. CARDIOVASCULAR: Tachy but regular S1-S2 no S3 or S4 RESPIRATORY: No accessory muscle use. Clear to auscultation. Breath sounds equal bilaterally. GASTROINTESTINAL: Abdomen soft, non-tender, nondistended. Hepatic and splenic margins not palpable. MUSCULOSKELETAL: Extremities without clubbing, cyanosis, or edema. No obvious deformities. NEUROLOGICAL: Awake and alert. No obvious cranial nerve deficits. Motor grossly within normal limits. Five out of 5 muscle strength in the arms and legs. Normal speech. PSYCHIATRIC: INAppropriate mood and affect; insight and judgment ABnormal. Results - Labs CBC & Chem 7: 03/31/18 03:50 03/31/18 03:50 Laboratory Results - last 24 hr 03/30/18 03/30/18 03/30/18 03:31 10:22 10:27 WBC RBC Hgb Hct MCV MCH MCHC RDW Plt Count MPV Neut % (Auto) Lymph % (Auto) [place] % (Auto) Eos % (Auto) Baso % (Auto) Neut # (Auto) Lymph # (Auto) [place] # (Auto) Eos # (Auto) Baso # (Auto) WBC Differential Differential Comment PT 10.9 INR 1.1 APTT 27.7 Sodium Potassium Chloride Carbon Dioxide Anion Gap BUN Creatinine Estimated GFR Random Glucose Hemoglobin A1c 5.5 Calcium Phosphorus Magnesium Total Bilirubin AST ALT Alkaline Phosphatase Ammonia Total Protein Albumin Triglycerides Cholesterol LDL Cholesterol, Calc HDL Cholesterol Cholesterol/HDL Ratio 03/31/18 03/31/18 03/31/18 03:50 03:50 03:50 WBC 8.5 RBC 4.73 Hgb 14.0 Hct 41.1 MCV 86.9 MCH 29.5 MCHC 33.9 RDW 14.7 Plt Count 180 MPV 9.0 Neut % (Auto) 65.9 Lymph % (Auto) 18.1 [place] % (Auto) 10.9 H Eos % (Auto) 4.0 Baso % (Auto) 1.1 Neut # (Auto) 5.6 Lymph # (Auto) 1.5 [place] # (Auto) 0.9 Eos # (Auto) 0.3 Baso # (Auto) 0.1 WBC Differential . Differential Comment Auto diff final PT 10.4 INR 1.0 APTT Sodium 153 H Potassium 3.8 Chloride 117 H Carbon Dioxide 28.6 Anion Gap 7 BUN 16 Creatinine 1.66 H Estimated GFR 43 L Random Glucose 85 Hemoglobin A1c Calcium 9.6 Phosphorus 0.9 L Magnesium 2.3 Total Bilirubin 0.8 AST 26 ALT 54 Alkaline Phosphatase 100 Ammonia Total Protein 6.7 Albumin 2.9 L Triglycerides 229 H Cholesterol 163 LDL Cholesterol, Calc 79 HDL Cholesterol 38.7 L Cholesterol/HDL Ratio 4.21 03/31/18 03:50 WBC RBC Hgb Hct MCV MCH MCHC RDW Plt Count MPV Neut % (Auto) Lymph % (Auto) [place] % (Auto) Eos % (Auto) Baso % (Auto) Neut # (Auto) Lymph # (Auto) [place] # (Auto) Eos # (Auto) Baso # (Auto) WBC Differential Differential Comment PT INR APTT Sodium Potassium Chloride Carbon Dioxide Anion Gap BUN Creatinine Estimated GFR Random Glucose Hemoglobin A1c Calcium Phosphorus Magnesium Total Bilirubin AST ALT Alkaline Phosphatase Ammonia Less than 10 L Total Protein Albumin Triglycerides Cholesterol LDL Cholesterol, Calc HDL Cholesterol Cholesterol/HDL Ratio - Imaging Chest X-Ray 03/27/18 14:07 CONCLUSION: Negative examination. Liver Ultrasound 03/28/18 00:00 CONCLUSION: 1. Hepatomegaly and mild increased echotexture of the liver parenchyma. 2. Sludge-filled gallbladder with borderline wall thickening. - Procedures NONE Assessment and Plan - Plan 1)Hypernatremia SLOW IMPROVEMENT 2)AMS- improved 3)Coagulopathy POSSIBLY DUE TO MALNUTRITION SINCE CORRECTED WELL WITH VITAMIN K 4)History of liver cirrhosis 5)Elevated LFT 6)GAL slow improvement-very slow improvement 7)Leukocytosis-improved 8)Hx Bipolar disorder-back on his medications 9)Dehydration very slow improvement 10)Elevated trop -suspected type II troponin release Plan Neuro: Awake and alert On Seroquel and Sentinel, Li level <0.1 -Appears to be totally noncompliant with his medications Pulm: Oxygen PRN keep sats >92% Bronchodilators CV: Monitor HR and BP keep MAP>65mmHg For 2D echo, cards is following- Dr. Tripathi. : Monitor renal function, I/O's, avoid nephrotoxins Renal function is improving with Cr: 1.58 from 1.98 yesterday IVF D5W@75ml/hr, monitor sodium level. Slow improvement continue on fluids GI: On PO diet, monitor LFT's, Hepatitis profile negative US liver: Hepatomegaly and mild increased echotexture of the liver parenchyma. Sludge-filled gallbladder with borderline wall thickening. Endo: Monitor for signs of infections ( Fever, WBC) Panculture if spikes a fever Heme: Monitor CBC, coags, INR 1.4 today from 5.6 On PO vitamin K , Heme is following. -Severe malnutrition improved once given oral vitamin K Endo: SSI if needed for glycemic control DVT GI prophylaxis -Teds SCDs -No pharmacological DVT prophylaxis due to coagulopathy -Regular diet, On Pepcid PT and OT Consult case management Code Status: Full code Discussed Condition With: RN and patient Discharge Planning: CM FOR DC PLANNING
[2018-03-31] MEDS: QUEtiapine 100 MG Tablet PO SCH (10:41)
--- NOTE | 2018-03-31 10:51 | P.PNNP ---
Subjective Interval history: Patient is more alert Physical Exam Vital signs: Vital Signs 03/30/18 12:00 03/30/18 13:00 03/30/18 16:00 Temperature 98.9 F 98.9 F 98.3 F Pulse Rate 130 H 130 H 92 H Respiratory Rate 25 H 29 H 14 Blood Pressure 143/98 H 143/98 H 148/97 H Pulse Oximetry 95 95 97 03/30/18 20:00 03/30/18 23:37 03/31/18 00:00 Temperature 98.4 F 98.2 F Pulse Rate 111 H 94 H Respiratory Rate 34 H 27 H Blood Pressure 146/109 H 147/90 H Pulse Oximetry 97 95 94 L 03/31/18 03:35 03/31/18 04:00 03/31/18 08:00 Temperature 99.0 F 97.1 F L Pulse Rate 80 82 Respiratory Rate 23 16 Blood Pressure 145/99 H 161/96 H Pulse Oximetry 97 95 95 Intake & Output 03/30/18 03/31/18 03/31/18 18:59 06:59 18:59 Intake Total 1600 / 1600 480 / 480 Output Total 1150 / 1150 1999 Balance 450 / 450 -1520 / -1520 Weight 92 kg Intake: IV 1000 / 1000 D5W Inj 1,000 ML @ 75 mls/hr IV 1000 / 1000 .CONT .[id number] [facility] Rx#:[id number] Oral 600 / 600 480 / 480 Output: Urine 1150 / 1150 1999 - Constitutional no acute distress - Routine HEENT Exam Head: Present: normocephalic - Routine Neck Exam Present: supple - Routine Respiratory Exam Present: CTA bilaterally - Routine Cardiovascular Exam Present: RRR - Routine Abdominal Exam Present: soft, normoactive bowel sounds - Routine Extremities Exam Present: pulses intact Assessment and Plan - Assessment (1) Acute renal failure Code(s): N17.9 - Acute kidney failure, unspecified Status: Acute - Plan Patient sodium 153 creatinine is slightly better Phosphorus 0.9 continue with replacement protocol Getting IV fluid D5W at 75 cc an hour Follow BMP
[2018-03-31] MEDS: Dextrose 5% in Water Inj 1,000 ML IV.CONT SCH (11:03)
--- NOTE | 2018-03-31 18:05 | P.PNCA ---
Subjective Interval history: Less confused today Heart rates better Physical Exam Vital signs: Vital Signs 03/30/18 20:00 03/30/18 23:37 03/31/18 00:00 Temperature 98.4 F 98.2 F Pulse Rate 111 H 94 H Respiratory Rate 34 H 27 H Blood Pressure 146/109 H 147/90 H Pulse Oximetry 97 95 94 L 03/31/18 03:35 03/31/18 04:00 03/31/18 08:00 Temperature 99.0 F 97.1 F L Pulse Rate 80 82 Respiratory Rate 23 16 Blood Pressure 145/99 H 161/96 H Pulse Oximetry 97 95 95 03/31/18 12:00 03/31/18 16:00 Temperature 98.8 F 98.1 F Pulse Rate 102 H 101 H Respiratory Rate 19 26 H Blood Pressure 94/61 L 110/85 Pulse Oximetry 95 95 Intake & Output 03/30/18 03/31/18 03/31/18 18:59 06:59 18:59 Intake Total 1600 / 1600 480 / 480 1000 / 1000 Output Total 1150 / 1150 1999 Balance 450 / 450 -1520 / -1520 1000 / 1000 Weight 92 kg Intake: IV 1000 / 1000 1000 / 1000 D5W Inj 1,000 ML @ 75 mls/hr IV 1000 / 1000 1000 / 1000 [id number] Rx#:[id number] Oral 600 / 600 480 / 480 Output: Urine 1150 / 1150 1999 Narrative: GENERAL: NAD, disheveled ,confused SKIN: Warm and dry. HEAD: Atraumatic. Normocephalic. EYES: Pupils equal and round. No scleral icterus. No injection or drainage. EOMI ENT: No nasal bleeding or discharge. Mucous membranes pink and moist.TONGUE IS MIDLINE NECK: Trachea midline. No JVD. CARDIOVASCULAR: Tachy but regular S1-S2 no S3 or S4 RESPIRATORY: No accessory muscle use. Clear to auscultation. Breath sounds equal bilaterally. GASTROINTESTINAL: Abdomen soft, non-tender, nondistended. Hepatic and splenic margins not palpable. MUSCULOSKELETAL: Extremities without clubbing, cyanosis, or edema. No obvious deformities. NEUROLOGICAL: Awake and alert. No obvious cranial nerve deficits. Motor grossly within normal limits. Five out of 5 muscle strength in the arms and legs. Normal speech. PSYCHIATRIC: INAppropriate mood and affect; insight and judgment ABnormal. - Urinary Catheter Management Indwelling Urethral Catheter Cath placed during this visit: yes Reason for continuing: Acute urinary retention Insertion date: 03/31/18 Insertion time: 15:00 Assessment and Plan - Assessment (1) Elevated troponin Code(s): R74.8 - Abnormal levels of other serum enzymes Status: Acute (2) Bipolar disorder Code(s): F31.9 - Bipolar disorder, unspecified Status: Acute (3) Coagulopathy Code(s): D68.9 - Coagulation defect, unspecified Status: Acute (4) Acute renal failure Code(s): N17.9 - Acute kidney failure, unspecified Status: Acute - Plan 1) Severe dehydration due to not eating/drinking for a number of days 2) GAL resolved 3) Hypernatremia, better 4) Elevated INR, better 5) Elevated trop Type 2 spill due to end organ damage from dehydration No ischemic work up planned 6) EF60-65% 7) Tachycardia most likely secondary to confusion Treat underlying cause (2) Bipolar disorder Qualifiers: Active/Remission status: currently active Current bipolar episode type: depressed Current episode severity: moderate Qualified Code(s): F31.32 - Bipolar disorder, current episode depressed, moderate
[2018-04-01 03:26] LABS: Baso # (Auto) 0.1 th/mm3 (0.0-0.2); Baso % (Auto) 1.1 % (0.0-2.0); Eos # (Auto) 0.3 th/mm3 (0.0-0.4); Eos % (Auto) 3.5 % (0.0-4.0); Hemoglobin 13.3 gm/dL (13.0-17.0); Lymph # (Auto) 1.6 th/mm3 (1.0-4.8); Lymph % (Auto) 18.5 % (9.0-44.0); Mean Corpuscular Hemoglobin 29.5 pg (27.0-34.0); Mean Corpuscular Volume 86.5 fL (80.0-100.0); Mean Platelet Volume 9.5 fL (7.0-11.0); Mono % (Auto) 12.3 % (0.0-8.0); Neut # (Auto) 5.5 th/mm3 (1.8-7.7); Neut % (Auto) 64.6 % (16.0-70.0); Platelet Count 191 th/mm3 (150-450); Red Blood Count 4.51 mil/mm3 (4.50-5.90); Red Cell Distribution Width 14.9 % (11.6-17.2); White Blood Count 8.5 th/mm3 (4.0-11.0)
[2018-04-01 03:57] LABS: Alanine Aminotransferase 47 U/L (12-78); Alkaline Phosphatase 95 U/L (45-117); Phosphorus 2.4 mg/dL (2.5-4.9); Total Protein 6.4 g/dL (6.4-8.2)
[2018-04-01 04:05] LABS: Albumin 2.8 g/dL (3.4-5.0); Anion Gap 9 meq/L (5-15); Aspartate Aminotransferase 27 U/L (15-37); Blood Urea Nitrogen 16 mg/dL (7-18); Carbon Dioxide 26.2 meq/L (21.0-32.0); Chloride 110 meq/L (98-107); Glomerular Filtration Rate 48 mL/min (>89); Glucose,Random 88 mg/dL (74-106); Magnesium 2.3 mg/dL (1.5-2.5); Potassium 4.2 meq/L (3.5-5.1); Sodium 145 meq/L (136-145)
[2018-04-01] MEDS: Chlorhexidine Gluconate 2% 1 Pack (2 Cloths) TOPICAL SCH (04:45)
[2018-04-01] MEDS: Potassium Phosphate 500 MG Soluble Tablet PO PRN (05:18)
[2018-04-01] MEDS: QUEtiapine 100 MG Tablet PO SCH (08:07)
[2018-04-01] MEDS: Senna/Docusate Sodium 8.6/50 MG Tablet PO SCH ×2 (08:07→21:08)
[2018-04-01] MEDS: Famotidine PF Inj 20 MG/2 ML Vial IV.PUSH SCH ×2 (08:08→21:09)
[2018-04-01 10:11] LABS: Potassium 4.3 meq/L (3.5-5.1)
[2018-04-01 10:16] LABS: Phosphorus 2.7 mg/dL (2.5-4.9)
--- NOTE | 2018-04-01 10:40 | P.PNIM ---
Subjective Interval history: 57-year-old male presents for an evaluation of generalized weakness. Patient appears very dehydrated on arrival. He was recently admitted for treatment of pneumonia. Chest x-ray was negative at that time, and he was discharged on antibiotics after a few days of IV antibiotics. Has a history of bipolar disorder treated with lithium. Per chart report when EMS arrived the patient looked like he had been on the floor for several days. On arrival the patient just states he feels very weak all over, denies any specific pain. Denies any abdominal pain chest pain headache or extremity pain. He states that he has had some mild nausea without vomiting. No diarrhea no constipation or blood in the stool. 03/28 Patient is awake and alert on room air oxygen, hypertensive. Afebrile. 03/29 Patient is awake and alert. Renal function is improving with Cr: 1.58 from 2.0 yesterday. Afebrile. 03-30 patient was TRANSFERRED FROM [facility] TO [facility] REMAINS CONFUSED LELA MELÉNDEZ RN AND PT AM LABS PT AND OT CM FOR PLACEMENT 9- LITTLE LESS CONFUSED TODAY KNew that the president was Rj Simmons. He knew that it was 2017 and he knew he was in [facility]. Little confused from taking a sleeping pill last night Taking his medication Was in 2-point restraints yesterday A.m. labs Increase activity 9-6 MORE ALERT TODAY Much more oriented today Has Jaramillo catheter in place We will needed at discharge probably Transfer out of ICU Increase activity A.m. labs Case management for discharge planning Discussed with patient and RN Physical Exam Vital signs: Vital Signs 03/31/18 11:00 03/31/18 12:00 03/31/18 13:00 Temperature 98.8 F Pulse Rate 81 112 H 102 H Respiratory Rate 22 23 19 Blood Pressure 116/77 94/61 L Pulse Oximetry 96 92 L 95 03/31/18 14:00 03/31/18 15:00 03/31/18 16:00 Temperature 98.1 F Pulse Rate 110 H 103 H 101 H Respiratory Rate 21 26 H 26 H Blood Pressure 109/81 110/85 Pulse Oximetry 95 95 95 03/31/18 16:01 03/31/18 17:00 03/31/18 18:00 Temperature Pulse Rate 103 H 100 H 110 H Respiratory Rate 27 H 26 H 25 H Blood Pressure 110/85 150/100 H Pulse Oximetry 95 94 L 96 03/31/18 18:42 03/31/18 19:00 03/31/18 20:00 Temperature 98.0 F Pulse Rate 110 H 104 H 102 H Respiratory Rate 21 28 H 17 Blood Pressure 135/76 141/91 H Pulse Oximetry 94 L 95 94 L 03/31/18 21:00 03/31/18 22:00 03/31/18 23:00 Temperature Pulse Rate 102 H 95 H 94 H Respiratory Rate 29 H 29 H 28 H Blood Pressure 131/90 Pulse Oximetry 96 96 96 04/01/18 00:00 04/01/18 01:00 04/01/18 01:18 Temperature 98.5 F Pulse Rate 91 H 96 H 89 Respiratory Rate 28 H 22 25 H Blood Pressure 138/103 H 137/93 H Pulse Oximetry 98 98 99 04/01/18 02:00 04/01/18 03:00 04/01/18 04:00 Temperature 98.5 F Pulse Rate 88 85 94 H Respiratory Rate 27 H 28 H 34 H Blood Pressure 138/96 H 143/102 H 140/93 H Pulse Oximetry 98 99 95 04/01/18 06:00 Temperature Pulse Rate 97 H Respiratory Rate Blood Pressure Pulse Oximetry Intake & Output 03/31/18 04/01/18 04/01/18 18:59 06:59 18:59 Intake Total 2200 / 2200 1720 / 1720 Output Total 1150 / 1150 1800 / 1800 Balance 1050 / 1050 -80 / -80 Weight 93 kg Intake: IV 1000 / 1000 1000 / 1000 D5W Inj 1,000 ML @ 75 mls/hr IV 1000 / 1000 1000 / 1000 .CONT .[id number] [facility] Rx#:[id number] Oral 1200 / 1200 720 / 720 Output: Urine 1800 / 1800 Urine Amount (Catheter) 1150 / 1150 Indwelling Urethral Catheter 1150 / 1150 Narrative: GENERAL: NAD, disheveled ,confused SKIN: Warm and dry. HEAD: Atraumatic. Normocephalic. EYES: Pupils equal and round. No scleral icterus. No injection or drainage. EOMI ENT: No nasal bleeding or discharge. Mucous membranes pink and moist.TONGUE IS MIDLINE NECK: Trachea midline. No JVD. CARDIOVASCULAR: Tachy but regular S1-S2 no S3 or S4 RESPIRATORY: No accessory muscle use. Clear to auscultation. Breath sounds equal bilaterally. GASTROINTESTINAL: Abdomen soft, non-tender, nondistended. Hepatic and splenic margins not palpable. MUSCULOSKELETAL: Extremities without clubbing, cyanosis, or edema. No obvious deformities. NEUROLOGICAL: Awake and alert. No obvious cranial nerve deficits. Motor grossly within normal limits. Five out of 5 muscle strength in the arms and legs. Normal speech. PSYCHIATRIC: INAppropriate mood and affect; insight and judgment ABnormal. Jaramillo catheter in place - Urinary Catheter Management Indwelling Urethral Catheter Cath placed during this visit: yes Reason for continuing: Acute urinary retention Insertion date: 03/31/18 Insertion time: 15:00 Results - Labs CBC & Chem 7: 04/01/18 02:52 04/01/18 09:29 Laboratory Results - last 24 hr 03/31/18 04/01/18 04/01/18 19:24 02:52 02:52 WBC 8.5 RBC 4.51 Hgb 13.3 Hct 39.0 MCV 86.5 MCH 29.5 MCHC 34.0 RDW 14.9 Plt Count 191 MPV 9.5 Neut % (Auto) 64.6 Lymph % (Auto) 18.5 [place] % (Auto) 12.3 H Eos % (Auto) 3.5 Baso % (Auto) 1.1 Neut # (Auto) 5.5 Lymph # (Auto) 1.6 [place] # (Auto) 1.0 H Eos # (Auto) 0.3 Baso # (Auto) 0.1 WBC Differential . Differential Comment Auto diff final Sodium 145 Potassium 4.2 Chloride 110 H Carbon Dioxide 26.2 Anion Gap 9 BUN 16 Creatinine 1.52 H Estimated GFR 48 L Random Glucose 88 Calcium 9.0 Phosphorus 2.2 L D 2.4 L Magnesium 2.3 Total Bilirubin 0.7 AST 27 ALT 47 Alkaline Phosphatase 95 Total Protein 6.4 Albumin 2.8 L 04/01/18 09:29 WBC RBC Hgb Hct MCV MCH MCHC RDW Plt Count MPV Neut % (Auto) Lymph % (Auto) [place] % (Auto) Eos % (Auto) Baso % (Auto) Neut # (Auto) Lymph # (Auto) [place] # (Auto) Eos # (Auto) Baso # (Auto) WBC Differential Differential Comment Sodium Potassium 4.3 Chloride Carbon Dioxide Anion Gap BUN Creatinine Estimated GFR Random Glucose Calcium Phosphorus 2.7 Magnesium Total Bilirubin AST ALT Alkaline Phosphatase Total Protein Albumin - Imaging Chest X-Ray 03/27/18 14:07 CONCLUSION: Negative examination. Liver Ultrasound 03/28/18 00:00 CONCLUSION: 1. Hepatomegaly and mild increased echotexture of the liver parenchyma. 2. Sludge-filled gallbladder with borderline wall thickening. - Procedures NONE Assessment and Plan - Plan 1)Hypernatremia SLOW IMPROVEMENT 2)AMS- improved 3)Coagulopathy POSSIBLY DUE TO MALNUTRITION SINCE CORRECTED WELL WITH VITAMIN K 4)History of liver cirrhosis 5)Elevated LFT 6)GAL slow improvement-very slow improvement 7)Leukocytosis-improved 8)Hx Bipolar disorder-back on his medications 9)Dehydration very slow improvement 10)Elevated trop -suspected type II troponin release Plan Neuro: Awake and alert On Seroquel and [place], Li level <0.1 -Appears to be totally noncompliant with his medications Pulm: Oxygen PRN keep sats >92% Bronchodilators CV: Monitor HR and BP keep MAP>65mmHg For 2D echo, cards is following- Dr. Tripathi. : Monitor renal function, I/O's, avoid nephrotoxins Renal function is improving with Cr: 1.58 from 1.98 yesterday IVF D5W@75ml/hr, monitor sodium level. Slow improvement continue on fluids GI: On PO diet, monitor LFT's, Hepatitis profile negative US liver: Hepatomegaly and mild increased echotexture of the liver parenchyma. Sludge-filled gallbladder with borderline wall thickening. Endo: Monitor for signs of infections ( Fever, WBC) Panculture if spikes a fever Heme: Monitor CBC, coags, INR 1.4 today from 5.6 On PO vitamin K , Heme is following. -Severe malnutrition improved once given oral vitamin K Endo: SSI if needed for glycemic control DVT GI prophylaxis -Teds SCDs -No pharmacological DVT prophylaxis due to coagulopathy -Regular diet, On Pepcid PT and OT Consult case management Transfer out of ICU Check lithium level Case management consult for discharge planning Patient has no insurance A.m. labs Code Status: Full code Discussed Condition With: RN and patient Discharge Planning: CM FOR DC PLANNING Transfer out of ICU
[2018-04-01] MEDS ORDERED: Metoprolol Inj 5 MG/5 ML Vial IV.PUSH PRN (11:11)
[2018-04-01] MEDS: Metoprolol Tartrate 25 MG Tablet PO SCH ×2 (12:15→21:08)
[2018-04-01] MEDS: Dextrose 5% in Water Inj 1,000 ML IV.CONT SCH ×3 (16:54→16:58)
--- NOTE | 2018-04-01 17:57 | P.PNCA ---
Subjective Interval history: No events overnight Feels ok, less confused today Physical Exam Vital signs: Vital Signs 03/31/18 18:00 03/31/18 18:42 03/31/18 19:00 Temperature Pulse Rate 110 H 110 H 104 H Respiratory Rate 25 H 21 28 H Blood Pressure 150/100 H 135/76 Pulse Oximetry 96 94 L 95 03/31/18 20:00 03/31/18 21:00 03/31/18 22:00 Temperature 98.0 F Pulse Rate 102 H 102 H 95 H Respiratory Rate 17 29 H 29 H Blood Pressure 141/91 H 131/90 Pulse Oximetry 94 L 96 96 03/31/18 23:00 04/01/18 00:00 04/01/18 01:00 Temperature 98.5 F Pulse Rate 94 H 91 H 96 H Respiratory Rate 28 H 28 H 22 Blood Pressure 138/103 H Pulse Oximetry 96 98 98 04/01/18 01:18 04/01/18 02:00 04/01/18 03:00 Temperature Pulse Rate 89 88 85 Respiratory Rate 25 H 27 H 28 H Blood Pressure 137/93 H 138/96 H 143/102 H Pulse Oximetry 99 98 99 04/01/18 04:00 04/01/18 05:00 04/01/18 06:00 Temperature 98.5 F Pulse Rate 94 H 100 H 98 H Respiratory Rate 34 H 29 H 26 H Blood Pressure 140/93 H 154/91 H 149/99 H Pulse Oximetry 95 93 L 94 L 04/01/18 07:00 04/01/18 08:00 04/01/18 09:00 Temperature 97.8 F Pulse Rate 93 H 94 H 96 H Respiratory Rate 28 H 24 29 H Blood Pressure 146/102 H 157/105 H 159/108 H Pulse Oximetry 94 L 95 94 L 04/01/18 10:00 04/01/18 10:01 04/01/18 11:00 Temperature Pulse Rate 110 H 128 H 135 H Respiratory Rate 30 H 28 H 32 H Blood Pressure 126/79 129/81 Pulse Oximetry 93 L 93 L 94 L 04/01/18 12:00 04/01/18 12:07 04/01/18 13:00 Temperature 97.9 F Pulse Rate 110 H 119 H 119 H Respiratory Rate 30 H 30 H 25 H Blood Pressure 130/90 130/90 132/99 H Pulse Oximetry 94 L 94 L 04/01/18 14:00 04/01/18 14:02 04/01/18 15:00 Temperature Pulse Rate 118 H 110 H 106 H Respiratory Rate 33 H 31 H 37 H Blood Pressure 135/95 H 129/100 H Pulse Oximetry 92 L 94 L 94 L 04/01/18 16:00 Temperature Pulse Rate 99 H Respiratory Rate Blood Pressure Pulse Oximetry Intake & Output 03/31/18 04/01/18 04/01/18 18:59 06:59 18:59 Intake Total 2200 / 2200 1720 / 1720 1000 / 1000 Output Total 1150 / 1150 1800 / 1800 Balance 1050 / 1050 -80 / -80 1000 / 1000 Weight 93 kg Intake: IV 1000 / 1000 1000 / 1000 1000 / 1000 D5W Inj 1,000 ML @ 75 mls/hr IV 1000 / 1000 1000 / 1000 1000 / 1000 .CONT .[id number] [facility] Rx#:[id number] Oral 1200 / 1200 720 / 720 Output: Urine 1800 / 1800 Urine Amount (Catheter) 1150 / 1150 Indwelling Urethral Catheter 1150 / 1150 Narrative: GENERAL: NAD, disheveled ,confused SKIN: Warm and dry. HEAD: Atraumatic. Normocephalic. EYES: Pupils equal and round. No scleral icterus. No injection or drainage. EOMI ENT: No nasal bleeding or discharge. Mucous membranes pink and moist.TONGUE IS MIDLINE NECK: Trachea midline. No JVD. CARDIOVASCULAR: Tachy but regular S1-S2 no S3 or S4 RESPIRATORY: No accessory muscle use. Clear to auscultation. Breath sounds equal bilaterally. GASTROINTESTINAL: Abdomen soft, non-tender, nondistended. Hepatic and splenic margins not palpable. MUSCULOSKELETAL: Extremities without clubbing, cyanosis, or edema. No obvious deformities. NEUROLOGICAL: Awake and alert. No obvious cranial nerve deficits. Motor grossly within normal limits. Five out of 5 muscle strength in the arms and legs. Normal speech. PSYCHIATRIC: INAppropriate mood and affect; insight and judgment ABnormal. Jaramillo catheter in place - Urinary Catheter Management Indwelling Urethral Catheter Cath placed during this visit: yes Reason for continuing: Acute urinary retention Insertion date: 03/31/18 Insertion time: 15:00 Assessment and Plan - Assessment (1) Elevated troponin Code(s): R74.8 - Abnormal levels of other serum enzymes Status: Acute (2) Bipolar disorder Code(s): F31.9 - Bipolar disorder, unspecified Status: Acute (3) Coagulopathy Code(s): D68.9 - Coagulation defect, unspecified Status: Acute (4) Acute renal failure Code(s): N17.9 - Acute kidney failure, unspecified Status: Acute - Plan 1) Severe dehydration due to not eating/drinking for a number of days 2) GAL resolved 3) Hypernatremia, better 4) Elevated INR, better 5) Elevated trop Type 2 spill due to end organ damage from dehydration No ischemic work up planned 6) EF60-65% 7) Tachycardia most likely secondary to confusion/illness Treat underlying cause BB started by primary team, continue to follow on telemetry (2) Bipolar disorder Qualifiers: Active/Remission status: currently active Current bipolar episode type: depressed Current episode severity: moderate Qualified Code(s): F31.32 - Bipolar disorder, current episode depressed, moderate
--- NOTE | 2018-04-01 19:51 | P.PNNP ---
Subjective Interval history: Patient is more alert Physical Exam Vital signs: Vital Signs 03/31/18 20:00 03/31/18 21:00 03/31/18 22:00 Temperature 98.0 F Pulse Rate 102 H 102 H 95 H Respiratory Rate 17 29 H 29 H Blood Pressure 141/91 H 131/90 Pulse Oximetry 94 L 96 96 03/31/18 23:00 04/01/18 00:00 04/01/18 01:00 Temperature 98.5 F Pulse Rate 94 H 91 H 96 H Respiratory Rate 28 H 28 H 22 Blood Pressure 138/103 H Pulse Oximetry 96 98 98 04/01/18 01:18 04/01/18 02:00 04/01/18 03:00 Temperature Pulse Rate 89 88 85 Respiratory Rate 25 H 27 H 28 H Blood Pressure 137/93 H 138/96 H 143/102 H Pulse Oximetry 99 98 99 04/01/18 04:00 04/01/18 05:00 04/01/18 06:00 Temperature 98.5 F Pulse Rate 94 H 100 H 98 H Respiratory Rate 34 H 29 H 26 H Blood Pressure 140/93 H 154/91 H 149/99 H Pulse Oximetry 95 93 L 94 L 04/01/18 07:00 04/01/18 08:00 04/01/18 09:00 Temperature 97.8 F Pulse Rate 93 H 94 H 96 H Respiratory Rate 28 H 24 29 H Blood Pressure 146/102 H 157/105 H 159/108 H Pulse Oximetry 94 L 95 94 L 04/01/18 10:00 04/01/18 10:01 04/01/18 11:00 Temperature Pulse Rate 110 H 128 H 135 H Respiratory Rate 30 H 28 H 32 H Blood Pressure 126/79 129/81 Pulse Oximetry 93 L 93 L 94 L 04/01/18 12:00 04/01/18 12:07 04/01/18 13:00 Temperature 97.9 F Pulse Rate 110 H 119 H 119 H Respiratory Rate 30 H 30 H 25 H Blood Pressure 130/90 130/90 132/99 H Pulse Oximetry 94 L 94 L 04/01/18 14:00 04/01/18 14:02 04/01/18 15:00 Temperature Pulse Rate 118 H 110 H 106 H Respiratory Rate 33 H 31 H 37 H Blood Pressure 135/95 H 129/100 H Pulse Oximetry 92 L 94 L 94 L 04/01/18 16:00 04/01/18 17:00 04/01/18 18:00 Temperature 98.0 F Pulse Rate 99 H 96 H 95 H Respiratory Rate 24 25 H 24 Blood Pressure 134/95 H 145/91 H 147/96 H Pulse Oximetry 93 L 95 Intake & Output 04/01/18 04/01/18 04/02/18 06:59 18:59 06:59 Intake Total 1720 / 1720 1720 / 1720 Output Total 1800 / 1800 2800 / 2800 Balance -80 / -80 -1080 / -1080 Weight 93 kg Intake: IV 1000 / 1000 1000 / 1000 D5W Inj 1,000 ML @ 75 mls/hr IV 1000 / 1000 1000 / 1000 .CONT .[id number] [facility] Rx#:[id number] Oral 720 / 720 720 / 720 Output: Urine 1800 / 1800 Urine Amount (Catheter) 2800 / 2800 Indwelling Urethral Catheter 2800 / 2800 - Constitutional no acute distress - Routine HEENT Exam Eye: Present: EOMI - Routine Respiratory Exam Present: CTA bilaterally - Routine Cardiovascular Exam Present: RRR - Routine Abdominal Exam Present: soft - Routine Extremities Exam Present: pulses intact - Urinary Catheter Management Indwelling Urethral Catheter Cath placed during this visit: yes Reason for continuing: Acute urinary retention Insertion date: 03/31/18 Insertion time: 15:00 Assessment and Plan - Assessment (1) Acute renal failure Code(s): N17.9 - Acute kidney failure, unspecified Status: Acute - Plan Patient sodium 145 Creatinine 1.5 Resolving with hydration Phosphorus improved Nephrology to sign off
[2018-04-02 05:06] LABS: Baso # (Auto) 0.1 th/mm3 (0.0-0.2); Baso % (Auto) 0.8 % (0.0-2.0); Eos # (Auto) 0.3 th/mm3 (0.0-0.4); Hematocrit 38.2 % (39.0-51.0); Hemoglobin 12.7 gm/dL (13.0-17.0); Lymph # (Auto) 1.8 th/mm3 (1.0-4.8); Mean Corpuscular HGB Conc 33.2 % (32.0-36.0); Mean Corpuscular Hemoglobin 29.2 pg (27.0-34.0); Mean Corpuscular Volume 88.1 fL (80.0-100.0); Mean Platelet Volume 9.9 fL (7.0-11.0); Mono # (Auto) 1.6 th/mm3 (0.0-0.9); Mono % (Auto) 15.8 % (0.0-8.0); Neut # (Auto) 6.6 th/mm3 (1.8-7.7); Neut % (Auto) 63.4 % (16.0-70.0); Platelet Count 230 th/mm3 (150-450); Red Blood Count 4.33 mil/mm3 (4.50-5.90); Red Cell Distribution Width 14.4 % (11.6-17.2); White Blood Count 10.3 th/mm3 (4.0-11.0)
[2018-04-02 05:34] LABS: Alanine Aminotransferase 42 U/L (12-78); Albumin 2.9 g/dL (3.4-5.0); Anion Gap 15 meq/L (5-15); Aspartate Aminotransferase 19 U/L (15-37); Blood Urea Nitrogen 14 mg/dL (7-18); Calcium 9.6 mg/dL (8.5-10.1); Carbon Dioxide 20.2 meq/L (21.0-32.0); Chloride 111 meq/L (98-107); Glomerular Filtration Rate 37 mL/min (>89); Glucose,Random 89 mg/dL (74-106); Phosphorus 1.8 mg/dL (2.5-4.9); Potassium 3.6 meq/L (3.5-5.1); Sodium 146 meq/L (136-145)
[2018-04-02 05:36] LABS: Alkaline Phosphatase 109 U/L (45-117); Total Protein 6.9 g/dL (6.4-8.2)
[2018-04-02] MEDS: Senna/Docusate Sodium 8.6/50 MG Tablet PO SCH ×2 (08:02→21:15)
[2018-04-02] MEDS: Metoprolol Tartrate 25 MG Tablet PO SCH ×2 (08:02→21:15)
[2018-04-02] MEDS: QUEtiapine 100 MG Tablet PO SCH (08:02)
[2018-04-02] MEDS: Dextrose 5% in Water Inj 1,000 ML IV.CONT SCH (08:18)
[2018-04-02] MEDS: Famotidine PF Inj 20 MG/2 ML Vial IV.PUSH SCH ×2 (08:19→21:15)
--- NOTE | 2018-04-02 09:38 | P.PNIM ---
Subjective Interval history: 57-year-old male presents for an evaluation of generalized weakness. Patient appears very dehydrated on arrival. He was recently admitted for treatment of pneumonia. Chest x-ray was negative at that time, and he was discharged on antibiotics after a few days of IV antibiotics. Has a history of bipolar disorder treated with lithium. Per chart report when EMS arrived the patient looked like he had been on the floor for several days. On arrival the patient just states he feels very weak all over, denies any specific pain. Denies any abdominal pain chest pain headache or extremity pain. He states that he has had some mild nausea without vomiting. No diarrhea no constipation or blood in the stool. 03/28 Patient is awake and alert on room air oxygen, hypertensive. Afebrile. 03/29 Patient is awake and alert. Renal function is improving with Cr: 1.58 from 2.0 yesterday. Afebrile. 03-30 patient was TRANSFERRED FROM [facility] TO [facility] TODAY REMAINS CONFUSED MUMDENNIS MELÉNDEZ RN AND PT AM LABS PT AND OT CM FOR PLACEMENT 9-5 LITTLE LESS CONFUSED TODAY KNew that the president was Rj Simmons. He knew that it was 2017 and he knew he was in [facility]. Little confused from taking a sleeping pill last night Taking his medication Was in 2-point restraints yesterday A.m. labs Increase activity 9-6 MORE ALERT TODAY Much more oriented today Has Jaramillo catheter in place We will needed at discharge probably Transfer out of ICU Increase activity A.m. labs Case management for discharge planning Discussed with patient and RN 9-7 PULLED OUT ALL HIS LINES LAST NIGHT Still has a Jaramillo catheter in place Very anxious had to be given Ativan 2 mg p.o. Has now improved since earlier this morning per nursing We will get a.m. labs We will reconsult psychiatry for help with his severe psychiatric problems Physical Exam Vital signs: Vital Signs 04/01/18 10:00 04/01/18 10:01 04/01/18 11:00 Temperature Pulse Rate 110 H 128 H 135 H Respiratory Rate 30 H 28 H 32 H Blood Pressure 126/79 129/81 Pulse Oximetry 93 L 93 L 94 L 04/01/18 12:00 04/01/18 12:07 04/01/18 13:00 Temperature 97.9 F Pulse Rate 110 H 119 H 119 H Respiratory Rate 30 H 30 H 25 H Blood Pressure 130/90 130/90 132/99 H Pulse Oximetry 94 L 94 L 04/01/18 14:00 04/01/18 14:02 04/01/18 15:00 Temperature Pulse Rate 118 H 110 H 106 H Respiratory Rate 33 H 31 H 37 H Blood Pressure 135/95 H 129/100 H Pulse Oximetry 92 L 94 L 94 L 04/01/18 16:00 04/01/18 17:00 04/01/18 18:00 Temperature 98.0 F Pulse Rate 99 H 96 H 95 H Respiratory Rate 24 25 H 24 Blood Pressure 134/95 H 145/91 H 147/96 H Pulse Oximetry 93 L 95 04/01/18 20:00 04/01/18 22:00 04/02/18 00:00 Temperature 98.1 F 98.0 F Pulse Rate 100 H 100 H 96 H Respiratory Rate 25 H 22 Blood Pressure 156/91 H 149/95 H Pulse Oximetry 94 L 04/02/18 02:00 04/02/18 04:00 04/02/18 06:00 Temperature 98.2 F Pulse Rate 96 H 116 H 113 H Respiratory Rate 22 Blood Pressure 117/82 Pulse Oximetry 04/02/18 08:00 Temperature Pulse Rate 104 H Respiratory Rate Blood Pressure Pulse Oximetry Intake & Output 04/01/18 04/02/18 04/02/18 18:59 06:59 18:59 Intake Total 1720 / 1720 240 / 240 Output Total 2800 / 2800 2099 Balance -1080 / -1080 -1860 / -1860 Weight 91.5 kg Intake: IV 1000 / 1000 D5W Inj 1,000 ML @ 75 mls/hr IV 1000 / 1000 .CONT .[id number] [facility] Rx#:[id number] Oral 720 / 720 240 / 240 Output: Urine Amount (Catheter) 2800 / 2800 2099 Indwelling Urethral Catheter 2800 / 2800 2099 Other: # Bowel Movements 0 Narrative: GENERAL: NAD, disheveled ,confused SKIN: Warm and dry. HEAD: Atraumatic. Normocephalic. EYES: Pupils equal and round. No scleral icterus. No injection or drainage. EOMI ENT: No nasal bleeding or discharge. Mucous membranes pink and moist.TONGUE IS MIDLINE NECK: Trachea midline. No JVD. CARDIOVASCULAR: Tachy but regular S1-S2 no S3 or S4 RESPIRATORY: No accessory muscle use. Clear to auscultation. Breath sounds equal bilaterally. GASTROINTESTINAL: Abdomen soft, non-tender, nondistended. Hepatic and splenic margins not palpable. MUSCULOSKELETAL: Extremities without clubbing, cyanosis, or edema. No obvious deformities. NEUROLOGICAL: Awake and alert. No obvious cranial nerve deficits. Motor grossly within normal limits. Five out of 5 muscle strength in the arms and legs. Normal speech. PSYCHIATRIC: INAppropriate mood and affect; insight and judgment ABnormal. Jaramillo catheter in place - Urinary Catheter Management Indwelling Urethral Catheter Cath placed during this visit: yes Reason for continuing: Acute urinary retention Insertion date: 03/31/18 Insertion time: 15:00 Results - Labs CBC & Chem 7: 04/02/18 04:02 04/02/18 04:02 Laboratory Results - last 24 hr 04/01/18 04/02/18 04/02/18 09:29 04:02 04:02 WBC 10.3 RBC 4.33 L Hgb 12.7 L Hct 38.2 L MCV 88.1 MCH 29.2 MCHC 33.2 RDW 14.4 Plt Count 230 MPV 9.9 Neut % (Auto) 63.4 Lymph % (Auto) 17.0 [place] % (Auto) 15.8 H Eos % (Auto) 3.0 Baso % (Auto) 0.8 Neut # (Auto) 6.6 Lymph # (Auto) 1.8 [place] # (Auto) 1.6 H Eos # (Auto) 0.3 Baso # (Auto) 0.1 WBC Differential . Differential Comment Auto diff final Sodium 146 H Potassium 4.3 3.6 Chloride 111 H Carbon Dioxide 20.2 L Anion Gap 15 BUN 14 Creatinine 1.90 H Estimated GFR 37 L Random Glucose 89 Calcium 9.6 Phosphorus 2.7 1.8 L Magnesium 2.0 Total Bilirubin 0.6 AST 19 ALT 42 Alkaline Phosphatase 109 Total Protein 6.9 Albumin 2.9 L Weinert 04/02/18 04:02 WBC RBC Hgb Hct MCV MCH MCHC RDW Plt Count MPV Neut % (Auto) Lymph % (Auto) [place] % (Auto) Eos % (Auto) Baso % (Auto) Neut # (Auto) Lymph # (Auto) [place] # (Auto) Eos # (Auto) Baso # (Auto) WBC Differential Differential Comment Sodium Potassium Chloride Carbon Dioxide Anion Gap BUN Creatinine Estimated GFR Random Glucose Calcium Phosphorus Magnesium Total Bilirubin AST ALT Alkaline Phosphatase Total Protein Albumin Weinert 1.4 - Procedures NONE Assessment and Plan - Plan 1)Hypernatremia SLOW IMPROVEMENT 2)AMS-has now worsened again 3)Coagulopathy POSSIBLY DUE TO MALNUTRITION SINCE CORRECTED WELL WITH VITAMIN K 4)History of liver cirrhosis 5)Elevated LFT 6)GAL slow improvement-very slow improvement 7)Leukocytosis-improved 8)Hx Bipolar disorder-back on his medications --refusing medications will get psychiatry involvement 9)Dehydration very slow improvement 10)Elevated trop -suspected type II troponin release Plan Neuro: Awake and alert On Seroquel and Weinert, Li level <0.1 -Appears to be totally noncompliant with his medications Pulm: Oxygen PRN keep sats >92% Bronchodilators CV: Monitor HR and BP keep MAP>65mmHg For 2D echo, cards is following- Dr. Tripathi. STARTED ON METOPROLOL FOR HEART RATE CONTROL : Monitor renal function, I/O's, avoid nephrotoxins Renal function is improving with Cr: 1.58 from 1.98 yesterday IVF D5W@75ml/hr, monitor sodium level. Slow improvement continue on fluids GI: On PO diet, monitor LFT's, Hepatitis profile negative US liver: Hepatomegaly and mild increased echotexture of the liver parenchyma. Sludge-filled gallbladder with borderline wall thickening. Endo: Monitor for signs of infections ( Fever, WBC) Panculture if spikes a fever Heme: Monitor CBC, coags, INR 1.4 today from 5.6 On PO vitamin K , Heme is following. -Severe malnutrition improved once given oral vitamin K Endo: SSI if needed for glycemic control DVT GI prophylaxis -Teds SCDs -No pharmacological DVT prophylaxis due to coagulopathy -Regular diet, On Pepcid PT and OT Consult case management Transfer out of ICU Check lithium level Case management consult for discharge planning Patient has no insurance A.m. labs We will ask psychiatry to consult again We need help with his medical management from psychiatric perspective Code Status: Full code Discussed Condition With: RN and patient Discharge Planning: CM FOR DC PLANNING
--- NOTE | 2018-04-02 12:52 | P.PNCA ---
Subjective Interval history: Pulled out IVs Resting mostly comfortably Physical Exam Vital signs: Vital Signs 04/01/18 13:00 04/01/18 14:00 04/01/18 14:02 Temperature Pulse Rate 119 H 118 H 110 H Respiratory Rate 25 H 33 H 31 H Blood Pressure 132/99 H 135/95 H Pulse Oximetry 94 L 92 L 94 L 04/01/18 15:00 04/01/18 16:00 04/01/18 17:00 Temperature 98.0 F Pulse Rate 106 H 99 H 96 H Respiratory Rate 37 H 24 25 H Blood Pressure 129/100 H 134/95 H 145/91 H Pulse Oximetry 94 L 93 L 04/01/18 18:00 04/01/18 20:00 04/01/18 22:00 Temperature 98.1 F Pulse Rate 95 H 100 H 100 H Respiratory Rate 24 25 H Blood Pressure 147/96 H 156/91 H Pulse Oximetry 95 94 L 04/02/18 00:00 04/02/18 02:00 04/02/18 04:00 Temperature 98.0 F 98.2 F Pulse Rate 96 H 96 H 116 H Respiratory Rate 22 22 Blood Pressure 149/95 H 117/82 Pulse Oximetry 04/02/18 06:00 04/02/18 08:00 04/02/18 10:00 Temperature 98.8 F Pulse Rate 113 H 104 H 102 H Respiratory Rate 28 H Blood Pressure 132/90 Pulse Oximetry 04/02/18 12:00 Temperature 99.0 F Pulse Rate 101 H Respiratory Rate 20 Blood Pressure 150/88 H Pulse Oximetry 95 Intake & Output 04/01/18 04/02/18 04/02/18 18:59 06:59 18:59 Intake Total 1720 / 1720 240 / 240 Output Total 2800 / 2800 2099 / 2099 Balance -1080 / -1080 -1860 / -1860 Weight 91.5 kg Intake: IV 1000 / 1000 D5W Inj 1,000 ML @ 75 mls/hr IV 1000 / 1000 .CONT .[id number] [facility] Rx#:[id number] Oral 720 / 720 240 / 240 Output: Urine Amount (Catheter) 2800 / 2800 2099 / 2099 Indwelling Urethral Catheter 2800 / 2800 2099 / 2099 Other: Date of Last Bowel Movement 04/02/18 # Bowel Movements 0 Narrative: GENERAL: NAD, disheveled ,confused SKIN: Warm and dry. HEAD: Atraumatic. Normocephalic. EYES: Pupils equal and round. No scleral icterus. No injection or drainage. EOMI ENT: No nasal bleeding or discharge. Mucous membranes pink and moist.TONGUE IS MIDLINE NECK: Trachea midline. No JVD. CARDIOVASCULAR: Tachy but regular S1-S2 no S3 or S4 RESPIRATORY: No accessory muscle use. Clear to auscultation. Breath sounds equal bilaterally. GASTROINTESTINAL: Abdomen soft, non-tender, nondistended. Hepatic and splenic margins not palpable. MUSCULOSKELETAL: Extremities without clubbing, cyanosis, or edema. No obvious deformities. NEUROLOGICAL: Awake and alert. No obvious cranial nerve deficits. Motor grossly within normal limits. Five out of 5 muscle strength in the arms and legs. Normal speech. PSYCHIATRIC: INAppropriate mood and affect; insight and judgment ABnormal. Jaramillo catheter in place - Urinary Catheter Management Indwelling Urethral Catheter Cath placed during this visit: yes Reason for continuing: Acute urinary retention Insertion date: 03/31/18 Insertion time: 15:00 Assessment and Plan - Assessment (1) Elevated troponin Code(s): R74.8 - Abnormal levels of other serum enzymes Status: Acute (2) Bipolar disorder Code(s): F31.9 - Bipolar disorder, unspecified Status: Acute (3) Coagulopathy Code(s): D68.9 - Coagulation defect, unspecified Status: Acute (4) Acute renal failure Code(s): N17.9 - Acute kidney failure, unspecified Status: Acute - Plan 1) Severe dehydration due to not eating/drinking for a number of days 2) GAL resolved 3) Hypernatremia, better 4) Elevated INR, better 5) Elevated trop Type 2 spill due to end organ damage from dehydration No ischemic work up planned 6) EF60-65% 7) Tachycardia most likely secondary to confusion/illness Treat underlying cause BB started by primary team, continue to follow on telemetry 8) Will see PRN, call with questions (2) Bipolar disorder Qualifiers: Active/Remission status: currently active Current bipolar episode type: depressed Current episode severity: moderate Qualified Code(s): F31.32 - Bipolar disorder, current episode depressed, moderate
--- NOTE | 2018-04-02 14:56 | P.PNPSY ---
Subjective Remarks: The patient was seen today for psychiatric reevaluation. The patient is found very sedated, unable to provide any meaningful information for the psychiatric assessment at the moment. He has being quite agitated, aggressive, confused and disorganized. I saw this patient a few weeks ago in another hospitalization , his mental status was quite logical, coherent and relevant at that moment. Mental Status Examination Appearance: Dirty, Disheveled Consciousness: Clouded Orientation: Person Motor Activity: Other Speech: Slow, Incoherent Language: Adequate Fund of Knowledge: Inadequate Attention and Concentration: Inadequate Memory: Impaired Mood: Oppositional Affect: Other Thought Process & Associations: Disorganized Hallucination Type: None Delusion Type: None Suicidal Ideation: No Suicidal Plan: No Suicidal Intention: No Homicidal Ideation: No Homicidal Plan: No Homicidal Intention: No Insight: Poor Judgment: Poor (Fair) Assessment and Plan - Assessment (1) Bipolar disorder in partial remission Code(s): F31.70 - Bipolar disorder, currently in remission, most recent episode unspecified Status: Acute - Plan Plan: Patient quite sedated and incoherent, unable to fully participate in a psychiatric reevaluation. He is restrained in point as a result of an episode of aggressive behavior and agitation last night He seems to be disoriented and confused at the moment LI levels 1.4, hold Seroquel 500 tonight, resume tomorrow if patient is more awake If agitated try Haldol 5 mg iv q/8 PRN aggressiveness, hold if QTC is over 480, not QTc is 440 He does not meet criteria for admission If any question over the weened, contact Dr. Ames [phone] Justification for Continued Inpatient Stay: No admission is indicated. Request Healthcare Surrogate/Guardian Advocate?: No
[2018-04-03 05:31] LABS: Baso # (Auto) 0.1 th/mm3 (0.0-0.2); Baso % (Auto) 0.4 % (0.0-2.0); Eos # (Auto) 0.3 th/mm3 (0.0-0.4); Eos % (Auto) 1.7 % (0.0-4.0); Hematocrit 39.2 % (39.0-51.0); Hemoglobin 13.1 gm/dL (13.0-17.0); Lymph # (Auto) 1.4 th/mm3 (1.0-4.8); Lymph % (Auto) 7.7 % (9.0-44.0); Mean Corpuscular HGB Conc 33.3 % (32.0-36.0); Mean Corpuscular Hemoglobin 29.2 pg (27.0-34.0); Mean Corpuscular Volume 87.8 fL (80.0-100.0); Mean Platelet Volume 9.6 fL (7.0-11.0); Mono # (Auto) 2.3 th/mm3 (0.0-0.9); Mono % (Auto) 13.2 % (0.0-8.0); Neut # (Auto) 13.6 th/mm3 (1.8-7.7); Platelet Count 248 th/mm3 (150-450); Red Blood Count 4.47 mil/mm3 (4.50-5.90); Red Cell Distribution Width 14.7 % (11.6-17.2); White Blood Count 17.7 th/mm3 (4.0-11.0)
[2018-04-03 06:14] LABS: Albumin 3.2 g/dL (3.4-5.0); Anion Gap 9 meq/L (5-15); Aspartate Aminotransferase 16 U/L (15-37); Blood Urea Nitrogen 10 mg/dL (7-18); Calcium 9.9 mg/dL (8.5-10.1); Carbon Dioxide 24.3 meq/L (21.0-32.0); Chloride 109 meq/L (98-107); Glomerular Filtration Rate 45 mL/min (>89); Glucose,Random 83 mg/dL (74-106); Magnesium 2.1 mg/dL (1.5-2.5); Potassium 3.9 meq/L (3.5-5.1); Sodium 142 meq/L (136-145)
[2018-04-03 06:16] LABS: Alanine Aminotransferase 39 U/L (12-78); Phosphorus 2.7 mg/dL (2.5-4.9)
[2018-04-03 06:18] LABS: Alkaline Phosphatase 131 U/L (45-117); Total Protein 7.3 g/dL (6.4-8.2)
[2018-04-03 07:43] LABS: Eosinophils 3 % (0-4); Lymphocytes 6 % (9-44); Monocytes 11 % (0-8)
[2018-04-03 07:44] LABS: Platelet Estimate Normal (Normal); Platelet Morphology Normal (Normal)
[2018-04-03] MEDS: Senna/Docusate Sodium 8.6/50 MG Tablet PO SCH ×2 (08:15→21:51)
[2018-04-03] MEDS: Metoprolol Tartrate 25 MG Tablet PO SCH ×2 (08:15→21:51)
[2018-04-03] MEDS: Famotidine PF Inj 20 MG/2 ML Vial IV.PUSH SCH ×2 (08:15→21:51)
[2018-04-03] MEDS: QUEtiapine 100 MG Tablet PO SCH (08:17)
[2018-04-03] MEDS: Acetaminophen 325 MG Tablet PO PRN ×2 (08:17→13:45)
--- NOTE | 2018-04-03 10:44 | P.PNIM ---
Subjective Interval history: 57-year-old male presents for an evaluation of generalized weakness. Patient appears very dehydrated on arrival. He was recently admitted for treatment of pneumonia. Chest x-ray was negative at that time, and he was discharged on antibiotics after a few days of IV antibiotics. Has a history of bipolar disorder treated with lithium. Per chart report when EMS arrived the patient looked like he had been on the floor for several days. On arrival the patient just states he feels very weak all over, denies any specific pain. Denies any abdominal pain chest pain headache or extremity pain. He states that he has had some mild nausea without vomiting. No diarrhea no constipation or blood in the stool. 03/28 Patient is awake and alert on room air oxygen, hypertensive. Afebrile. 03/29 Patient is awake and alert. Renal function is improving with Cr: 1.58 from 2.0 yesterday. Afebrile. 03-30 patient was TRANSFERRED FROM [facility] TO OUR SERVICE TODAY REMAINS CONFUSED MUMDENNIS MELÉNDEZ RN AND PT AM LABS PT AND OT CM FOR PLACEMENT 9-5 LITTLE LESS CONFUSED TODAY KNew that the president was Rj Simmons. He knew that it was 2017 and he knew he was in [facility] in [facility]. Little confused from taking a sleeping pill last night Taking his medication Was in 2-point restraints yesterday A.m. labs Increase activity 9-6 MORE ALERT TODAY Much more oriented today Has Jaramillo catheter in place We will needed at discharge probably Transfer out of ICU Increase activity A.m. labs Case management for discharge planning Discussed with patient and RN 9-7 PULLED OUT ALL HIS LINES LAST NIGHT Still has a Jaramillo catheter in place Very anxious had to be given Ativan 2 mg p.o. Has now improved since earlier this morning per nursing We will get a.m. labs We will reconsult psychiatry for help with his severe psychiatric problems 9-8 SEEN BY PSYCHIATRY YESTERDAY Meds adjusted by them Haldol IV every 8 hours as needed aggressiveness A.m. labs Transfer out of ICU Physical Exam Vital signs: Vital Signs 04/02/18 12:00 04/02/18 14:00 04/02/18 16:00 Temperature 99.0 F 98.8 F Pulse Rate 101 H 97 H 100 H Respiratory Rate 20 22 Blood Pressure 150/88 H 129/84 Pulse Oximetry 95 95 04/02/18 18:00 04/02/18 20:00 04/02/18 22:00 Temperature 98.2 F Pulse Rate 98 H 96 H 96 H Respiratory Rate 21 Blood Pressure 142/94 H Pulse Oximetry 98 04/03/18 00:00 04/03/18 02:00 04/03/18 04:00 Temperature 98.4 F 98.8 F Pulse Rate 84 114 H 108 H Respiratory Rate 20 21 Blood Pressure 142/101 H 158/93 H Pulse Oximetry 97 97 04/03/18 06:00 04/03/18 08:00 04/03/18 10:00 Temperature 100.3 F H Pulse Rate 114 H 97 H 97 H Respiratory Rate 18 Blood Pressure 133/94 H Pulse Oximetry 96 Intake & Output 04/02/18 04/03/18 04/03/18 18:59 06:59 18:59 Intake Total 1520 / 1520 1200 / 1200 Output Total 2100 / 2100 1025 / 1025 Balance -580 / -580 175 / 175 Weight 92.5 kg Intake: Oral 1520 / 1520 1200 / 1200 Output: Stool 600 / 600 Urine Amount (Catheter) 1500 / 1500 1025 / 1025 Indwelling Urethral Catheter 1500 / 1500 1025 / 1025 Other: Date of Last Bowel Movement 04/02/18 04/03/18 04/03/18 # Bowel Movements 4 # Incontinent Bowel Movements 1 Narrative: GENERAL: NAD, disheveled ,confused SKIN: Warm and dry. HEAD: Atraumatic. Normocephalic. EYES: Pupils equal and round. No scleral icterus. No injection or drainage. EOMI ENT: No nasal bleeding or discharge. Mucous membranes pink and moist.TONGUE IS MIDLINE NECK: Trachea midline. No JVD. CARDIOVASCULAR: Tachy but regular S1-S2 no S3 or S4 RESPIRATORY: No accessory muscle use. Clear to auscultation. Breath sounds equal bilaterally. GASTROINTESTINAL: Abdomen soft, non-tender, nondistended. Hepatic and splenic margins not palpable. MUSCULOSKELETAL: Extremities without clubbing, cyanosis, or edema. No obvious deformities. NEUROLOGICAL: Awake and alert. No obvious cranial nerve deficits. Motor grossly within normal limits. Five out of 5 muscle strength in the arms and legs. ABNormal speech. Tends to mumble PSYCHIATRIC: INAppropriate mood and affect; insight and judgment ABnormal. Jaramillo catheter in place - Urinary Catheter Management Indwelling Urethral Catheter Cath placed during this visit: yes Reason for continuing: Acute urinary retention Insertion date: 03/31/18 Insertion time: 15:00 Results - Labs CBC & Chem 7: 04/03/18 04:17 04/03/18 04:17 Laboratory Results - last 24 hr 04/03/18 04/03/18 04:17 04:17 WBC 17.7 H RBC 4.47 L Hgb 13.1 Hct 39.2 MCV 87.8 MCH 29.2 MCHC 33.3 RDW 14.7 Plt Count 248 MPV 9.6 Prelim Diff (Auto) Slide review pending Neut % (Auto) 77.0 H Lymph % (Auto) 7.7 L [place] % (Auto) 13.2 H Eos % (Auto) 1.7 Baso % (Auto) 0.4 Neut # (Auto) 13.6 H Lymph # (Auto) 1.4 [place] # (Auto) 2.3 H Eos # (Auto) 0.3 Baso # (Auto) 0.1 WBC Differential Manual diff final Seg Neuts % (Manual) 68 Band Neuts % (Manual) 12 H Lymphocytes % (Manual) 6 L Monocytes % (Manual) 11 H Eosinophils % (Manual) 3 Abs Neuts (Manual) 14.2 H Differential Comment . Platelet Estimate Normal Platelet Morphology Normal Sodium 142 Potassium 3.9 Chloride 109 H Carbon Dioxide 24.3 Anion Gap 9 BUN 10 Creatinine 1.58 H Estimated GFR 45 L Random Glucose 83 Calcium 9.9 Phosphorus 2.7 Magnesium 2.1 Total Bilirubin 0.7 AST 16 ALT 39 Alkaline Phosphatase 131 H Total Protein 7.3 Albumin 3.2 L - Procedures NONE Assessment and Plan - Plan 1)Hypernatremia SLOW IMPROVEMENT 2)AMS-has now worsened again 3)Coagulopathy POSSIBLY DUE TO MALNUTRITION SINCE CORRECTED WELL WITH VITAMIN K 4)History of liver cirrhosis 5)Elevated LFT 6)GAL slow improvement-very slow improvement 7)Leukocytosis-improved 8)Hx Bipolar disorder-back on his medications --refusing medications will get psychiatry involvement 9)Dehydration very slow improvement 10)Elevated trop -suspected type II troponin release Plan Neuro: Awake and alert On Seroquel and [place], Li level <0.1 -Appears to be totally noncompliant with his medications Pulm: Oxygen PRN keep sats >92% Bronchodilators CV: Monitor HR and BP keep MAP>65mmHg For 2D echo, cards is following- Dr. Tripathi. STARTED ON METOPROLOL FOR HEART RATE CONTROL : Monitor renal function, I/O's, avoid nephrotoxins Renal function is improving with Cr: 1.58 from 1.98 yesterday IVF D5W@75ml/hr, monitor sodium level. Slow improvement continue on fluids GI: On PO diet, monitor LFT's, Hepatitis profile negative US liver: Hepatomegaly and mild increased echotexture of the liver parenchyma. Sludge-filled gallbladder with borderline wall thickening. Endo: Monitor for signs of infections ( Fever, WBC) Panculture if spikes a fever Heme: Monitor CBC, coags, INR 1.4 today from 5.6 On PO vitamin K , Heme is following. -Severe malnutrition improved once given oral vitamin K Endo: SSI if needed for glycemic control DVT GI prophylaxis -Teds SCDs -No pharmacological DVT prophylaxis due to coagulopathy -Regular diet, On Pepcid PT and OT Consult case management Transfer out of ICU Check lithium level Case management consult for discharge planning Patient has no insurance A.m. labs We will ask psychiatry to consult again We need help with his medical management from psychiatric perspective Code Status: Full code Discussed Condition With: RN and patient Discharge Planning: CM FOR DC PLANNING
[2018-04-04 08:23] LABS: Baso # (Auto) 0.1 th/mm3 (0.0-0.2); Baso % (Auto) 0.3 % (0.0-2.0); Eos # (Auto) 0.3 th/mm3 (0.0-0.4); Eos % (Auto) 1.4 % (0.0-4.0); Hematocrit 36.2 % (39.0-51.0); Hemoglobin 12.1 gm/dL (13.0-17.0); Lymph # (Auto) 1.5 th/mm3 (1.0-4.8); Lymph % (Auto) 7.7 % (9.0-44.0); Mean Corpuscular HGB Conc 33.4 % (32.0-36.0); Mean Corpuscular Hemoglobin 29.2 pg (27.0-34.0); Mean Corpuscular Volume 87.4 fL (80.0-100.0); Mean Platelet Volume 8.9 fL (7.0-11.0); Mono # (Auto) 2.1 th/mm3 (0.0-0.9); Mono % (Auto) 10.8 % (0.0-8.0); Neut # (Auto) 15.9 th/mm3 (1.8-7.7); Neut % (Auto) 79.8 % (16.0-70.0); Platelet Count 260 th/mm3 (150-450); Red Blood Count 4.14 mil/mm3 (4.50-5.90); Red Cell Distribution Width 14.7 % (11.6-17.2); White Blood Count 19.9 th/mm3 (4.0-11.0)
[2018-04-04 08:56] LABS: Alanine Aminotransferase 81 U/L (12-78); Albumin 2.8 g/dL (3.4-5.0); Alkaline Phosphatase 143 U/L (45-117); Anion Gap 7 meq/L (5-15); Aspartate Aminotransferase 39 U/L (15-37); Blood Urea Nitrogen 13 mg/dL (7-18); Calcium 9.6 mg/dL (8.5-10.1); Carbon Dioxide 27.9 meq/L (21.0-32.0); Chloride 105 meq/L (98-107); Glomerular Filtration Rate 43 mL/min (>89); Glucose,Random 107 mg/dL (74-106); Magnesium 2.4 mg/dL (1.5-2.5); Phosphorus 3.1 mg/dL (2.5-4.9); Potassium 4.5 meq/L (3.5-5.1); Sodium 140 meq/L (136-145); Total Protein 7.3 g/dL (6.4-8.2)
[2018-04-04] MEDS: Senna/Docusate Sodium 8.6/50 MG Tablet PO SCH ×2 (09:57→23:49)
[2018-04-04] MEDS: Metoprolol Tartrate 25 MG Tablet PO SCH ×2 (09:57→23:49)
[2018-04-04] MEDS: QUEtiapine 100 MG Tablet PO SCH (09:58)
[2018-04-04] MEDS: Famotidine PF Inj 20 MG/2 ML Vial IV.PUSH SCH ×2 (09:58→23:50)
--- NOTE | 2018-04-04 10:22 | P.PNIM ---
Subjective Interval history: Patient says that he feels weak all over but better than when he came into the hospital. He feels thirsty. He does not have any other complaints. Physical Exam Vital signs: Vital Signs 04/03/18 12:00 04/03/18 14:00 04/03/18 16:00 Temperature 100.0 F H 101.0 F H Pulse Rate 95 H 99 H 112 H Respiratory Rate 20 20 Blood Pressure 119/78 120/79 Pulse Oximetry 96 96 04/03/18 18:00 04/03/18 20:00 04/03/18 22:10 Temperature 99.4 F 98.8 F Pulse Rate 115 H 96 H 87 Respiratory Rate 20 17 Blood Pressure 123/69 117/67 Pulse Oximetry 93 L 97 04/04/18 00:00 04/04/18 04:00 04/04/18 04:30 Temperature 97.7 F 98 F Pulse Rate 89 85 69 Respiratory Rate 18 20 Blood Pressure 115/63 120/66 Pulse Oximetry 96 96 04/04/18 08:00 Temperature 98.6 F Pulse Rate 106 H Respiratory Rate 16 Blood Pressure 137/90 Pulse Oximetry 94 L Intake & Output 04/03/18 04/04/18 04/04/18 18:59 06:59 18:59 Intake Total 800 / 800 1420 / 1420 Output Total 600 / 600 1350 / 1350 Balance 200 / 200 70 / 70 Weight 94 kg 94 kg Intake: Oral 800 / 800 1420 / 1420 Output: Urine 1350 / 1350 Stool 200 / 200 Urine Amount (Catheter) 400 / 400 Indwelling Urethral Catheter 400 / 400 Other: # Voids 1 # Incontinent Voids 1 1 Date of Last Bowel Movement 04/03/18 # Bowel Movements 0 Narrative: General patient in no acute distress HEENT extraocular movements are intact, clear oropharyngeal mucosa, Dry skin over the cheeks b/l Cardiovascular S1-S2 audible, Respiratory clear to auscultation bilaterally Abdomen soft, nontender, nondistended, normal bowel sounds Extremities no edema 2+ distal pulses in bilateral upper and lower extremities Patient responds to my questions and commands. He is oriented x 3. - Urinary Catheter Management Indwelling Urethral Catheter Cath placed during this visit: yes Reason for continuing: Acute urinary retention Insertion date: 03/31/18 Insertion time: 15:00 Results - Labs CBC & Chem 7: 04/04/18 08:04 04/04/18 08:04 Laboratory Results - last 24 hr 04/04/18 04/04/18 08:04 08:04 WBC 19.9 H RBC 4.14 L Hgb 12.1 L Hct 36.2 L MCV 87.4 MCH 29.2 MCHC 33.4 RDW 14.7 Plt Count 260 MPV 8.9 Neut % (Auto) 79.8 H Lymph % (Auto) 7.7 L [place] % (Auto) 10.8 H Eos % (Auto) 1.4 Baso % (Auto) 0.3 Neut # (Auto) 15.9 H Lymph # (Auto) 1.5 [place] # (Auto) 2.1 H Eos # (Auto) 0.3 Baso # (Auto) 0.1 WBC Differential . Differential Comment Auto diff final Sodium 140 Potassium 4.5 Chloride 105 Carbon Dioxide 27.9 Anion Gap 7 BUN 13 Creatinine 1.65 H Estimated GFR 43 L Random Glucose 107 H Calcium 9.6 Phosphorus 3.1 Magnesium 2.4 Total Bilirubin 1.0 AST 39 H ALT 81 H Alkaline Phosphatase 143 H Total Protein 7.3 Albumin 2.8 L - Procedures NONE Assessment and Plan - Plan This patient is a 57-year-old male with a known history of bipolar disorder on lithium. He was recently treated at our facility for pneumonia. He presented to our emergency department approximately 1 week ago. At that time the patient was feeling weak and appeared to be severely dehydrated. He was admitted to the critical care service as he was found to be altered severely dehydrated and hypernatremic. He has now been stabilized and was transferred to our service. 1. Systemic inflammatory response syndrome possibly secondary to urinary tract infection. Vital signs show that the patient has had a few febrile episodes and he is tachycardic. Labs show an up trending leukocytosis. A Jaramillo catheter was removed yesterday and he does have a diagnosis of BPH. Blood cultures, and urinalysis will be ordered. He will be started on Rocephin. He does not have any complaints of cough no shortness of breath and he is currently on room air. I do not suspect that the patient has a pneumonia. 2. Acute kidney injury likely secondary to dehydration. The patient's serum creatinine has showed a downtrend and is currently at 1.6 his baseline 3 months ago was around 1.0. Be given IV fluids today. We will repeat in a.m. basic metabolic panel. 3. Acute encephalopathy likely secondary to dehydration The patient's acute encephalopathy has resolved he is alert and oriented responding to my questions and commands appropriately. He is now a little bit drowsier than when I first evaluated him this morning. Seroquel will be held which I believe may be responsible for his drowsiness. He is still alert and awake we will continue to monitor the patient. 3. Coagulopathy Resolved likely due to dehydration hematology was following. 4. Elevated troponin As per cardiology likely type II spell secondary to dehydration and end organ damage. 5. Bipolar disorder Psychiatry is following the patient continue current medications.
[2018-04-04] MEDS: Sodium Chloride 0.45 % Inj 1,000 ML IV.CONT SCH (11:25)
[2018-04-04] MEDS: Acetaminophen 325 MG Tablet PO PRN (11:35)
[2018-04-04 18:32] LABS: Bacteria,Urine Many /hpf; Bilirubin,Urine Negative (Negative); Clarity,Urine Cloudy (Clear); Color,Urine Yellow (Yellw/Straw); Glucose,Urine (UA) Negative (Negative); Leukocyte Esterase,Urine Large (Negative); Mucus,Urine Few /lpf (Occasional); Nitrite,Urine Positive (Negative); Specific Gravity,Urine 1.005 (1.002-1.035)
[2018-04-05] MEDS: Sodium Chloride 0.45 % Inj 1,000 ML IV.CONT SCH ×3 (00:37→23:43)
[2018-04-05 07:32] LABS: Baso # (Auto) 0.1 th/mm3 (0.0-0.2); Baso % (Auto) 0.5 % (0.0-2.0); Eos # (Auto) 0.2 th/mm3 (0.0-0.4); Eos % (Auto) 1.9 % (0.0-4.0); Hematocrit 30.9 % (39.0-51.0); Hemoglobin 10.4 gm/dL (13.0-17.0); Lymph # (Auto) 1.2 th/mm3 (1.0-4.8); Lymph % (Auto) 9.2 % (9.0-44.0); Mean Corpuscular HGB Conc 33.6 % (32.0-36.0); Mean Corpuscular Hemoglobin 29.6 pg (27.0-34.0); Mean Corpuscular Volume 88.1 fL (80.0-100.0); Mean Platelet Volume 9.4 fL (7.0-11.0); Mono # (Auto) 1.8 th/mm3 (0.0-0.9); Mono % (Auto) 13.6 % (0.0-8.0); Neut % (Auto) 74.8 % (16.0-70.0); Platelet Count 245 th/mm3 (150-450); Red Blood Count 3.51 mil/mm3 (4.50-5.90); Red Cell Distribution Width 15.1 % (11.6-17.2); White Blood Count 13.3 th/mm3 (4.0-11.0)
[2018-04-05 08:09] LABS: Calcium 8.6 mg/dL (8.5-10.1); Carbon Dioxide 25.6 meq/L (21.0-32.0); Magnesium 2.3 mg/dL (1.5-2.5); Potassium 3.9 meq/L (3.5-5.1)
[2018-04-05] MEDS: Senna/Docusate Sodium 8.6/50 MG Tablet PO SCH ×2 (08:11→20:42)
[2018-04-05] MEDS: Metoprolol Tartrate 25 MG Tablet PO SCH ×2 (08:11→20:42)
[2018-04-05] MEDS: Famotidine PF Inj 20 MG/2 ML Vial IV.PUSH SCH ×2 (08:12→20:42)
--- NOTE | 2018-04-05 13:43 | P.PNIM ---
Subjective Interval history: Patient is lying in bed alert, sitting upright. He denies any complaints of pain. He is responding appropriately and does not have any other complaints. Physical Exam Vital signs: Vital Signs 04/04/18 16:00 04/04/18 17:00 04/04/18 20:00 Temperature 98.3 F 98.3 F Pulse Rate 107 H 100 H 67 Respiratory Rate 18 17 Blood Pressure 112/67 127/67 Pulse Oximetry 93 L 97 04/04/18 21:00 04/05/18 00:00 04/05/18 01:00 Temperature 98 F Pulse Rate 90 68 88 Respiratory Rate 19 Blood Pressure 125/69 Pulse Oximetry 96 04/05/18 04:30 04/05/18 05:00 04/05/18 08:00 Temperature 98.5 F 99.0 F Pulse Rate 70 82 81 Respiratory Rate 19 16 Blood Pressure 129/66 109/76 Pulse Oximetry 96 94 L 04/05/18 09:00 04/05/18 12:00 04/05/18 12:59 Temperature 98.3 F Pulse Rate 77 75 77 Respiratory Rate 16 Blood Pressure 112/72 Pulse Oximetry 93 L Intake & Output 04/04/18 04/05/18 04/05/18 18:59 06:59 18:59 Intake Total 100 / 100 3205 / 3205 2100 / 2100 Output Total 900 / 900 1600 / 1600 Balance -800 / -800 1605 / 1605 2100 / 2100 Weight 94 kg Intake: IV 100 / 100 1000 / 1000 2100 / 2100 1/2 Normal Saline Inj 1,000 ML 1000 / 1000 2000 / 2000 @ 84 mls/hr IV.CONT .[id number] [facility] Rx#:[id number] Rocephin Inj 1,000 MG In NS Inj 100 / 100 100 / 100 100 ML @ 200 mls/hr IV.SIG Q24H [facility] Rx#:[id number] Oral 2205 / 2205 Output: Urine 900 / 900 1600 / 1600 Other: # Incontinent Voids 4 Date of Last Bowel Movement 04/03/18 04/03/18 # Bowel Movements 0 Narrative: General patient in no acute distress HEENT extraocular movements are intact. Dry skin noted on the face underneath the lip and on bilateral cheeks. Cardiovascular S1-S2 audible, RRR Respiratory clear to auscultation bilaterally Abdomen soft, nontender, nondistended, normal bowel sounds Extremities no edema 2+ distal pulses in bilateral upper and lower extremities Neuro cranial nerves II through XII intact - Urinary Catheter Management Indwelling Urethral Catheter Cath placed during this visit: yes Reason for continuing: Acute urinary retention Insertion date: 03/31/18 Insertion time: 15:00 Results - Labs CBC & Chem 7: 04/05/18 06:56 04/05/18 06:36 Laboratory Results - last 24 hr 04/04/18 04/05/18 04/05/18 17:50 06:36 06:56 WBC 13.3 H RBC 3.51 L Hgb 10.4 L Hct 30.9 L MCV 88.1 MCH 29.6 MCHC 33.6 RDW 15.1 Plt Count 245 MPV 9.4 Neut % (Auto) 74.8 H Lymph % (Auto) 9.2 [place] % (Auto) 13.6 H Eos % (Auto) 1.9 Baso % (Auto) 0.5 Neut # (Auto) 10.0 H Lymph # (Auto) 1.2 [place] # (Auto) 1.8 H Eos # (Auto) 0.2 Baso # (Auto) 0.1 WBC Differential . Differential Comment Auto diff final Sodium 138 Potassium 3.9 Chloride 106 Carbon Dioxide 25.6 Anion Gap 6 BUN 13 Creatinine 1.33 H Estimated GFR 55 L Random Glucose 90 Calcium 8.6 D Magnesium 2.3 Urine Color Yellow Urine Clarity Cloudy H Urine pH 7.0 Ur Specific [place] 1.005 Urine Protein Negative Urine Glucose (UA) Negative Urine Ketones Negative Urine Occult Blood Large H Urine Nitrate Positive H Urine Bilirubin Negative Urine Urobilinogen Less than 2 Ur Leukocyte Esterase Large H Urine RBC 2 Urine WBC 157 H Urine WBC Clumps Few H Urine Bacteria Many H Urine Mucus Few H Micro UA Comment Culture indicated Ur Microscopic Review Not Reportable Urine Culture Comments Culture indicated Microbiology 04/04/18 12:05 Blood - Peripheral Aerobic Blood Culture - Preliminary No growth in 1 day 04/04/18 12:05 Blood - Peripheral Anaerobic Blood Culture - Preliminary No growth in 1 day 04/04/18 12:00 Blood - Peripheral Aerobic Blood Culture - Preliminary No growth in 1 day 04/04/18 12:00 Blood - Peripheral Anaerobic Blood Culture - Preliminary No growth in 1 day - Procedures NONE Assessment and Plan - Plan This patient is a 57-year-old male with a known history of bipolar disorder on lithium. He was recently treated at our facility for pneumonia. He presented to our emergency department approximately 1 week ago. At that time the patient was feeling weak and appeared to be severely dehydrated. He was admitted to the critical care service as he was found to be altered severely dehydrated and hypernatremic. He has now been stabilized and was transferred to our service. 1. Sepsis likely secondary to a urinary tract infection. Vital signs show that the patient has had a few febrile episodes and he is tachycardic. Blood cultures and urinalysis were drawn yesterday. UA was positive for urinary tract infection. Continue Rocephin. WBC count has down trended. A Jaramillo catheter was removed yesterday and he does have a diagnosis of BPH. We will follow up the urine culture. 2. Acute kidney injury likely secondary to dehydration. The patient's serum creatinine has showed a downtrend and is currently at 1.6 his baseline 3 months ago was around 1.0. His serum creatinine continues to down trend it is currently at 1.3. Will follow up in a.m. renal panel. Continue IV fluids for today. The patient also has urinary retention. He has a history of BPH. As per the nurse the patient is able to urinate occasionally however he required a few catheterizations since yesterday. Continue BPH medications. 3. Acute encephalopathy likely secondary to dehydration The patient's Seroquel was held yesterday as he was found to be very drowsy at midday after receiving the medication. Today's dose was held and he is awake, alert, and oriented 3. We will follow-up with psychiatry for recommendations on discontinuing Seroquel or reducing the dosage. 3. Coagulopathy Resolved likely due to dehydration hematology was following. 4. Elevated troponin As per cardiology likely type II spell secondary to dehydration and end organ damage. 5. Bipolar disorder Psychiatry is following the patient continue current medications. Seroquel held. 6. Seborrheic dermatitis. Ketoconazole cream ordered. Apply to face twice daily. Continue PT. Heparin for dvt prophylaxis.
[2018-04-05] MEDS ORDERED: Heparin - SQ 10,000 UNITS/ML Vial SQ SCH (15:00)
[2018-04-05] MEDS: Heparin - SQ 10,000 UNITS/ML Vial SQ SCH (20:43)
[2018-04-05] MEDS: Temazepam 15 MG Capsule PO PRN (20:43)
[2018-04-06] MEDS: Famotidine PF Inj 20 MG/2 ML Vial IV.PUSH SCH ×2 (09:13→21:07)
[2018-04-06] MEDS: Heparin - SQ 10,000 UNITS/ML Vial SQ SCH ×2 (09:14→21:08)
[2018-04-06] MEDS: Metoprolol Tartrate 25 MG Tablet PO SCH ×2 (09:14→21:08)
[2018-04-06] MEDS: Senna/Docusate Sodium 8.6/50 MG Tablet PO SCH ×2 (09:15→21:09)
[2018-04-06] MEDS: Sodium Chloride 0.45 % Inj 1,000 ML IV.CONT SCH (10:33)
[2018-04-06] MEDS: Acetaminophen 325 MG Tablet PO PRN (11:07)
--- NOTE | 2018-04-06 14:23 | P.PNIM ---
Subjective Interval history: Patient reports he feels very fatigued. He reports pain all over. Physical Exam Vital signs: Vital Signs 04/05/18 16:00 04/05/18 17:00 04/05/18 20:00 Temperature 98.4 F 98.1 F Pulse Rate 79 79 80 Respiratory Rate 20 18 Blood Pressure 119/71 126/83 Pulse Oximetry 95 95 04/05/18 20:03 04/05/18 23:46 04/06/18 01:00 Temperature 98.5 F Pulse Rate 82 75 72 Respiratory Rate 18 Blood Pressure 129/89 Pulse Oximetry 96 04/06/18 03:50 04/06/18 04:41 04/06/18 08:00 Temperature 98.5 F 98.6 F Pulse Rate 86 83 80 Respiratory Rate 18 18 Blood Pressure 121/61 139/87 Pulse Oximetry 95 96 04/06/18 09:00 04/06/18 12:00 Temperature 98.4 F Pulse Rate 69 69 Respiratory Rate 18 Blood Pressure 119/78 Pulse Oximetry 95 Intake & Output 04/05/18 04/06/18 04/06/18 18:59 06:59 18:59 Intake Total 2580 / 2580 1100 / 1100 Output Total 1325 / 1325 3200 / 3200 Balance 1255 / 1255 -3200 / -3200 1100 / 1100 Weight 94.1 kg Intake: IV 2100 / 2100 1100 / 1100 1/2 Normal Saline Inj 1,000 ML 2000 / 2000 1000 / 1000 @ 84 mls/hr IV.CONT .[id number] [facility] Rx#:[id number] Rocephin Inj 1,000 MG In NS Inj 100 / 100 100 / 100 100 ML @ 200 mls/hr IV.SIG Q24H [facility] Rx#:[id number] Oral 480 / 480 Output: Urine 1325 / 1325 3200 / 3200 Other: Date of Last Bowel Movement 04/05/18 04/05/18 04/05/18 # Bowel Movements 2 1 # Incontinent Bowel Movements 2 Narrative: General patient in no acute distress HEENT extraocular movements are intact. Dry skin noted on the face underneath the lip and on bilateral cheeks. Cardiovascular S1-S2 audible, RRR Respiratory clear to auscultation bilaterally Abdomen soft, nontender, nondistended, normal bowel sounds Extremities no edema 2+ distal pulses in bilateral upper and lower extremities Neuro cranial nerves II through XII intact - Urinary Catheter Management Indwelling Urethral Catheter Cath placed during this visit: yes Reason for continuing: Acute urinary retention Insertion date: 03/31/18 Insertion time: 15:00 Results - Labs CBC & Chem 7: 04/05/18 06:56 04/05/18 06:36 Laboratory Results - last 24 hr 04/04/18 17:50 Urine Color Yellow Urine Clarity Cloudy H Urine pH 7.0 Ur Specific [place] 1.005 Urine Protein Negative Urine Glucose (UA) Negative Urine Ketones Negative Urine Occult Blood Large H Urine Nitrate Positive H Urine Bilirubin Negative Urine Urobilinogen Less than 2 Ur Leukocyte Esterase Large H Urine RBC 2 Urine WBC 157 H Urine WBC Clumps Few H Urine Bacteria Many H Urine Mucus Few H Micro UA Comment Culture indicated Urine Culture Comments Culture indicated Microbiology 04/04/18 12:05 Blood - Peripheral Aerobic Blood Culture - Preliminary No growth in 2 days 04/04/18 12:05 Blood - Peripheral Anaerobic Blood Culture - Preliminary No growth in 2 days 04/04/18 12:00 Blood - Peripheral Aerobic Blood Culture - Preliminary No growth in 2 days 04/04/18 12:00 Blood - Peripheral Anaerobic Blood Culture - Preliminary No growth in 2 days 04/04/18 17:50 Clean Catch Urine Urine Culture - Final Pseudomonas aeruginosa - Procedures NONE Assessment and Plan - Plan 57-year-old male with a known history of bipolar disorder on lithium. He was recently treated at our facility for pneumonia. He presented to our emergency department approximately 1 week ago. At that time the patient was feeling weak and appeared to be severely dehydrated. He was admitted to the critical care service as he was found to be altered severely dehydrated and hypernatremic. He has now been stabilized and was transferred to our service. This concerned the patient may be getting to the point where he is unable to care appropriately for himself. 1. Sepsis likely secondary to a urinary tract infection. Urine culture grew Pseudomonas. Transition to Cipro. 2. Acute kidney injury likely secondary to dehydration. Renal functions improved with hydration. 3. Acute encephalopathy likely secondary to dehydration and medication side effect. - The patient Seroquel has been on hold. His mental status seems to be as baseline. - We will continue lithium. Appreciate psychiatry input. 3. Coagulopathy Resolved likely due to dehydration hematology was following. 4. Elevated troponin As per cardiology likely type II spell secondary to dehydration and end organ damage. 5. Bipolar disorder Psychiatry is following the patient continue current medications. Seroquel held. 6. Seborrheic dermatitis. Ketoconazole cream ordered. Apply to face twice daily. Continue PT. Heparin for dvt prophylaxis. Discharge Planning: Patient will likely need placement. It appears that he has been declining and having problems taking care of himself.
[2018-04-06] MEDS: Temazepam 15 MG Capsule PO PRN (21:09)
[2018-04-07 08:21] LABS: Hematocrit 32.9 % (39.0-51.0); Hemoglobin 11.1 gm/dL (13.0-17.0); Mean Corpuscular HGB Conc 33.7 % (32.0-36.0); Mean Corpuscular Hemoglobin 29.6 pg (27.0-34.0); Mean Corpuscular Volume 87.8 fL (80.0-100.0); Mean Platelet Volume 8.8 fL (7.0-11.0); Platelet Count 353 th/mm3 (150-450); Red Blood Count 3.74 mil/mm3 (4.50-5.90); Red Cell Distribution Width 14.4 % (11.6-17.2); White Blood Count 7.4 th/mm3 (4.0-11.0)
[2018-04-07 08:44] LABS: Calcium 9.2 mg/dL (8.5-10.1); Carbon Dioxide 22.4 meq/L (21.0-32.0); Potassium 3.6 meq/L (3.5-5.1)
[2018-04-07] MEDS: Heparin - SQ 10,000 UNITS/ML Vial SQ SCH ×2 (08:47→20:49)
[2018-04-07] MEDS: Metoprolol Tartrate 25 MG Tablet PO SCH ×2 (08:47→20:49)
[2018-04-07] MEDS: Famotidine PF Inj 20 MG/2 ML Vial IV.PUSH SCH ×2 (08:47→20:48)
[2018-04-07] MEDS: Senna/Docusate Sodium 8.6/50 MG Tablet PO SCH ×2 (08:48→20:49)
--- NOTE | 2018-04-07 17:09 | P.PNIM ---
Subjective Interval history: Patient reports he is feeling better today. He states he worked with physical therapy. He is requesting help to get back in touch with his campground where his trailer is parked. Physical Exam Vital signs: Vital Signs 04/06/18 20:00 04/06/18 21:00 04/07/18 00:00 Temperature 98.1 F 97.9 F Pulse Rate 86 73 71 Respiratory Rate 18 18 Blood Pressure 154/92 H 153/96 H Pulse Oximetry 96 97 04/07/18 01:00 04/07/18 04:00 04/07/18 05:00 Temperature 97.8 F Pulse Rate 72 72 72 Respiratory Rate 18 Blood Pressure 149/95 H Pulse Oximetry 95 04/07/18 08:00 04/07/18 12:00 Temperature 97.8 F 97.6 F Pulse Rate 81 70 Respiratory Rate 16 18 Blood Pressure 177/97 H 147/93 H Pulse Oximetry 95 96 Intake & Output 04/06/18 04/07/18 04/07/18 18:59 06:59 18:59 Intake Total 2150 / 2150 Output Total 1800 / 1800 1350 / 1350 Balance 350 / 350 -1350 / -1350 Weight 97.1 kg Intake: IV 1450 / 1450 1/2 Normal Saline Inj 1,000 ML 1350 / 1350 @ 84 mls/hr IV.CONT .[id number] [facility]LE[facility] Rx#:[id number] Rocephin Inj 1,000 MG In NS Inj 100 / 100 100 ML @ 200 mls/hr IV.SIG Q24H ALEJA Rx#:[id number] Oral 700 / 700 Output: Urine 1800 / 1800 1350 / 1350 Other: Date of Last Bowel Movement 04/05/18 04/06/18 04/06/18 Narrative: General patient in no acute distress HEENT extraocular movements are intact. Dry skin noted on the face underneath the lip and on bilateral cheeks. Cardiovascular S1-S2 audible, RRR Respiratory clear to auscultation bilaterally Abdomen soft, nontender, nondistended, normal bowel sounds Extremities no edema 2+ distal pulses in bilateral upper and lower extremities Neuro cranial nerves II through XII intact - Urinary Catheter Management Indwelling Urethral Catheter Cath placed during this visit: yes Reason for continuing: Acute urinary retention Insertion date: 03/31/18 Insertion time: 15:00 Results - Labs CBC & Chem 7: 04/07/18 07:28 04/07/18 07:28 Laboratory Results - last 24 hr 04/07/18 04/07/18 07:28 07:28 WBC 7.4 RBC 3.74 L Hgb 11.1 L Hct 32.9 L MCV 87.8 MCH 29.6 MCHC 33.7 RDW 14.4 Plt Count 353 D MPV 8.8 Sodium 138 Potassium 3.6 Chloride 105 Carbon Dioxide 22.4 Anion Gap 11 BUN 5 L Creatinine 1.06 Estimated GFR 72 L Random Glucose 92 Calcium 9.2 Microbiology 04/04/18 12:05 Blood - Peripheral Aerobic Blood Culture - Preliminary No growth in 3 days 04/04/18 12:05 Blood - Peripheral Anaerobic Blood Culture - Preliminary No growth in 3 days 04/04/18 12:00 Blood - Peripheral Aerobic Blood Culture - Preliminary No growth in 3 days 04/04/18 12:00 Blood - Peripheral Anaerobic Blood Culture - Preliminary No growth in 3 days - Procedures NONE Assessment and Plan - Plan 57-year-old male with a known history of bipolar disorder on lithium. He was recently treated at our facility for pneumonia. He presented to our emergency department approximately 1 week ago. At that time the patient was feeling weak and appeared to be severely dehydrated. He was admitted to the critical care service as he was found to be altered severely dehydrated and hypernatremic. He has now been stabilized and was transferred to our service. 1. Sepsis likely secondary to a urinary tract infection. Urine culture grew Pseudomonas. Continue Cipro. 2. Acute kidney injury likely secondary to dehydration. Renal functions improved with hydration. 3. Acute encephalopathy likely secondary to dehydration and medication side effect. - The patient Seroquel has been on hold. His mental status seems to be as baseline. - We will continue lithium. Appreciate psychiatry input. 3. Coagulopathy Resolved likely due to dehydration hematology was following. 4. Elevated troponin As per cardiology likely type II spell secondary to dehydration and end organ damage. 5. Bipolar disorder Psychiatry is following the patient continue current medications. Seroquel held. 6. Seborrheic dermatitis. Ketoconazole cream ordered. Apply to face twice daily. Continue PT. Heparin for dvt prophylaxis. Discharge Planning: Continue PT efforts. Discussed with nursing staff and case management to attempt to locate he is RV. Will consider discharging tomorrow depending on his progress with physical therapy.
[2018-04-07] MEDS: Temazepam 15 MG Capsule PO PRN (20:48)
[2018-04-08] MEDS: Famotidine PF Inj 20 MG/2 ML Vial IV.PUSH SCH ×2 (08:59→22:41)
[2018-04-08] MEDS: Metoprolol Tartrate 25 MG Tablet PO SCH ×2 (08:59→22:41)
[2018-04-08] MEDS: Senna/Docusate Sodium 8.6/50 MG Tablet PO SCH ×2 (08:59→22:41)
[2018-04-08] MEDS: Heparin - SQ 10,000 UNITS/ML Vial SQ SCH ×2 (09:00→22:41)
--- NOTE | 2018-04-08 16:06 | P.PNIM ---
Subjective Interval history: Patient reports he still has significant weakness and will not be able to manage in his trailer by himself. Physical Exam Vital signs: Vital Signs 04/07/18 20:00 04/08/18 00:00 04/08/18 04:00 Temperature 97.6 F 98.5 F 97.6 F Pulse Rate 78 90 89 Respiratory Rate 18 18 18 Blood Pressure 136/90 138/96 H 149/99 H Pulse Oximetry 96 96 95 04/08/18 08:00 04/08/18 12:00 Temperature 97.8 F 97.6 F Pulse Rate 80 69 Respiratory Rate 18 18 Blood Pressure 153/104 H 139/99 H Pulse Oximetry 97 96 Intake & Output 04/07/18 04/08/18 04/08/18 18:59 06:59 18:59 Intake Total 1000 / 1000 Output Total 1600 / 1600 300 / 300 Balance -600 / -600 -300 / -300 Intake: Oral 1000 / 1000 Output: Urine 1600 / 1600 300 / 300 Other: # Incontinent Voids 2 Date of Last Bowel Movement 04/06/18 04/07/18 04/07/18 # Bowel Movements 0 Narrative: General patient in no acute distress HEENT extraocular movements are intact. Dry skin noted on the face underneath the lip and on bilateral cheeks. Cardiovascular S1-S2 audible, RRR Respiratory clear to auscultation bilaterally Abdomen soft, nontender, nondistended, normal bowel sounds Extremities no edema 2+ distal pulses in bilateral upper and lower extremities Generalized weakness. - Urinary Catheter Management Indwelling Urethral Catheter Cath placed during this visit: yes Reason for continuing: Acute urinary retention Insertion date: 03/31/18 Insertion time: 15:00 Results - Labs CBC & Chem 7: 04/07/18 07:28 04/07/18 07:28 Microbiology 04/04/18 12:05 Blood - Peripheral Aerobic Blood Culture - Preliminary No growth in 4 days 04/04/18 12:05 Blood - Peripheral Anaerobic Blood Culture - Preliminary No growth in 4 days 04/04/18 12:00 Blood - Peripheral Aerobic Blood Culture - Preliminary No growth in 4 days 04/04/18 12:00 Blood - Peripheral Anaerobic Blood Culture - Preliminary No growth in 4 days - Procedures NONE Assessment and Plan - Plan 57-year-old male with a known history of bipolar disorder on lithium. He was recently treated at our facility for pneumonia. He presented to our emergency department approximately 1 week ago. At that time the patient was feeling weak and appeared to be severely dehydrated. He was admitted to the critical care service as he was found to be altered severely dehydrated and hypernatremic. He has now been stabilized and was transferred to our service. 1. Sepsis likely secondary to a urinary tract infection. Urine culture grew Pseudomonas. Continue Cipro for 5 more days. 2. Acute kidney injury likely secondary to dehydration. Renal functions improved with hydration. 3. Acute encephalopathy likely secondary to dehydration and medication side effect. - The patient Seroquel has been on hold. His mental status seems to be as baseline. - We will continue lithium. Appreciate psychiatry input. 3. Coagulopathy Resolved likely due to dehydration hematology was following. 4. Elevated troponin As per cardiology likely type II spell secondary to dehydration and end organ damage. 5. Bipolar disorder Psychiatry is following the patient continue current medications. Seroquel held. 6. Seborrheic dermatitis. Ketoconazole cream ordered. Apply to face twice daily. Continue PT. Heparin for dvt prophylaxis. Discharge Planning: Continue PT efforts. Patient need to get stronger. He needs encouragement to participate with PT. He has no benefit for SNF.
[2018-04-08] MEDS: Temazepam 15 MG Capsule PO PRN (22:41)
[2018-04-09] MEDS: Senna/Docusate Sodium 8.6/50 MG Tablet PO SCH ×2 (10:03→21:54)
[2018-04-09] MEDS: Metoprolol Tartrate 25 MG Tablet PO SCH ×2 (10:03→21:55)
[2018-04-09] MEDS: Heparin - SQ 10,000 UNITS/ML Vial SQ SCH ×2 (10:04→21:54)
[2018-04-09] MEDS: Famotidine PF Inj 20 MG/2 ML Vial IV.PUSH SCH ×2 (10:04→21:54)
--- NOTE | 2018-04-09 17:24 | P.PNIM ---
Subjective Interval history: Patient reports he is feeling about the same. Long discussions again regarding discharge planning. He is concerned that he does not have keys to get into his trailer. Physical Exam Vital signs: Vital Signs 04/08/18 21:00 04/09/18 00:00 04/09/18 01:00 Temperature 98.1 F Pulse Rate 78 72 80 Respiratory Rate 18 Blood Pressure 122/78 Pulse Oximetry 99 04/09/18 04:00 04/09/18 05:00 04/09/18 08:18 Temperature 98.1 F 98.1 F Pulse Rate 122 H 72 87 Respiratory Rate 20 20 Blood Pressure 132/89 147/89 H Pulse Oximetry 96 99 04/09/18 09:00 04/09/18 12:08 04/09/18 12:14 Temperature 98.2 F Pulse Rate 83 87 80 Respiratory Rate 18 Blood Pressure 150/96 H Pulse Oximetry 96 04/09/18 16:18 Temperature 98.0 F Pulse Rate 85 Respiratory Rate 18 Blood Pressure 137/89 Pulse Oximetry 97 Intake & Output 04/08/18 04/09/18 04/09/18 18:59 06:59 18:59 Intake Total 960 / 960 Output Total 400 / 400 2400 / 2400 1999 Balance -400 / -400 -1440 / -1440 -1999 -1999 Weight 95.7 kg Intake: Oral 960 / 960 Output: Urine 400 / 400 2400 / 2400 1999 Other: # Voids 4 Date of Last Bowel Movement 04/07/18 04/07/18 Narrative: General patient in no acute distress HEENT extraocular movements are intact. Dry skin noted on the face underneath the lip and on bilateral cheeks. Cardiovascular S1-S2 audible, RRR Respiratory clear to auscultation bilaterally Abdomen soft, nontender, nondistended, normal bowel sounds Extremities no edema 2+ distal pulses in bilateral upper and lower extremities Generalized weakness. - Urinary Catheter Management Indwelling Urethral Catheter Cath placed during this visit: yes Reason for continuing: Acute urinary retention Insertion date: 03/31/18 Insertion time: 15:00 Results - Labs CBC & Chem 7: 04/07/18 07:28 04/07/18 07:28 Microbiology 04/04/18 12:05 Blood - Peripheral Aerobic Blood Culture - Final No growth in 5 days 09/09/18 12:05 Blood - Peripheral Anaerobic Blood Culture - Final No growth in 5 days 04/04/18 12:00 Blood - Peripheral Aerobic Blood Culture - Final No growth in 5 days 04/04/18 12:00 Blood - Peripheral Anaerobic Blood Culture - Final No growth in 5 days - Procedures NONE Assessment and Plan - Plan 57-year-old male with a known history of bipolar disorder on lithium. He was recently treated at our facility for pneumonia. He presented to our emergency department approximately 1 week ago. At that time the patient was feeling weak and appeared to be severely dehydrated. He was admitted to the critical care service as he was found to be altered severely dehydrated and hypernatremic. He has now been stabilized and was transferred to our service. 1. Sepsis likely secondary to a urinary tract infection. Urine culture grew Pseudomonas. Continue Cipro for 3 more days. 2. Acute kidney injury likely secondary to dehydration. Renal functions improved with hydration. 3. Acute encephalopathy likely secondary to dehydration and medication side effect. - The patient Seroquel has been on hold. His mental status seems to be as baseline. - We will continue lithium. Appreciate psychiatry input. 3. Coagulopathy Resolved likely due to dehydration hematology was following. 4. Elevated troponin As per cardiology likely type II spell secondary to dehydration and end organ damage. 5. Bipolar disorder Psychiatry is following the patient continue current medications. Seroquel held. 6. Seborrheic dermatitis. Ketoconazole cream ordered. Apply to face twice daily. Continue PT. Heparin for dvt prophylaxis. Discharge Planning: Continue PT efforts. Patient needs encouragement to change it to participate with PT. discussed with case management to assist with a safe discharge plan.
[2018-04-10] MEDS: Famotidine PF Inj 20 MG/2 ML Vial IV.PUSH SCH ×2 (09:01→21:44)
[2018-04-10] MEDS: Metoprolol Tartrate 25 MG Tablet PO SCH ×2 (09:01→21:45)
[2018-04-10] MEDS: Senna/Docusate Sodium 8.6/50 MG Tablet PO SCH ×2 (09:01→21:55)
[2018-04-10] MEDS: Heparin - SQ 10,000 UNITS/ML Vial SQ SCH ×2 (09:02→21:44)
--- NOTE | 2018-04-10 14:35 | P.PNIM ---
Subjective Interval history: Patient still reports that he feels weak. He states he is working with physical therapy. Physical Exam Vital signs: Vital Signs 04/09/18 16:18 04/09/18 20:00 04/10/18 00:00 Temperature 98.0 F 98.3 F 97.8 F Pulse Rate 85 85 78 Respiratory Rate 18 18 18 Blood Pressure 137/89 147/94 H 140/94 H Pulse Oximetry 97 98 97 04/10/18 04:00 04/10/18 07:47 04/10/18 12:00 Temperature 97.9 F 97.7 F 97.6 F Pulse Rate 60 72 67 Respiratory Rate 18 18 18 Blood Pressure 150/90 H 137/78 131/92 H Pulse Oximetry 98 98 97 Intake & Output 04/09/18 04/10/18 04/10/18 18:59 06:59 18:59 Intake Total 980 / 980 720 / 720 480 / 480 Output Total 3000 / 3000 2290 / 2290 650 / 650 Balance -2020 / -2020 -1570 / -1570 -170 / -170 Weight 94 kg Intake: Oral 980 / 980 720 / 720 480 / 480 Output: Urine 3000 / 3000 2290 / 2290 650 / 650 Other: # Voids 4 Date of Last Bowel Movement 04/09/18 Narrative: General: patient in no acute distress Cardiovascular S1-S2 audible, RRR Respiratory clear to auscultation bilaterally Abdomen soft, nontender, nondistended, normal bowel sounds Extremities no edema 2+ distal pulses in bilateral upper and lower extremities Generalized weakness but improved compared to prior exam.. - Urinary Catheter Management Indwelling Urethral Catheter Cath placed during this visit: yes Reason for continuing: Acute urinary retention Insertion date: 03/31/18 Insertion time: 15:00 Results - Labs CBC & Chem 7: 04/07/18 07:28 04/07/18 07:28 Microbiology 04/04/18 12:05 Blood - Peripheral Aerobic Blood Culture - Final No growth in 5 days 04/04/18 12:05 Blood - Peripheral Anaerobic Blood Culture - Final No growth in 5 days 04/04/18 12:00 Blood - Peripheral Aerobic Blood Culture - Final No growth in 5 days 04/04/18 12:00 Blood - Peripheral Anaerobic Blood Culture - Final No growth in 5 days - Procedures NONE Assessment and Plan - Plan 57-year-old male with a known history of bipolar disorder on lithium. He was recently treated at our facility for pneumonia. He presented to our emergency department approximately 1 week ago. At that time the patient was feeling weak and appeared to be severely dehydrated. He was admitted to the critical care service as he was found to be altered severely dehydrated and hypernatremic. He has now been stabilized and was transferred to our service. 1. Sepsis likely secondary to a urinary tract infection. Urine culture grew Pseudomonas. Continue Cipro for 2 more days. 2. Acute kidney injury likely secondary to dehydration. Renal functions improved with hydration. 3. Acute encephalopathy likely secondary to dehydration and medication side effect. - The patient Seroquel has been on hold. His mental status seems to be as baseline. - We will continue lithium. Appreciate psychiatry input. 3. Coagulopathy Resolved likely due to dehydration hematology was following. 4. Elevated troponin As per cardiology likely type II spell secondary to dehydration and end organ damage. 5. Bipolar disorder Psychiatry is following the patient continue current medications. Seroquel held. 6. Seborrheic dermatitis. Ketoconazole cream ordered. Apply to face twice daily. Continue PT. Heparin for dvt prophylaxis. Discharge Planning: Continue PT efforts. Patient needs encouragement to participate with PT. discussed with case management to assist with a safe discharge plan. Discussed with physical therapist today, continue daily PT.
[2018-04-11] MEDS: Heparin - SQ 10,000 UNITS/ML Vial SQ SCH ×2 (09:17→21:48)
[2018-04-11] MEDS: Famotidine PF Inj 20 MG/2 ML Vial IV.PUSH SCH ×2 (09:17→21:48)
[2018-04-11] MEDS: Senna/Docusate Sodium 8.6/50 MG Tablet PO SCH ×2 (09:18→21:58)
[2018-04-11] MEDS: Metoprolol Tartrate 25 MG Tablet PO SCH ×2 (09:18→21:48)
--- NOTE | 2018-04-11 14:55 | P.PNIM ---
Subjective Interval history: Patient reports he is feeling okay. States he will continue to work with physical therapy. He reports he has 100s of water bottles laying on the floor and his trailer and he is concerned about going back in there. Physical Exam Vital signs: Vital Signs 04/10/18 16:00 04/10/18 20:00 04/11/18 00:00 Temperature 98.3 F 98.2 F 98 F Pulse Rate 73 103 H 82 Respiratory Rate 18 18 Blood Pressure 131/85 138/81 134/88 Pulse Oximetry 96 96 96 04/11/18 04:00 04/11/18 08:00 04/11/18 12:00 Temperature 97.6 F 98 F 97.8 F Pulse Rate 78 72 70 Respiratory Rate 18 20 20 Blood Pressure 126/77 130/88 139/83 Pulse Oximetry 97 96 96 Intake & Output 04/10/18 04/11/18 04/11/18 18:59 06:59 18:59 Intake Total 720 / 720 Output Total 1250 / 1250 1050 / 1050 Balance -530 / -530 -1050 / -1050 Weight 94 kg Intake: Oral 720 / 720 Output: Urine 1250 / 1250 1050 / 1050 Other: Post Void Residual 0 Date of Last Bowel Movement 04/10/18 04/10/18 Narrative: General: patient in no acute distress Cardiovascular S1-S2 audible, RRR Respiratory clear to auscultation bilaterally Abdomen soft, nontender, nondistended, normal bowel sounds Extremities no edema 2+ distal pulses in bilateral upper and lower extremities Generalized weakness - Urinary Catheter Management Indwelling Urethral Catheter Cath placed during this visit: yes Reason for continuing: Acute urinary retention Insertion date: 03/31/18 Insertion time: 15:00 Results - Labs CBC & Chem 7: 04/07/18 07:28 04/07/18 07:28 - Procedures NONE Assessment and Plan - Plan 57-year-old male with a known history of bipolar disorder on lithium. He was recently treated at our facility for pneumonia. He presented to our emergency department approximately 1 week ago. At that time the patient was feeling weak and appeared to be severely dehydrated. He was admitted to the critical care service as he was found to be altered severely dehydrated and hypernatremic. He has now been stabilized and was transferred to our service. 1. Sepsis likely secondary to a urinary tract infection. Urine culture grew Pseudomonas. Status post treatment with antibiotics. 2. Acute kidney injury likely secondary to dehydration. Renal functions improved with hydration. 3. Acute encephalopathy likely secondary to dehydration and medication side effect. - The patient Seroquel has been on hold. His mental status seems to be as baseline. - We will continue lithium. Appreciate psychiatry input. 3. Coagulopathy Resolved likely due to dehydration hematology was following. 4. Elevated troponin As per cardiology likely type II spell secondary to dehydration and end organ damage. 5. Bipolar disorder Psychiatry is following the patient continue current medications. Seroquel held. 6. Seborrheic dermatitis. Ketoconazole cream ordered. Apply to face twice daily. Continue PT. Heparin for dvt prophylaxis. Discharge Planning: Continue PT efforts. Patient needs encouragement to participate with PT. discussed with case management to assist with a safe discharge plan. Discussed with physical therapy, continue daily PT.
[2018-04-12] MEDS: Famotidine PF Inj 20 MG/2 ML Vial IV.PUSH SCH ×2 (09:45→21:52)
[2018-04-12] MEDS: Metoprolol Tartrate 25 MG Tablet PO SCH ×2 (09:45→21:51)
[2018-04-12] MEDS: Senna/Docusate Sodium 8.6/50 MG Tablet PO SCH ×2 (09:45→21:52)
[2018-04-12] MEDS: Heparin - SQ 10,000 UNITS/ML Vial SQ SCH ×2 (09:46→21:51)
--- NOTE | 2018-04-12 17:26 | P.PNIM ---
Subjective Interval history: 57-year-old male presents for an evaluation of generalized weakness. Patient appears very dehydrated on arrival. He was recently admitted for treatment of pneumonia. Chest x-ray was negative at that time, and he was discharged on antibiotics after a few days of IV antibiotics. Has a history of bipolar disorder treated with lithium. Per chart report when EMS arrived the patient looked like he had been on the floor for several days. On arrival the patient just states he feels very weak all over, denies any specific pain. Denies any abdominal pain chest pain headache or extremity pain. He states that he has had some mild nausea without vomiting. No diarrhea no constipation or blood in the stool. 03/28 Patient is awake and alert on room air oxygen, hypertensive. Afebrile. 03/29 Patient is awake and alert. Renal function is improving with Cr: 1.58 from 2.0 yesterday. Afebrile. 9- patient was TRANSFERRED FROM [facility] TO OUR SERVICE TODAY REMAINS CONFUSED MUMDENNIS MELÉNDEZ RN AND PT AM LABS PT AND OT CM FOR PLACEMENT 9-5 LITTLE LESS CONFUSED TODAY KNew that the president was Rj Simmons. He knew that it was 2017 and he knew he was in [facility] in [facility]. Little confused from taking a sleeping pill last night Taking his medication Was in 2-point restraints yesterday A.m. labs Increase activity 9-6 MORE ALERT TODAY Much more oriented today Has Jaramillo catheter in place We will needed at discharge probably Transfer out of ICU Increase activity A.m. labs Case management for discharge planning Discussed with patient and RN 9-7 PULLED OUT ALL HIS LINES LAST NIGHT Still has a Jaramillo catheter in place Very anxious had to be given Ativan 2 mg p.o. Has now improved since earlier this morning per nursing We will get a.m. labs We will reconsult psychiatry for help with his severe psychiatric problems 9-8 SEEN BY PSYCHIATRY YESTERDAY Meds adjusted by them Haldol IV every 8 hours as needed aggressiveness A.m. labs Transfer out of ICU 9-9 Patient says that he feels weak all over but better than when he came into the hospital. He feels thirsty. He does not have any other complaints. 9-10 Patient is lying in bed alert, sitting upright. He denies any complaints of pain. He is responding appropriately and does not have any other complaints. 9-11 Patient reports he feels very fatigued. He reports pain all over. 9-12 Patient reports he is feeling better today. He states he worked with physical therapy. He is requesting help to get back in touch with his campground where his trailer is parked. 9-13 Patient reports he still has significant weakness and will not be able to manage in his trailer by himself. 9-14 Patient reports he is feeling about the same. Long discussions again regarding discharge planning. He is concerned that he does not have keys to get into his trailer. 9-15 Patient still reports that he feels weak. He states he is working with physical therapy. 9-16 Patient reports he is feeling okay. States he will continue to work with physical therapy. He reports he has 100s of water bottles laying on the floor and his trailer and he is concerned about going back in there. 9-17 NEEDS A SAFE DISCHARGE LIVES ALONE IN A TRAILER THAT HE DOES NOT HAVE KEYS TO IS UNSTEADY ON HIS FEET DW RN AND PT AND CM Physical Exam Vital signs: Vital Signs 04/11/18 20:00 04/12/18 00:00 04/12/18 04:00 Temperature 98 F 98 F 97.9 F Pulse Rate 72 65 75 Respiratory Rate 19 20 18 Blood Pressure 132/83 135/94 H 149/91 H Pulse Oximetry 97 96 96 04/12/18 08:00 04/12/18 12:00 Temperature 98.4 F 97.7 F Pulse Rate 85 72 Respiratory Rate 18 16 Blood Pressure 147/101 H 137/84 Pulse Oximetry 96 96 Intake & Output 04/11/18 04/12/18 04/12/18 18:59 06:59 18:59 Intake Total 240 / 240 Output Total 1700 / 1700 700 / 700 Balance -1460 / -1460 -700 / -700 Weight 94.5 kg Intake: Oral 240 / 240 Output: Urine 1500 / 1500 700 / 700 Stool 200 / 200 Other: Post Void Residual 0 # Voids 4 # Incontinent Voids 2 Date of Last Bowel Movement 04/11/18 04/10/18 04/10/18 # Bowel Movements 0 # Incontinent Bowel Movements 1 Narrative: General: patient in no acute distress Cardiovascular S1-S2 audible, RRR Respiratory clear to auscultation bilaterally Abdomen soft, nontender, nondistended, normal bowel sounds Extremities no edema 2+ distal pulses in bilateral upper and lower extremities Generalized weakness - Urinary Catheter Management Indwelling Urethral Catheter Cath placed during this visit: yes Reason for continuing: Acute urinary retention Insertion date: 03/31/18 Insertion time: 15:00 Results - Labs CBC & Chem 7: 04/07/18 07:28 04/07/18 07:28 - Procedures NONE Assessment and Plan - Plan 57-year-old male with a known history of bipolar disorder on lithium. He was recently treated at our facility for pneumonia. He presented to our emergency department approximately 1 week ago. At that time the patient was feeling weak and appeared to be severely dehydrated. He was admitted to the critical care service as he was found to be altered severely dehydrated and hypernatremic. He has now been stabilized and was transferred to our service. 1. Sepsis likely secondary to a urinary tract infection. Urine culture grew Pseudomonas. Status post treatment with antibiotics. 2. Acute kidney injury likely secondary to dehydration. VS LITHIUM Renal functions improved with hydration. 3. Acute encephalopathy likely secondary to dehydration and medication side effect. - The patient Seroquel has been on hold. His mental status seems to be as baseline. - We will continue lithium. Appreciate psychiatry input. 3. Coagulopathy Resolved likely due to dehydration /MALNUTRITION hematology was following. 4. Elevated troponin As per cardiology likely type II spell secondary to dehydration and end organ damage. 5. Bipolar disorder Psychiatry is following the patient continue current medications. Seroquel held. 6. Seborrheic dermatitis. Ketoconazole cream ordered. Apply to face twice daily. Continue PT. Heparin for dvt prophylaxis. Discharge Planning: Continue PT efforts. Patient needs encouragement to participate with PT. discussed with case management to assist with a safe discharge plan. Discussed with physical therapy, continue daily PT. Code Status: FULL CODE Discussed Condition With: RIKA RN AND PT AND CM Discharge Planning: CM FOR DC PLANNING
[2018-04-13] MEDS: Metoprolol Tartrate 25 MG Tablet PO SCH ×2 (08:48→22:03)
[2018-04-13] MEDS: Famotidine PF Inj 20 MG/2 ML Vial IV.PUSH SCH ×2 (08:49→22:03)
[2018-04-13] MEDS: Heparin - SQ 10,000 UNITS/ML Vial SQ SCH ×2 (08:53→22:03)
[2018-04-13 09:19] LABS: Baso # (Auto) 0.1 th/mm3 (0.0-0.2); Baso % (Auto) 0.7 % (0.0-2.0); Eos # (Auto) 0.3 th/mm3 (0.0-0.4); Eos % (Auto) 2.5 % (0.0-4.0); Hematocrit 32.1 % (39.0-51.0); Hemoglobin 11.8 gm/dL (13.0-17.0); Lymph # (Auto) 2.6 th/mm3 (1.0-4.8); Lymph % (Auto) 18.3 % (9.0-44.0); Mean Corpuscular Hemoglobin 31.9 pg (27.0-34.0); Mean Corpuscular Volume 86.9 fL (80.0-100.0); Mean Platelet Volume 7.3 fL (7.0-11.0); Mono % (Auto) 6.8 % (0.0-8.0); Neut # (Auto) 10.1 th/mm3 (1.8-7.7); Neut % (Auto) 71.7 % (16.0-70.0); Platelet Count 558 th/mm3 (150-450); Red Cell Distribution Width 15.5 % (11.6-17.2); White Blood Count 14.1 th/mm3 (4.0-11.0)
[2018-04-13 09:31] LABS: Mean Corpuscular HGB Conc 36.7 % (32.0-36.0)
[2018-04-13 09:44] LABS: Anion Gap 9 meq/L (5-15); Aspartate Aminotransferase 41 U/L (15-37); Blood Urea Nitrogen 10 mg/dL (7-18); Calcium 9.6 mg/dL (8.5-10.1); Carbon Dioxide 21.8 meq/L (21.0-32.0); Chloride 108 meq/L (98-107); Glomerular Filtration Rate 84 mL/min (>89); Glucose,Random 85 mg/dL (74-106); Magnesium 2.2 mg/dL (1.5-2.5); Potassium 3.7 meq/L (3.5-5.1); Sodium 139 meq/L (136-145)
[2018-04-13 09:45] LABS: Phosphorus 3.6 mg/dL (2.5-4.9)
[2018-04-13 09:48] LABS: Alanine Aminotransferase 82 U/L (12-78); Alkaline Phosphatase 105 U/L (45-117); Total Protein 6.9 g/dL (6.4-8.2)
[2018-04-13 10:11] LABS: Lymphocytes 18 % (9-44); Metamyelocytes 4 % (0-1); Monocytes 3 % (0-8); Myelocytes 2 % (0-0); Promyelocyte 2 % (0-0); Toxic Granulation 1+
[2018-04-13 10:12] LABS: Platelet Morphology Normal (Normal); Spherocytes Occ
[2018-04-13] MEDS: Senna/Docusate Sodium 8.6/50 MG Tablet PO SCH ×2 (13:23→22:06)
--- NOTE | 2018-04-13 13:54 | P.PNIM ---
Subjective Interval history: 57-year-old male presents for an evaluation of generalized weakness. Patient appears very dehydrated on arrival. He was recently admitted for treatment of pneumonia. Chest x-ray was negative at that time, and he was discharged on antibiotics after a few days of IV antibiotics. Has a history of bipolar disorder treated with lithium. Per chart report when EMS arrived the patient looked like he had been on the floor for several days. On arrival the patient just states he feels very weak all over, denies any specific pain. Denies any abdominal pain chest pain headache or extremity pain. He states that he has had some mild nausea without vomiting. No diarrhea no constipation or blood in the stool. 03/28 Patient is awake and alert on room air oxygen, hypertensive. Afebrile. 03/29 Patient is awake and alert. Renal function is improving with Cr: 1.58 from 2.0 yesterday. Afebrile. 9- patient was TRANSFERRED FROM [facility] TO OUR SERVICE TODAY REMAINS CONFUSED MUMDENNIS MELÉNDEZ RN AND PT AM LABS PT AND OT CM FOR PLACEMENT 9-5 LITTLE LESS CONFUSED TODAY KNew that the president was Rj Simmons. He knew that it was 2017 and he knew he was in [facility] in [facility]. Little confused from taking a sleeping pill last night Taking his medication Was in 2-point restraints yesterday A.m. labs Increase activity 9-6 MORE ALERT TODAY Much more oriented today Has Jaramillo catheter in place We will needed at discharge probably Transfer out of ICU Increase activity A.m. labs Case management for discharge planning Discussed with patient and RN 9-7 PULLED OUT ALL HIS LINES LAST NIGHT Still has a Jaramillo catheter in place Very anxious had to be given Ativan 2 mg p.o. Has now improved since earlier this morning per nursing We will get a.m. labs We will reconsult psychiatry for help with his severe psychiatric problems 9-8 SEEN BY PSYCHIATRY YESTERDAY Meds adjusted by them Haldol IV every 8 hours as needed aggressiveness A.m. labs Transfer out of ICU 9-9 Patient says that he feels weak all over but better than when he came into the hospital. He feels thirsty. He does not have any other complaints. 9-10 Patient is lying in bed alert, sitting upright. He denies any complaints of pain. He is responding appropriately and does not have any other complaints. 9-11 Patient reports he feels very fatigued. He reports pain all over. 9-12 Patient reports he is feeling better today. He states he worked with physical therapy. He is requesting help to get back in touch with his campground where his trailer is parked. 9-13 Patient reports he still has significant weakness and will not be able to manage in his trailer by himself. 9-14 Patient reports he is feeling about the same. Long discussions again regarding discharge planning. He is concerned that he does not have keys to get into his trailer. 9-15 Patient still reports that he feels weak. He states he is working with physical therapy. 9-16 Patient reports he is feeling okay. States he will continue to work with physical therapy. He reports he has 100s of water bottles laying on the floor and his trailer and he is concerned about going back in there. 917 NEEDS A SAFE DISCHARGE LIVES ALONE IN A TRAILER THAT HE DOES NOT HAVE KEYS TO IS UNSTEADY ON HIS FEET DW RN AND PT AND CM 18 LIVES ALONE IN A TRAILER WORKING WITH PT AND OT WORK ON IMPROVING AMBULATION Physical Exam Vital signs: Vital Signs 04/12/18 16:00 04/12/18 20:00 04/13/18 00:00 Temperature 98.3 F 98.1 F Pulse Rate 71 77 61 Respiratory Rate 14 17 Blood Pressure 134/82 137/87 Pulse Oximetry 98 97 04/13/18 00:30 04/13/18 04:00 04/13/18 08:00 Temperature 97.9 F 97.9 F 97.5 F L Pulse Rate 68 80 79 Respiratory Rate 18 19 16 Blood Pressure 134/93 H 149/94 H 160/95 H Pulse Oximetry 96 97 94 L 04/13/18 12:00 Temperature 97.5 F L Pulse Rate 70 Respiratory Rate 16 Blood Pressure 120/81 Pulse Oximetry 94 L Intake & Output 04/12/18 04/13/18 04/13/18 18:59 06:59 18:59 Intake Total 200 / 200 Output Total 280 / 280 700 / 700 1879 Balance -280 / -280 -500 / -500 -1879 Intake: Oral 200 / 200 Output: Urine 280 / 280 700 / 700 1879 Other: # Voids 2 2 Date of Last Bowel Movement 04/10/18 Narrative: General: patient in no acute distress Cardiovascular S1-S2 audible, RRR Respiratory clear to auscultation bilaterally Abdomen soft, nontender, nondistended, normal bowel sounds Extremities no edema 2+ distal pulses in bilateral upper and lower extremities Generalized weakness - Urinary Catheter Management Indwelling Urethral Catheter Cath placed during this visit: yes Reason for continuing: Acute urinary retention Insertion date: 03/31/18 Insertion time: 15:00 Results - Labs CBC & Chem 7: 04/13/18 07:42 04/13/18 07:42 Laboratory Results - last 24 hr 04/13/18 04/13/18 07:42 07:42 WBC 14.1 H RBC 3.70 L Hgb 11.8 L Hct 32.1 L MCV 86.9 MCH 31.9 MCHC 36.7 H RDW 15.5 Plt Count 558 H D MPV 7.3 Prelim Diff (Auto) Slide review pending Neut % (Auto) 71.7 H Lymph % (Auto) 18.3 [place] % (Auto) 6.8 Eos % (Auto) 2.5 Baso % (Auto) 0.7 Neut # (Auto) 10.1 H Lymph # (Auto) 2.6 [place] # (Auto) 1.0 H Eos # (Auto) 0.3 Baso # (Auto) 0.1 WBC Differential Manual diff final Seg Neuts % (Manual) 67 Band Neuts % (Manual) 4 Lymphocytes % (Manual) 18 Monocytes % (Manual) 3 Metamyelocytes % (Man) 4 H Myelocytes % (Man) 2 H Promyelocytes % (Man) 2 H Abs Neuts (Manual) 11.1 H Differential Comment . Toxic Granulation 1+ H Platelet Estimate High H Platelet Morphology Normal Spherocytes Occ H Sodium 139 Potassium 3.7 Chloride 108 H Carbon Dioxide 21.8 Anion Gap 9 BUN 10 Creatinine 0.93 Estimated GFR 84 L Random Glucose 85 Calcium 9.6 Phosphorus 3.6 Magnesium 2.2 Total Bilirubin 0.4 AST 41 H ALT 82 H Alkaline Phosphatase 105 Total Protein 6.9 Albumin 3.0 L - Procedures NONE Assessment and Plan - Plan 57-year-old male with a known history of bipolar disorder on lithium. He was recently treated at our facility for pneumonia. He presented to our emergency department approximately 1 week ago. At that time the patient was feeling weak and appeared to be severely dehydrated. He was admitted to the critical care service as he was found to be altered severely dehydrated and hypernatremic. He has now been stabilized and was transferred to our service. 1. Sepsis likely secondary to a urinary tract infection. Urine culture grew Pseudomonas. Status post treatment with antibiotics. 2. Acute kidney injury likely secondary to dehydration. VS LITHIUM Renal functions improved with hydration. 3. Acute encephalopathy likely secondary to dehydration and medication side effect. - The patient Seroquel has been on hold. His mental status seems to be as baseline. - We will continue lithium. Appreciate psychiatry input. 3. Coagulopathy Resolved likely due to dehydration /MALNUTRITION hematology was following. 4. Elevated troponin As per cardiology likely type II spell secondary to dehydration and end organ damage. 5. Bipolar disorder Psychiatry is following the patient continue current medications. Seroquel held. 6. Seborrheic dermatitis. Ketoconazole cream ordered. Apply to face twice daily. Continue PT. Heparin for dvt prophylaxis. Discharge Planning: Continue PT efforts. Patient needs encouragement to participate with PT. discussed with case management to assist with a safe discharge plan. Discussed with physical therapy, continue daily PT. Code Status: FULL CODE Discussed Condition With: JAMAL AN PT AND CM Discharge Planning: CM FOR DC PLANNING
[2018-04-14] MEDS: Senna/Docusate Sodium 8.6/50 MG Tablet PO SCH ×2 (09:01→21:57)
[2018-04-14] MEDS: Heparin - SQ 10,000 UNITS/ML Vial SQ SCH ×2 (09:02→21:57)
[2018-04-14] MEDS: Metoprolol Tartrate 25 MG Tablet PO SCH ×2 (09:02→21:57)
[2018-04-14] MEDS: Famotidine PF Inj 20 MG/2 ML Vial IV.PUSH SCH ×2 (09:02→21:57)
--- NOTE | 2018-04-14 10:59 | P.PNIM ---
Subjective Interval history: 57-year-old male presents for an evaluation of generalized weakness. Patient appears very dehydrated on arrival. He was recently admitted for treatment of pneumonia. Chest x-ray was negative at that time, and he was discharged on antibiotics after a few days of IV antibiotics. Has a history of bipolar disorder treated with lithium. Per chart report when EMS arrived the patient looked like he had been on the floor for several days. On arrival the patient just states he feels very weak all over, denies any specific pain. Denies any abdominal pain chest pain headache or extremity pain. He states that he has had some mild nausea without vomiting. No diarrhea no constipation or blood in the stool. 03/28 Patient is awake and alert on room air oxygen, hypertensive. Afebrile. 03/29 Patient is awake and alert. Renal function is improving with Cr: 1.58 from 2.0 yesterday. Afebrile. 9- patient was TRANSFERRED FROM [facility] TO OUR SERVICE TODAY REMAINS CONFUSED MUMDENNIS MELÉNDEZ RN AND PT AM LABS PT AND OT CM FOR PLACEMENT 9-5 LITTLE LESS CONFUSED TODAY KNew that the president was Rj Simmons. He knew that it was 2017 and he knew he was in [facility] in [facility]. Little confused from taking a sleeping pill last night Taking his medication Was in 2-point restraints yesterday A.m. labs Increase activity 9-6 MORE ALERT TODAY Much more oriented today Has Jaramillo catheter in place We will needed at discharge probably Transfer out of ICU Increase activity A.m. labs Case management for discharge planning Discussed with patient and RN 9-7 PULLED OUT ALL HIS LINES LAST NIGHT Still has a Jaramillo catheter in place Very anxious had to be given Ativan 2 mg p.o. Has now improved since earlier this morning per nursing We will get a.m. labs We will reconsult psychiatry for help with his severe psychiatric problems 9-8 SEEN BY PSYCHIATRY YESTERDAY Meds adjusted by them Haldol IV every 8 hours as needed aggressiveness A.m. labs Transfer out of ICU 9-9 Patient says that he feels weak all over but better than when he came into the hospital. He feels thirsty. He does not have any other complaints. 9-10 Patient is lying in bed alert, sitting upright. He denies any complaints of pain. He is responding appropriately and does not have any other complaints. 9-11 Patient reports he feels very fatigued. He reports pain all over. 9-12 Patient reports he is feeling better today. He states he worked with physical therapy. He is requesting help to get back in touch with his campground where his trailer is parked. 9-13 Patient reports he still has significant weakness and will not be able to manage in his trailer by himself. 9-14 Patient reports he is feeling about the same. Long discussions again regarding discharge planning. He is concerned that he does not have keys to get into his trailer. 9-15 Patient still reports that he feels weak. He states he is working with physical therapy. 9-16 Patient reports he is feeling okay. States he will continue to work with physical therapy. He reports he has 100s of water bottles laying on the floor and his trailer and he is concerned about going back in there. 9-17 NEEDS A SAFE DISCHARGE LIVES ALONE IN A TRAILER THAT HE DOES NOT HAVE KEYS TO IS UNSTEADY ON HIS FEET DW RN AND PT AND CM 9-18 LIVES ALONE IN A TRAILER WORKING WITH PT AND OT WORK ON IMPROVING AMBULATION 9-19 NEEDS TO WORK ON STAIRS TO GET IN TO HIS TRAILER DW RN AND PT AND CM PT AND OT Physical Exam Vital signs: Vital Signs 04/13/18 12:00 04/13/18 16:00 04/13/18 20:00 Temperature 97.5 F L 97.8 F 97.7 F Pulse Rate 79 70 68 Respiratory Rate 16 16 12 Blood Pressure 120/81 134/86 149/96 H Pulse Oximetry 94 L 97 97 04/14/18 00:00 04/14/18 04:00 04/14/18 08:00 Temperature 98.5 F 98.4 F 97.8 F Pulse Rate 63 65 74 Respiratory Rate 14 16 16 Blood Pressure 149/89 H 156/92 H 152/94 H Pulse Oximetry 96 98 97 Intake & Output 04/13/18 04/14/18 04/14/18 18:59 06:59 18:59 Output Total 2540 / 2540 1250 / 1250 Balance -2540 / -2540 -1250 / -1250 Output: Urine 2540 / 2540 1250 / 1250 Other: # Voids 1 Date of Last Bowel Movement 04/10/18 04/10/18 04/13/18 Narrative: General: patient in no acute distress Cardiovascular S1-S2 audible, RRR Respiratory clear to auscultation bilaterally Abdomen soft, nontender, nondistended, normal bowel sounds Extremities no edema 2+ distal pulses in bilateral upper and lower extremities Generalized weakness - Urinary Catheter Management Indwelling Urethral Catheter Cath placed during this visit: yes Reason for continuing: Acute urinary retention Insertion date: 03/31/18 Insertion time: 15:00 Results - Labs CBC & Chem 7: 04/13/18 07:42 04/13/18 07:42 - Procedures NONE Assessment and Plan - Plan 57-year-old male with a known history of bipolar disorder on lithium. He was recently treated at our facility for pneumonia. He presented to our emergency department approximately 1 week ago. At that time the patient was feeling weak and appeared to be severely dehydrated. He was admitted to the critical care service as he was found to be altered severely dehydrated and hypernatremic. He has now been stabilized and was transferred to our service. 1. Sepsis likely secondary to a urinary tract infection. Urine culture grew Pseudomonas. Status post treatment with antibiotics. 2. Acute kidney injury likely secondary to dehydration. VS LITHIUM Renal functions improved with hydration. 3. Acute encephalopathy likely secondary to dehydration and medication side effect. - The patient Seroquel has been on hold. His mental status seems to be as baseline. - We will continue lithium. Appreciate psychiatry input. 3. Coagulopathy Resolved likely due to dehydration /MALNUTRITION hematology was following. 4. Elevated troponin As per cardiology likely type II spill secondary to dehydration and end organ damage. 5. Bipolar disorder Psychiatry is following the patient continue current medications. Seroquel held. 6. Seborrheic dermatitis. Ketoconazole cream ordered. Apply to face twice daily. Continue PT. Heparin for dvt prophylaxis. Discharge Planning: Continue PT efforts. Patient needs encouragement to participate with PT. discussed with case management to assist with a safe discharge plan. Discussed with physical therapy, continue daily PT. Code Status: full code Discussed Condition With: RN AND PT AND CM Discharge Planning: CM FOR DC PLANNING
[2018-04-15 06:09] LABS: Baso # (Auto) 0.1 th/mm3 (0.0-0.2); Baso % (Auto) 0.8 % (0.0-2.0); Eos # (Auto) 0.4 th/mm3 (0.0-0.4); Eos % (Auto) 2.3 % (0.0-4.0); Hematocrit 35.7 % (39.0-51.0); Hemoglobin 11.8 gm/dL (13.0-17.0); Lymph # (Auto) 2.4 th/mm3 (1.0-4.8); Lymph % (Auto) 15.5 % (9.0-44.0); Mean Corpuscular HGB Conc 33.2 % (32.0-36.0); Mean Corpuscular Hemoglobin 29.7 pg (27.0-34.0); Mean Corpuscular Volume 89.4 fL (80.0-100.0); Mean Platelet Volume 6.9 fL (7.0-11.0); Mono # (Auto) 0.9 th/mm3 (0.0-0.9); Mono % (Auto) 5.9 % (0.0-8.0); Neut # (Auto) 11.8 th/mm3 (1.8-7.7); Neut % (Auto) 75.5 % (16.0-70.0); Platelet Count 507 th/mm3 (150-450); Red Blood Count 3.99 mil/mm3 (4.50-5.90); Red Cell Distribution Width 16.1 % (11.6-17.2); White Blood Count 15.6 th/mm3 (4.0-11.0)
[2018-04-15 06:43] LABS: Alanine Aminotransferase 78 U/L (12-78); Anion Gap 9 meq/L (5-15); Aspartate Aminotransferase 28 U/L (15-37); Blood Urea Nitrogen 13 mg/dL (7-18); Calcium 9.4 mg/dL (8.5-10.1); Carbon Dioxide 23.3 meq/L (21.0-32.0); Chloride 108 meq/L (98-107); Glomerular Filtration Rate 74 mL/min (>89); Glucose,Random 87 mg/dL (74-106); Magnesium 2.3 mg/dL (1.5-2.5); Phosphorus 3.7 mg/dL (2.5-4.9); Potassium 4.1 meq/L (3.5-5.1); Sodium 140 meq/L (136-145)
[2018-04-15 06:45] LABS: Alkaline Phosphatase 97 U/L (45-117); Total Protein 6.6 g/dL (6.4-8.2)
[2018-04-15 08:34] LABS: Eosinophils 1 % (0-4); Lymphocytes 16 % (9-44); Metamyelocytes 3 % (0-1); Monocytes 7 % (0-8); Myelocytes 3 % (0-0); Platelet Morphology Normal (Normal)
[2018-04-15 08:35] LABS: Toxic Granulation 1+
[2018-04-15] MEDS: Metoprolol Tartrate 25 MG Tablet PO SCH ×2 (08:50→21:19)
[2018-04-15] MEDS: Heparin - SQ 10,000 UNITS/ML Vial SQ SCH ×2 (08:50→21:25)
[2018-04-15] MEDS: Famotidine PF Inj 20 MG/2 ML Vial IV.PUSH SCH ×2 (08:50→21:21)
[2018-04-15] MEDS: Senna/Docusate Sodium 8.6/50 MG Tablet PO SCH ×2 (08:51→21:28)
--- NOTE | 2018-04-15 15:47 | P.PNIM ---
Subjective Interval history: Mr. Serna was afebrile with stable VS overnight (mild HTN to SBP max 159). Patient reports that he is doing well overall a this time. He states that he was able to climb 3 steps with the assistance of PT today; he also feels that he is making OT progress. Patient does not report chest pain, shortness of breath, or changes in BM or urination. Physical Exam Vital signs: Vital Signs 04/14/18 16:00 04/14/18 20:00 04/15/18 00:00 Temperature 97.9 F 98.2 F 97.9 F Pulse Rate 74 83 78 Respiratory Rate 20 18 18 Blood Pressure 126/87 137/87 147/99 H Pulse Oximetry 97 96 96 04/15/18 04:00 04/15/18 08:00 04/15/18 08:46 Temperature 98.2 F 97.6 F Pulse Rate 70 62 70 Respiratory Rate 18 20 Blood Pressure 146/96 H 159/94 H Pulse Oximetry 95 95 04/15/18 12:00 04/15/18 12:15 Temperature 97.8 F Pulse Rate 62 65 Respiratory Rate 20 Blood Pressure 146/95 H Pulse Oximetry 96 Intake & Output 04/14/18 04/15/18 04/15/18 18:59 06:59 18:59 Intake Total 760 / 760 Output Total 1100 / 1100 3300 / 3300 400 / 400 Balance -340 / -340 -3300 / -3300 -400 / -400 Weight 93.2 kg Intake: Oral 760 / 760 Output: Urine 1100 / 1100 3300 / 3300 400 / 400 Other: Date of Last Bowel Movement 04/13/18 04/10/18 # Bowel Movements 0 Narrative: General: patient in no acute distress Skin: No visible lesions Cardiovascular: RRR, no murmurs. Normal perfusion grossly normal Respiratory: CTAB; normal rate Gastrointestinal: Abdomen soft, nontender, nondistended, normal bowel sounds Neuro: Grossly normal CN; grossly normal peripheral sensory function; weakness Extremities: No LE edema, generalized weakness - Urinary Catheter Management Indwelling Urethral Catheter Cath placed during this visit: yes Reason for continuing: Acute urinary retention Insertion date: 03/31/18 Insertion time: 15:00 Results - Labs CBC & Chem 7: 04/15/18 05:39 04/15/18 05:39 Laboratory Results - last 24 hr 04/15/18 04/15/18 05:39 05:39 WBC 15.6 H RBC 3.99 L Hgb 11.8 L Hct 35.7 L MCV 89.4 MCH 29.7 MCHC 33.2 RDW 16.1 Plt Count 507 H MPV 6.9 L Prelim Diff (Auto) Slide review pending Neut % (Auto) 75.5 H Lymph % (Auto) 15.5 [place] % (Auto) 5.9 Eos % (Auto) 2.3 Baso % (Auto) 0.8 Neut # (Auto) 11.8 H Lymph # (Auto) 2.4 [place] # (Auto) 0.9 Eos # (Auto) 0.4 Baso # (Auto) 0.1 WBC Differential Manual diff final Seg Neuts % (Manual) 65 Band Neuts % (Manual) 4 Lymphocytes % (Manual) 16 Monocytes % (Manual) 7 Eosinophils % (Manual) 1 Basophils % (Manual) 1 Metamyelocytes % (Man) 3 H Myelocytes % (Man) 3 H Abs Neuts (Manual) 11.7 H Differential Comment . Toxic Granulation 1+ H Platelet Estimate High H Platelet Morphology Normal Sodium 140 Potassium 4.1 Chloride 108 H Carbon Dioxide 23.3 Anion Gap 9 BUN 13 Creatinine 1.04 Estimated GFR 74 L Random Glucose 87 Calcium 9.4 Phosphorus 3.7 Magnesium 2.3 Total Bilirubin 0.4 AST 28 ALT 78 Alkaline Phosphatase 97 Total Protein 6.6 Albumin 3.0 L - Procedures NONE Assessment and Plan - Assessment (1) Weakness Code(s): R53.1 - Weakness Status: Acute (2) Bipolar disorder Code(s): F31.9 - Bipolar disorder, unspecified Status: Acute (3) HTN (hypertension) Code(s): I10 - Essential (primary) hypertension Status: Acute - Plan Mr. Serna is a 57-year-old male with a known history of bipolar disorder on lithium. He was recently treated at our facility for pneumonia, and was subsequently seen in ED while feeling weak and appearing dehydrated. Patient found to be severely dehydrated and admitted to [facility] [place]; patient subsequently stabilized and transferred to medical service: Weakness -Continue PT Bipolar disorder Psychiatry is following the patient continue current medications. Seroquel held. -Haldol if aggressive (has not needed) -Continue [place] 600mg BID -Continue home Lorazepam PRN -Will recheck [place] -Will discuss with patient whether repeat Psych eval needed now that improved Acute encephalopathy likely secondary to dehydration and medication side effect. - The patient Seroquel has been on hold. His mental status seems to be as baseline. - We will continue lithium. Appreciate psychiatry input. Sepsis likely secondary to a urinary tract infection. Urine culture grew Pseudomonas. Status post treatment with antibiotics. Acute kidney injury likely secondary to dehydration vs lithium related Renal functions improved with hydration. Nephrology followed; signed off due to improvement Coagulopathy Resolved likely due to dehydration /malnutrition. Evaluated by Hematology hematology was following. Cardiovascular Elevated troponin -Cardiology evaluated- type 2 from end organ damage from dehydration. No ischemic work-up planned. Tachycardia likely from confusion/illness. BB per primary team Seborrheic dermatitis. Ketoconazole cream ordered. Apply to face twice daily. Heparin for dvt prophylaxis Code Status: Full code Discharge Planning: Per DC planning by (2) Bipolar disorder Qualifiers: Active/Remission status: currently active Current bipolar episode type: depressed Current episode severity: moderate Qualified Code(s): F31.32 - Bipolar disorder, current episode depressed, moderate
[2018-04-16 06:31] LABS: Baso # (Auto) 0.1 th/mm3 (0.0-0.2); Baso % (Auto) 0.6 % (0.0-2.0); Eos # (Auto) 0.3 th/mm3 (0.0-0.4); Eos % (Auto) 2.3 % (0.0-4.0); Hematocrit 37.1 % (39.0-51.0); Hemoglobin 12.4 gm/dL (13.0-17.0); Lymph # (Auto) 2.4 th/mm3 (1.0-4.8); Lymph % (Auto) 17.2 % (9.0-44.0); Mean Corpuscular HGB Conc 33.4 % (32.0-36.0); Mean Corpuscular Hemoglobin 30.1 pg (27.0-34.0); Mean Corpuscular Volume 90.1 fL (80.0-100.0); Mono # (Auto) 0.8 th/mm3 (0.0-0.9); Neut # (Auto) 10.5 th/mm3 (1.8-7.7); Neut % (Auto) 73.9 % (16.0-70.0); Platelet Count 491 th/mm3 (150-450); Red Blood Count 4.12 mil/mm3 (4.50-5.90); Red Cell Distribution Width 16.7 % (11.6-17.2); White Blood Count 14.2 th/mm3 (4.0-11.0)
[2018-04-16 06:53] LABS: Carbon Dioxide 25.1 meq/L (21.0-32.0); Potassium 4.4 meq/L (3.5-5.1)
[2018-04-16 07:23] LABS: Lymphocytes 18 % (9-44); Metamyelocytes 2 % (0-1); Monocytes 3 % (0-8); Platelet Morphology Normal (Normal); Promyelocyte 3 % (0-0); Toxic Granulation 1+
[2018-04-16] MEDS: Heparin - SQ 10,000 UNITS/ML Vial SQ SCH ×2 (09:16→20:42)
[2018-04-16] MEDS: Metoprolol Tartrate 25 MG Tablet PO SCH ×2 (09:16→20:40)
[2018-04-16] MEDS: Senna/Docusate Sodium 8.6/50 MG Tablet PO SCH ×2 (09:17→20:40)
[2018-04-16] MEDS: Famotidine PF Inj 20 MG/2 ML Vial IV.PUSH SCH (09:17)
--- NOTE | 2018-04-16 19:11 | P.PNIM ---
Subjective Interval history: Mr. Serna was afebrile with stable VS overnight. Patient reports that he has continued to work with therapy; he thought that he was making progress until today. patient does not report acute concerns today. Patient states that he feels his mood is poor but that he is doing ok despite lack of Seroquel. Patient awake/oriented. Per discussion with nursing staff, patient has had some moments with abnormal thought patterns suggestive of psychiatric disease. Patient agreeable to Psych reassessment at this time. Physical Exam Vital signs: Vital Signs 04/15/18 20:00 04/16/18 00:00 04/16/18 04:00 Temperature 97.7 F 97.9 F 98 F Pulse Rate 81 51 L 63 Respiratory Rate 18 Blood Pressure 140/90 149/89 H 145/92 H Pulse Oximetry 97 97 96 04/16/18 08:00 04/16/18 12:00 04/16/18 16:00 Temperature 97.6 F 98.1 F 97.9 F Pulse Rate 124 H 75 75 Respiratory Rate 20 Blood Pressure 160/102 H 131/88 133/87 Pulse Oximetry 97 96 97 Intake & Output 04/16/18 04/16/18 04/17/18 06:59 18:59 06:59 Output Total 2300 / 2300 450 / 450 Balance -2300 / -2300 -450 / -450 Weight 91.2 kg Output: Urine 2300 / 2300 450 / 450 Other: Date of Last Bowel Movement 04/14/18 Narrative: General: patient in no acute distress Skin: No visible lesions Cardiovascular: RRR, no murmurs. Normal perfusion grossly normal Respiratory: CTAB; normal rate Gastrointestinal: Abdomen soft, nontender, nondistended, normal bowel sounds Neuro: Grossly normal CN; grossly normal peripheral sensory function; generalized weakness. LLE with decreased movement of toes but normal hip and knee flexion. Patient states toe weakness has been persistent; not a new finding. Extremities: No LE edema, generalized weakness. L distal LE weakness as above - Urinary Catheter Management Indwelling Urethral Catheter Cath placed during this visit: yes Reason for continuing: Acute urinary retention Insertion date: 03/31/18 Insertion time: 15:00 Results - Labs CBC & Chem 7: 04/16/18 05:44 04/16/18 05:44 Laboratory Results - last 24 hr 04/16/18 04/16/18 04/16/18 05:44 05:44 05:44 WBC 14.2 H RBC 4.12 L Hgb 12.4 L Hct 37.1 L MCV 90.1 MCH 30.1 MCHC 33.4 RDW 16.7 Plt Count 491 H MPV 7.0 Prelim Diff (Auto) Slide review pending Neut % (Auto) 73.9 H Lymph % (Auto) 17.2 [place] % (Auto) 6.0 Eos % (Auto) 2.3 Baso % (Auto) 0.6 Neut # (Auto) 10.5 H Lymph # (Auto) 2.4 [place] # (Auto) 0.8 Eos # (Auto) 0.3 Baso # (Auto) 0.1 WBC Differential Manual diff final Seg Neuts % (Manual) 73 H Band Neuts % (Manual) 1 Lymphocytes % (Manual) 18 Monocytes % (Manual) 3 Metamyelocytes % (Man) 2 H Promyelocytes % (Man) 3 H Abs Neuts (Manual) 11.2 H Differential Comment . Toxic Granulation 1+ H Platelet Estimate High H Platelet Morphology Normal Sodium 139 Potassium 4.4 Chloride 107 Carbon Dioxide 25.1 Anion Gap 7 BUN 13 Creatinine 0.96 Estimated GFR 81 L Random Glucose 83 Calcium 10.0 [place] 1.5 - Procedures NONE Assessment and Plan - Assessment (1) Weakness Code(s): R53.1 - Weakness Status: Acute (2) Bipolar disorder Code(s): F31.9 - Bipolar disorder, unspecified Status: Acute (3) HTN (hypertension) Code(s): I10 - Essential (primary) hypertension Status: Acute - Plan Mr. Serna is a 57-year-old male with a known history of bipolar disorder on lithium. He was recently treated at our facility for pneumonia, and was subsequently seen in ED while feeling weak and appearing dehydrated. Patient found to be severely dehydrated and admitted to [facility] [place]; patient subsequently stabilized and transferred to medical service: Weakness -Continue PT/OT daily -Rehab recommended -04/15 reportedly refused to participate in activities Bipolar disorder Impression: Previously evaluated by Psych 04/09; sedated so full eval not possible Patient has not been receiving Seroquel; recommended to resume previously 04/16- seemingly stable mental status but depressed mood and not fully engaging with therapy -Haldol if aggressive (has not needed) -Continue [place] 600mg BID -Continue home Lorazepam PRN -Will plan for repeat Psych evaluation now that patient improved -Will recheck [place] -Will defer restarting Seroquel until Psych eval since has not been on and seemingly doing well Acute encephalopathy likely secondary to dehydration and medication side effect. Resolved. His mental status seems to be as baseline. - We will continue lithium. Appreciate psychiatry input. Sepsis likely secondary to a urinary tract infection. Urine culture grew Pseudomonas. Status post treatment with antibiotics. Acute kidney injury likely secondary to dehydration vs lithium related Renal functions improved with hydration. Nephrology followed; signed off due to improvement Coagulopathy Resolved likely due to dehydration /malnutrition. Evaluated by Hematology hematology was following. Cardiovascular Elevated troponin -Cardiology evaluated- type 2 from end organ damage from dehydration. No ischemic work-up planned. Tachycardia likely from confusion/illness. BB per primary team Seborrheic dermatitis. Ketoconazole cream ordered. Apply to face twice daily. Heparin for dvt prophylaxis Code Status: Full code Discharge Planning: Per DC planning by (2) Bipolar disorder Qualifiers: Active/Remission status: currently active Current bipolar episode type: depressed Current episode severity: moderate Qualified Code(s): F31.32 - Bipolar disorder, current episode depressed, moderate
[2018-04-17 06:59] LABS: Baso # (Auto) 0.1 th/mm3 (0.0-0.2); Baso % (Auto) 0.6 % (0.0-2.0); Eos # (Auto) 0.3 th/mm3 (0.0-0.4); Eos % (Auto) 2.2 % (0.0-4.0); Hematocrit 37.2 % (39.0-51.0); Hemoglobin 12.2 gm/dL (13.0-17.0); Lymph # (Auto) 2.5 th/mm3 (1.0-4.8); Lymph % (Auto) 16.9 % (9.0-44.0); Mean Corpuscular HGB Conc 32.8 % (32.0-36.0); Mean Corpuscular Hemoglobin 29.7 pg (27.0-34.0); Mean Corpuscular Volume 90.4 fL (80.0-100.0); Mean Platelet Volume 7.1 fL (7.0-11.0); Mono # (Auto) 0.9 th/mm3 (0.0-0.9); Mono % (Auto) 6.4 % (0.0-8.0); Neut # (Auto) 10.7 th/mm3 (1.8-7.7); Neut % (Auto) 73.9 % (16.0-70.0); Platelet Count 469 th/mm3 (150-450); Red Blood Count 4.11 mil/mm3 (4.50-5.90); Red Cell Distribution Width 16.8 % (11.6-17.2); White Blood Count 14.5 th/mm3 (4.0-11.0)
[2018-04-17 07:55] LABS: Albumin 3.4 g/dL (3.4-5.0); Anion Gap 9 meq/L (5-15); Aspartate Aminotransferase 26 U/L (15-37); Blood Urea Nitrogen 16 mg/dL (7-18); Calcium 9.7 mg/dL (8.5-10.1); Carbon Dioxide 22.5 meq/L (21.0-32.0); Chloride 108 meq/L (98-107); Glomerular Filtration Rate 83 mL/min (>89); Glucose,Random 89 mg/dL (74-106); Potassium 3.8 meq/L (3.5-5.1); Sodium 139 meq/L (136-145)
[2018-04-17 08:00] LABS: Alanine Aminotransferase 78 U/L (12-78); Alkaline Phosphatase 96 U/L (45-117)
[2018-04-17 08:32] LABS: Platelet Morphology Normal (Normal)
[2018-04-17] MEDS: Heparin - SQ 10,000 UNITS/ML Vial SQ SCH ×2 (09:52→21:04)
[2018-04-17] MEDS: Metoprolol Tartrate 25 MG Tablet PO SCH ×2 (09:53→21:04)
[2018-04-17] MEDS: Senna/Docusate Sodium 8.6/50 MG Tablet PO SCH (14:29)
--- NOTE | 2018-04-17 16:05 | P.PNIM ---
Subjective Interval history: Mr. Serna was afebrile with stable VS overnight. Patient states that he has been bored but that he has otherwise doing well. He has not participated in therapy today but plans to do some exercised in bed. No reported shortness of breath, abnormal BM, or abnormal urination. Discussed mood; patient states that he feels ok and would prefer to stay on current medications and not resume Seroquel. Physical Exam Vital signs: Vital Signs 04/16/18 20:00 04/17/18 00:00 04/17/18 04:00 Temperature 97.6 F 98 F 97.4 F L Pulse Rate 86 70 79 Respiratory Rate 20 20 20 Blood Pressure 137/87 131/85 140/91 H Pulse Oximetry 96 96 96 04/17/18 08:00 04/17/18 12:00 Temperature 97.9 F 97.4 F L Pulse Rate 72 62 Respiratory Rate 16 17 Blood Pressure 145/98 H 118/78 Pulse Oximetry 97 97 Intake & Output 04/16/18 04/17/18 04/17/18 18:59 06:59 18:59 Output Total 450 / 450 1700 / 1700 1150 / 1150 Balance -450 / -450 -1700 / -1700 -1150 / -1150 Weight 91.7 kg Output: Urine 450 / 450 1700 / 1700 1150 / 1150 Other: Date of Last Bowel Movement 04/14/18 Narrative: General: patient in no acute distress Skin: No visible lesions Cardiovascular: RRR, no murmurs. Normal perfusion grossly normal Respiratory: CTAB; normal rate Gastrointestinal: Abdomen soft, nontender, nondistended, normal bowel sounds Neuro: Grossly normal CN; grossly normal peripheral sensory function; generalized weakness. LLE with decreased movement of toes [not new finding] but otherwise normal Extremities: No LE edema, generalized weakness. L distal LE weakness as above - Urinary Catheter Management Indwelling Urethral Catheter Cath placed during this visit: yes Reason for continuing: Acute urinary retention Insertion date: 03/31/18 Insertion time: 15:00 Results - Labs CBC & Chem 7: 04/17/18 06:18 04/17/18 06:18 Laboratory Results - last 24 hr 04/17/18 04/17/18 04/17/18 06:13 06:18 06:18 WBC 14.5 H RBC 4.11 L Hgb 12.2 L Hct 37.2 L MCV 90.4 MCH 29.7 MCHC 32.8 RDW 16.8 Plt Count 469 H MPV 7.1 Prelim Diff (Auto) Slide review pending Neut % (Auto) 73.9 H Lymph % (Auto) 16.9 [place] % (Auto) 6.4 Eos % (Auto) 2.2 Baso % (Auto) 0.6 Neut # (Auto) 10.7 H Lymph # (Auto) 2.5 [place] # (Auto) 0.9 Eos # (Auto) 0.3 Baso # (Auto) 0.1 WBC Differential . Diff Scan Auto diff confirmed Differential Comment . Platelet Estimate High H Platelet Morphology Normal Sodium 139 Potassium 3.8 Chloride 108 H Carbon Dioxide 22.5 Anion Gap 9 BUN 16 Creatinine 0.94 Estimated GFR 83 L Random Glucose 89 Calcium 9.7 Total Bilirubin 0.5 AST 26 ALT 78 Alkaline Phosphatase 96 Total Protein 7.0 Albumin 3.4 [place] 1.3 - Procedures NONE Assessment and Plan - Assessment (1) Weakness Code(s): R53.1 - Weakness Status: Acute (2) Bipolar disorder Code(s): F31.9 - Bipolar disorder, unspecified Status: Acute (3) HTN (hypertension) Code(s): I10 - Essential (primary) hypertension Status: Acute - Plan Mr. Serna is a 57-year-old male with a known history of bipolar disorder on lithium. He was recently treated at our facility for pneumonia, and was subsequently seen in ED while feeling weak and appearing dehydrated. Patient found to be severely dehydrated and admitted to [facility] [place]; patient subsequently stabilized and transferred to medical service: Weakness -Continue PT/OT daily -Rehab recommended Bipolar disorder Impression: Previously evaluated by Psych 04/09; sedated so full eval not possible Patient has not been receiving Seroquel; recommended to resume previously 04/17- continued flat affect but doing ok overall. Repeat lithium 1.3 -Haldol if aggressive (has not needed) -Continue [place] 600mg BID -Continue home Lorazepam PRN -Will plan for repeat Psych evaluation now that patient improved -Will defer restarting Seroquel per patient request Acute encephalopathy likely secondary to dehydration and medication side effect. Resolved. His mental status seems to be as baseline. - We will continue lithium. Appreciate psychiatry input. Sepsis likely secondary to a urinary tract infection. Urine culture grew Pseudomonas. Status post treatment with antibiotics. Acute kidney injury likely secondary to dehydration vs lithium related Renal functions improved with hydration. Nephrology followed; signed off due to improvement Coagulopathy Resolved likely due to dehydration /malnutrition. Evaluated by Hematology hematology was following. Cardiovascular Elevated troponin -Cardiology evaluated- type 2 from end organ damage from dehydration. No ischemic work-up planned. Tachycardia likely from confusion/illness. BB per primary team Seborrheic dermatitis. Ketoconazole cream ordered. Apply to face twice daily. Heparin for dvt prophylaxis Code Status: Full code Discharge Planning: Per DC planning by (2) Bipolar disorder Qualifiers: Active/Remission status: currently active Current bipolar episode type: depressed Current episode severity: moderate Qualified Code(s): F31.32 - Bipolar disorder, current episode depressed, moderate
[2018-04-18] MEDS: Senna/Docusate Sodium 8.6/50 MG Tablet PO SCH ×3 (00:04→20:22)
[2018-04-18] MEDS: Metoprolol Tartrate 25 MG Tablet PO SCH ×2 (08:32→20:22)
[2018-04-18] MEDS: Heparin - SQ 10,000 UNITS/ML Vial SQ SCH ×2 (08:32→20:22)
--- NOTE | 2018-04-18 16:18 | P.PNIM ---
Subjective Interval history: Mr. Serna was afebrile with stable VS overnight. Patient reports that he is bored today but that he is otherwise doing well. No chest pain, shortness of breath, or abnormal bowel movements or urination. He is attempting some exercises in bed. Physical Exam Vital signs: Vital Signs 04/17/18 20:00 04/18/18 00:00 04/18/18 04:00 Temperature 98.3 F 97.9 F 97.8 F Pulse Rate 73 67 69 Respiratory Rate 17 16 15 Blood Pressure 128/84 135/83 136/90 Pulse Oximetry 96 98 96 04/18/18 08:00 04/18/18 12:00 Temperature 97.8 F 98.0 F Pulse Rate 67 63 Respiratory Rate 20 18 Blood Pressure 139/87 123/82 Pulse Oximetry 96 96 Intake & Output 04/17/18 04/18/18 04/18/18 18:59 06:59 18:59 Intake Total 360 / 360 Output Total 1550 / 1550 800 / 800 Balance -1550 / -1550 -440 / -440 Weight 90.6 kg Intake: Oral 360 / 360 Output: Urine 1550 / 1550 800 / 800 Other: Date of Last Bowel Movement 04/14/18 04/14/18 # Bowel Movements 1 Narrative: General: patient in no acute distress Skin: No visible lesions Cardiovascular: RRR, no murmurs. Normal perfusion grossly normal Respiratory: CTAB; normal rate Gastrointestinal: Abdomen soft, nontender, nondistended, normal bowel sounds Neuro: Grossly normal CN; grossly normal peripheral sensory function; generalized weakness. Extremities: No LE edema, generalized weakness. L distal LE weakness as above - Urinary Catheter Management Indwelling Urethral Catheter Cath placed during this visit: yes Reason for continuing: Acute urinary retention Insertion date: 03/31/18 Insertion time: 15:00 Results - Labs CBC & Chem 7: 04/18/18 16:30 04/17/18 06:18 - Procedures NONE Assessment and Plan - Assessment (1) Weakness Code(s): R53.1 - Weakness Status: Acute (2) Bipolar disorder Code(s): F31.9 - Bipolar disorder, unspecified Status: Acute (3) HTN (hypertension) Code(s): I10 - Essential (primary) hypertension Status: Acute - Plan Mr. Serna is a 57-year-old male with a known history of bipolar disorder on lithium. He was recently treated at our facility for pneumonia, and was subsequently seen in ED while feeling weak and appearing dehydrated. Patient found to be severely dehydrated and admitted [facility]; patient subsequently stabilized and transferred to medical service: 04/18: No significant changes Weakness -Continue PT/OT daily -Rehab recommended Bipolar disorder Impression: Previously evaluated by Psych 04/09; sedated so full eval not possible Patient has not been receiving Seroquel; recommended to resume previously 04/17- continued flat affect but doing ok overall. Repeat lithium 1.3 -Haldol if aggressive (has not needed) -Continue [place] 600mg BID -Continue home Lorazepam PRN -Will plan for repeat Psych evaluation now that patient improved -Will defer restarting Seroquel per patient request Acute encephalopathy likely secondary to dehydration and medication side effect. Resolved. His mental status seems to be as baseline. - We will continue lithium. Appreciate psychiatry input. Sepsis likely secondary to a urinary tract infection. Urine culture grew Pseudomonas. Status post treatment with antibiotics. Acute kidney injury likely secondary to dehydration vs lithium related Renal functions improved with hydration. Nephrology followed; signed off due to improvement Coagulopathy Resolved likely due to dehydration /malnutrition. Evaluated by Hematology hematology was following. Cardiovascular Elevated troponin -Cardiology evaluated- type 2 from end organ damage from dehydration. No ischemic work-up planned. Tachycardia likely from confusion/illness. BB per primary team Seborrheic dermatitis. Ketoconazole cream ordered. Apply to face twice daily. Heparin for dvt prophylaxis Discharge Planning: Per DC planning by (2) Bipolar disorder Qualifiers: Active/Remission status: currently active Current bipolar episode type: depressed Current episode severity: moderate Qualified Code(s): F31.32 - Bipolar disorder, current episode depressed, moderate
[2018-04-18 17:08] LABS: Baso # (Auto) 0.1 th/mm3 (0.0-0.2); Baso % (Auto) 0.5 % (0.0-2.0); Eos # (Auto) 0.3 th/mm3 (0.0-0.4); Hemoglobin 11.7 gm/dL (13.0-17.0); Lymph % (Auto) 14.1 % (9.0-44.0); Mean Corpuscular HGB Conc 33.5 % (32.0-36.0); Mean Corpuscular Hemoglobin 30.1 pg (27.0-34.0); Mean Corpuscular Volume 89.9 fL (80.0-100.0); Mean Platelet Volume 7.3 fL (7.0-11.0); Mono % (Auto) 7.2 % (0.0-8.0); Neut # (Auto) 10.7 th/mm3 (1.8-7.7); Neut % (Auto) 76.2 % (16.0-70.0); Platelet Count 418 th/mm3 (150-450); Red Cell Distribution Width 16.7 % (11.6-17.2); White Blood Count 14.1 th/mm3 (4.0-11.0)
[2018-04-19 05:42] LABS: Baso # (Auto) 0.1 th/mm3 (0.0-0.2); Baso % (Auto) 0.8 % (0.0-2.0); Eos # (Auto) 0.4 th/mm3 (0.0-0.4); Eos % (Auto) 2.9 % (0.0-4.0); Hematocrit 36.2 % (39.0-51.0); Hemoglobin 12.2 gm/dL (13.0-17.0); Lymph # (Auto) 2.3 th/mm3 (1.0-4.8); Mean Corpuscular HGB Conc 33.6 % (32.0-36.0); Mean Corpuscular Hemoglobin 30.4 pg (27.0-34.0); Mean Corpuscular Volume 90.5 fL (80.0-100.0); Mean Platelet Volume 7.3 fL (7.0-11.0); Mono % (Auto) 7.9 % (0.0-8.0); Neut # (Auto) 8.8 th/mm3 (1.8-7.7); Neut % (Auto) 70.4 % (16.0-70.0); Platelet Count 379 th/mm3 (150-450); Red Cell Distribution Width 16.8 % (11.6-17.2); White Blood Count 12.5 th/mm3 (4.0-11.0)
[2018-04-19 06:08] LABS: Calcium 9.5 mg/dL (8.5-10.1); Carbon Dioxide 23.2 meq/L (21.0-32.0)
[2018-04-19 07:21] LABS: Eosinophils 4 % (0-4); Lymphocytes 22 % (9-44); Metamyelocytes 3 % (0-1); Monocytes 9 % (0-8); Myelocytes 1 % (0-0); Platelet Estimate Normal (Normal); Platelet Morphology Normal (Normal)
[2018-04-19] MEDS: Heparin - SQ 10,000 UNITS/ML Vial SQ SCH ×2 (08:28→20:55)
[2018-04-19] MEDS: Metoprolol Tartrate 25 MG Tablet PO SCH ×2 (08:28→20:56)
[2018-04-19] MEDS: Senna/Docusate Sodium 8.6/50 MG Tablet PO SCH ×2 (08:29→20:56)
--- NOTE | 2018-04-19 11:50 | P.PNIM ---
Subjective Interval history: Mr. Serna was afebrile with stable VS overnight. Patient worked with PT twice today; patient reportedly has been doing better but has some continued anxiety about his movements. Patient feels some improvement. He does not report chest pain, shortness of breath, abnormal BM, or abnormal urination. Physical Exam Vital signs: Vital Signs 04/18/18 12:00 04/18/18 16:00 04/18/18 20:00 Temperature 98.0 F 98.0 F 97.8 F Pulse Rate 63 72 78 Respiratory Rate 18 18 16 Blood Pressure 123/82 136/72 145/93 H Pulse Oximetry 96 97 94 L 04/19/18 00:00 04/19/18 04:00 04/19/18 08:00 Temperature 97.8 F 97.6 F 97.8 F Pulse Rate 72 74 74 Respiratory Rate 16 16 18 Blood Pressure 122/77 145/99 H 153/92 H Pulse Oximetry 95 95 97 Intake & Output 04/18/18 04/19/18 04/19/18 18:59 06:59 18:59 Intake Total 720 / 720 Output Total 1200 / 1200 1600 / 1600 Balance -480 / -480 -1600 / -1600 Weight 92.1 kg Intake: Oral 720 / 720 Output: Urine 1200 / 1200 1600 / 1600 Other: Date of Last Bowel Movement 04/14/18 04/18/18 04/19/18 # Bowel Movements 2 Narrative: General: patient in no acute distress Skin: No visible lesions Cardiovascular: RRR, no murmurs. Normal perfusion grossly normal Respiratory: CTAB; normal rate Gastrointestinal: Abdomen soft, nontender, normal bowel sounds Neuro: Grossly normal CN; grossly normal peripheral sensory function; generalized weakness. patient with continued weakness to dorsiflexion/flexion of left foot (unchanged) Extremities: No LE edema, no calf tenderness - Urinary Catheter Management Indwelling Urethral Catheter Cath placed during this visit: yes Reason for continuing: Acute urinary retention Insertion date: 03/31/18 Insertion time: 15:00 Results - Labs CBC & Chem 7: 04/19/18 05:10 04/19/18 05:10 Laboratory Results - last 24 hr 04/18/18 04/19/18 04/19/18 16:30 05:10 05:10 WBC 14.1 H 12.5 H RBC 3.90 L 4.00 L Hgb 11.7 L 12.2 L Hct 35.0 L 36.2 L MCV 89.9 90.5 MCH 30.1 30.4 MCHC 33.5 33.6 RDW 16.7 16.8 Plt Count 418 379 MPV 7.3 7.3 Prelim Diff (Auto) Slide review pending Neut % (Auto) 76.2 H 70.4 H Lymph % (Auto) 14.1 18.0 [place] % (Auto) 7.2 7.9 Eos % (Auto) 2.0 2.9 Baso % (Auto) 0.5 0.8 Neut # (Auto) 10.7 H 8.8 H Lymph # (Auto) 2.0 2.3 [place] # (Auto) 1.0 H 1.0 H Eos # (Auto) 0.3 0.4 Baso # (Auto) 0.1 0.1 WBC Differential . Manual diff final Seg Neuts % (Manual) 59 Band Neuts % (Manual) 1 Lymphocytes % (Manual) 22 Monocytes % (Manual) 9 H Eosinophils % (Manual) 4 Basophils % (Manual) 1 Metamyelocytes % (Man) 3 H Myelocytes % (Man) 1 H Abs Neuts (Manual) 8.0 H Differential Comment Auto diff final . Platelet Estimate Normal Platelet Morphology Normal Sodium 139 Potassium 4.0 Chloride 108 H Carbon Dioxide 23.2 Anion Gap 8 BUN 17 Creatinine 1.00 Estimated GFR 77 L Random Glucose 86 Calcium 9.5 - Procedures NONE Assessment and Plan - Assessment (1) Weakness Code(s): R53.1 - Weakness Status: Acute (2) Bipolar disorder Code(s): F31.9 - Bipolar disorder, unspecified Status: Acute (3) HTN (hypertension) Code(s): I10 - Essential (primary) hypertension Status: Acute - Plan Mr. Serna is a 57-year-old male with a known history of bipolar disorder on lithium. He was recently treated at our facility for pneumonia, and was subsequently seen in ED while feeling weak and appearing dehydrated. Patient found to be severely dehydrated and admitted to [facility]; patient subsequently stabilized and transferred to medical service: 04/19: No significant changes Weakness -Continue PT/OT daily -Patient has reportedly been making improvements -Home with home health PT now recommended Bipolar disorder Impression: Previously evaluated by Psych 04/09; sedated so full eval not possible Patient has not been receiving Seroquel; recommended to resume previously 04/17- continued flat affect but doing ok overall. Repeat lithium 1.3 -Haldol if aggressive (has not needed) -Continue [place] 600mg BID -Continue home Lorazepam PRN -Will plan for repeat Psych evaluation now that patient improved -Will defer restarting Seroquel per patient request Acute encephalopathy likely secondary to dehydration and medication side effect. Resolved. His mental status seems to be as baseline. - We will continue lithium. Appreciate psychiatry input. Sepsis likely secondary to a urinary tract infection. Urine culture grew Pseudomonas. Status post treatment with antibiotics. Acute kidney injury likely secondary to dehydration vs lithium related Renal functions improved with hydration. Nephrology followed; signed off due to improvement Coagulopathy Resolved likely due to dehydration /malnutrition. Evaluated by Hematology hematology was following. Cardiovascular Elevated troponin -Cardiology evaluated- type 2 from end organ damage from dehydration. No ischemic work-up planned. Tachycardia likely from confusion/illness. BB per primary team Seborrheic dermatitis. Ketoconazole cream ordered. Apply to face twice daily. Heparin for dvt prophylaxis Discharge Planning: Per DC planning by (2) Bipolar disorder Qualifiers: Active/Remission status: currently active Current bipolar episode type: depressed Current episode severity: moderate Qualified Code(s): F31.32 - Bipolar disorder, current episode depressed, moderate
[2018-04-20] MEDS: Senna/Docusate Sodium 8.6/50 MG Tablet PO SCH ×2 (08:12→20:24)
[2018-04-20] MEDS: Metoprolol Tartrate 25 MG Tablet PO SCH ×2 (08:12→20:23)
[2018-04-20] MEDS: Heparin - SQ 10,000 UNITS/ML Vial SQ SCH ×2 (08:13→20:23)
[2018-04-21] MEDS: Senna/Docusate Sodium 8.6/50 MG Tablet PO SCH ×2 (09:14→21:23)
[2018-04-21] MEDS: Metoprolol Tartrate 25 MG Tablet PO SCH ×2 (09:14→21:21)
[2018-04-21] MEDS: Heparin - SQ 10,000 UNITS/ML Vial SQ SCH ×2 (09:15→21:22)
[2018-04-21 10:39] LABS: Baso # (Auto) 0.1 th/mm3 (0.0-0.2); Eos # (Auto) 0.4 th/mm3 (0.0-0.4); Eos % (Auto) 3.7 % (0.0-4.0); Hematocrit 37.4 % (39.0-51.0); Hemoglobin 12.6 gm/dL (13.0-17.0); Lymph # (Auto) 1.8 th/mm3 (1.0-4.8); Lymph % (Auto) 18.5 % (9.0-44.0); Mean Corpuscular HGB Conc 33.8 % (32.0-36.0); Mean Corpuscular Hemoglobin 30.5 pg (27.0-34.0); Mean Corpuscular Volume 90.3 fL (80.0-100.0); Mean Platelet Volume 7.5 fL (7.0-11.0); Mono # (Auto) 0.8 th/mm3 (0.0-0.9); Mono % (Auto) 8.4 % (0.0-8.0); Neut # (Auto) 6.6 th/mm3 (1.8-7.7); Neut % (Auto) 68.4 % (16.0-70.0); Platelet Count 383 th/mm3 (150-450); Red Blood Count 4.14 mil/mm3 (4.50-5.90); Red Cell Distribution Width 17.4 % (11.6-17.2); White Blood Count 9.6 th/mm3 (4.0-11.0)
[2018-04-21 10:48] LABS: Alanine Aminotransferase 65 U/L (12-78); Albumin 3.2 g/dL (3.4-5.0); Anion Gap 9 meq/L (5-15); Aspartate Aminotransferase 27 U/L (15-37); Blood Urea Nitrogen 11 mg/dL (7-18); Calcium 9.3 mg/dL (8.5-10.1); Carbon Dioxide 23.4 meq/L (21.0-32.0); Chloride 107 meq/L (98-107); Glomerular Filtration Rate 85 mL/min (>89); Glucose,Random 103 mg/dL (74-106); Potassium 4.1 meq/L (3.5-5.1); Sodium 139 meq/L (136-145)
[2018-04-21 10:51] LABS: Alkaline Phosphatase 95 U/L (45-117); Total Protein 6.8 g/dL (6.4-8.2)
--- NOTE | 2018-04-21 14:00 | P.DCO ---
- Physical Therapy Order: Evaluate and treat, Improve ambulation, Strength and gait training - Home Health Nursing Order: Medical education, Signs/symptoms of disease process, Medication education-adverse effect, Nursing assessment with vital signs - Case Management Consult Yes - Certification I have seen patient Joe Serna on 04/21/18. My clinical findings support the need for the requested home health care services because: Limited mobility due to disease progression, Deconditioned with increased weakness, Medication compliance is questionable, Limited ability to care for self, High risk of falls I certify that my clinical findings support that this patient is homebound because: Impaired cognitive ability/safety, Unsteady gait/balance, Unsafe to leave home unassisted, Unable to use public transportation
[2018-04-21 16:46] VITALS: O2SAT 96
--- NOTE | 2018-04-21 18:55 | P.PN ---
Subjective Interval history: Patient is seen lying in bed. Reports that he is doing well with no new concerns. No chest pain or shortness of breath. No nausea vomiting or diarrhea. He is tolerating his meals. He would like to take a nap. Nursing reports no adverse events. Physical Exam Vital signs: Vital Signs 04/20/18 20:00 04/21/18 00:00 04/21/18 04:00 Temperature 97.6 F 97.7 F 97.6 F Pulse Rate 83 80 72 Respiratory Rate 18 18 18 Blood Pressure 144/86 H 140/85 145/91 H Pulse Oximetry 97 98 97 04/21/18 08:00 04/21/18 12:00 04/21/18 16:00 Temperature 97.9 F 97.9 F 97.9 F Pulse Rate 77 62 82 Respiratory Rate 17 20 20 Blood Pressure 138/90 138/89 127/86 Pulse Oximetry 97 97 96 Intake & Output 04/20/18 04/21/18 04/21/18 18:59 06:59 18:59 Intake Total 600 / 600 960 / 960 Output Total 1725 / 1725 1000 / 1000 800 / 800 Balance -1125 / -1125 -1000 / -1000 160 / 160 Weight 94.9 kg Intake: Oral 600 / 600 960 / 960 Output: Urine 1725 / 1725 1000 / 1000 800 / 800 Other: # Voids 1 Date of Last Bowel Movement 04/19/18 04/19/18 04/20/18 # Bowel Movements 0 0 Narrative: General: patient in no acute distress Skin: No visible lesions Cardiovascular: RRR, no murmurs. Normal perfusion grossly normal Respiratory: CTAB; normal rate Gastrointestinal: Abdomen soft, nontender, normal bowel sounds Neuro: Grossly normal CN; grossly normal peripheral sensory function; generalized weakness. Extremities: No LE edema, no calf tenderness - Urinary Catheter Management Indwelling Urethral Catheter Cath placed during this visit: yes Reason for continuing: Acute urinary retention Insertion date: 03/31/18 Insertion time: 15:00 Results - Labs CBC & Chem 7: 04/21/18 09:49 04/21/18 09:49 Laboratory Results - last 24 hr 04/21/18 04/21/18 09:49 09:49 WBC 9.6 RBC 4.14 L Hgb 12.6 L Hct 37.4 L MCV 90.3 MCH 30.5 MCHC 33.8 RDW 17.4 H Plt Count 383 MPV 7.5 Neut % (Auto) 68.4 Lymph % (Auto) 18.5 [place] % (Auto) 8.4 H Eos % (Auto) 3.7 Baso % (Auto) 1.0 Neut # (Auto) 6.6 Lymph # (Auto) 1.8 [place] # (Auto) 0.8 Eos # (Auto) 0.4 Baso # (Auto) 0.1 WBC Differential . Differential Comment Auto diff final Sodium 139 Potassium 4.1 Chloride 107 Carbon Dioxide 23.4 Anion Gap 9 BUN 11 Creatinine 0.92 Estimated GFR 85 L Random Glucose 103 Calcium 9.3 Total Bilirubin 0.5 AST 27 ALT 65 Alkaline Phosphatase 95 Total Protein 6.8 Albumin 3.2 L - Procedures NONE Assessment and Plan - Assessment (1) Weakness Code(s): R53.1 - Weakness Status: Acute (2) Bipolar disorder Code(s): F31.9 - Bipolar disorder, unspecified Status: Acute (3) HTN (hypertension) Code(s): I10 - Essential (primary) hypertension Status: Acute - Plan Mr. Serna is a 57-year-old male with a known history of bipolar disorder on lithium. He was recently treated at our facility for pneumonia, and was subsequently seen in ED while feeling weak and appearing dehydrated. Patient found to be severely dehydrated and admitted to [facility]; patient subsequently stabilized and transferred to medical service: 04/22: No significant changes; continue current medical plan. Likely discharge tomorrow with home health. Weakness -Continue PT/OT daily -Patient has reportedly been making improvements -Home with home health PT now recommended Bipolar disorder Impression: Previously evaluated by Psych 04/09; sedated so full eval not possible Patient has not been receiving Seroquel; recommended to resume previously 04/17- continued flat affect but doing ok overall. Repeat lithium 1.3 -Haldol if aggressive (has not needed) -Continue [place] 600mg BID -Continue home Lorazepam PRN -Will plan for repeat Psych evaluation now that patient improved -Will defer restarting Seroquel per patient request Acute encephalopathy likely secondary to dehydration and medication side effect. Resolved. His mental status seems to be as baseline. - We will continue lithium. Appreciate psychiatry input. Sepsis likely secondary to a urinary tract infection. Urine culture grew Pseudomonas. Status post treatment with antibiotics. Acute kidney injury likely secondary to dehydration vs lithium related Renal functions improved with hydration. Nephrology followed; signed off due to improvement Coagulopathy Resolved likely due to dehydration /malnutrition. Evaluated by Hematology hematology was following. Cardiovascular Elevated troponin -Cardiology evaluated- type 2 from end organ damage from dehydration. No ischemic work-up planned. Tachycardia likely from confusion/illness. BB per primary team Seborrheic dermatitis. Ketoconazole cream ordered. Apply to face twice daily. Heparin for dvt prophylaxis Discharge Planning: Per DC planning by (2) Bipolar disorder Qualifiers: Active/Remission status: currently active Current bipolar episode type: depressed Current episode severity: moderate Qualified Code(s): F31.32 - Bipolar disorder, current episode depressed, moderate
[2018-04-22 08:52] VITALS: BP 146/95; PULSE 76; RESP 17; TEMP 97.8
[2018-04-22] MEDS: Metoprolol Tartrate 25 MG Tablet PO SCH (09:22)
[2018-04-22] MEDS: Heparin - SQ 10,000 UNITS/ML Vial SQ SCH (09:22)
[2018-04-22] MEDS: Senna/Docusate Sodium 8.6/50 MG Tablet PO SCH (09:22)
--- NOTE | 2018-04-22 09:37 | P.DS ---
Date of admission: 03/27/18 17:19 Primary care physician: No Primary Care Physician Attending physician on discharge: Ibrahima Bach Anticipated date of discharge: 04/22/18 Brief History from admission: 57-year-old male presents for an evaluation of generalized weakness. Patient appears very dehydrated on arrival. He was recently admitted for treatment of pneumonia. Chest x-ray was negative at that time, and he was discharged on antibiotics after a few days of IV antibiotics. Has a history of bipolar disorder treated with lithium. Per chart report when EMS arrived the patient looked like he had been on the floor for several days. On arrival the patient just states he feels very weak all over, denies any specific pain. Denies any abdominal pain chest pain headache or extremity pain. He states that he has had some mild nausea without vomiting. No diarrhea no constipation or blood in the stool. Patient update on day of discharge: Patient is doing well. No new concerns or complaints. Nursing denies any adverse overnight events. DS: Diagnosis - Discharge Diagnosis (1) Weakness Status: Resolved (2) Bipolar disorder Status: Chronic (3) HTN (hypertension) Status: Chronic (4) Acute renal failure Status: Resolved (5) Acute hypernatremia Status: Resolved (6) Acute dehydration Status: Resolved DS: Medications - Discharge Medications Prescriptions: ketoconazole 1 applicatio TOPICAL BID #1 tube lithium carbonate 600 mg PO BID #30 cap metoprolol tartrate 25 mg PO BID #60 tab tamsulosin 0.4 mg PO DAILY #30 cap DS: Summary Hospital Course: Mr. Serna is a 57-year-old male with a known history of bipolar disorder on lithium. He was recently treated at our facility for pneumonia, and was subsequently seen in ED while feeling weak and appearing dehydrated. Patient found to be severely dehydrated and admitted to [facility]; patient subsequently stabilized and transferred to medical service. Patient's stay was marked with weakness and encephalopathy -both gradually resolved to patient baseline after acute injury from dehydration was resolved. - Time Spent with Patient Total time spent providing and/or coordinating discharge services: Less than 30 minutes - Quality: VTE Deep Vein Thrombosis/Pulmonary Embolism Present on Admission: No Exam Vital signs: Vital Signs 04/21/18 12:00 04/21/18 16:00 04/21/18 20:00 Temperature 97.9 F 97.9 F 97.9 F Pulse Rate 62 82 83 Respiratory Rate 20 20 18 Blood Pressure 138/89 127/86 130/83 Pulse Oximetry 97 96 96 04/22/18 00:00 04/22/18 04:00 04/22/18 08:00 Temperature 97.6 F 98.2 F 97.8 F Pulse Rate 87 78 76 Respiratory Rate 18 18 17 Blood Pressure 127/78 152/82 H 146/95 H Pulse Oximetry 96 96 96 Intake & Output 04/21/18 04/22/18 04/22/18 18:59 06:59 18:59 Intake Total 960 / 960 1000 / 1000 Output Total 800 / 800 1200 / 1200 Balance 160 / 160 -200 / -200 Intake: Oral 960 / 960 1000 / 1000 Output: Urine 800 / 800 1200 / 1200 Other: # Voids 1 Date of Last Bowel Movement 04/20/18 04/21/18 # Bowel Movements 0 Narrative: General: patient in no acute distress Skin: No visible lesions Cardiovascular: RRR, no murmurs. Normal perfusion grossly normal Respiratory: CTAB; normal rate Gastrointestinal: Abdomen soft, nontender, normal bowel sounds Neuro: Grossly normal CN; grossly normal peripheral sensory function; generalized weakness. Extremities: No LE edema, no calf tenderness Results Procedures completed during hospitalization: NONE Labs on day of discharge: Labs from last 24 hours 04/21/18 04/21/18 09:49 09:49 WBC 9.6 RBC 4.14 L Hgb 12.6 L Hct 37.4 L MCV 90.3 MCH 30.5 MCHC 33.8 RDW 17.4 H Plt Count 383 MPV 7.5 Neut % (Auto) 68.4 Lymph % (Auto) 18.5 [place] % (Auto) 8.4 H Eos % (Auto) 3.7 Baso % (Auto) 1.0 Neut # (Auto) 6.6 Lymph # (Auto) 1.8 [place] # (Auto) 0.8 Eos # (Auto) 0.4 Baso # (Auto) 0.1 WBC Differential . Differential Comment Auto diff final Sodium 139 Potassium 4.1 Chloride 107 Carbon Dioxide 23.4 Anion Gap 9 BUN 11 Creatinine 0.92 Estimated GFR 85 L Random Glucose 103 Calcium 9.3 Total Bilirubin 0.5 AST 27 ALT 65 Alkaline Phosphatase 95 Total Protein 6.8 Albumin 3.2 L - Impressions ITS Impressions Chest X-Ray 03/27/18 14:07 CONCLUSION: Negative examination. Liver Ultrasound 03/28/18 00:00 CONCLUSION: 1. Hepatomegaly and mild increased echotexture of the liver parenchyma. 2. Sludge-filled gallbladder with borderline wall thickening. Discharge Plan - Discharge Disposition Patient Disposition: W/Home Health Service - Discharge Condition Condition: Stable - Discharge Order Discharge Orders: Discharge Order (Routine); Ordered 04/22/18 Ordered By: Eli Thomas - Physicians Team Primary Care Provider: Primary Care Sheron Bernal Attending Provider: Ibrahima Bach Other Providers: Rom Viramontes MD ; Janice Alejandro MD ; Terrence Tripathi DO ; Moris Foreman MD
== END 2018-04-22 10:58 | disposition home health service (06) ==
LOC: NEPC 13:54 → NEDA 17:19 → HIMC 03-28 01:15 → N05 04-03 17:39
PROVIDERS: ADMIT Hospitalist; ATTEND Hospitalist

== ENCOUNTER 2018-04-26 17:49 | Observation (INO) ==
--- NOTE | 2018-04-26 19:46 | ED ---
HPI General Chief Complaint: Syncope Stated Complaint: fall-hit head Time Seen by Provider: 04/26/18 19:05 Source: patient Mode of arrival: wheelchair History of Present Illness HPI narrative: Patient is a 57-year-old male who apparently was police found him lying on the ground next to his walker in a parking lot. They called EMS-- EVAC found him brought him in apparently he had syncopized twice he said today hit his head and hit his neck. Patient arrives without any obvious injury seen on initial exam. Patient is a history of hypertension he has been listed as homeless in the computer on his last visit which was a few days ago where he had also fallen a second visit for falling in the last few days. he is awake alert provides a good history he does not seem to be postictal no obvious injury to the long bones or head or chest or trunk or abdomen or back. His main complaint is neck pain and that he feels weak and fell twice today and was here recently for fall as well Related Data Home Medications Medication Instructions Recorded Confirmed quetiapine [Seroquel] 500 mg PO DAILY 03/27/18 04/26/18 Previous Rx's Medication Instructions Recorded ketoconazole 1 applicatio TOPICAL BID #1 tube 04/22/18 lithium carbonate 600 mg PO BID #30 cap 04/22/18 metoprolol tartrate 25 mg PO BID #60 tab 04/22/18 tamsulosin 0.4 mg PO DAILY #30 cap 04/22/18 Allergies Allergy/AdvReac Type Severity Reaction Status Date / Time No Known Allergies Allergy Verified 04/25/18 12:56 Review of Systems ROS: all other systems reviewed are negative [facility], [facility] Social History Social History Substance History: No History of Abuse Second Hand Smoke Exposure: No Smoking Status: Never smoker Tobacco Type: Cigarettes How Often Do You Have a Drink Containing Alcohol: Never Recent Travel in [facility] within the Last 8 Weeks: No Recent Out of Country Travel within the Last 8 Weeks: No Immunization History Tetanus Immunization: >5 Years Hx Influenza Vaccine This Season: No Exam Narrative Exam Narrative: GENERAL: Patient is awake alert slightly lethargic SKIN: Warm and dry. Patient has a plaque-like rash around his neck looks possibly fungal HEAD: Atraumatic. Normocephalic. No obvious injury or swelling to the head EYES: Pupils equal and round. No scleral icterus. No injection or drainage. ENT: No nasal bleeding or discharge. Mucous membranes pink and moist. NECK: Trachea midline. No JVD. CARDIOVASCULAR: Regular rate and rhythm. RESPIRATORY: No accessory muscle use. Clear to auscultation. Breath sounds equal bilaterally. GASTROINTESTINAL: Abdomen soft, non-tender, nondistended. Hepatic and splenic margins not palpable. MUSCULOSKELETAL: Extremities without clubbing, cyanosis, or edema. No obvious deformities. NEUROLOGICAL: Awake and alert. No obvious cranial nerve deficits. Motor grossly within normal limits. Five out of 5 muscle strength in the arms and legs. Normal speech. PSYCHIATRIC: Appropriate mood and affect; insight and judgment normal. Course Initial Documented Vital Signs Temperature 98.0 F 04/26/18 18:24 Pulse Rate 133 H 04/26/18 18:24 Respiratory Rate 20 04/26/18 18:24 Blood Pressure 134/98 H 04/26/18 18:24 Pulse Oximetry 97 04/26/18 18:24 Last Documented Vital Signs Temperature 98 F 04/30/18 03:08 Pulse Rate 69 04/30/18 03:08 Respiratory Rate 16 04/30/18 03:08 Blood Pressure 135/94 H 04/30/18 03:08 Pulse Oximetry 98 04/30/18 03:08 Medical Decision Making MDM Narrative Medical decision making narrative: 1414: Patient is homeless unable to ambulate , unsafe for discharge, was evaluated in the emergency room by physical therapy and mattress spring encaser. Case was discussed with Dr. Owen, who accepted patient for admission to observation for leukocytosis and renal failure, possible placement. Medical Screen Exam Complete: Yes Emergency Medical Condition: Yes Differential Diagnosis Differential Diagnosis: pt could have mechanical fall vs cardiac cause vs neurogenic cause vs dehydration syncope cardiac syncope other , head injury intracranial bleed skull fractue cervical spine fracture other Lab Data Result diagrams: 04/28/18 06:38 04/28/18 06:38 Lab Results 04/26/18 04/26/18 04/26/18 Range/Units 19:38 19:38 19:38 WBC 15.3 H (4.0-11.0) th/mm3 RBC 4.19 L (4.50-5.90) mil/mm3 Hgb 12.9 L (13.0-17.0) gm/dL Hct 38.4 L (39.0-51.0) % MCV 91.6 (80.0-100.0) fL MCH 30.7 (27.0-34.0) pg MCHC 33.5 (32.0-36.0) % RDW 17.3 H (11.6-17.2) % Plt Count 447 (150-450) th/mm3 MPV 7.7 (7.0-11.0) fL Neut % (Auto) 83.2 H (16.0-70.0) % Lymph % (Auto) 7.2 L (9.0-44.0) % [place] % (Auto) 8.7 H (0.0-8.0) % Eos % (Auto) 0.2 (0.0-4.0) % Baso % (Auto) 0.7 (0.0-2.0) % Neut # (Auto) 12.7 H (1.8-7.7) th/mm3 Lymph # (Auto) 1.1 (1.0-4.8) th/mm3 [place] # (Auto) 1.3 H (0.0-0.9) th/mm3 Eos # (Auto) 0.0 (0.0-0.4) th/mm3 Baso # (Auto) 0.1 (0.0-0.2) th/mm3 WBC Differential . Differential Comment Auto diff final Sodium 138 (136-145) meq/L Potassium 3.9 (3.5-5.1) meq/L Chloride 106 (98-107) meq/L Carbon Dioxide 13.8 L (21.0-32.0) meq/L Anion Gap 18 H (5-15) meq/L BUN 15 (7-18) mg/dL Creatinine 2.04 H (0.60-1.30) mg/dL Estimated GFR 34 L (>89) mL/min Random Glucose 117 H (74-106) mg/dL Calcium 10.5 H D (8.5-10.1) mg/dL Magnesium (1.5-2.5) mg/dL Total Bilirubin 1.6 H (0.2-1.0) mg/dL AST 19 (15-37) U/L ALT 45 (12-78) U/L Alkaline Phosphatase 99 (45-117) U/L Total Creatine Kinase (39-308) U/L Troponin I Less than 0.02 L (0.02-0.05) ng/mL Total Protein 8.3 H D (6.4-8.2) g/dL Albumin 4.2 (3.4-5.0) g/dL Urine Color (Yellw/Straw) Urine Clarity (Clear) Urine pH (5.0-8.5) Ur Specific [place] (1.002-1.035) Urine Protein (Neg-Trace) mg/dL Urine Glucose (UA) (Negative) mg/dL Urine Ketones (Negative) mg/dL Urine Occult Blood (Negative) Urine Nitrate (Negative) Urine Bilirubin (Negative) Urine Urobilinogen (Less than 2) mg/dL Ur Leukocyte Esterase (Negative) Urine RBC (0-3) /hpf Urine WBC (0-5) /hpf Ur Squamous Epith Cells (0-5) /hpf Hyaline Casts (0-3) /lpf Urine Mucus (Occasional) /lpf Ur Microscopic Review 04/26/18 04/27/18 04/27/18 Range/Units 19:38 01:35 05:56 WBC (4.0-11.0) th/mm3 RBC (4.50-5.90) mil/mm3 Hgb (13.0-17.0) gm/dL Hct (39.0-51.0) % MCV (80.0-100.0) fL MCH (27.0-34.0) pg MCHC (32.0-36.0) % RDW (11.6-17.2) % Plt Count (150-450) th/mm3 MPV (7.0-11.0) fL Neut % (Auto) (16.0-70.0) % Lymph % (Auto) (9.0-44.0) % [place] % (Auto) (0.0-8.0) % Eos % (Auto) (0.0-4.0) % Baso % (Auto) (0.0-2.0) % Neut # (Auto) (1.8-7.7) th/mm3 Lymph # (Auto) (1.0-4.8) th/mm3 [place] # (Auto) (0.0-0.9) th/mm3 Eos # (Auto) (0.0-0.4) th/mm3 Baso # (Auto) (0.0-0.2) th/mm3 WBC Differential Differential Comment Sodium 141 (136-145) meq/L Potassium 3.8 (3.5-5.1) meq/L Chloride 109 H (98-107) meq/L Carbon Dioxide 22.0 (21.0-32.0) meq/L Anion Gap 10 (5-15) meq/L BUN 16 (7-18) mg/dL Creatinine 1.62 H (0.60-1.30) mg/dL Estimated GFR 44 L (>89) mL/min Random Glucose 96 (74-106) mg/dL Calcium 8.5 D (8.5-10.1) mg/dL Magnesium (1.5-2.5) mg/dL Total Bilirubin 1.1 H (0.2-1.0) mg/dL AST 18 (15-37) U/L ALT 39 (12-78) U/L Alkaline Phosphatase 78 (45-117) U/L Total Creatine Kinase 130 (39-308) U/L Troponin I 0.02 (0.02-0.05) ng/mL Total Protein 6.3 L D (6.4-8.2) g/dL Albumin 3.2 L D (3.4-5.0) g/dL Urine Color Christine (Yellw/Straw) Urine Clarity Hazy H (Clear) Urine pH 5.0 (5.0-8.5) Ur Specific [place] 1.016 (1.002-1.035) Urine Protein Negative (Neg-Trace) mg/dL Urine Glucose (UA) Negative (Negative) mg/dL Urine Ketones Negative (Negative) mg/dL Urine Occult Blood Negative (Negative) Urine Nitrate Negative (Negative) Urine Bilirubin Negative (Negative) Urine Urobilinogen Less than 2 (Less than 2) mg/dL Ur Leukocyte Esterase Negative (Negative) Urine RBC 1 (0-3) /hpf Urine WBC 3 (0-5) /hpf Ur Squamous Epith Cells <1 (0-5) /hpf Hyaline Casts 24 (0-3) /lpf Urine Mucus Few H (Occasional) /lpf Ur Microscopic Review Not Reportable 04/28/18 04/28/18 Range/Units 06:38 06:38 WBC 6.4 (4.0-11.0) th/mm3 RBC 3.49 L (4.50-5.90) mil/mm3 Hgb 10.9 L D (13.0-17.0) gm/dL Hct 32.4 L (39.0-51.0) % MCV 92.8 (80.0-100.0) fL MCH 31.2 (27.0-34.0) pg MCHC 33.6 (32.0-36.0) % RDW 18.0 H (11.6-17.2) % Plt Count 294 D (150-450) th/mm3 MPV 7.3 (7.0-11.0) fL Neut % (Auto) 62.1 (16.0-70.0) % Lymph % (Auto) 23.2 (9.0-44.0) % [place] % (Auto) 9.4 H (0.0-8.0) % Eos % (Auto) 4.1 H (0.0-4.0) % Baso % (Auto) 1.2 (0.0-2.0) % Neut # (Auto) 4.0 (1.8-7.7) th/mm3 Lymph # (Auto) 1.5 (1.0-4.8) th/mm3 [place] # (Auto) 0.6 (0.0-0.9) th/mm3 Eos # (Auto) 0.3 (0.0-0.4) th/mm3 Baso # (Auto) 0.1 (0.0-0.2) th/mm3 WBC Differential . Differential Comment Auto diff final Sodium 143 (136-145) meq/L Potassium 3.6 (3.5-5.1) meq/L Chloride 114 H (98-107) meq/L Carbon Dioxide 22.5 (21.0-32.0) meq/L Anion Gap 7 (5-15) meq/L BUN 8 (7-18) mg/dL Creatinine 0.76 (0.60-1.30) mg/dL Estimated GFR Greater than 89 (>89) mL/min Random Glucose 82 (74-106) mg/dL Calcium 9.0 (8.5-10.1) mg/dL Magnesium 1.9 (1.5-2.5) mg/dL Total Bilirubin (0.2-1.0) mg/dL AST (15-37) U/L ALT (12-78) U/L Alkaline Phosphatase (45-117) U/L Total Creatine Kinase (39-308) U/L Troponin I (0.02-0.05) ng/mL Total Protein (6.4-8.2) g/dL Albumin (3.4-5.0) g/dL Urine Color (Yellw/Straw) Urine Clarity (Clear) Urine pH (5.0-8.5) Ur Specific [place] (1.002-1.035) Urine Protein (Neg-Trace) mg/dL Urine Glucose (UA) (Negative) mg/dL Urine Ketones (Negative) mg/dL Urine Occult Blood (Negative) Urine Nitrate (Negative) Urine Bilirubin (Negative) Urine Urobilinogen (Less than 2) mg/dL Ur Leukocyte Esterase (Negative) Urine RBC (0-3) /hpf Urine WBC (0-5) /hpf Ur Squamous Epith Cells (0-5) /hpf Hyaline Casts (0-3) /lpf Urine Mucus (Occasional) /lpf Ur Microscopic Review Imaging Data Radiologist's impression: Head CT 04/26/18 19:26 CONCLUSION: Negative noncontrast head CT. . Cervical Spine CT 04/26/18 19:28 CONCLUSION: 1. Intact cervical spine. 2. Degenerative changes as above without significant foraminal or spinal stenosis. Discharge Plan Discharge Disposition Patient Disposition: 30 Still Patient Discharge Condition Condition: Fair Discharge Details Discharge Comment: Patient is unsafe to be discharged, was accepted Dr. Nina for admission to observation. Diagnosis: Acute dehydration, Syncope and collapse, Leukocytosis, Homelessness Physicians Team ED Provider: Asher Kennedy Primary Care Provider: Primary Care Sheron Bernal Attending Provider: Donna Bamuann Other Providers: [facility],Agency Status ED Status: Left Department Discharge Information Discharge Date/Time: 04/27/18 14:19
[2018-04-26 20:00] LABS: Baso # (Auto) 0.1 th/mm3 (0.0-0.2); Baso % (Auto) 0.7 % (0.0-2.0); Eos % (Auto) 0.2 % (0.0-4.0); Hematocrit 38.4 % (39.0-51.0); Hemoglobin 12.9 gm/dL (13.0-17.0); Lymph # (Auto) 1.1 th/mm3 (1.0-4.8); Lymph % (Auto) 7.2 % (9.0-44.0); Mean Corpuscular HGB Conc 33.5 % (32.0-36.0); Mean Corpuscular Hemoglobin 30.7 pg (27.0-34.0); Mean Corpuscular Volume 91.6 fL (80.0-100.0); Mean Platelet Volume 7.7 fL (7.0-11.0); Mono # (Auto) 1.3 th/mm3 (0.0-0.9); Mono % (Auto) 8.7 % (0.0-8.0); Neut # (Auto) 12.7 th/mm3 (1.8-7.7); Neut % (Auto) 83.2 % (16.0-70.0); Platelet Count 447 th/mm3 (150-450); Red Blood Count 4.19 mil/mm3 (4.50-5.90); Red Cell Distribution Width 17.3 % (11.6-17.2); White Blood Count 15.3 th/mm3 (4.0-11.0)
--- NOTE | 2018-04-26 20:06 | CT ---
EXAM DATE: 04/26/2018 7:32 PM EDT AGE/SEX: 57 years / Male INDICATIONS: Multiple syncopal episodes. General weakness. CLINICAL DATA: This is the patient's initial encounter. Patient reports that signs and symptoms have been present for 2 days and indicates a pain score of 5/10. MEDICAL/SURGICAL HISTORY: Hypertension. Cirrhosis. None. RADIATION DOSE: 36.71 CTDI (mGy) COMPARISON: [facility] [place] W/O CONTRAST, 03/08/2018. . TECHNIQUE: CT of the head without contrast. Using automated exposure control and adjustment of the mA and/or kV according to patient size, radiation dose was kept as low as reasonably achievable to ob tain optimal diagnostic quality images. DICOM format image data is available electronically for revi ew and comparison. FINDINGS: Cerebrum: The ventricles are normal for age. No evidence of midline shift, mass lesion, hemorrhage or acute infarction. No extraaxial fluid collections are seen. Posterior Fossa: The cerebellum and brainstem are intact. The 4th ventricle is midline. The cerebe llopontine angle is unremarkable. Extracranial: The visualized portion of the orbits is intact. Skull: The calvaria is intact. No evidence of skull fracture. CONCLUSION: Negative noncontrast head CT. . Electronically signed by: Kiko Rizzo MD 04/26/2018 8:04 PM EDT
--- NOTE | 2018-04-26 20:09 | CT ---
EXAM DATE: 04/26/2018 7:32 PM EDT AGE/SEX: 57 years / Male INDICATIONS: Multiple syncopal episodes. General weakness. CLINICAL DATA: This is the patient's initial encounter. Patient reports that signs and symptoms have been present for 2 days and indicates a pain score of 5/10. MEDICAL/SURGICAL HISTORY: Hypertension. Cirrhosis. None. RADIATION DOSE: 22.07 CTDI (mGy) COMPARISON: No prior exams available for comparison. TECHNIQUE: Contiguous axial images were obtained using helical multirow detector technique. The vol umetric data was post-processed with multiplanar reconstruction in oblique axial, sagittal, and coron al planes. Using automated exposure control and adjustment of the mA and/or kV according to patient s ize, radiation dose was kept as low as reasonably achievable to obtain optimal diagnostic quality madyson ges. DICOM format image data is available electronically for review and comparison. FINDINGS: Cervical spine alignment is within normal limits. Vertebral bodies have normal height. No acute corti balwinder break or trabecular disruption demonstrated. Tiny ossicle seen posterior spinous process of C7 wh ich may be developmental or related to old trauma. There is mild to moderate bilateral uncovertebral and facet osteoarthritis at essentially all levels. There is vacuum phenomenon and disc space narrowing, moderate at C4/C5 and moderate to severe at C5/ C6. There is also moderate disc space narrowing at C3/C4 and C6/C7. Mild bilateral foraminal stenosis at C5/C6. No high-grade foraminal or spinal stenosis demonstrated. CONCLUSION: 1. Intact cervical spine. 2. Degenerative changes as above without significant foraminal or spinal stenosis. Electronically signed by: Kiko Rizzo MD 04/26/2018 8:08 PM EDT
[2018-04-26] MEDS ORDERED: Ketorolac Inj 30 MG/ML (IVP) Vial IV.PUSH ONE (21:00)
[2018-04-26 21:11] LABS: Alanine Aminotransferase 45 U/L (12-78); Albumin 4.2 g/dL (3.4-5.0); Alkaline Phosphatase 99 U/L (45-117); Anion Gap 18 meq/L (5-15); Aspartate Aminotransferase 19 U/L (15-37); Blood Urea Nitrogen 15 mg/dL (7-18); Calcium 10.5 mg/dL (8.5-10.1); Carbon Dioxide 13.8 meq/L (21.0-32.0); Chloride 106 meq/L (98-107); Glomerular Filtration Rate 34 mL/min (>89); Glucose,Random 117 mg/dL (74-106); Potassium 3.9 meq/L (3.5-5.1); Sodium 138 meq/L (136-145); Total Protein 8.3 g/dL (6.4-8.2)
[2018-04-26] MEDS ORDERED: Sod Chloride 0.9% Inj 1,000 ML IV.SIG ONE ×2 (21:59→22:16)
[2018-04-27 02:06] LABS: Alanine Aminotransferase 39 U/L (12-78); Albumin 3.2 g/dL (3.4-5.0); Alkaline Phosphatase 78 U/L (45-117); Anion Gap 10 meq/L (5-15); Aspartate Aminotransferase 18 U/L (15-37); Blood Urea Nitrogen 16 mg/dL (7-18); Calcium 8.5 mg/dL (8.5-10.1); Chloride 109 meq/L (98-107); Glomerular Filtration Rate 44 mL/min (>89); Glucose,Random 96 mg/dL (74-106); Potassium 3.8 meq/L (3.5-5.1); Sodium 141 meq/L (136-145); Total Protein 6.3 g/dL (6.4-8.2); Troponin I 0.02 ng/mL (0.02-0.05)
[2018-04-27] MEDS: Sod Chloride 0.9% Inj 1,000 ML IV.CONT SCH ×4 (02:48→22:45)
[2018-04-27] MEDS ORDERED: oxyCODONE/Acetaminophen 10/325 Tablet PO ONE (05:47)
[2018-04-27 06:40] LABS: Bilirubin,Urine Negative (Negative); Clarity,Urine Hazy (Clear); Color,Urine Amber (Yellw/Straw); Glucose,Urine (UA) Negative (Negative); Hyaline Casts,Urine 24 /lpf (0-3); Leukocyte Esterase,Urine Negative (Negative); Mucus,Urine Few /lpf (Occasional); Nitrite,Urine Negative (Negative); Specific Gravity,Urine 1.016 (1.002-1.035); Squamous Epithelial Cell,Urine <1 /hpf (0-5)
--- NOTE | 2018-04-27 14:27 | P.HPIM ---
History of Present Illness Primary Care Physician: No Primary Care Physician History of Present Illness: Patient is a 57-year-old homeless male with a history of depression. The patient was brought into our emergency department after he was found down in the streets and appeared to be weak. The patient is a poor historian. He states that he was recently seen in the emergency department and was evaluated by the police today who brought him into the emergency department to be evaluated. He has been having very poor p.o. intake due to being homeless and not having money. He states that he nearly passed out and fell down 2 times while out in the streets. After questioning the patient he denies losing consciousness during those episodes. He denies having dysuria, no cough, no chest pain, no shortness of breath, no fevers or chills, no abdominal pain. Review of Systems All other systems reviewed negative except as stated in HPI PMFSH - History History Provided By: Patient - Medical History Medical History: Medical History (Last Reviewed 04/27/18 @ 14:21 by Haritha Owen MD) Bipolar disorder Depression Hypertension Liver cirrhosis Pneumonia - Surgical History Surgical History: Surgical History (Last Reviewed 04/27/18 @ 14:21 by Haritha Owen MD) Hx of tonsillectomy - Family History Family History: Family History (Last Reviewed 04/27/18 @ 14:21 by Haritha Owen MD) Father Dementia Mother Multiple sclerosis - Tobacco History Second Hand Smoke Exposure: No Tobacco Use In Past 30 Days: No Smoking Status: Never smoker Tobacco Type: Cigarettes - Alcohol History How Often Do You Have a Drink Containing Alcohol: Never - Substance Use History Substance History: No History of Abuse - Travel History Recent Travel in the [place] Within the Last 8 Weeks: No Recent Travel Out of the Country Within the Last 8 Weeks: No - Immunization History Tetanus Immunization: >5 Years Hx Influenza Vaccine This Season: No Medications and Allergies Active Medications: Active Medications Sodium Chloride (Ns Inj) 1,000 mls @ 100 mls/hr IV.CONT .Q10H ALEJA Last Admin: 04/27/18 12:37 Dose: 100 mls/hr Allergies Allergy/AdvReac Type Severity Reaction Status Date / Time No Known Allergies Allergy Verified 04/25/18 12:56 Home Medications Medication Instructions Recorded Confirmed Type quetiapine [Seroquel] 500 mg PO DAILY 03/27/18 04/26/18 History Exam Vital signs: Vital Signs 04/26/18 18:24 04/26/18 18:37 04/26/18 21:12 Temperature 98.0 F 98.3 F Pulse Rate 133 H 96 H 89 Respiratory Rate 20 18 16 Blood Pressure 134/98 H 133/84 122/75 Pulse Oximetry 97 96 100 04/27/18 02:00 04/27/18 06:06 04/27/18 06:23 Temperature 98.0 F Pulse Rate 69 68 Respiratory Rate 20 18 18 Blood Pressure 123/74 120/72 Pulse Oximetry 98 96 04/27/18 07:44 04/27/18 12:39 Temperature 98.0 F Pulse Rate 71 67 Respiratory Rate 14 17 Blood Pressure 133/78 138/85 Pulse Oximetry 100 Intake & Output 04/26/18 04/27/18 04/27/18 18:59 06:59 18:59 Intake Total 3480 / 3480 Balance 3480 / 3480 Weight 99 kg Intake: IV 3000 / 3000 NS Inj 1,000 ML @ 250 mls/hr IV 1000 / 1000 .CONT .Q4H ALEJA Rx#:[id number] NS Inj 1,000 ML @ Wide Open IV. 1999 / 1999 SIG BOLUS ONE Rx#:[id number] Oral 480 / 480 Narrative: General patient in no acute distress HEENT extraocular movements are intact, dry oral pharyngeal mucosa, dry skin noted on the patient's chin Cardiovascular S1-S2 audible, tachycardic Respiratory clear to auscultation bilaterally Abdomen soft, nontender, nondistended, normal bowel sounds Extremities no edema 2+ distal pulses in bilateral upper and lower extremities Neuro no neurological deficits on my physical exam. Patient can move all 4 extremities sensation is intact bilaterally. Cerebellar signs are intact. Results - Labs CBC & Chem 7: 04/26/18 19:38 04/27/18 01:35 Labs: Short CBC 04/26/18 Range/Units 19:38 WBC 15.3 H (4.0-11.0) th/mm3 Hgb 12.9 L (13.0-17.0) gm/dL Hct 38.4 L (39.0-51.0) % Plt Count 447 (150-450) th/mm3 BMP 04/26/18 04/27/18 19:38 01:35 Sodium 138 141 Potassium 3.9 3.8 Chloride 106 109 H Carbon Dioxide 13.8 L 22.0 BUN 15 16 Creatinine 2.04 H 1.62 H Calcium 10.5 H D 8.5 D Cardiac Enzymes 04/26/18 04/26/18 04/27/18 Range/Units 19:38 19:38 01:35 Total Creatine Kinase 130 (39-308) U/L Troponin I Less than 0.02 L 0.02 (0.02-0.05) ng/mL Liver Function 04/26/18 04/27/18 Range/Units 19:38 01:35 Total Bilirubin 1.6 H 1.1 H (0.2-1.0) mg/dL AST 19 18 (15-37) U/L ALT 45 39 (12-78) U/L Alkaline Phosphatase 99 78 (45-117) U/L Albumin 4.2 3.2 L D (3.4-5.0) g/dL Urine 04/27/18 Range/Units 05:56 Urine Color Christine (Yellw/Straw) Urine Clarity Hazy H (Clear) Urine pH 5.0 (5.0-8.5) Ur Specific [place] 1.016 (1.002-1.035) Urine Protein Negative (Neg-Trace) mg/dL Urine Glucose (UA) Negative (Negative) mg/dL - Imaging Impressions Head CT 04/26/18 19:26 CONCLUSION: Negative noncontrast head CT. . Cervical Spine CT 04/26/18 19:28 CONCLUSION: 1. Intact cervical spine. 2. Degenerative changes as above without significant foraminal or spinal stenosis. Caprini VTE Risk Assessment Caprini VTE Risk Assessment: No/Low Risk (score <= 1) Caprini Risk Assessment Model: Point Value = 1 Point Value = 2 Point Value = 3 Point Value = 5 Age 41-60 Minor surgery BMI > 25 kg/m2 Swollen legs Varicose veins or History of unexplained or recurrent spontaneous Oral contraceptives or hormone replacement Sepsis (< 1 month) Serious lung disease, including pneumonia (< 1 month) Abnormal pulmonary function Acute myocardial infarction Congestive heart failure (< 1 month) History of inflammatory bowel disease Medical patient at bed rest Age 61-74 Arthroscopic surgery Major open surgery (> 45 min) Laparoscopic surgery (> 45 min) Malignancy Confined to bed (> 72 hours) Immobilizing plaster cast Central venous access Age >= 75 History of VTE Family history of VTE Factor V Leiden Prothrombin [id number] Lupus anticoagulant Anticardiolipin antibodies Elevated serum homocysteine Heparin-induced thrombocytopenia Other congenital or acquired thrombophilia Stroke (< 1 month) Elective arthroplasty Hip, pelvis, or leg fracture Acute spinal cord injury (< 1 month) Prophylaxis Regimen: Total Risk Factor Score Risk Level Prophylaxis Regimen 0-1 Low Early ambulation 2 Moderate Order ONE of the following: *Sequential Compression Device (SCD) *Heparin 5000 units SQ BID 3-4 Higher Order ONE of the following medications: *Heparin 5000 units SQ TID *Enoxaparin/Lovenox 40 mg SQ daily (WT < 150 kg, CrCl > 30 mL/min) *Enoxaparin/Lovenox 30 mg SQ daily (WT < 150 kg, CrCl > 10-29 mL/min) *Enoxaparin/Lovenox 30 mg SQ BID (WT < 150 kg, CrCl > 30 mL/min) AND/OR *Sequential Compression Device (SCD) 5 or more Highest Order ONE of the following medications: *Heparin 5000 units SQ TID (Preferred with Epidurals) *Enoxaparin/Lovenox 40 mg SQ daily (WT < 150 kg, CrCl > 30 mL/min) *Enoxaparin/Lovenox 30 mg SQ daily (WT < 150 kg, CrCl > 10-29 mL/min) *Enoxaparin/Lovenox 30 mg SQ BID (WT < 150 kg, CrCl > 30 mL/min) AND *Sequential Compression Device (SCD) Assessment and Plan - Plan This patient is a 57-year-old male with a history of depression and bipolar disorder as per documentation. The patient is homeless and was brought into our emergency department today after having what appears to be a presyncopal episode while in the streets. He was found by police and brought into our emergency department for evaluation. 1. Presyncope likely secondary to dehydration 2. Acute kidney injury likely secondary to dehydration 3. Systemic inflammatory response syndrome The patient was found to be tachycardic on arrival to our emergency department. His heart rate initially was in the 130s. He was evaluated and started on IV fluids. Orthostatics were done in the emergency department with which were positive and are consistent with dehydration. A 12-lead EKG has been ordered and will be followed up. Continue to monitor the patient on telemetry. He will be started on a diet. Patient serum creatinine is elevated at 1.6. His baseline serum creatinine is 1.0. Continue IV fluids we will follow-up in a.m. renal panel. I believe that the patient's elevation in his serum creatinine is likely due to dehydration. WBC count is elevated and the patient was tachycardic on arrival. UA is negative. The patient denies having a cough. He denies having any fevers or chills. We will follow-up in a.m. CBC. If the patient spikes a fever we will obtain blood cultures as well as a chest x -ray. The patient will need physical therapy while in-house and will also likely need to be placed in a rehab facility after discharge.
--- NOTE | 2018-04-27 17:27 | ECG ---
Date Performed: 04/26/2018 Time Performed: 20:03:57 PTAGE: 57 years EKG: Sinus rhythm NORMAL ECG PREVIOUS TRACING 04/25/2018 @ 13.01.22 Since the previous tracing, no significant change noted DOCTOR: Salvador Lawler Interpretating Date/Time 04/27/2018 17:25:25
--- NOTE | 2018-04-27 22:37 | ECG ---
Date Performed: 04/27/2018 Time Performed: 17:39:25 PTAGE: 57 years EKG: Sinus rhythm NORMAL ECG PREVIOUS TRACING : 04/26/2018 20.03 Since the previous tracing, no significant change noted DOCTOR: Meri Gresham Interpretating Date/Time 04/27/2018 22:35:21
[2018-04-28 06:56] LABS: Baso # (Auto) 0.1 th/mm3 (0.0-0.2); Baso % (Auto) 1.2 % (0.0-2.0); Eos # (Auto) 0.3 th/mm3 (0.0-0.4); Eos % (Auto) 4.1 % (0.0-4.0); Hematocrit 32.4 % (39.0-51.0); Hemoglobin 10.9 gm/dL (13.0-17.0); Lymph # (Auto) 1.5 th/mm3 (1.0-4.8); Lymph % (Auto) 23.2 % (9.0-44.0); Mean Corpuscular HGB Conc 33.6 % (32.0-36.0); Mean Corpuscular Hemoglobin 31.2 pg (27.0-34.0); Mean Corpuscular Volume 92.8 fL (80.0-100.0); Mean Platelet Volume 7.3 fL (7.0-11.0); Mono # (Auto) 0.6 th/mm3 (0.0-0.9); Mono % (Auto) 9.4 % (0.0-8.0); Neut % (Auto) 62.1 % (16.0-70.0); Platelet Count 294 th/mm3 (150-450); Red Blood Count 3.49 mil/mm3 (4.50-5.90); White Blood Count 6.4 th/mm3 (4.0-11.0)
[2018-04-28 07:12] LABS: Anion Gap 7 meq/L (5-15); Blood Urea Nitrogen 8 mg/dL (7-18); Carbon Dioxide 22.5 meq/L (21.0-32.0); Chloride 114 meq/L (98-107); Glomerular Filtration Rate Greater Than 89 mL/min (>89); Glucose,Random 82 mg/dL (74-106); Magnesium 1.9 mg/dL (1.5-2.5); Potassium 3.6 meq/L (3.5-5.1); Sodium 143 meq/L (136-145)
[2018-04-28] MEDS: Sod Chloride 0.9% Inj 1,000 ML IV.CONT SCH ×2 (09:05→19:37)
[2018-04-28] MEDS: Ketorolac Inj 30 MG/ML (IVP) Vial IV.PUSH PRN ×2 (13:51→20:08)
--- NOTE | 2018-04-28 14:31 | P.PN ---
Subjective Interval history: Follow up for falls and syncopal episodes. Patient is currently resting in bed. He denies any chest pain, shortness of breath, fever or chills. However he does mention in the last 1 month he has been falling more frequently and having syncope or presyncope. Physical Exam Vital signs: Vital Signs 04/27/18 14:48 04/27/18 16:00 04/27/18 20:25 Temperature Pulse Rate 66 63 Respiratory Rate 17 16 Blood Pressure 135/76 Pulse Oximetry 97 04/27/18 22:11 04/28/18 04:20 04/28/18 07:36 Temperature 97.4 F L 98.2 F 97.9 F Pulse Rate 67 72 68 Respiratory Rate 20 16 18 Blood Pressure 121/81 140/91 H 131/84 Pulse Oximetry 99 93 L 95 04/28/18 12:00 Temperature 97.8 F Pulse Rate 65 Respiratory Rate 16 Blood Pressure 140/87 Pulse Oximetry 96 Intake & Output 04/27/18 04/28/18 04/28/18 18:59 06:59 18:59 Intake Total 1200 / 1200 1480 / 1480 1000 / 1000 Balance 1200 / 1200 1480 / 1480 1000 / 1000 Intake: IV 1000 / 1000 1000 / 1000 NS Inj 1,000 ML @ 100 mls/hr IV 1000 / 1000 1000 / 1000 .CONT .Q10H ALEJA Rx#:[id number] Oral 1200 / 1200 480 / 480 Other: # Voids 2 1 Narrative: GENERAL: Alert, NAD. SKIN: Warm and dry. HEAD: Normocephalic. EYES: No scleral icterus. No injection or drainage. NECK: Supple, trachea midline. No JVD or lymphadenopathy. CARDIOVASCULAR: Regular rate and rhythm without murmurs, gallops, or rubs. RESPIRATORY: Breath sounds equal bilaterally. No accessory muscle use. GASTROINTESTINAL: Abdomen soft, non-tender, nondistended. MUSCULOSKELETAL: No cyanosis, or edema. BACK: Nontender without obvious deformity. No CVA tenderness. Results - Labs CBC & Chem 7: 04/28/18 06:38 04/28/18 06:38 Laboratory Results - last 24 hr 04/28/18 04/28/18 06:38 06:38 WBC 6.4 RBC 3.49 L Hgb 10.9 L D Hct 32.4 L MCV 92.8 MCH 31.2 MCHC 33.6 RDW 18.0 H Plt Count 294 D MPV 7.3 Neut % (Auto) 62.1 Lymph % (Auto) 23.2 [place] % (Auto) 9.4 H Eos % (Auto) 4.1 H Baso % (Auto) 1.2 Neut # (Auto) 4.0 Lymph # (Auto) 1.5 [place] # (Auto) 0.6 Eos # (Auto) 0.3 Baso # (Auto) 0.1 WBC Differential . Differential Comment Auto diff final Sodium 143 Potassium 3.6 Chloride 114 H Carbon Dioxide 22.5 Anion Gap 7 BUN 8 Creatinine 0.76 Estimated GFR Greater than 89 Random Glucose 82 Calcium 9.0 Magnesium 1.9 - Procedures 03/29/2018 Echocardiogram Normal left ventricular size. Mild concentric left ventricular hypertrophy. The left ventricular systolic function is normal with an estimated ejection fraction in the range of 60-65%. Mild pulmonary valve regurgitation. Assessment and Plan - Plan Patient is a 57-year-old male who apparently was police found him lying on the ground next to his walker in a parking lot. In the ED, he was positive for orthostatic hypotension. Orthostatic hypotension - Will refrain from using Metoprolol. No indication to use. - Continue NS infusion. - PT is following. Patient has some foot drop - will benefit from physical therapy in the outpatient setting. Chronic back pain - Toradol. Acute kidney injury Acute volume depletion Leukocytosis -Creatinine 2.04 on admission. Improved to 0.76 with fluid resuscitation. -WBC count 15.3 on admission and 6.4 today. This also is likely due to hemoconcentration. -No acute evidence of any infectious process. Full code. Ambulation. Discharge: Probable discharge in the next 24-48 hours depending on patient's improvement of ambulation.
[2018-04-29] MEDS: Sod Chloride 0.9% Inj 1,000 ML IV.CONT SCH ×2 (05:52→16:38)
--- NOTE | 2018-04-29 15:05 | P.PN ---
Subjective Interval history: Follow up for falls and syncopal episodes. Patient is currently resting in bed. He, however, reports dizziness and lightheadedness when he ambulates. Tolerating diet well. He feels that he will improve within the next couple of days. Physical Exam Vital signs: Vital Signs 04/28/18 15:54 04/28/18 20:00 04/29/18 02:04 Temperature 97.7 F 97.9 F 98.6 F Pulse Rate 65 71 68 Respiratory Rate 18 21 20 Blood Pressure 135/89 168/74 H 114/63 Pulse Oximetry 99 96 96 04/29/18 04:00 04/29/18 07:33 04/29/18 09:00 Temperature 98.2 F 98.1 F Pulse Rate 71 65 71 Respiratory Rate 19 18 Blood Pressure 124/55 L 140/89 Pulse Oximetry 96 98 04/29/18 12:13 Temperature 98.2 F Pulse Rate 76 Respiratory Rate 20 Blood Pressure 153/96 H Pulse Oximetry 98 Intake & Output 04/28/18 04/29/18 04/29/18 18:59 06:59 18:59 Intake Total 1960 / 1960 1999 Output Total 1550 / 1550 850 / 850 Balance 410 / 410 1150 / 1150 Weight 98.3 kg Intake: IV 1000 / 1000 1999 NS Inj 1,000 ML @ 100 mls/hr IV 1000 / 1000 1999 .CONT .Q10H ALEJA Rx#:[id number] Oral 960 / 960 Output: Urine 1550 / 1550 850 / 850 Other: Post Void Residual 500 Date of Last Bowel Movement 04/26/18 Narrative: GENERAL: Alert, NAD. SKIN: Warm and dry. HEAD: Normocephalic. EYES: No scleral icterus. No injection or drainage. NECK: Supple, trachea midline. No JVD or lymphadenopathy. CARDIOVASCULAR: Regular rate and rhythm without murmurs, gallops, or rubs. RESPIRATORY: Breath sounds equal bilaterally. No accessory muscle use. GASTROINTESTINAL: Abdomen soft, non-tender, nondistended. MUSCULOSKELETAL: No cyanosis, or edema. BACK: Nontender without obvious deformity. No CVA tenderness. Results - Labs CBC & Chem 7: 04/28/18 06:38 04/28/18 06:38 - Procedures 03/29/2018 Echocardiogram Normal left ventricular size. Mild concentric left ventricular hypertrophy. The left ventricular systolic function is normal with an estimated ejection fraction in the range of 60-65%. Mild pulmonary valve regurgitation. Assessment and Plan - Plan Patient is a 57-year-old male who apparently was police found him lying on the ground next to his walker in a parking lot. In the ED, he was positive for orthostatic hypotension. Orthostatic hypotension - Will refrain from using Metoprolol. No indication to use. - Continue NS infusion. - PT is following. Patient has some foot drop - will benefit from physical therapy in the outpatient setting. Chronic back pain - Toradol. Acute kidney injury Acute volume depletion Leukocytosis -Creatinine 2.04 on admission. Improved to 0.76 with fluid resuscitation. -WBC count 15.3 on admission and 6.4 today. This also is likely due to hemoconcentration. -No acute evidence of any infectious process. Full code. Ambulation. Discharge: If patient improves and able to ambulate better (> 150 feet), he can be discharged to the community.
[2018-04-29] MEDS: Ketorolac Inj 30 MG/ML (IVP) Vial IV.PUSH PRN (16:46)
[2018-04-30] MEDS: Sod Chloride 0.9% Inj 1,000 ML IV.CONT SCH ×2 (02:11→13:15)
[2018-04-30] MEDS: Ketorolac Inj 30 MG/ML (IVP) Vial IV.PUSH PRN (08:13)
--- NOTE | 2018-04-30 09:47 | P.PNIM ---
Subjective Interval history: f/u; generalized weakness in no acute distress and looks comfortable. denies pain. Physical Exam Vital signs: Vital Signs 04/29/18 12:13 04/29/18 15:41 04/29/18 19:59 Temperature 98.2 F 98.3 F 97.3 F L Pulse Rate 76 66 65 Respiratory Rate 20 20 16 Blood Pressure 153/96 H 152/99 H 132/84 Pulse Oximetry 98 98 99 04/29/18 20:00 04/30/18 00:00 04/30/18 03:08 Temperature 98.2 F 98 F Pulse Rate 60 69 Respiratory Rate 16 17 16 Blood Pressure 162/89 H 135/94 H Pulse Oximetry 96 98 04/30/18 07:42 04/30/18 08:45 Temperature 98.3 F Pulse Rate 63 49 L Respiratory Rate 16 Blood Pressure 156/96 H Pulse Oximetry 97 Intake & Output 04/29/18 04/30/18 04/30/18 18:59 06:59 18:59 Intake Total 1000 / 1000 3500 / 3500 Output Total 3175 / 3175 Balance 1000 / 1000 325 / 325 Weight 97.976 kg Intake: IV 1000 / 1000 1000 / 1000 NS Inj 1,000 ML @ 100 mls/hr IV 1000 / 1000 1000 / 1000 .CONT .Q10H ALEJA Rx#:[id number] Oral 2500 / 2500 Output: Urine 3175 / 3175 Other: # Voids 4 Date of Last Bowel Movement 04/26/18 - Constitutional no acute distress - Routine Respiratory Exam Present: CTA bilaterally - Routine Cardiovascular Exam Present: RRR - Routine Abdominal Exam Present: soft - Routine Extremities Exam Comments: no pedal edema. - Routine Neurological Exam Present: alert, oriented X3 Results - Labs CBC & Chem 7: 04/28/18 06:38 04/28/18 06:38 - Procedures 03/29/2018 Echocardiogram Normal left ventricular size. Mild concentric left ventricular hypertrophy. The left ventricular systolic function is normal with an estimated ejection fraction in the range of 60-65%. Mild pulmonary valve regurgitation. Assessment and Plan - Plan Patient is a 57-year-old male who apparently was police found him lying on the ground next to his walker in a parking lot. In the ED, he was positive for orthostatic hypotension. Orthostatic hypotension - Will refrain from using Metoprolol. No indication to use. - Continue NS infusion. - PT is following. Patient has some foot drop - will benefit from physical therapy in the outpatient setting. Chronic back pain - Toradol. Acute kidney injury- has resolved. Acute volume depletion- improved. Leukocytosis-resolved.This also is likely due to hemoconcentration. -No acute evidence of any infectious process. Full code. Ambulation. Discharge Planning: dc within the next 24 hrs-
[2018-05-01] MEDS: Sod Chloride 0.9% Inj 1,000 ML IV.CONT SCH ×3 (00:59→16:52)
--- NOTE | 2018-05-01 12:11 | P.PNIM ---
Subjective Interval history: in no acute distress. denies pain. awaiting PT reevaluation today. Physical Exam Vital signs: Vital Signs 04/30/18 16:00 04/30/18 19:40 05/01/18 04:00 Temperature 98.1 F 98.3 F 98.1 F Pulse Rate 70 72 62 Respiratory Rate 18 19 19 Blood Pressure 167/99 H 146/92 H 163/103 H Pulse Oximetry 97 96 97 05/01/18 08:00 Temperature 98.5 F Pulse Rate 70 Respiratory Rate 16 Blood Pressure 156/102 H Pulse Oximetry 93 L Intake & Output 04/30/18 05/01/18 05/01/18 18:59 06:59 18:59 Intake Total 1000 / 1000 3140 / 3140 Output Total 1800 / 1800 Balance 1000 / 1000 1340 / 1340 Weight 97.976 kg Intake: IV 1000 / 1000 1000 / 1000 NS Inj 1,000 ML @ 100 mls/hr IV 1000 / 1000 1000 / 1000 .CONT .Q10H ALEJA Rx#:[id number] Oral 2140 / 2140 Output: Urine 1800 / 1800 Other: # Voids 2 Date of Last Bowel Movement 04/26/18 - Constitutional no acute distress - Routine Respiratory Exam Present: CTA bilaterally - Routine Cardiovascular Exam Present: RRR - Routine Abdominal Exam Present: soft - Routine Extremities Exam Comments: no pedal edema. - Routine Neurological Exam Present: alert Results - Labs CBC & Chem 7: 04/28/18 06:38 04/28/18 06:38 - Procedures 03/29/2018 Echocardiogram Normal left ventricular size. Mild concentric left ventricular hypertrophy. The left ventricular systolic function is normal with an estimated ejection fraction in the range of 60-65%. Mild pulmonary valve regurgitation. Assessment and Plan - Plan Patient is a 57-year-old male who apparently was police found him lying on the ground next to his walker in a parking lot. In the ED, he was positive for orthostatic hypotension. Orthostatic hypotension - Will refrain from using Metoprolol. No indication to use. - Continue NS infusion. - PT is following. Patient has some foot drop - will benefit from physical therapy in the outpatient setting. Chronic back pain - Toradol. Acute kidney injury- has resolved. Acute volume depletion- improved. Leukocytosis-resolved.This also is likely due to hemoconcentration. -No acute evidence of any infectious process. Full code. Ambulation. Discharge Planning: dc within the next 24 hrs-pending PT re-evaluation.
[2018-05-02] MEDS: Sod Chloride 0.9% Inj 1,000 ML IV.CONT SCH ×3 (03:07→23:22)
--- NOTE | 2018-05-02 11:41 | P.PNIM ---
Subjective Interval history: in no acute distress. no new complaints. awaiting PT evaluation today. Physical Exam Vital signs: Vital Signs 05/01/18 12:00 05/01/18 15:00 05/01/18 16:00 Temperature 98.0 F 97.7 F Pulse Rate 65 70 Respiratory Rate 14 16 Blood Pressure 156/97 H 131/93 H 146/89 H Pulse Oximetry 95 96 05/01/18 20:00 05/01/18 23:48 05/02/18 04:00 Temperature 97.8 F 98.5 F 98.2 F Pulse Rate 66 64 74 Respiratory Rate 16 19 19 Blood Pressure 136/88 139/95 H 175/95 H Pulse Oximetry 98 98 94 L 05/02/18 08:00 Temperature 98.4 F Pulse Rate 67 Respiratory Rate 14 Blood Pressure 167/107 H Pulse Oximetry 97 Intake & Output 05/01/18 05/02/18 05/02/18 18:59 06:59 18:59 Intake Total 1000 / 1000 2200 / 2200 Output Total 1300 / 1300 1250 / 1250 Balance -300 / -300 950 / 950 Weight 97.976 kg Intake: IV 1000 / 1000 1000 / 1000 NS Inj 1,000 ML @ 100 mls/hr IV 1000 / 1000 1000 / 1000 .CONT .Q10H ALEJA Rx#:[id number] Oral 1200 / 1200 Output: Urine 1300 / 1300 1250 / 1250 Other: Weight On Admission 97.976 kg - Constitutional no acute distress - Routine Respiratory Exam Present: CTA bilaterally - Routine Cardiovascular Exam Present: RRR - Routine Abdominal Exam Present: soft - Routine Extremities Exam Comments: no pedal edema. - Routine Neurological Exam Present: alert, oriented X3 Results - Labs CBC & Chem 7: 04/28/18 06:38 04/28/18 06:38 - Procedures 03/29/2018 Echocardiogram Normal left ventricular size. Mild concentric left ventricular hypertrophy. The left ventricular systolic function is normal with an estimated ejection fraction in the range of 60-65%. Mild pulmonary valve regurgitation. Assessment and Plan - Plan Patient is a 57-year-old male who apparently was police found him lying on the ground next to his walker in a parking lot. In the ED, he was positive for orthostatic hypotension. Orthostatic hypotension- now has resolved. - Will refrain from using Metoprolol. No indication to use. - Continue NS infusion. - PT is following. Patient has some foot drop - will benefit from physical therapy in the outpatient setting. Chronic back pain - Toradol. Acute kidney injury- has resolved. Acute volume depletion- improved. Leukocytosis-resolved.This also is likely due to hemoconcentration. -No acute evidence of any infectious process. Full code. Ambulation. Discharge Planning: dc home - hopefully soon when safe with PT.
[2018-05-03] MEDS: Sod Chloride 0.9% Inj 1,000 ML IV.CONT SCH (08:51)
--- NOTE | 2018-05-03 11:02 | P.PNIM ---
Subjective Interval history: in no distress. clinically no change. Physical Exam Vital signs: Vital Signs 05/02/18 12:00 05/02/18 16:00 05/02/18 19:04 Temperature 97.9 F 98.6 F 99.7 F H Pulse Rate 73 70 79 Respiratory Rate 14 16 19 Blood Pressure 154/109 H 140/82 160/105 H Pulse Oximetry 97 96 100 05/02/18 20:00 05/02/18 23:03 05/03/18 03:10 Temperature 98.2 F 97.8 F Pulse Rate 63 64 Respiratory Rate 15 18 18 Blood Pressure 167/103 H 158/90 H Pulse Oximetry 94 L 96 05/03/18 07:22 05/03/18 09:05 Temperature 97.9 F Pulse Rate 65 62 Respiratory Rate 16 Blood Pressure 139/93 H Pulse Oximetry 94 L Intake & Output 05/02/18 05/03/18 05/03/18 18:59 06:59 18:59 Intake Total 1300 / 1300 1000 / 1000 1000 / 1000 Balance 1300 / 1300 1000 / 1000 1000 / 1000 Intake: IV 1000 / 1000 1000 / 1000 1000 / 1000 NS Inj 1,000 ML @ 100 mls/hr IV 1000 / 1000 1000 / 1000 1000 / 1000 .CONT .Q10H ALEJA Rx#:[id number] Oral 300 / 300 Oral Supplement 0 / 0 Other: # Voids 3 - Constitutional no acute distress - Routine Respiratory Exam Present: CTA bilaterally - Routine Cardiovascular Exam Present: RRR - Routine Abdominal Exam Present: soft - Routine Extremities Exam Comments: no pedal edema. - Routine Neurological Exam Present: alert, oriented X3 Results - Labs CBC & Chem 7: 04/28/18 06:38 04/28/18 06:38 - Procedures 03/29/2018 Echocardiogram Normal left ventricular size. Mild concentric left ventricular hypertrophy. The left ventricular systolic function is normal with an estimated ejection fraction in the range of 60-65%. Mild pulmonary valve regurgitation. Assessment and Plan - Plan Patient is a 57-year-old male who apparently was police found him lying on the ground next to his walker in a parking lot. In the ED, he was positive for orthostatic hypotension. Orthostatic hypotension- now has resolved. Vertigo-persistent - Will refrain from using Metoprolol. No indication to use. - received IV fluid. - PT is following. patient is at high risk for fall due to gait imbalance and generalized weakness-continue with PT daily. -will check MRI brain and consult Neurology. Acute kidney injury- has resolved. Acute volume depletion- improved. Leukocytosis-resolved.This also is likely due to hemoconcentration. -No acute evidence of any infectious process. Full code. Ambulation. Discharge Planning: discharge when safe with PT.
--- NOTE | 2018-05-03 15:52 | MR ---
EXAM DATE: 05/03/2018 1:08 PM EDT AGE/SEX: 57 years / Male INDICATIONS: Vertigo. CLINICAL DATA: This is the patient's initial encounter. Patient reports that signs and symptoms have been present for 2 days and indicates a pain score of 0/10. MEDICAL/SURGICAL HISTORY: Hypertension. Sepsis. Pneumonia. Tonsillectomy. COMPARISON: [facility] – [place], CT HEAD W/O CONTRAST, 04/26/2018. . TECHNIQUE: Multiplanar, multisequence examination of the brain was performed without and with 10 ml G adavist (gadobutrol) contrast as a single exam dose. FINDINGS: Cerebrum: The ventricles are normal for age. No evidence of midline shift, mass lesion, hemorrhage or acute infarction. No extraaxial fluid collections are seen. The pituitary gland and suprasellar cistern are normal in configuration. White Matter: A few scattered foci of bright T2 signal abnormalities are seen in the white matter. Posterior Fossa: The cerebellum and brainstem are intact. The 4th ventricle is midline. The cerebel lopontine angle is unremarkable. The cerebellar tonsils are normal in position. Diffusion Imaging: No focal areas of restricted diffusion are seen. No evidence of acute infarction . Extracranial: The visualized portions of the orbits and paranasal sinuses are unremarkable. Post Contrast: No abnormal areas of parenchymal or dural enhancement. No evidence of blood-brain ba rrier breakdown. CONCLUSION: 1. Minimal nonspecific white matter changes. 2. No acute infarction. Electronically signed by: Ibrahima Vazquez MD 05/03/2018 3:51 PM EDT
[2018-05-03] MEDS ORDERED: Gadobutrol PF 10 MMOL/10 ML Vial (for RAD) IV.SIG ONE (17:47)
--- NOTE | 2018-05-03 18:41 | US ---
EXAM DATE: 05/03/2018 12:00 AM EDT AGE/SEX: 57 years / Male INDICATIONS: Vertigo. CLINICAL DATA: This is the patient's initial encounter. Patient reports that signs and symptoms have been present for 1 day and indicates a pain score of 0/10. MEDICAL/SURGICAL HISTORY: Hypertension. Bipolar. Depression. Liver cirrhosis. Pneumonia. Tonsi llectomy. COMPARISON: No prior exams available for comparison. VELOCITY PARAMETERS: ICA/CCA Ratio: Right 0.6 , Left 0.7 ICA: Right 65 cm/sec, Left 56 cm/sec CCA: Right 110 cm/sec, Left 76 cm/sec ECA: Right 71 cm/sec, Left 67 cm/sec Vertebral: Right 63 cm/sec antegrade, Left 67 cm/sec antegrade FINDINGS: Right Carotid: No significant plaque is visualized.The waveforms are within normal limits. Left Carotid: No significant plaque is visualized. The waveforms are within normal limits. Other: None. CONCLUSION: 1. Right Internal Carotid Artery: Findings indicate <50% stenosis. 2. Left Internal Carotid Artery: Findings indicate <50% stenosis. Electronically signed by: Gordy Ortega MD 05/03/2018 6:39 PM EDT
--- NOTE | 2018-05-03 19:03 | MB ---
cc: Sigrid Paiz MD DATE: 05/03/2018 REASON FOR CONSULTATION: Vertigo, gait dysfunction. HISTORY OF PRESENT ILLNESS: This is a 57-year-old man with history of bipolar disorder, depression, hypertension, who came in after he was found down in the streets, weak. He states that he has been having some dizziness, vertigo. Every time he sits up, he feels lightheaded and everything is spinning for as long as he sits up. It does not get worse with turning over in bed. He also states that he has tingling in the fingers and the toes. He states this has been ongoing for a couple of weeks. PAST MEDICAL HISTORY: As stated. FAMILY HISTORY: Dementia and MS. SOCIAL HISTORY: He does not smoke per chart. Does not drink. No history of abuse per chart. MEDICATIONS: NONE. PHYSICAL EXAMINATION: VITAL SIGNS: Temperature 97.4, pulse 75, respiratory rate 20, blood pressure 153/101. Of note, apparently he was orthostatic when he came in. NECK: Supple. HEART: Regular. NEUROLOGIC: He is awake and alert. He is oriented. He is fluent. Pupils reactive. Visual melendez full. Face symmetric. Tongue midline. He does have some seborrheic dermatitis of the face. Motor kelly, he has normal tone. He does have a tremor of both hands, mild on [id number], but tone is normal. There is no Percy sign. 2+ reflexes. Strength is intact. No significant atrophy of the arms. Lower extremity strength antigravity without any significant weakness. He does exhibit what looks like a partial left foot drop. DTRs are 1-2+. Toes, he withdraws. Cerebellar, as stated, mild tremor on [id number] but no dysmetria. Gait cannot be assessed safely at this time. LABORATORY DATA: Reviewed. IMAGING: That he has had so far: MRI of the brain did not show anything acute, mild white matter changes. 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 IMPRESSION: Dizziness versus vertigo. Certainly there is a difference, but he states he has both, unlikely. I did not see any nystagmus. Can have physical therapy if they have not done or tried to do an Zulma maneuver. Will get an MRA of the [place] of [place], check his carotids, watch his telemetry. I will look at his C-spine. Will do some neuropathy labs. Get him out of bed with physical therapy daily, ambulate him. Apparently, he uses a rolling walker at baseline per physical therapy. Maintain hydration and depending on workup, further recommendations will be made accordingly. MD DONNA Boo/samara , 04:56 PM , 05:04 PM
[2018-05-03 22:31] LABS: Free T4 (Free Thyroxine) 0.95 ng/dL (0.76-1.46); Thyroid Stimulating Hormone 2.58 uIU/mL (0.358-3.740)
--- NOTE | 2018-05-04 08:55 | MR ---
EXAM DATE: 05/04/2018 7:04 AM EDT AGE/SEX: 57 years / Male INDICATIONS: Vertigo. CLINICAL DATA: This is the patient's initial encounter. Patient reports that signs and symptoms have been present for 2 days and indicates a pain score of 0/10. MEDICAL/SURGICAL HISTORY: Hypertension. Pneumonia. Sepsis. Tonsillectomy. COMPARISON: [facility] – [place], MR HEAD W & W/O CONTRAST, 05/03/2018. . TECHNIQUE: 3D [id number] MRA was performed. Source images, multiplanar STS MIP, and 3D volum e MIP reconstructions were reviewed. FINDINGS: There is excellent visualization of the major intracranial arteries out to the second-order branch ve ssels. There is no evidence for aneurysm, vessel truncation or stenosis, and no evidence for vascula r malformation. CONCLUSION: 1. Unremarkable MRA of the brain. Electronically signed by: Tramaine Rose MD 05/04/2018 8:54 AM EDT
--- NOTE | 2018-05-04 09:16 | MR ---
EXAM DATE: 05/04/2018 7:04 AM EDT AGE/SEX: 57 years / Male INDICATIONS: Vertigo. CLINICAL DATA: This is the patient's initial encounter. Patient reports that signs and symptoms have been present for 2 days and indicates a pain score of 0/10. MEDICAL/SURGICAL HISTORY: Hypertension. Tonsillectomy. COMPARISON: [facility] – [place], [place] CERVICAL SPINE W/O CONTRAST, 04/26/2018. . TECHNIQUE: Multiplanar, multisequence MRI examination of the cervical spine was performed without co ntrast. FINDINGS: Vertebrae: Normal vertebral body height. Homogeneous marrow signal. There are some mild degenerativ e changes involving mid to lower cervical spine. There is disc dehydration at all the levels. Alignment: Normal. Cord: Normal configuration and signal. Post Fossa: The cerebellar tonsils are normal in position. C2-C3: The thecal sac has a normal configuration. There is no evidence of disc herniation or spinal canal stenosis. The neural foramina are patent bilaterally. C3-C4: The thecal sac has a normal configuration. There is no evidence of disc herniation or spinal canal stenosis. The neural foramina are patent bilaterally. C4-C5: Focal mild to moderate central bulging. The neural foramina are patent bilaterally. C5-C6: Mild diffuse broad-based bulging. The neural foramina are patent bilaterally. C6-C7: Focal central bulging and left lateral bulging.. There is mild narrowing of the left neural f oramina. The right neural foramina is patent. C7-T1: No epidural impressions seen. No significant changes compared to the prior CT scan. CONCLUSION: 1. Mild primary degenerative changes involving the mid to lower cervical spine. 2. Focal mild to moderate central bulging C4-5. 3. Mild diffuse broad-based bulging C5-6. 4. Focal central bulging and left lateral bulging C6-C7. Electronically signed by: Tramaine Rose MD 05/04/2018 9:15 AM EDT
--- NOTE | 2018-05-04 11:15 | P.PNIM ---
Subjective Interval history: in no acute distress. no new complaints. d/w the RN. Physical Exam Vital signs: Vital Signs 05/03/18 11:28 05/03/18 16:37 05/03/18 20:00 Temperature 98.3 F 97.4 F L 98.5 F Pulse Rate 77 75 63 Respiratory Rate 16 20 17 Blood Pressure 135/99 H 153/101 H 132/88 Pulse Oximetry 97 96 98 05/03/18 23:44 05/04/18 03:30 05/04/18 09:00 Temperature 99 F 98 F Pulse Rate 54 L 56 L 66 Respiratory Rate 16 16 Blood Pressure 155/93 H 139/84 Pulse Oximetry 98 98 Intake & Output 05/03/18 05/04/18 05/04/18 18:59 06:59 18:59 Intake Total 1000 / 1000 560 / 560 Output Total 850 / 850 Balance 1000 / 1000 -290 / -290 Weight 97.976 kg Intake: IV 1000 / 1000 NS Inj 1,000 ML @ 100 mls/hr IV 1000 / 1000 .CONT .Q10H [facility] Rx#:[id number] Oral 560 / 560 Oral Supplement 0 / 0 Output: Urine 850 / 850 Other: Post Void Residual 0 # Voids 3 Date of Last Bowel Movement 04/26/18 04/26/18 - Constitutional no acute distress - Routine Respiratory Exam Present: CTA bilaterally - Routine Cardiovascular Exam Present: RRR - Routine Abdominal Exam Present: soft - Routine Extremities Exam Comments: no pedal edema. - Routine Neurological Exam Present: alert, oriented X3 Results - Labs CBC & Chem 7: 04/28/18 06:38 04/28/18 06:38 Laboratory Results - last 24 hr 05/03/18 05/03/18 05/03/18 20:25 20:35 20:35 ESR 17 Total Protein (PEP) 5.9 L Albumin (PEP) Cancelled Albumin/Globulin Ratio Cancelled Pwmdm-9-Lmlvznkgi Cancelled Dnshf-6-Nvxoeuyec Cancelled Beta Globulins Cancelled Gamma Globulins Cancelled PEP Pathologist Comment Cancelled Vitamin B12 546 TSH 2.580 Cancelled Free T4 0.95 RPR 05/03/18 20:35 ESR Total Protein (PEP) Albumin (PEP) Albumin/Globulin Ratio Rnitu-6-Weymjctli Jyimn-0-Qfirclwli Beta Globulins Gamma Globulins PEP Pathologist Comment Vitamin B12 TSH Free T4 RPR Nonreactive - Imaging Impressions Carotid Doppler Study 05/03/18 00:00 CONCLUSION: 1. Right Internal Carotid Artery: Findings indicate <50% stenosis. 2. Left Internal Carotid Artery: Findings indicate <50% stenosis. Head MRI 05/03/18 00:00 CONCLUSION: 1. Minimal nonspecific white matter changes. 2. No acute infarction. Cervical Spine MRI 05/04/18 07:04 CONCLUSION: 1. Mild primary degenerative changes involving the mid to lower cervical spine. 2. Focal mild to moderate central bulging C4-5. 3. Mild diffuse broad-based bulging C5-6. 4. Focal central bulging and left lateral bulging C6-C7. Head MRA 05/04/18 07:04 CONCLUSION: 1. Unremarkable MRA of the brain. - Procedures 03/29/2018 Echocardiogram Normal left ventricular size. Mild concentric left ventricular hypertrophy. The left ventricular systolic function is normal with an estimated ejection fraction in the range of 60-65%. Mild pulmonary valve regurgitation. Assessment and Plan - Plan Patient is a 57-year-old male who apparently was police found him lying on the ground next to his walker in a parking lot. In the ED, he was positive for orthostatic hypotension. Orthostatic hypotension- now has resolved. Vertigo-persistent - Will refrain from using Metoprolol. No indication to use. - received IV fluid. - PT is following. patient is at high risk for fall due to gait imbalance and generalized weakness-continue with PT daily. -MRI/MRA brain with no acute abnormality -neurology evaluation appreciated. Acute kidney injury- has resolved. Acute volume depletion- improved. Leukocytosis-resolved.This also is likely due to hemoconcentration. -No acute evidence of any infectious process. Full code. Ambulation. Discharge Planning: dc home today after seen by PT. see med list. d/w the patient, RN and case management.
--- NOTE | 2018-05-04 11:17 | P.DS ---
Date of admission: 04/27/18 14:16 Primary care physician: No Primary Care Physician Brief History from admission: Patient is a 57-year-old homeless male with a history of depression. The patient was brought into our emergency department after he was found down in the streets and appeared to be weak. The patient is a poor historian. He states that he was recently seen in the emergency department and was evaluated by the police today who brought him into the emergency department to be evaluated. He has been having very poor p.o. intake due to being homeless and not having money. He states that he nearly passed out and fell down 2 times while out in the streets. After questioning the patient he denies losing consciousness during those episodes. He denies having dysuria, no cough, no chest pain, no shortness of breath, no fevers or chills, no abdominal pain. DS: Medications - Discharge Medications Prescriptions: meclizine [Dramamine Less Drowsy] 25 mg PO TID PRN #14 tab PRN Reason: vertigo DS: Summary Hospital Course: patient was admitted with GAL. he received IV fluid and renal function improved. since he was complaining of vertigo, neurology consulted. MRI/MRA brain with no acute abnormality. he was evaluated by PT. - Time Spent with Patient Total time spent providing and/or coordinating discharge services: Less than 30 minutes - Quality: VTE Deep Vein Thrombosis/Pulmonary Embolism Present on Admission: No Exam Vital signs: Vital Signs 05/03/18 11:28 05/03/18 16:37 05/03/18 20:00 Temperature 98.3 F 97.4 F L 98.5 F Pulse Rate 77 75 63 Respiratory Rate 16 20 17 Blood Pressure 135/99 H 153/101 H 132/88 Pulse Oximetry 97 96 98 05/03/18 23:44 05/04/18 03:30 05/04/18 09:00 Temperature 99 F 98 F Pulse Rate 54 L 56 L 66 Respiratory Rate 16 16 Blood Pressure 155/93 H 139/84 Pulse Oximetry 98 98 Intake & Output 05/03/18 05/04/18 05/04/18 18:59 06:59 18:59 Intake Total 1000 / 1000 560 / 560 Output Total 850 / 850 Balance 1000 / 1000 -290 / -290 Weight 97.976 kg Intake: IV 1000 / 1000 NS Inj 1,000 ML @ 100 mls/hr IV 1000 / 1000 .CONT .Q10H [facility] Rx#:[id number] Oral 560 / 560 Oral Supplement 0 / 0 Output: Urine 850 / 850 Other: Post Void Residual 0 # Voids 3 Date of Last Bowel Movement 04/26/18 04/26/18 - Constitutional no acute distress - Routine Respiratory Exam Present: CTA bilaterally - Routine Cardiovascular Exam Present: RRR - Routine Abdominal Exam Present: soft - Routine Extremities Exam Comments: no pedal edema. - Routine Neurological Exam Present: alert, oriented X3 Results Procedures completed during hospitalization: 03/29/2018 Echocardiogram Normal left ventricular size. Mild concentric left ventricular hypertrophy. The left ventricular systolic function is normal with an estimated ejection fraction in the range of 60-65%. Mild pulmonary valve regurgitation. Labs on day of discharge: Labs from last 24 hours 05/03/18 05/03/18 05/03/18 20:35 20:35 20:35 ESR 17 Total Protein (PEP) 5.9 L Albumin (PEP) Cancelled Albumin/Globulin Ratio Cancelled Rxebn-9-Bizprkjsg Cancelled Gmgcr-0-Frmtizlsa Cancelled Beta Globulins Cancelled Gamma Globulins Cancelled PEP Pathologist Comment Cancelled Thiamine Vitamin B6 Vitamin B12 TSH Cancelled Free T4 [place] Screen Pending RPR Nonreactive 05/03/18 05/03/18 20:35 20:25 ESR Total Protein (PEP) Albumin (PEP) Albumin/Globulin Ratio Eymoo-6-Tisxbuqzp Teqex-2-Sokfhutxh Beta Globulins Gamma Globulins PEP Pathologist Comment Thiamine Pending Vitamin B6 Pending Vitamin B12 546 TSH 2.580 Free T4 0.95 [place] Screen RPR - Impressions ITS Impressions Head CT 04/26/18 19:26 CONCLUSION: Negative noncontrast head CT. . Cervical Spine CT 04/26/18 19:28 CONCLUSION: 1. Intact cervical spine. 2. Degenerative changes as above without significant foraminal or spinal stenosis. Carotid Doppler Study 05/03/18 00:00 CONCLUSION: 1. Right Internal Carotid Artery: Findings indicate <50% stenosis. 2. Left Internal Carotid Artery: Findings indicate <50% stenosis. Head MRI 05/03/18 00:00 CONCLUSION: 1. Minimal nonspecific white matter changes. 2. No acute infarction. Cervical Spine MRI 05/04/18 07:04 CONCLUSION: 1. Mild primary degenerative changes involving the mid to lower cervical spine. 2. Focal mild to moderate central bulging C4-5. 3. Mild diffuse broad-based bulging C5-6. 4. Focal central bulging and left lateral bulging C6-C7. Head MRA 05/04/18 07:04 CONCLUSION: 1. Unremarkable MRA of the brain. Discharge Plan - Discharge Disposition Patient Disposition: 01 Discharge Home - Discharge Condition Condition: Fair - Discharge Details Discharge Comment: Patient is unsafe to be discharged, was accepted Dr. Nina for admission to observation. - Physicians Team Primary Care Provider: Primary Care Sheron Bernal Attending Provider: Donna Baumann Other Providers: [facility]ith ; Sigrid Paiz MD
--- NOTE | 2018-05-04 11:20 | P.DCO ---
- Physical Therapy Order: Evaluate and treat - Case Management Consult Yes - Certification I have seen patient Joe Serna on 05/04/18. My clinical findings support the need for the requested home health care services because: Limited mobility due to disease progression I certify that my clinical findings support that this patient is homebound because: Unsteady gait/balance
[2018-05-04 11:26] VITALS: BP 145/93; RESP 18; TEMP 97.7; O2SAT 97
[2018-05-04 11:30] VITALS: PULSE 68
[2018-05-05 15:44] LABS: Anti-Nuclear Antibody Screen Neg (Neg)
== END 2018-05-04 15:38 | disposition home or self-care (01) ==
LOC: NEDA 17:49 → NEPC 17:49 → NEDA 04-27 14:19 → NEPGCP 04-27 14:33
PROVIDERS: ADMIT Internal Medicine; ATTEND Internal Medicine